=== PATIENT | female | born 1940 | race Caucasian/White ===

== ENCOUNTER 2022-12-12 12:35 | Emergency (ER) | payer OTHER ==
--- OUTSIDE RECORDS SUMMARY | 2022-12-12 12:43 | XMS REPORT | Continuity of Care Document ---
:1940 Author Organization [facility] t Address [address] [place] [address] Care Team Providers Name Role Phone Jasmina OLVERA, Coco Sahu Primary Care Physician Atilio Snider Attending Clinician Unavailable Britta Attending Clinician Unavailable Daniel_Calvin Attending Clinician Unavailable Mathbridget_E_WACHERELLENU Attending Clinician Unavailable Ernestoren_Rissa Attending Clinician Unavailable Nworji_O_WAG Attending Clinician Unavailable Abreu_A Attending Clinician Unavailable Atilio Snider Admitting Clinician Unavailable Physician, No Primary or Family Admitting Clinician Unavaila ble Britta Admitting Clinician Unavailable Daniel_T Admitting Clinician Unavailable Chema_E_GEMININU Admitting Clinician Unavailable Ernestoren_C Admitting Clinician Unavailable Nworji_O_WAG Admitting Clinician Unavailable Abreu_A Admitting Clinician Unavailable Payers Payer Name Policy Type Policy Number Effective Date Expiration Date Edith SIEGEL (MEDICARE [id number] 2021 REPLACEMENT PPO) 00:00:00 TRANSACT RX (MOVED #[id number] HOLD) Problems Condition Condition Condition Status Onset Resolution Last Treating Co mments Source Name Details Category Date Date Treatment Clinician Date Hypoglycem Hypoglycem Problem Active [facility] ia ia 5-23 Family 00:00: Practic 00 e Body mass Body Mass Problem Active [facility] borrego index Index 5-23 Family 25-29 - 25-29 - 00:00: Practic overweight Overweight 00 e Generalize Generalize Problem Active [facility] d anxiety d Anxiety 5-19 Fami ly disorder Disorder 00:00: Practi c 00 e Chronic Chronic Problem Active [facility] kidney Kidney 3-05 Family disease Disease 00:00: Practic stage 3A Stage 3a 00 e Diverticul Diverticul Problem Active [facility] itis itis 6-15 Family 00:00: Practic 00 e Arthritis Arthritis Problem Active [facility] wyatte 6-15 Family 00:00: Practic 00 e History of History of Problem Active [facility] fall Fall 6-15 Family 00:00: Practic 00 e Candidiasi Candidiasi Problem Active [facility] s of mouth s of Mouth 5-11 Fa reid 00:00: Practic 00 e Gastroesop Gastroesop Problem Active [facility] hageal hageal 4-29 Family reflux Reflux 00:00: Practic disease Disease 00 e Gastritis Gastritis Problem Active [facility] [place] 4-29 Family 00:00: Practic 00 e History of History of Problem Active [facility] hernia Hernia 2-27 Family repair Repair 00:00: Practic 00 e Senile Senile Problem Active [facility] purpura Purpura 2-24 Family 00:00: Practic 00 e Peripheral Peripheral Problem Active [facility] vascular Vascular 2-24 Family disease Disease 00:00: Practic 00 e Hernia, Hernia, Disease Active [facility] hiatal hiatal [facility] 00:00: Hospita 00 l 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 LFT FEMUR LFT FEMUR Diagnosis Active 2012-052013-02-21 Memoria FX FX Active 0 21:48:00 l 02/10/2013 00:00: Genaro wilson [address] FALL FALL Diagnosis Active 2012-052013-02-10 Mem oria Active 0 21:41:00 l 02/10/2013 00:00: Genaro wilson [address] FX FEMUR FX FEMUR Diagnosis Active 2013-02-21 Memoria NOS-CLOSED NOS-CLOSED 21:48:00 l Active [facility] Hyperlipid Hyperlipid Problem Active [facility] e Hypertensi Hypertensi Problem Active [facility] ve ve Family disorder Disorder Practi c e Closed Closed Problem Active [place] fracture Fracture Family of femur of Femur Practi c e Allergies, Adverse Reactions, Alerts Allergy Allergy Status Severity Reaction(s) Onset Inactive Treating Comm ents Source Name Type Date Date Clinician celecoxi DA Active U 2019-0 [facility] [place] 00:[facility]: e 00 [facility] celecoxi DA Active [facility]KNOWN [facility] Celecoxi Propensi Active Rash [facility] i b ty to 30 st adverse 00:00: Hospita reaction 00 l s to drug No Known DA Active U [facility] Allergie 9-08 [place] [facility] 00:[facility]: e 00 [facility] No Known DA Active U [facility] Allergie 9-08 [place] 00:00: e 00 [facility] No Known DA Active U [facility] Drug 6-15 [place] [facility] 00:00: e nces 00 [facility] Celebrex Allergy Active [facility] sub[facility]anc Practic e e Ansaid Allergy Active [place] [facility] Family substanc Practic e e Family History Family Member Diagnosis Comments Start Date Stop Date Source Natural father Diabetes [facility] Natural [facility] Social History Social Habit Start Date Stop Date Quantity Comments Source Gender identity [facility] Alcohol intake 2019-06-05 2019-06-05 Current [facility] 00:00:00 00:00:00 non-drinker of Hospital alcohol (finding) History of Social 2019-05-26 2019-05-[address] function 00:00:00 00:00:00 Hospital Tobacco use and 2017-02-08 2017-02-08 Smokeless [facility] exposure 00:00:00 00:00:00 tobacco non-user Hospital Sex Ass[birth year] At [birth year] [facility] 00:00:00 00:00:00 Hospital Smoking Status Start Date Stop Date Source Never smoked tobacco [facility] Medications Ordered Filled Start Stop Current Ordering Indication Dosage Frequency Signature Comments Components Source Medication Medication Date Date Medication? Clinician (SIG) Name Name amlodipine- 2020-0 Yes 1{capsu QD Take 1 M ethodi benazepril 1-30 le} capsule by st (LOTREL) 12:59: mouth Hospita 10-20 mg 11 daily. l per capsule metoprolol 2020-0 Yes 100mg QD Take 100 Me thodi succinate 1-[address] XL 12:59: mouth Hospita (TOPROL-XL) 11 daily. l 100 mg 24 hr tablet aspirin 2020-0 Yes 81mg QD Take 81 mg Meth michelle (ECOTRIN) 1-[address] 81 MG 12:59: daily. Hospita enteric 11 l coated tablet atorvastati 2020-0 Yes 10mg QD Take 10 mg Methodi n (LIPITOR) 1-[address] 10 MG 12:59: daily. Hospita tablet 11 l ergocalcife 2020-0 Yes [id number] Q7D Take Meth michelle rol 1-[address] (VITAMIN 12:59: Units by Hospi ta D2) 50,000 11 mouth once l unit a week. capsule sodium 2020-0 Yes 1[drp] Administer Met hodi chloride 1-[address] (GERMAIN 128) 12:59: into the Hos reina 5 % 11 left eye l ophthalmic as needed. solution omeprazole 2020-0 Yes 40mg QD Take 40 mg M ethodi (PriLOSEC) 1-[address] 20 MG 12:59: daily. Hospita capsule 11 l cranberry 2020-0 Yes Take by Metho di 500 mg 1-[address] capsule 12:59: Hospita 11 l prednisoLON 2020-0 Yes 1[drp] QD Administer Methodi E acetate 1-[address] (PRED 12:59: the right Hospita FORTE) 1 % 11 eye daily. l ophthalmic suspension metoprolol 2012-05 No Cary 25 mg, 1 M emoria tartrate 0-28 Stein tab, l 23:55: Route: PO, Drug form: TAB, ONCE, Dosing Weight 86.364, kg, Start date: 03/03/13 18:55:00, Stop date: 03/03/13 18:55:00(S deann as: Lopressor) acetaminoph 2012-05 No Sara 1,000 mg, Memoria en-10 mg/mL 0- Stevens 100 mL, l INTRAVENOUS 22:37: Route: IV, solution Drug form: INJ, ONCE, Dosing Weight 86.364, kg, PRN Pain Score 4-6, Start date: 03/03/13 17:37:00, Duration: 1 doses or times, Stop date: Limited # of times, Infuse over 15 minutes (for patient weight 50 kg or greater)In fuse over 15 minutes (for patient weight 50 kg or greater)In fuse over 15 minutes Do not exceed 4gm/day of acetaminop hen enalapril 2012-05 No Sara 0.625 mg, M emoria 0-28 Stevens 0.5 mL, l 22:37: Route: IVP, Drug form: INJ, Q5Min, Dosing Weight 86.364, kg, PRN Elevated BP, Start date: 03/03/13 17:37:00, Duration: 4 doses or times, Stop date: 03/04/13 0:00:00([facility] as: Vasotec-IV ) labetalol 2012-05 No Sara 5 mg, 1 Mem oria 0-28 Stevens mL, Route: l 22:37: IVP, Drug form: INJ, Q5Min, Dosing Weight 86.364, kg, PRN Elevated BP, Start date: 03/03/13 17:37:00, Duration: 5 doses or times, Stop date: 03/04/13 0:00:00 naloxone 2012-05 No Sara 0.04 mg, Mem oria 0-28 Stevens 0.1 mL, l 22:37: Route: IVP, Drug form: INJ, Q2MIN, Dosing Weight 86.364, kg, PRN Narcotic Reversal, Start date: 03/03/13 17:37:00, Duration: 8 doses or times, Stop date: 03/04/13 0:00:00Sam e as Narcan flumazenil 2012-05 No Sara 0.2 mg, 2 Memoria 0-28 Stevens mL, Route: l 22:37: IVP, Drug Faisal 00 form: INJ, PRN, Dosing Weight 86.364, kg, PRN Benzodiaze pine Reversal, Initial dose, Start date: 03/03/13 17:37:00, Duration: 30 day, Stop date: 04/02/13 16:36:00(S deann as: Romazicon) Tylenol 325 2012-05 Yes Anam 325 mg, 1 Memoria mg oral 0-28 Edison tab, PO, l tablet 22:24: Eliazar Q4H, PRN, Her paez 02 60 tab, Pain, Substituti on Allowed Keflex 500 2012-05 Yes Anam 500 mg, 1 Memoria mg oral 0-28 Edison cap, PO, l capsule 22:23: Eliazar QID, 28 Herm nila 32 cap, Substituti on Allowed, CAP omeprazole 2012-05 Yes 20 mg, 1 Mem oria 20 mg oral 0-28 tab, PO, l enteric 18:30: BID, 120 Genaro n coated 48 tab, tablet Substituti on Allowed, ECTAB warfarin 2012-05 No Zari H 5 mg, 1 Mich ana 0-14 Khraish tab, l 22:00: Route: PO, Drug form: TAB, ONCE, Dosing Weight 98.182, kg, Start date: 02/17/13 17:00:00, Stop date: 02/17/13 17:00:00Nu rse to ensure documentat ion of patient education per anticoagul ation policy. Avoid large intake of vitamin-K containing foods diet. (Same As: Coumadin) warfarin 5 2012-05 Yes Zari H 5 mg, 1 Me moria mg oral 0-14 Khraish tab, PO, l tablet 19:55: Q5PM, 30 [place] 24 tab, Substituti on Allowed, TAB enoxaparin 2012-05 Yes Zari H 100 mg, 1 Memoria 100 mg/mL 0-14 Khraish mL, SUB-Q, l subcutaneou 19:55: [id number], H ermann s solution 06 > 2 month; Treatment dose; Pediatric Dosing, 10 doses or times, Substituti on Allowed, INJ 2 month; Treatment dose; Pediatric Dosing Coumadin 2012-05 No Belgin 5 mg, 1 Mich ana 0-13 Camcioglu tab, l 22:00: Route: PO, Faisal 00 Drug form: TAB, Q5PM, Dosing Weight 98.182, kg, Start date: 02/16/13 17:00:00, Duration: 1 doses or times, Stop date: 02/17/13 16:59:00 glycerin 2012-05 No Zari H 1 supp, Mich ana adult 0-12 Khraish Route: AL, l rectal 22:16: Drug Form: Janelle nn suppository 00 SUPP, Dosing Weight 98.182, kg, PRN, PRN Constipati on, Start date: 02/15/13 17:16:00, Duration: 30 day, Stop date: 03/17/13 16:15:00 warfarin 2012-05 No Zari H 5 mg, 1 Mich ana 0-12 Khraish tab, l 22:00: Route: PO, Drug form: TAB, Q5PM, Dosing Weight 98.182, kg, Start date: 02/15/13 17:00:00, Duration: 1 doses or times, Stop date: 02/15/13 17:00:00Nu rse to ensure documentat ion of patient education per [facility] policy. Avoid large intake of vitamin-K containing foods diet. (Same As: Coumadin) potassium 2012-05 No Zari H 10 mEq, 50 Memoria chloride 0-12 Khraish mL, Route: l 20:59: IVPB, Drug form: INJ, ONCE, Dosing Weight 98.182, kg, Start date: 02/15/13 15:59:00, Stop date: 02/15/13 15:59:00 NS 0.45% IV 2012-05 No [place] 1,000 mL, Memoria 1,000 mL 0-12 Camcioglu Rate: 40 l 20:57: ml/hr, Infuse over: 25 hr, Route: IV, Dosing Weight 98.182 kg, Total Volume: 1,000, Start date: 02/15/13 15:57:00, Duration: 30 day, Stop date: 03/17/13 15:56:00 lactulose 2012-05 No Zari H 30 gm, 45 M emoria 0-12 Khraish mL, Route: l 20:51: PO, Drug [place] 00 Form: SYRP, Dosing Weight 98.182, kg, QID, PRN Constipati on, Start date: 02/15/13 15:51:00, Duration: 30 day, Stop date: 03/17/13 15:50:00 Tums 2012-05 No Zari H 1,250 mg, Memori a 0-12 Khraish 2.5 tab, l 18:00: Route: PO, [place] 00 Drug form: CHEWTAB, TID, Dosing Weight 98.182, kg, Start date: 02/15/13 13:00:00, Duration: 30 day, Stop date: 03/17/13 9:00:00 lactulose 2012-05 No Zari H 10 gm, 15 M emoria 0-12 Khraish mL, Route: l 15:50: PO, Drug Form: SYRP, Dosing Weight 98.182, kg, ONCE, Start date: 02/15/13 10:50:00, Stop date: 02/15/13 10:50:00 Lovenox 2012-05 No Zari H 100 mg, 1 Mem oria 0-12 Khraish mL, Route: l 15:00: SUB-Q, Faisal 00 Drug form: INJ, [id number], Dosing Weight 98.182, kg, Start date: 02/15/13 10:00:00, Duration: 30 day, Stop date: 03/16/13 22:00:00, > 2 month; Treatment dose; Pediatric Dosing 2 month; Treatment dose; Pediatric DosingNurs e to ensure documentat ion of patient education per [facility] ation policy. (Same as: Lovenox) calcium 2012-05 No Aj Leo 2,000 mg, Memoria gluconate + 0-12 Bayonne Jr 20 mL, l Sodium 10:40: Route: [place] Chloride 00 IVPB, 0.9% IV 80 ONCE, mL Dosing Weight 98.182, kg, Start date: 02/15/13 5:40:00, Stop date: 02/15/13 5:40:00 acetaminoph 2012-05 No Zari H 650 mg, 2 Memoria en 0-11 Khraish tab, l 18:11: Route: PO, Faisal 00 Drug form: TAB, Q6H, Dosing Weight 98.182, kg, PRN Fever, Start date: 02/14/13 13:11:00, Duration: 30 day, Stop date: 03/16/13 13:10:00Do not exceed 4 gm/day. (Same as: Tylenol) metoprolol 2012-05 No Zari H 50 mg, 1 M emoria tartrate 0-11 Khraish tab, l 02:00: Route: PO, [place] 00 Drug form: TAB, Q12H, Dosing Weight 83.182, kg, Start date: 02/13/13 21:00:00, Duration: 30 day, Stop date: 03/15/13 9:00:00(Sa md as: Lopressor) heparin 2012-05 Rachelle Leo Route: Mem oria 0-11 Anish Jr IVP, PRN, l 01:17: 5,800 Faisal 00 unit, 5.8 mL, Drug form: INJ, PRN, Heparin Protocol, Start date: 02/13/13 20:17:00 Stop date: 03/15/13 19:16:00, 30 day Heparin - 2012-05 Rachelle Leo 5,800 Me moria one time 0-11 Anish Jr unit, 5.8 l bolus for 01:17: mL, Route: rmann DVT/PE 00 IV, Drug form: INJ, ONCE, Dosing Weight 83.182, kg, Priority: STAT, Start date: 02/13/13 20:17:00, Stop date: 02/13/13 20:17:00 heparin 2012-05 No Zari H 500 mL, Memor ia additive 0-11 Khraish Rate: l 25,000 unit 01:17: 25.96 Janelle nn [18 00 ml/hr, unit/kg/hr] Infuse + Premix over: 19.3 Diluent hr, Route: Dextrose 5% IV, Dosing 500 mL Weight 72.1 kg, Total Volume: 500 mL, Start date: 02/13/13 20:17:00, Duration: 30 day, Stop date: 03/15/13 20:16:00 Omnipaque 2012-05 No Zari H 95 mL, Mich ana 350mg/ml 0-10 Khraish Route: l 21:50: IVP, Drug Form: SOLN, Dosing Weight 83.182, kg, ONCALL, STAT, Start date: 02/13/13 16:50:00, Duration: 1 doses or times, Stop date: 02/14/13 0:00:00, Dose = 2.2ml/kg, Max dose = 100ml -- "To be infused by Radiology Staff ONLY"Dose = 2.2ml/kg, Max dose = 100ml -- "To be infused by Radiology Staff ONLY"(Same as:Omnipaq ue 350). NS 1,000 mL 2012-05 No Zari H 1,000 mL, Memoria 0-10 Khraish Rate: 75 l 21:48: ml/hr, Infuse over: 13.3 hr, Route: IV, Dosing Weight 83.182 kg, Total Volume: 1,000, Start date: 02/13/13 16:48:00, Duration: 30 day, Stop date: 03/15/13 16:47:00 Phenergan 2012-05 No Zari H 12.5 mg, Me moria 0-10 Khraish 0.5 mL, l 17:09: Route: IVPB, Drug form: INJ, Q4H, Dosing Weight 83.182, kg, PRN Nausea & Vomiting, Start date: 02/13/13 12:09:00, Duration: 30 day, Stop date: 03/15/13 12:08:00Do not give IV push. (Same as: Phenergan) benzocaine- 2012-05 No Aj Leo 1 lozenge, Memoria menthol 0-10 Anish Route: l topical 04:43: MUCOUS MEM, Drug Form: KIRIT, Q2H, PRN Sore Throat, Start date: 02/12/13 23:43:00, Duration: 30 day, Stop date: 03/14/13 23:42:00Ce pacol lozenges (Same As: Cepacol Lozenges) Cepacol 2012-05 No Aj Ahmet 1 lozenge, Memoria Lozenge 0-10 [facility] Route: l 02:06: MUCOUS [place] 00 MEM, Q2H, Drug form: KIRIT, PRN Sore Throat, Start date: 02/12/13 21:06:00, Duration: 30 day, Stop date: 03/14/13 21:05:00Ce pacol lozenges (Same As: Cepacol Lozenges) [place] 2012-05 No Zari H 1 tab, Memoria 10/325 oral 0-09 Khraish Route: PO, l tablet 17:00: Drug Form: Janelle nn 00 TAB, Dosing Weight 83.182, kg, Q6H, Start date: 02/12/13 12:00:00, Duration: 30 day, Stop date: 03/14/13 6:00:00Do not exceed 4gm/day of acetaminop hen. (Same as: [place] 325/10) Zofran 2012-05 No [place] 4 mg, 2 Memoria 0-09 Marcelino mL, Route: l 14:03: Nesrsta IV, Drug Genaro n 00 form: INJ, Q6H, Dosing Weight 83.182, kg, PRN Nausea, Start date: 02/12/13 9:03:00, Duration: 30 day, Stop date: 03/14/13 9:02:00(Sa me as: Zofran) [place] 2012-05 No Lowell 1 tab, Memoria 10/325 oral 0-09 Marcelino Route: PO, l tablet 14:02: Nesrsta Drug Form: He rmann 00 TAB, Dosing Weight 83.182, kg, Q4H, PRN Pain, Start date: 02/12/13 9:02:00, Duration: 30 day, Stop date: 03/14/13 9:01:00Do not exceed 4gm/day of acetaminop hen. (Same as: [place] 325/10) pneumococca 2012-05 No SYSTEM 0.5 ml, M emoria l 23-valent 0-09 SYSTEM Route: IM, l vaccine 14:00: Drug Form: Herm nila 00 INJ, Start date: 02/12/13 9:00:00, Stop date: 02/12/13 9:00:00 tramadol 50 2012-05 No Zari H 50 mg, 1 Memoria mg oral 0-09 Khraish tab, l tablet 05:00: Route: PO, Janelle nn 00 Drug form: TAB, Q8H, Dosing Weight 83.182, kg, Start date: 02/12/13 0:00:00, Duration: 30 day, Stop date: 03/13/13 16:00:00No t to exceed 400mg/day. (Same As: Ultram) senna 2012-05 No Sara 17.2 mg, 2 Mem oria 0-09 Kerry tab, l 02:00: [place] Route: PO, Her paez 00 Drug Form: TAB, Dosing Weight 83.182, kg, Bedtime, Start date: 02/11/13 21:00:00, Duration: 30 day, Stop date: 03/12/13 21:00:00 cefazolin + 2012-05 No Conor 2 gm, M emoria Sodium 0-09 Newcomer Route: l Chloride 01:00: Rc IVPB, Drug Faisal 0.9% IV 100 00 form: mL PDR/INJ, ABXQ8H, Start date: 02/11/13 20:00:00, Duration: 1 day, Stop date: 02/12/13 12:00:00(S deann As: Ancef, Kefzol) Tylenol 2012-05 No [place] 325 mg, 1 Memor ia 0-08 Marcelino tab, l 23:00: Nesrsta Route: PO, Herm nila 00 Drug form: TAB, Q6H, Dosing Weight 83.182, kg, Start date: 02/11/13 18:00:00, Duration: 30 day, Stop date: 03/13/13 12:00:00Do not exceed 4 gm/day. (Same as: Tylenol) Protonix 2012-05 No Preston 40 mg, 1 Mem oria 0-08 William tab, l 21:30: Ahmed Route: PO, Genaro n 00 Drug form: ECTAB, Before Dinner, Start date: 02/11/13 16:30:00, Duration: 30 day, Stop date: 03/12/13 16:30:00Ta blet should not be chewed or crushed. (Same as: Protonix) Clear eyes 2012-05 Yes Clear eyes M emoria ophthalmic 0-08 ophthalmic l solution 21:06: solution, Herm nila 37 PRN, Substituti on Allowed Germain 128 5% 2012-05 Yes PRN, Memori a ophthalmic 0-08 Substitute l solution 21:05: Allowed Genaro n 33 multivitami 2012-05 Yes 1 tab, PO, Memoria n 0-08 Daily, l 21:04: Substituti Faisal 10 on Allowed, Maintenanc e Ancef 2012-05 No Conor 2 gm, Memoria 0-08 Newcomer Route: l 20:00: Rc IVPB, [place] 00 ABXQ8H, Dosing Weight 83.182, kg, Start date: 02/11/13 15:00:00, Duration: 1 day, Stop date: 02/12/13 7:00:00 influenza 2012-05 No SYSTEM 0.5 mL, Mem oria virus 0-08 SYSTEM Route: IM, l vaccine, 14:00: Drug Form: Her paez inactivated 00 SUSP, Start date: 02/11/13 9:00:00, Stop date: 02/11/13 9:00:00 senna 2012-05 No Sara 17.2 mg, 2 Mem oria 0-08 Kerry tab, l 14:00: [place] Route: PO, Her paez 00 Drug Form: TAB, Dosing Weight 83.182, kg, Daily, Start date: 02/11/13 9:00:00, Duration: 30 day, Stop date: 03/12/13 9:00:00([facility] as: Senokot) benazepril 2012-05 No Sara 20 mg, Me moria 0-08 Kerry Route: PO, l 14:00: [place]ner Drug form: Her paez 00 TAB, Daily, Dosing Weight 83.182, kg, Start date: 02/11/13 9:00:00, Duration: 30 day, Stop date: 03/12/13 9:00:00 Prinivil 2012-05 No Zari H 20 mg, 1 Mem oria 0-08 Khraish tab, l 14:00: Route: PO, [place] 00 Drug form: TAB, Daily, Start date: 02/11/13 9:00:00, Duration: 30 day, Stop date: 03/12/13 9:00:00 metoprolol 2012-05 No Zari H 50 mg, 1 M emoria tartrate 0-08 Khraish tab, l 14:00: Route: PO, Drug form: TAB, Q12H, Dosing Weight 83.182, kg, Start date: 02/11/13 9:00:00, Duration: 30 day, Stop date: 03/12/13 21:00:00 Lovenox 2012-05 No Aj Ahmet 30 mg, 0.3 Memoria 0-08 Bayonne Jr mL, Route: l 14:00: SUB-Q, Drug form: INJ, Q12H, Dosing Weight 83.182, kg, Start date: 02/11/13 9:00:00, Duration: 30 day, Stop date: 03/12/13 21:00:00(S deann as: Lovenox) amLODipine 2012-05 No Zari H 5 mg, 1 Me moria 0-08 Khraish tab, l 14:00: Route: PO, Drug form: TAB, Daily, Dosing Weight 83.182, kg, Start date: 02/11/13 9:00:00, Duration: 30 day, Stop date: 03/12/13 9:00:00(Sa me as: Norvasc) Toprol-XL 2012-05 No Sara 100 mg, 1 Memoria 100 mg oral 0-08 Kerry tab, l tablet, 14:00: [place]ner Route: PO, extended Drug form: release ERTAB, Daily, Start date: 02/11/13 9:00:00, Duration: 30 day, Stop date: 03/12/13 9:00:00(Sa me as: Toprol XL) May split tab, but do not crush. Zetia 2012-05 No Zari H 10 mg, 1 Memori a 0-08 Khraish tab, l 14:00: Route: PO, Drug form: TAB, Daily, Dosing Weight 83.182, kg, Start date: 02/11/13 9:00:00, Duration: 30 day, Stop date: 03/12/13 9:00:00(Sa me as: Zetia) Nexium 2012-05 No Preston 40 mg, Memoria 0-08 William Route: PO, l 14:00: Ahmed Drug form: Genaro n 00 ECCAP, Daily, Dosing Weight 83.182, kg, Start date: 02/11/13 9:00:00, Duration: 30 day, Stop date: 03/12/13 9:00:00 magnesium 2012-05 No Sara 2 gm, 50 M emoria sulfate 0-08 Kerry mL, Route: l 13:00: P[place]ner IVPB, Drug Her paez 00 form: INJ, Q2H, Dosing Weight 83.182, kg, Total dose = 4 gm, Start date: 02/11/13 8:00:00, Duration: 2 doses or times, Stop date: 02/11/13 10:00:00 morphine 2012-05 No Lowell 2 mg, 1 Memori a Sulfate 0-08 Marcelino mL, Route: l 05:20: Nesrsta IVP, Drug Janelle nn 00 form: INJ, Q3H, Dosing Weight 83.182, kg, PRN Pain Score 4-6, Start date: 02/11/13 0:20:00, Duration: 30 day, Stop date: 03/13/13 0:19:00(Sa me as:MORPhin e Sulfate) docusate 2012-05 No Preston 100 mg, 1 Me moria 0-08 William cap, l 05:20: Ahmed Route: PO, Genaro n 00 Drug form: CAP, BID, Dosing Weight 83.182, kg, Start date: 02/11/13 0:20:00, Duration: 30 day, Stop date: 03/12/13 17:00:00(S deann as: Colace) (Do Not Crush) ondansetron 2012-05 No Lowell 4 mg, 2 Mem oria 0-08 Marcelino mL, Route: l 05:20: Nesrsta IVP, Drug Janelle nn 00 form: INJ, Q8H, Dosing Weight 83.182, kg, PRN Nausea & Vomiting, Start date: 02/11/13 0:20:00, Duration: 30 day, Stop date: 03/13/13 0:19:00(Sa me as: Zofran) acetaminoph 2012-05 No Lowell 1 tab, Mich ana en-hydrocod 0-08 Marcelino Route: PO, l one 325 05:20: Nesrsta Drug Form: H ermann mg-5 mg 00 TAB, oral tablet Dosing Weight 83.182, kg, Q4H, PRN Pain Score 1-3, Start date: 02/11/13 0:20:00, Duration: 30 day, Stop date: 03/13/13 0:19:00(Sa me as: [place] 325/5) Do not exceed 4gm/day of acetaminop hen. acetaminoph 2012-05 No Lowell 1 tab, Mich ana en-hydrocod 0-08 Marcelino Route: PO, l one 325 05:20: Nesrsta Drug Form: H ermann mg-10 mg 00 TAB, oral tablet Dosing Weight 83.182, kg, Q4H, PRN Pain Score 4-6, Start date: 02/11/13 0:20:00, Duration: 30 day, Stop date: 03/13/13 0:19:00Do not exceed 4gm/day of acetaminop hen. (Same as: [place] 325/10) aspirin 2012-05 No 81 mg, PO, Mich ana 0-08 Daily, l 05:15: Substituti [place] 57 on Allowed Nexium 40 2012-05 Yes Preston 40 mg, 1 Me moria mg oral 0-08 William cap, PO, l delayed 05:15: Ahmed Daily, 30 Herm nila release 50 cap, capsule Substituti on Allowed Zetia 10 mg 2012-05 Yes Preston 10 mg, 1 Memoria oral tablet 0-08 William tab, PO, l 05:15: Ahmed Daily, 30 Faisal 40 tab, Substituti on Allowed, TAB amlodipine- 2012-05 Yes 1 cap, PO, Memoria benazepril 0-08 Daily, 30 l 5 mg-20 mg 05:15: cap, Faisal oral 31 Substituti capsule on Allowed, Maintenanc e Toprol-XL 2012-05 Yes Preston 100 mg, 1 M emoria 100 mg oral 0-08 William tab, PO, l tablet, 05:15: Ahmed Daily, 30 Herm nila extended 19 tab, release Substituti on Allowed, ERTAB ondansetron 2012-05 No Irma L 4 mg, Memoria 0-08 Garett Route: l 05:11: IVP, Drug Faisal 00 form: INJ, ONCE, Dosing Weight 83.182, kg, Start date: 02/11/13 0:11:00, Stop date: 02/11/13 0:11:00 morphine 2012-05 No Irma L 4 mg, 1 M emoria Sulfate 0-08 [place] mL, Route: l 04:58: IVP, Drug form: INJ, ONCE, Dosing Weight 83.182, kg, Start date: 02/10/13 23:58:00, Stop date: 02/10/13 23:58:00(S deann as:MORPhin e Sulfate) fentanyl 2012-05 No Irma 25 Memori a 0-08 Lissy microgram, l 04:29: Rinaldi Route: Faisal 00 IVP, ONCE, Dosing Weight 83.182, kg, Priority: STAT, Start date: 02/10/13 23:29:00, Stop date: 02/10/13 23:29:00 fentanyl 2012-05 No Irma Tee 50 Mich ana 0-08 [place] microgram, l 03:30: 1 mL, Route: IVP, Drug form: INJ, ONCE, Dosing Weight 83.182, kg, Priority: STAT, Start date: 02/10/13 22:30:00, Stop date: 02/10/13 22:30:00(S deann as: Sublimaze) Preservati ve free. propofol 2012-05 No Irma L 100 mg, 10 Memoria 0-08 [place] mL, Route: l 03:29: IV, Drug form: SUSP, ONCE, Dosing Weight 83.182, kg, Start date: 02/10/13 22:29:00, Stop date: 02/10/13 22:29:00If Diprivan - change bottle & tubing every 12 hr Per state nursing law propofol can only be given by a nurse if patient is intubated or being intubated (unless the nurse is a CHOKE REAMER). Same as: Diprivan fentanyl 2012-05 No Irma L 25 [place] ana 0-08 [place] microgram, l 02:39: Route: [place] 00 IVP, ONCE, Dosing Weight 83.182, kg, Priority: STAT, Start date: 02/10/13 21:39:00, Stop date: 02/10/13 21:39:00 fentanyl 2012-05 No Irma L 50 Mich ana 0-08 [place] microgram, l 02:04: 1 mL, Route: IVP, Drug form: INJ, ONCE, Dosing Weight 83.182, kg, Priority: STAT, Start date: 02/10/13 21:04:00, Stop date: 02/10/13 21:04:00(S deann as: Sublimaze) Preservati ve free. Zofran 2012-05 No Irma L 4 mg, 2 Mem oria 0-08 Garett mL, Route: l 02:04: IVP, Drug form: INJ, ONCE, Dosing Weight 83.182, kg, Priority: STAT, Start date: 02/10/13 21:04:00, Stop date: 02/10/13 21:04:00(S deann as: Zofran) Lactated 2012-05 No Zari H 1,000 mL, Me moria Ringers IV 0-08 Khraish Rate: 125 l 1,000 mL 01:59: ml/hr, Infuse over: 8 hr, Route: IV, Dosing Weight 83.182 kg, Total Volume: 1,000, Start date: 02/10/13 20:59:00, Duration: 30 day, Stop date: 03/12/13 20:58:00 amlodipine amlodipine No amlodipine [facility] 5 mg tablet 5 mg tablet 5 mg F amily TAKE 1 AND TAKE 1 AND tablet P ractic 1/2 TABLET 1/2 TABLET TAKE 1 AND e BY MOUTH BY MOUTH 1/2 TABLET DAILY DAILY BY MOUTH DAILY aspirin 81 aspirin 81 No 1 Q1D aspirin 81 Village mg mg mg Family tablet,heidy tablet,heidy tablet,del Practic yed release yed release ayed e Take 1 Take 1 release tablet tablet Take 1 every day every day tablet by oral by oral every day route. route. by oral route. atorvastati atorvastati No atorvastat [facility] n 10 mg n 10 mg in 10 mg Famil y tablet TAKE tablet TAKE tablet Practic 1 TABLET BY 1 TABLET BY TAKE 1 e MOUTH EVERY MOUTH EVERY TABLET BY DAY DAY MOUTH EVERY DAY hydralazine hydralazine No hydralazin [facility] 25 mg 25 mg e 25 mg Family tablet TAKE tablet TAKE tablet Practic 1 TABLET BY 1 TABLET BY TAKE 1 e MOUTH TWICE MOUTH TWICE TABLET BY A DAY WITH A DAY WITH MOUTH FOOD FOOD TWICE A DAY WITH FOOD melatonin melatonin No melatonin Village take 1 take 1 take 1 Family tablet tablet tablet Practic every day every day every day e metoprolol metoprolol No metoprolol [facility] succinate succinate succinate Family ER 100 mg ER 100 mg ER 100 mg Practic tablet,exte tablet,exte tablet,ext e nded nded ended release 24 release 24 release 24 hr TAKE 1 hr TAKE 1 hr TAKE 1 TABLET BY TABLET BY TABLET BY MOUTH EVERY MOUTH EVERY MOUTH DAY DAY EVERY DAY nitroglycer nitroglycer nitroglyce [facility] in 0.4 mg in 0.4 mg rin 0.4 mg Family sublingual sublingual sublingual Practic tablet tablet tablet e PLEASE SEE PLEASE SEE PLEASE SEE ATTACHED ATTACHED ATTACHED FOR FOR FOR DETAILED DETAILED DETAILED DIRECTIONS DIRECTIONS DIRECTIONS OneTouch OneTouch No 2strip( Q1D OneTouch [facility] Verio test Verio test s) Verio test Family strips Take strips Take strips Practic 2 strips 2 strips Take 2 e every day every day strips by miscell. by miscell. every day route for route for by 90 days. 90 days. miscell. route for 90 days. Prilosec 40 Prilosec 40 No 1capsul Q1D Prilosec [facility] mg mg e(s) 40 mg Family capsule,del capsule,del capsule,de Practic ayed ayed layed e release release release Take 1 Take 1 Take 1 capsule capsule capsule every day every day every day by oral by oral by oral route as route as route as needed. needed. needed. Tylenol Tylenol No Tylenol Villag e Extra Extra Extra Family Strength Strength Strength Pra ctic take 1 take 1 take 1 e tablet tablet tablet every day every day every day Immunizations Ordered Immunization Filled Immunization Date Status Commen ts Source Name Name influenza, influenza, 2021-01-31 Completed [facility] high-dose, high-dose, 00:00:00 Family quadrivalent quadrivalent Practice COVID-19, mRNA, COVID-19, mRNA, 2020-08-13 Completed Vill age LNP-S, PF, 100 LNP-S, PF, 100 00:00:00 Family mcg/0.5 mL dose mcg/0.5 mL dose Prac emmanuel (Moderna) (Moderna) COVID-19, mRNA, COVID-19, mRNA, 2020-07-16 Completed Vill age LNP-S, PF, 100 LNP-S, PF, 100 00:00:00 Family mcg/0.5 mL dose mcg/0.5 mL dose Prac emmanuel (Moderna) (Moderna) influenza, influenza, 2019-12-15 Completed [facility] injectable, injectable, 00:00:00 Family quadrivalent quadrivalent Practice influenza, high dose influenza, high dose 2019-02-19 Completed [facility] seasonal seasonal 16:00:00 Family Practice pneumococcal pneumococcal 2018-12-10 Completed [facility] polysaccharide PPV23 polysaccharide PPV23 15:02:33 Family Practice zoster recombinant zoster recombinant 2018-04-10 Completed [facility] 14:01:00 Family Practice influenza, high dose influenza, high dose 2018-01-14 Completed [facility] seasonal seasonal 17:56:42 Family Practice zoster recombinant zoster recombinant 2017-10-12 Completed [facility] 17:44:57 Family Practice pneumococcal pneumococcal 2017-10-12 Completed [facility] conjugate PCV 13 conjugate PCV 13 [facility]:41[facility], influenza, 2017-01-05 Completed [facility] unspecified unspecified 00:00:00 Family formulation formulation Practice pneumococcal, pneumococcal, 2014-12-31 Completed [facility] unspecified unspecified 00:00:00 Family formulation formulation Practice pneumococcal 2013-02-13 Completed [facility] 23-valent vaccine 15:20:00 Faisal influenza virus 2013-02-11 Completed [facility] vaccine, inactivated 13:59:00 Herm nila zoster recombinant zoster recombinant Unknown Completed [facility] Vital Signs Vital Name Observation Time Observation Value Comments Source BP Diastolic 2021-09-26 00:00:00 82 mm[Hg] [facility] Height 2021-09-26 00:00:00 62 [in_i] [facility] BMI (Body Mass Index) 2021-09-26 00:00:00 26.3 kg/m2 [facility] BP Systolic 2021-09-26 00:00:00 181 mm[Hg] [facility] Body Weight 2021-09-26 00:00:00 144 [lb_av] [facility] Height 2020-12-31 00:00:00 62 [in_i] [facility] Height 2020-11-03 00:00:00 62 [in_i] [facility] BMI (Body Mass Index) 2020-11-03 00:00:00 26.4 kg/m2 [facility] Body Weight 2020-11-03 00:00:00 144.2 [lb_av] [facility] BP Diastolic 2020-10-26 00:00:00 72 mm[Hg] [facility] Height 2020-10-26 00:00:00 62 [in_i] [facility] BMI (Body Mass Index) 2020-10-26 00:00:00 26.4 kg/m2 [facility] BP Systolic 2020-10-26 00:00:00 160 mm[Hg] [facility] Body Weight 2020-10-26 00:00:00 144.2 [lb_av] [facility] BP Diastolic 2020-07-27 00:00:00 83 mm[Hg] [facility] Height 2020-07-27 00:00:00 62 [in_i] [facility] BMI (Body Mass Index) 2020-07-27 00:00:00 26.9 kg/m2 [facility] BP Systolic 2020-07-27 00:00:00 179 mm[Hg] [facility] Body Weight 2020-07-27 00:00:00 147 [lb_av] [facility] BP Diastolic 2020-05-19 00:00:00 80 mm[Hg] [facility] Height 2020-05-19 00:00:00 62 [in_i] [facility] BMI (Body Mass Index) 2020-05-19 00:00:00 28 kg/m2 [facility] BP Systolic 2020-05-19 00:00:00 138 mm[Hg] [facility] Body Weight 2020-05-19 00:00:00 153 [lb_av] [facility] BP Diastolic 2020-03-09 00:00:00 82 mm[Hg] [facility] Height 2020-03-09 00:00:00 62 [in_i] [facility] BMI (Body Mass Index) 2020-03-09 00:00:00 28.5 kg/m2 [facility] BP Systolic 2020-03-09 00:00:00 186 mm[Hg] [facility] Body Weight 2020-03-09 00:00:00 156 [lb_av] [facility] BP Diastolic 2020-01-14 00:00:00 89 mm[Hg] [facility] Height 2020-01-14 00:00:00 62 [in_i] [facility] BMI (Body Mass Index) 2020-01-14 00:00:00 28.2 kg/m2 [facility] BP Systolic 2020-01-14 00:00:00 174 mm[Hg] [facility] Body Weight 2020-01-14 00:00:00 154.4 [lb_av] [facility] BP Diastolic 2019-12-08 00:00:00 74 mm[Hg] [facility] Height 2019-12-08 00:00:00 62 [in_i] [facility] BP Systolic 2019-12-08 00:00:00 103 mm[Hg] [facility] BP Diastolic 2019-09-11 00:00:00 70 mm[Hg] [facility] Height 2019-09-11 00:00:00 62 [in_i] [facility] BMI (Body Mass Index) 2019-09-11 00:00:00 29.4 kg/m2 [facility] BP Systolic 2019-09-11 00:00:00 112 mm[Hg] [facility] Body Weight 2019-09-11 00:00:00 161 [lb_av] [facility] Height 2019-08-26 00:00:00 62 [in_i] [facility] BP Diastolic 2019-06-30 00:00:00 86 mm[Hg] [facility] Height 2019-06-30 00:00:00 62 [in_i] [facility] BMI (Body Mass Index) 2019-06-30 00:00:00 29.5 kg/m2 [facility] BP Systolic 2019-06-30 00:00:00 152 mm[Hg] [facility] Body Weight 2019-06-30 00:00:00 161.2 [lb_av] [facility] BP Diastolic 2019-06-16 00:00:00 96 mm[Hg] [facility] Height 2019-06-16 00:00:00 62 [in_i] [facility] BMI (Body Mass Index) 2019-06-16 00:00:00 30.1 kg/m2 [facility] BP Systolic 2019-06-16 00:00:00 162 mm[Hg] [facility] Body Weight 2019-06-16 00:00:00 164.4 [lb_av] [facility] BP Diastolic 2019-02-19 00:00:00 84 mm[Hg] [facility] Height 2019-02-19 00:00:00 62 [in_i] [facility] BMI (Body Mass Index) 2019-02-19 00:00:00 28.9 kg/m2 [facility] BP Systolic 2019-02-19 00:00:00 124 mm[Hg] [facility] Body Weight 2019-02-19 00:00:00 158 [lb_av] [facility] BP Diastolic 2018-12-10 00:00:00 96 mm[Hg] [facility] Height 2018-12-10 00:00:00 62 [in_i] [facility] BMI (Body Mass Index) 2018-12-10 00:00:00 29.4 kg/m2 [facility] BP Systolic 2018-12-10 00:00:00 160 mm[Hg] [facility] Body Weight 2018-12-10 00:00:00 161 [lb_av] [facility] BP Diastolic 2018-08-16 00:00:00 88 mm[Hg] [facility] Height 2018-08-16 00:00:00 62 [in_i] [facility] BMI (Body Mass Index) 2018-08-16 00:00:00 29.3 kg/m2 [facility] BP Systolic 2018-08-16 00:00:00 138 mm[Hg] [facility] Body Weight 2018-08-16 00:00:00 160 [lb_av] [facility] BP Diastolic 2018-06-03 00:00:00 80 mm[Hg] [facility] Height 2018-06-03 00:00:00 62 [in_i] [facility] BMI (Body Mass Index) 2018-06-03 00:00:00 29.3 kg/m2 [facility] BP Systolic 2018-06-03 00:00:00 120 mm[Hg] [facility] Body Weight 2018-06-03 00:00:00 160.4 [lb_av] [facility] Systolic (mm Hg) 2013-03-04 00:05:00 Mich rial [place] Diastolic (mm Hg) 2013-03-04 00:05:00 Mem o[facility] [place] Diastolic (mm Hg) 2013-03-03 23:13:00 Mem [facility] [place] Systolic (mm Hg) 2013-03-03 23:13:00 Mich rial [place] Respitory Rate 2013-03-03 23:13:00 Memori al [place] Heart Rate 2013-03-03 23:13:00 [facility] Fais[facility] Diastolic (mm Hg) 2013-03-03 22:45:00 Mem o[facility] Systolic (mm Hg) 2013-03-03 22:45:00 Mich rial [place] Respitory Rate 2013-03-03 22:45:00 Memori al [place] Respitory Rate 2013-03-03 22:30:00 [facility] [place] Heart Rate 2013-03-03 18:44:00 [facility] Weight 2013-03-03 18:44:00 [facility] Height 2013-03-03 18:44:00 160.02 cm [facility] Temperature Oral (F) 2013-02-17 13:11:00 98.3 F [facility] Respitory Rate 2013-02-17 13:11:00 [facility] [place] Heart Rate 2013-02-17 13:11:00 [facility] [place] Systolic (mm Hg) 2013-02-17 13:11:00 Mich rial [place] Diastolic (mm Hg) 2013-02-17 13:11:00 Mem o[facility] [place] Respitory Rate 2013-02-17 09:00:00 Mem[facility] [place] Systolic (mm Hg) 2013-02-17 09:00:00 Mich rial [place] Temperature Oral (F) 2013-02-17 09:00:00 98.5 F [facility] [place] Heart Rate 2013-02-17 09:00:00 [facility] [place] Diastolic (mm Hg) 2013-02-17 09:00:00 Mem o[facility] [place] Temperature Oral (F) 2013-02-17 04:51:00 98.0 F [facility] [place] Heart Rate 2013-02-17 04:51:00 [facility] [place] Respitory Rate 2013-02-17 04:51:00 Memori al [place] Diastolic (mm Hg) 2013-02-17 04:51:00 Mem o[facility] Systolic (mm Hg) 2013-02-17 04:51:00 Mich rial [facility] Weight 2013-02-14 02:01:00 [facility] [place] Weight 2013-02-11 06:33:00 [facility] [place] Height 2013-02-11 06:33:00 162.56 cm [facility] [place] Height 2013-02-11 01:00:00 162.56 cm [facility] Weight 2013-02-11 01:00:00 [facility] [place] Procedures Procedure Date / Time Performing Clinician Source Performed Mekhi Fundoplication 2019-05-26 00:00:00 [facility] electrocardiogram 2018-06-03 00:00:00 [facility] 2018-05-23 00:00:00 [facility] Hip Surgery 2016-08-28 00:00:00 [facility] Orthopedic Surgery 2016-05-07 00:00:[address] [facility] Incision and removal of 2013-03-03 05:00:00 Mich rial Faisal foreign body, subcutaneous tissues; simple Incision with Removal of 2013-03-03 05:00:00 Mem [facility] [place] Foreign Body or Device from Skin and Subcutaneous Tissue Closed Reduction of Fracture 2013-02-11 05:00:00 [facility] [place] without Internal Fixation, Femur Open Reduction of Fracture 2013-02-11 05:00:00 [facility] [place] of Femur with Internal Fixation Other 2012-05-07 00:00:00 [facility] Shoulder Joint Surgery 2011-04-07 00:00:00 [facility] Orthopedic Surgery 2010-05-07 00:00:[address] [facility] Colonoscopy with Biopsy 2008-05-07 00:00:00 [facility] Mekhi Fundoplication 2003-08-18 00:00:00 [facility] Cholecystectomy (Gall 2002-12-29 00:00:00 [facility] Bladder Removal) Practice Hysterectomy (Total) 1990-05-07 00:00:00 [facility] Appendectomy 1957-05-07 00:00:00 [facility] Abdominal hysterectomy [facility] Cholecystectomy [facility] Repair of diaphragmatic [facility] hiatal hernia Rotator cuff repair [facility] Plan of Care Planned Activity Planned Date Details Comments Source Future Scheduled 2022-12-07 COVID-19 VACCINE (#1) [facility] Test 11:14:14 [code = COVID-19 VACCINE (#1)] Future Scheduled 2022-12-07 SHINGLES VACCINES (1 Met [facility] Hospital Test 11:14:14 of 2) [code = SHINGLES VACCINES (1 of 2)] Future Scheduled 2022-12-07 INFLUENZA VACCINE Method [facility] Hospital Test 11:14:14 [code = INFLUENZA VACCINE] Diagnostic Test 2021-09-26 C-peptide, serum [facility] Pending 00:00:00 [code = C-peptide, Practice serum] Diagnostic Test 2021-09-26 glucose, fingerstick, [facility] borrego [facility] Pending 00:00:00 blood [code = Practice glucose, fingerstick, blood] Diagnostic Test 2021-09-26 hemoglobin A1C, Village Kelvin bronson Pending 00:00:00 fingerstick [code = Practice hemoglobin A1C, fingerstick] Diagnostic Test 2021-09-26 insulin, serum [code Vill age Family Pending 00:00:00 = insulin, serum] Practice Encounters Start End Encounter Admission Attending Care Care Encounter Source Date/Time Date/Time Type Type Clinicians Facility Department ID 2019-08-27 [facility] [id number] [facility] 14:09:00 Atilio [id number] [facility] 2019-08-26 Inpatient [facility] [id number] [facility] 17:51:00 [id number] [facility] 2022-02-05 2022-02-05 Outpatient Mathew_Eliz VFP VFP [id number] [facility] 00:00:00 00:00:00 abeth [id number] Family Practic e 2022-02-01 2022-02-01 Outpatient Mathew_Eliz VFP VFP [id number] [facility] 00:00:00 00:00:00 abeth [id number] Family Practic e 2021-12-26 2021-12-26 Outpatient Daniel_T VFP VFP [id number] [facility] 00:00:00 00:00:00 [id number] Family Practic e 2021-10-18 2021-10-18 Outpatient Mathew_E_WA VFP VFP [id number] [facility] 03:38:00 03:38:00 GDNU [id number] Family Practic e 2021-09-26 2021-09-26 Outpatient Daniel_T VFP VFP [id number] 20 [facility] 11:03:00 11:03:00 [id number] Family Practic e 2021-09-26 2021-09-26 Kaushik VFP [place] - [id number] V illage 00:00:00 00:00:00 [facility] - Connie silva MD: [id number] VM_HOU_Shacharli e [place] [facility], [address], [place] [address] , Ph. 2021-09-25 2021-09-25 Outpatient Daniel_T VFP VFP [id number] [address] [place] [address] 07:48:00 07:48:00 [id number] Family Practic e 2021-09-13 2021-09-13 Outpatient Daniel_T VFP VFP [id number] [address] [place] [address] 10:52:00 10:52:00 [id number] Family Practic e 2021-09-13 2021-09-13 Outpatient Daniel_T VFP VFP [id number] [address] [place] [address] 10:52:00 10:52:00 [id number] Family Practic e 2021-09-12 2021-09-12 Outpatient Daniel_T VFP VFP [id number] [address] [place] [address] 11:37:00 11:37:00 [id number] Family Practic e 2021-07-26 2021-07-26 Outpatient Mathew_Eliz VFP VFP [id number] [facility] 03:34:00 03:34:00 [facility] [id number] Family Practic e 2021-07-26 2021-07-26 Outpatient Mathew_Eliz VFP VFP [id number] [facility] 03:34:00 03:34:00 [facility] [id number] Family Practic e 2021-06-07 2021-06-07 Outpatient Mathew_Eliz VFP VFP [id number] [facility] 04:30:00 04:30:00 [facility] [id number] Family Practic e 2021-02-25 2021-02-25 Outpatient Mathew_E_WA VFP VFP [id number] [facility] 11:49:00 11:49:00 G [id number] Family Practic e 2021-01-03 2021-01-03 Outpatient Rohren_C VFP VFP [id number] [facility] 05:23:00 05:23:00 [id number] Family Practic e 2020-12-31 2020-12-31 Outpatient Rohren_C VFP VFP [id number] [facility] 05:23:00 05:23:00 [id number] Family Practic e 2020-12-31 2020-12-31 Junhui VFP [place] - [id number] V illage 00:00:00 00:00:00 INGRIS Isidro: Village Famil y [address] [facility], VM_HOU_Vill e [address], [place] [address] , Ph. 2020-11-19 2020-11-19 Outpatient Mathew_E_WA VFP VFP [id number] [facility] 03:21:00 03:21:00 G [id number] Family Practic e 2020-11-19 2020-11-19 Outpatient Mathew_E_WA VFP VFP [id number] [facility] 03:21:00 03:21:00 G [id number] Family Practic e 2020-11-06 2020-11-06 Outpatient Mathew_E_WA VFP VFP [id number] [facility] 12:23:00 12:23:00 G [id number] Family Practic e 2020-11-04 2020-11-04 Outpatient Rohren_C VFP VFP [id number] [facility] 08:54:00 08:54:00 [id number] Family Practic e 2020-11-03 2020-11-03 Junhui VFP [place] - [id number] V illage 00:00:00 00:00:00 Sanna LEATHER CARVER: Dov Famil y [address] [facility] tic [facility], _SHERMAN_Vill e [address], [place] [address] , Ph. 2020-10-26 2020-10-26 Outpatient Mathew_E_WA VFP VFP [id number] [facility] 04:03:00 04:03:00 G [id number] Family Practic e 2020-10-26 2020-10-26 Outpatient Mathew_E_WA VFP VFP [id number] [facility] 04:03:00 04:03:00 G [id number] Family Practic e 2020-10-26 2020-10-26 Sudha VFP [place] - [id number] V illage 00:00:00 00:00:00 Dov Hicks Famil y MD: [id number] - Pract hannah Briceño _JYOTIU_Jono e viji Posada ([facility]) [address], [place] [address] , Ph. 2020-09-18 2020-09-18 Outpatient Mathew_E_WA VFP VFP [id number] [facility] 03:22:00 03:22:00 G [id number] Family Practic e 2020-09-18 2020-09-18 Outpatient Rohren_C VFP VFP [id number] [facility] 03:22:00 03:22:00 [id number] Family Practic e 2020-09-11 2020-09-11 Outpatient Rohren_C VFP VFP [id number] [facility] 08:11:00 08:11:00 [id number] Family Practic e 2020-09-09 2020-09-09 Outpatient Rohren_C VFP VFP [id number] [facility] 02:37:00 02:37:00 [id number] Family Practic e 2020-09-09 2020-09-09 Junhui VFP [place] - [id number] V illage 00:00:00 00:00:00 INGRIS Isidro: Dov Cadet y [address] [facility], VM_HOU_Vill e [address], [place] [address] , Ph. 2020-08-20 2020-08-20 Outpatient Rohren_C VFP VFP [id number] [facility] 06:30:00 06:30:00 [id number] Family Practic e 2020-08-20 2020-08-20 Outpatient Mathew_E_WA VFP VFP [id number] [facility] 06:30:00 06:30:00 G [id number] Family Practic e 2020-08-20 2020-08-20 Outpatient Mathew_E_WA VFP VFP [id number] [facility] 06:30:00 06:30:00 G [id number] Family Practic e 2020-08-20 2020-08-20 Outpatient Mathew_E_WA VFP VFP [id number] [facility] 06:30:00 06:30:00 G [id number] Family Practic e 2020-07-27 2020-07-27 Outpatient Mathew_E_WA VFP VFP [id number] [facility] 03:08:00 03:08:00 G [id number] Family Practic e 2020-07-27 2020-07-27 Sudha VFP [place] - [id number] V illage 00:00:00 00:00:00 Dov Hicks y : [address] Medical - Pract Navarro NOVOA_Faith e viji Posada ([facility]) [address], [place] [address] , Ph. 2020-07-10 2020-07-10 Outpatient Rohren_C VFP VFP [id number] [facility] 06:57:00 06:57:00 [id number] Family Practic e 2020-07-10 2020-07-10 Outpatient Rohren_C VFP VFP [id number] [facility] 06:57:00 06:57:00 [id number] Family Practic e 2020-07-09 2020-07-09 Outpatient Rohren_C VFP VFP [id number] [facility] 06:02:00 06:02:00 [id number] Family Practic e 2020-07-09 2020-07-09 Junhui VFP [place] - [id number] V illage 00:00:00 00:00:00 Sanna LEATHER CARVER: Dov Famil y [address] [facility] Pr[facility], VM_HOU_Vill e [address], [place] [address] , Ph. 2020-07-07 2020-07-07 Outpatient Rohren_C VFP VFP [id number] [facility] 08:31:00 08:31:00 [id number] Family Practic e 2020-07-07 2020-07-07 Sabahat VFP [place] - [id number] V illage 00:00:00 00:00:00 Eran Dov Family PHARMD: Medical - Practi [address]_JYOTIU_Phar domonique [address], [place] [address] , Ph. 2020-05-27 2020-05-27 Outpatient Rohren_C VFP VFP [id number] - [facility] 04:29:00 04:29:00 [id number] Family Practic e 2020-05-27 2020-05-27 Outpatient Mathew_E_[place] VFP VFP [id number] [facility] 04:29:00 04:29:00 G [id number] Family Practic e 2020-05-27 2020-05-27 Outpatient Mathew_E_[place] VFP VFP [id number] 04:29:00 04:29:00 G [id number] Family Practic e 2020-05-26 2020-05-26 Outpatient Rohren_C VFP VFP [id number] [address] 02:08:00 02:08:00 [id number] Family Practic e 2020-05-19 2020-05-19 Outpatient Rohren_C VFP VFP [id number] [address] 06:11:00 06:11:00 [id number] Family Practic e 2020-05-19 2020-05-19 Juni VFP [place] - [id number] V illage 00:00:00 00:00:00 Sanna LEATHER CARVER: Village Famil y [address] [facility], _JYOTIU_Vill e [address], [place] [address] , Ph. 2020-05-04 2020-05-04 Outpatient Mathew_E_[place] VFP VFP [address] [place] [address] 10:03:00 10:03:00 G [id number] Family Practic e 2020-05-04 2020-05-04 Outpatient Mathew_E_[place] VFP VFP [address] [place] [address] 10:03:00 10:03:00 G [id number] Family Practic e 2020-03-26 2020-03-26 Outpatient Mathew_E_[place] VFP VFP [address] [place] [address] 01:01:00 01:01:00 G [id number] Family Practic e 2020-03-24 2020-03-24 Outpatient Rohren_C VFP VFP [id number] [address] 06:24:00 06:24:00 [id number] Family Practic e 2020-03-24 2020-03-24 Juni P [place] - [id number] V illage 00:00:00 00:00:00 Sanna LEATHER CARVER: [facility] Famil y [address] [facility], _JYOTIU_Vill e [address], [place] [address] , Ph. 2020-03-19 2020-03-19 Outpatient Rohren_C VFP VFP [id number] [address] 07:38:00 07:38:00 [id number] Family Practic e 2020-03-09 2020-03-09 Outpatient Mathew_E_[place] VFP VFP [id number] [facility] 03:17:00 03:17:00 G [id number] Family Practic e 2020-03-09 2020-03-09 Sudha VFP [place] - [id number] [facility] illage 00:00:00 00:00:00 Fabiola Dov Famil y MD: [address] [place] VM_SHERMAN_Jono e viji Posada ([facility]) [address], [place] [address] , Ph. 2020-02-24 2020-02-24 Outpatient Mathew_E_WA VFP VFP 331 [id number] [facility] 09:08:00 09:08:00 G [id number] Family Practic e 2020-02-24 2020-02-24 Outpatient Mathew_E_WA VFP VFP 331 [id number] [facility] 09:08:00 09:08:00 G 66665 Family Practic e 2020-02-24 2020-02-24 Outpatient Rohren_C VFP VFP [id number] 202 [facility] 09:08:00 09:08:00 [id number] Family Practic e 2020-02-16 2020-02-16 Outpatient Rohren_C VFP VFP [id number] 202 [facility] 06:11:00 06:11:00 [id number] Family Practic e 2020-02-16 2020-02-16 Junhui VFP [place] - [id number] V illage 00:00:00 00:00:00 Sanna LEATHER CARVER: [facility] F[facility] [address] [place] [facility], VM_HOU_Vill e [address], [place] [address] , Ph. 2020-02-03 2020-02-03 Outpatient Mathew_E_WA VFP VFP 331 [id number] [facility] 10:51:00 10:51:00 G 35910 Family Practic e 2020-02-03 2020-02-03 Outpatient Mathew_E_WA VFP VFP 331 [id number] [facility] 10:51:00 10:51:00 G 26682 Family Practic e 2020-01-31 2020-01-31 Outpatient Mathew_E_WA VFP VFP 331 [id number] [facility] 03:34:00 03:34:00 G 48538 Family Practic e 2020-01-29 2020-01-29 Outpatient Rohren_C VFP VFP [id number] [facility] 01:26:00 01:26:00 [id number] Family Practic e 2020-01-28 2020-01-28 Outpatient Rohren_C VFP VFP [id number] [facility] 09:02:00 09:02:00 [id number] Family Practic e 2020-01-28 2020-01-28 Junhui VFP [place] - [id number] V illage 00:00:00 00:00:00 Sanna LEATHER CARVER: [facility] Famil y [address] [place] [facility], VM_HOU_Vill e [address], [place] [address] , Ph. 2020-01-22 2020-01-22 Outpatient Rohren_C VFP VFP [id number] [facility] 07:05:00 07:05:00 [id number] Family Practic e 2020-01-22 2020-01-22 Outpatient Rohren_C VFP VFP [id number] [facility] 07:05:00 07:05:00 [id number] Family Practic e 2020-01-14 2020-01-14 Outpatient Mathew_E_WA VFP VFP [id number] [facility] 01:09:00 01:09:00 G [id number] Family Practic e 2020-01-14 2020-01-14 Sudha VFP [place] - [id number] V illage 00:00:00 00:00:00 Dov Hicks Famil y MD: [address] - [address] [place] VM_HOU_Fair e viji Posada [facility] [address], [place] [address] , Ph. 2020-01-13 2020-01-13 Outpatient Mathew_E_WA VFP VFP [id number] [facility] 11:41:00 11:41:00 G 04838 Family Practic e 2020-01-02 2020-01-02 Outpatient Rohren_C VFP VFP [id number] [facility] 04:47:00 04:47:00 [id number] Family Practic e 2019-12-19 2019-12-19 Outpatient Rohren_C VFP VFP [id number] [facility] 05:50:00 05:50:00 [id number] Family Practic e 2019-12-08 2019-12-08 Outpatient Mathew_E_WA VFP VFP 331 [id number] [facility] 03:17:00 03:17:00 G 62011 Family Practic e 2019-12-08 2019-12-08 Sudha VFP [place] - [id number] V illage 00:00:00 00:00:00 Dov Hicks Famil y MD: [address] Medical - [address] [place] VM_HOU_Fair e viji Posada ([facility]) [address], [place] [address] , Ph. 2019-11-27 2019-11-27 Outpatient Mathew_E_WA VFP VFP 331 [facility]202 [facility] 04:30:00 04:30:00 G 67223 Family Practic e 2019-11-24 2019-11-24 Outpatient Rohren_C VFP VFP [id number] [address] 08:44:00 08:44:00 [id number] Family Practic e 2019-11-24 2019-11-24 Junhui VFP [place] - [id number] V illage 00:00:00 00:00:00 Sanna LEATHER CARVER: [facility] [address] [facility], VM_HOU_Vill e [address], [place] [address] , Ph. 2019-10-30 2019-10-30 Outpatient Mathew_E_WA VFP VFP [id number] [facility] 05:52:00 05:52:00 G 48561 Family Practic e 2019-10-30 2019-10-30 Outpatient Mathew_E_WA VFP VFP [address] [place] [address] 05:52:00 05:52:00 G 63026 Family Practic e 2019-10-27 2019-10-27 Outpatient Rohren_C VFP VFP [id number] [address] 02:36:00 02:36:00 [id number] Family Practic e 2019-10-27 2019-10-27 Junhui VFP [place] - [id number] V illage 00:00:00 00:00:00 Sanna, LEATHER CARVER: [facility] [address] [facility], VM_HOU_Vill e [address], [place] [address] , Ph. 2019-10-22 2019-10-22 Outpatient Rohren_C VFP VFP [id number] [facility] 12:49:00 12:49:00 13034 Family Practic e 2019-10-22 2019-10-22 Outpatient Mathew_E_WA VFP VFP [id number] 12:49:00 12:49:00 G 97997 Family Practic e 2019-10-20 2019-10-20 Outpatient Rohren_C VFP VFP [id number] [address] 05:50:00 05:50:00 [id number] Family Practic e 2019-10-20 2019-10-20 Junhui VFP [place] - [id number] V illage 00:00:00 00:00:00 Sanna LEATHER CARVER: [facility] Famil y [address] [place] [address], VM_HOU_Vill e [address], [place] [address] , Ph. 2019-10-16 2019-10-16 Fela VF [place] - [id number] V illage 00:00:00 00:00:00 Sean: [facility] [address] [place] [address], VM_HOU_Care e [address], [place] [address] , Ph. 2019-10-14 2019-10-14 Outpatient Rohren_C VFP VFP [id number] [address] 04:19:00 04:19:00 [id number] Family Practic e 2019-10-14 2019-10-14 Outpatient Mathew_E_WA VFP VFP [address] [place] [address] 04:19:00 04:19:00 G 61532 Family Practic e 2019-10-10 2019-10-10 Outpatient Rohren_C VFP VFP [id number] [address] 03:48:00 03:48:00 [id number] Family Practic e 2019-10-10 2019-10-10 Junhui VFP [place] - [id number] V illage 00:00:00 00:00:00 Sanna, LEATHER CARVER: [facility] [address] [facility], VM_HOU_Vill e [address], [place] [address] , Ph. 2019-09-18 2019-09-18 Outpatient Mathew_E_WA VFP VFP [id number] [facility] 11:38:00 11:38:00 G 03478 Family Practic e 2019-09-15 2019-09-15 Osorio R VFP [place] - [id number] [facility] 00:00:00 00:00:00 [facility] Sanju mckeon MD: [id number] [facility] Daly VM_HOU_Care e [facility], Management [address], [place] [address] , Ph. 2019-09-14 2019-09-14 Outpatient Rohren_C VFP VFP [id number] [place] [address] 11:57:00 11:57:00 11493 Family Practic e 2019-09-12 2019-09-12 Outpatient Rohren_C VFP VFP [id number] [place] [address] 07:58:00 07:58:00 [id number] Family Practic e 2019-09-11 2019-09-11 Outpatient Rohren_C VFP VFP [id number] [place] [address] 07:11:00 07:11:00 20786 Family Practic e 2019-09-11 2019-09-11 Junhui VFP [place] - [id number] V illage 00:00:00 00:00:00 INGRIS Isidro: [facility] Famil y [address], _HOU_Vill e [address], [place] [address] , Ph. 2019-09-09 2019-09-09 Outpatient Mathew_E_WA VFP VFP [id number] [facility] 01:19:00 01:19:00 G 34356 Family Practic e 2019-09-03 2019-09-03 Outpatient Mathew_E_WA VFP VFP [id number] [facility] 06:52:00 06:52:00 G 79341 Family Practic e 2019-09-03 2019-09-03 Outpatient Rohren_C VFP VFP [id number] [facility] 06:52:00 06:52:00 [id number] Family Practic e 2019-09-03 2019-09-03 Vera D VFP [place] - [id number] V illage 00:00:00 00:00:00 INGRIS Ruvalcaba: Dov [facility] ly [address] Medical - Practi [address] [place] VM_HOU_Fair e Jessicayviji ([facility]) [address], [place] [address] , Ph. 2019-08-27 2019-08-27 Outpatient Nwormohan_O_WA VFP VFP [id number] [facility] 12:24:00 12:24:00 G 19718 Family Practic e 2019-08-26 2019-08-26 Outpatient Nwormohan_O_WA VFP VFP [id number] [facility] 06:34:00 06:34:00 G [id number] Family Practic e 2019-08-26 2019-08-26 Ozioma VFP [place] - [id number] V illage 00:00:00 00:00:00 Dov Ferguson [facility] LEATHER CARVER: [address] Medical - Practi c [place] VM_HOU_N. e [address], ([facility]) [address], [place] [address] , Ph. 2019-07-19 2019-07-19 Outpatient Rohren_C VFP VFP [id number] [address] 01:37:00 01:37:00 53089 Family Practic e 2019-07-07 2019-07-07 Outpatient Rohren_C VFP VFP [id number] [place] [address] 08:43:00 08:43:00 [id number] Family Practic e 2019-07-03 2019-07-03 Outpatient Rohren_C VFP VFP [id number] [address] 09:19:00 09:19:00 [id number] Family Practic e 2019-06-30 2019-06-30 Outpatient Rohren_C VFP VFP [id number] [address] 01:48:00 01:48:00 [id number] Family Practic e 2019-06-30 2019-06-30 Coco VFP [place] - [id number] [facility] 00:00:00 00:00:00 Nay Freedman [facility] arash MD: [address] Medical - Pract hannah Skinner VM_HOU_Bays e [facility] [place] [address] , Ph. 2019-06-16 2019-06-16 Outpatient Rohren_C VFP VFP [id number] - [facility] 06:02:00 06:02:00 [id number] Family Practic e 2019-06-16 2019-06-16 Outpatient VFP VFP [id number] [facility] 06:02:00 06:02:00 [id number] Family Practic e 2019-06-16 2019-06-16 Coco VFP [place] - [id number] [facility] 00:00:00 00:00:00 Dov Butler MD: 3[address] Medical - Pract ic [place] VM_[facility] e [facility] [place] [address] , Ph. 2019-06-05 2019-06-05 Outpatient Rohren_C VFP VFP [id number] [facility] 03:49:00 03:49:00 [id number] Family Practic e 2019-06-03 2019-06-03 Outpatient Abreu_A VFP VFP [id number] [facility] 08:09:00 08:09:00 [id number] Family Practic e 2019-02-19 2019-02-19 King A. VFP [place] - [id number] [facility] 00:00:00 00:00:00 [facility] Martino, Family Practic MD: [address] Practice [place] [address] , Ph. 2018-12-10 2018-12-10 Coco VFP [place] - [id number] [facility] 00:00:00 00:00:00 Dov Butler MD: [address] Family Practic [place] [facility] [address] [facility] [address] , Ph. 2018-08-16 2018-08-16 Coco VFP [place] - [id number] [facility] 00:00:00 00:00:00 Dov Butler MD: [address] Family Practic [place] [facility] [address] [facility] [address] , Ph. 2018-06-03 2018-06-03 Coco VFP [place] - [id number] [facility] 00:00:00 00:00:00 Nay Freedman, [facility] arash MD: [address] [place] [address] , Ph. 2013-03-03 2013-03-03 Outpatient 2.16.840. 2.16.840.1. 4 [id number] [facility] 12:42:00 23:59:00 1.802101. [id number] 01 l 3.615.0.1 5.0.101 [facility] 2013-03-03 2013-03-03 Outpatient 2.16.840. 2.16.840.1. 4 [id number] [facility] 12:42:00 23:59:00 1.530932. 061646.3.61 01 l 3.615.0.1 5.0.101 [facility] 2013-03-03 2013-03-03 Outpatient 2.16.840. 2.16.840.1. 4 [id number] [facility] 12:42:00 23:59:00 1.195982. [id number] 01 l 3.615.0.1 5.0.101 [facility] 01 [facility] 2013-03-03 2013-03-03 Outpatient 2.16.840. 2.16.840.1. 4 [id number] [facility] 12:42:00 23:59:00 1.450649. 570774.3.61 01 l 3.615.0.1 5.0.101 [facility] 2013-03-03 2013-03-03 Outpatient 2.16.840. 2.16.840.1. 4 [id number] [facility] 12:42:00 23:59:00 1.669352. 971092.3.61 01 l 3.615.0.1 5.0.101 [facility] 01 [facility] 2013-03-03 2013-03-03 DS nullFlavo [facility] [id number] 575 [facility] 12:42:00 23:59:[address] Faisal 2013-03-03 2013-03-03 Outpatient 2.16.840. 2.16.840.1. 4 [id number] [facility] 12:42:00 23:59:00 1.899396. 163890.3.61 01 l 3.615.0.1 5.0.101 Genaro n 01 [facility] 2013-02-10 2013-02-17 Inpatient [facility] [id number] [facility] 23:33:00 21:00:00 Medical 00 [facility] 2013-02-10 2013-02-17 Outpatient 2.16.840. 2.16.840.1. 4 [id number] [facility] 20:11:00 21:00:00 1.700711. [id number] 00 l 3.615.0.1 5.0.101 Genaro n [facility] 2013-02-10 2013-02-17 Outpatient 2.16.840. 2.16.840.1. 4 [id number] [facility] 20:11:00 21:00:00 1.548804. [id number] 00 l 3.615.0.1 5.0.101 Genaro n [facility] 2013-02-10 2013-02-17 Outpatient 2.16.840. 2.16.840.1. 4 [id number] [facility] 20:11:00 21:00:00 1.166709. [id number] 00 l 3.615.0.1 5.0.101 Genaro n [facility] 2013-02-10 2013-02-17 Outpatient 2.16.840. 2.16.840.1. 4 [id number] [facility] 20:11:00 21:00:00 1.523660. 085423.3.61 00 l 3.615.0.1 5.0.101 Genaro n 01 [facility] 2013-02-10 2013-02-17 Outpatient 2.16.840. 2.16.840.1. 4 [id number] [facility] 20:11:00 21:00:00 1.504569. 726078.3.61 00 l 3.615.0.1 5.0.101 [facility] 01 Hospita l Results Test Description Test Time Test Comments Results Result Comments Source Hemoglobin A1c measurement device panel 2021-09-26 10:51:00 Test Item Value Reference Range Interpretation Comme nts Hemoglobin A1C Fingerstick: (test code = Hemoglobin A1C Fingerstick :) 5.3 [facility] PracticeGlucose [Mass/volume] in Capillary [id number] 10:46:16 Test Item Value Reference Range Interpretation Comments Blood Glucose: mg/dl (test code = Blood 139 Glucose: mg/dl) [facility] PracticeFECES OVA [id number] 11:08:00 Test Item Value Reference Range Interpretation Comments CONCENTRATE RESULT Final report () These res ults were (test code = CONC) obtained using wet preparation(s) andtrichrome st ained smear. This patricia t does not include patricia tingfor Cryptosporidium parvum, Cyclosp ora, or Microsporidia. TRICHROME RESULT (test code = TRIC) SOURCE: STOOLSPECIMEN DESCRIPTION: RANDOMAG GIARDIA [id number] 11:08:00 Test Item Value Reference Range Interpretation Comments AG GIARDIA FECES (test Negative Negative Perfo rmed At: HD code = GIARDAG) [facility] [id number] [place], [place] [id number] octavia Tee MD Ph:[phone] SOURCE: STOOLSPECIMEN DESCRIPTION: RANDOMFECES OVA [id number] 11:08:00 Test Item Value Reference Range Interpretation Comments CONCENTRATE RESULT Final report () These res ults were (test code = CONC) obtained using wet preparation(s) andtrichrome st ained smear. This patricia t does not include patricia tingfor Cryptosporidium parvum, Cyclosp ora, or Microsporidia. TRICHROME RESULT () No ova, cys ts, or (test code = TRIC) parasites seen.One negative specim en does not rule out e possibility ofa parasitic infection.Perfo rmed At: [facility] [id number] [place], [place] [id number] Tee MD Ph:[phone] SOURCE: STOOLSPECIMEN DESCRIPTION: RANDOMAG GIARDIA [id number] 11:08:00 Test Item Value Reference Range Interpretation Comments AG GIARDIA FECES (test Negative Negative Perfo rmed At: HD code = GIARDAG) [facility] [id number] [facility] [id number] Tee MD Ph:[phone] SOURCE: STOOLSPECIMEN DESCRIPTION: RANDOMFECES OVA [id number] 11:08:00 Test Item Value Reference Range Interpretation Comments CONCENTRATE RESULT (test code = CONC) TRICHROME RESULT (test code = TRIC) SOURCE: STOOLSPECIMEN DESCRIPTION: RANDOMAG GIARDIA [id number] 11:08:00 Test Item Value Reference Range Interpretation Comments AG GIARDIA FECES (test Negative Negative Perfo rmed At: HD code = GIARDAG) [facility] [address] [id number] [place], [place] [id number] Tee MD Ph:[phone] SOURCE: STOOLSPECIMEN DESCRIPTION: RANDOMCOMPREHENSIVE METABOLIC [id number] 07:29:00 Test Item Value Reference Range Interpretation Comments SODIUM (test code = 144 mmol/L 136-145 N NA) POTASSIUM (test code = 3.6 mmol/L 3.5-5.1 N K) CHLORIDE (test code = 111.0 mmol/L 98-107 H CL) CARBON DIOXIDE (test 26.0 mmol/L 21-32 N code = CO2) ANION GAP (test code = 10.6 10-20 N GAP) GLUCOSE (test code = 90 mg/dL 74-106 N GLU) BLOOD UREA NITROGEN 3 mg/dL 7-18 L (test code = BUN) GLOMERULAR FILTRATION > 60 mL/min >=60 Estima edna GFR by RATE (test code = GFR) using Modified MDRD formula.Chronic kidney disease is defined as eith er kidney damageor GFR <60 mL/min/1.73 m2 for >3 months. CREATININE (test code 0.70 mg/dL 0.55-1.02 N Note change in = CREAT) reference range due to change in reagent. BUN/CREATININE RATIO 4.3 10-20 L (test code = BUN/CREA) TOTAL PROTEIN (test 5.1 gram/dL 6.4-8.2 L code = PROT) ALBUMIN (test code = 2.6 g/dL 3.4-5.0 L ALB) GLOBULIN (test code = 2.5 gram/dL 2.7-4.2 L GLOB) ALBUMIN/GLOBULIN RATIO 1.0 0.75-1.50 N (test code = A/G) CALCIUM (test code = 8.5 mg/dL 8.5-10.1 N CA) BILIRUBIN TOTAL (test 0.30 mg/dL 0.0-1.0 N code = BILT) SGOT/AST (test code = 14 IUnit/L 15-37 L AST) SGPT/ALT (test code = 12 IUnit/L 12-78 N ALT) ALKALINE PHOSPHATASE 67 IUnit/L 45-117 N Note change in TOTAL (test code = reference range due ALKP) to change in reagent. COMPREHENSIVE METABOLIC [id number] 07:09:00 Test Item Value Reference Range Interpretation Comments SODIUM (test code = NA) 144 mmol/L 136-145 N POTASSIUM (test code = K) 3.6 mmol/L 3.5-5.1 N CHLORIDE (test code = CL) 111.0 mmol/L 98-107 H CARBON DIOXIDE (test code = CO2) mmol/L 21-32 ANION GAP (test code = GAP) 10-20 GLUCOSE (test code = GLU) mg/dL 74-106 BLOOD UREA NITROGEN (test code = mg/dL 7-18 BUN) GLOMERULAR FILTRATION RATE (test mL/min >=60 code = GFR) CREATININE (test code = CREAT) mg/dL 0.55-1.02 BUN/CREATININE RATIO (test code 10-20 = BUN/CREA) TOTAL PROTEIN (test code = PROT) gram/dL 6.4-8.2 ALBUMIN (test code = ALB) g/dL 3.4-5.0 GLOBULIN (test code = GLOB) gram/dL 2.7-4.2 ALBUMIN/GLOBULIN RATIO (test 0.75-1.50 code = A/G) CALCIUM (test code = CA) mg/dL 8.5-10.1 BILIRUBIN TOTAL (test code = mg/dL 0.0-1.0 BILT) SGOT/AST (test code = AST) IUnit/L 15-37 SGPT/ALT (test code = ALT) IUnit/L 12-78 ALKALINE PHOSPHATASE TOTAL (test IUnit/L 45-117 code = ALKP) CBC W/AUTO [id number] 06:50:00 Test Item Value Reference Range Interpretation Comments WHITE BLOOD CELL (test code = 6.7 K/mm3 4.5-12.5 N WBC) RED BLOOD CELL (test code = 4.17 mill/mm3 3.7-5.2 N RBC) HEMOGLOBIN (test code = HGB) 10.6 gram/dL 11.5-15.5 L HEMATOCRIT (test code = HCT) 32.7 % 36.0-46.0 L MEAN CELL VOLUME (test code = 78.4 fL 80-98 L MCV) MEAN CELL HGB (test code = MCH) 25.4 picogram 27.0-33.0 L MEAN CELL HGB CONCETRATION 32.4 gram/dL 33.0-36.0 L (test code = MCHC) RED CELL DISTRIBUTION WIDTH 15.1 % 11.6-16.2 N (test code = RDW) RED CELL DISTRIBUTION WIDTH SD 43.1 fL 37.0-51.0 N (test code = RDW-SD) PLATELET COUNT (test code = 204 K/mm3 150-450 N PLT) MEAN PLATELET VOLUME (test code 10.6 fL 6.7-11.0 N = MPV) NEUTROPHIL % (test code = NT%) 69.3 % 39.0-69.0 H IMMATURE GRANULOCYTE % (test 0.5 % 0.0-5.0 N code = IG%) LYMPHOCYTE % (test code = LY%) 14.6 % 25.0-55.0 L MONOCYTE % (test code = MO%) 10.7 % 0.0-10.0 H EOSINOPHIL % (test code = EO%) 3.8 % 0.0-5.0 N BASOPHIL % (test code = BA%) 1.1 % 0.0-1.0 H NUCLEATED RBC % (test code = 0.0 % 0-0 N NRBC%) NEUTROPHIL # (test code = NT#) 4.62 K/mm3 1.8-7.7 N IMMATURE GRANULOCYTE # (test 0.03 x10 3/uL 0-0.03 N code = IG#) LYMPHOCYTE # (test code = LY#) 0.97 K/mm3 1.0-5.0 L MONOCYTE # (test code = MO#) 0.71 K/mm3 0-0.8 N EOSINOPHIL # (test code = EO#) 0.25 K/mm3 0.0-0.5 N BASOPHIL # (test code = BA#) 0.07 K/mm3 0.0-0.2 N NUCLEATED RBC # (test code = 0.00 K/mm3 0.0-0.1 N NRBC#) BASIC METABOLIC [id number] 05:00:00 Test Item Value Reference Range Interpretation Comments SODIUM (test code = 141 mmol/L 136-145 N NA) POTASSIUM (test code 4.3 mmol/L 3.5-5.1 N = K) CHLORIDE (test code = 110.0 mmol/L 98-107 H CL) CARBON DIOXIDE (test 25.0 mmol/L 21-32 N code = CO2) ANION GAP (test code 10.3 10-20 N = GAP) GLUCOSE (test code = 100 mg/dL 74-106 N GLU) BLOOD UREA NITROGEN 4 mg/dL 7-18 L (test code = BUN) GLOMERULAR FILTRATION > 60 mL/min >=60 Estima edna GFR by RATE (test code = using Reva fied MDRD GFR) formula.Chronic kidney disease is defined as ei er kidney damageor GFR <60 mL/min/1.73 m2 for >3 months. CREATININE (test code 0.80 mg/dL 0.55-1.02 N Note change in = CREAT) reference range due to change in reagent. BUN/CREATININE RATIO 5.0 10-20 L (test code = BUN/CREA) CALCIUM (test code = 8.6 mg/dL 8.5-10.1 N CA) [id number] 05:00:00 Test Item Value Reference Range Interpretation Comments MAGNESIUM (test code = MAG) 2.0 mg/dL 1.8-2.4 N CBC W/AUTO [id number] 04:50:00 Test Item Value Reference Range Interpretation Comments WHITE BLOOD CELL (test code = 11.8 K/mm3 4.5-12.5 N WBC) RED BLOOD CELL (test code = 4.08 mill/mm3 3.7-5.2 N RBC) HEMOGLOBIN (test code = HGB) 10.4 gram/dL 11.5-15.5 L HEMATOCRIT (test code = HCT) 33.0 % 36.0-46.0 L MEAN CELL VOLUME (test code = 80.9 fL 80-98 N MCV) MEAN CELL HGB (test code = MCH) 25.5 picogram 27.0-33.0 L MEAN CELL HGB CONCETRATION 31.5 gram/dL 33.0-36.0 L (test code = MCHC) RED CELL DISTRIBUTION WIDTH 15.2 % 11.6-16.2 N (test code = RDW) RED CELL DISTRIBUTION WIDTH SD 44.4 fL 37.0-51.0 N (test code = RDW-SD) PLATELET COUNT (test code = 187 K/mm3 150-450 N PLT) MEAN PLATELET VOLUME (test code 10.6 fL 6.7-11.0 N = MPV) NEUTROPHIL % (test code = NT%) 73.0 % 39.0-69.0 H IMMATURE GRANULOCYTE % (test 0.4 % 0.0-5.0 N code = IG%) LYMPHOCYTE % (test code = LY%) 12.4 % 25.0-55.0 L MONOCYTE % (test code = MO%) 11.6 % 0.0-10.0 H EOSINOPHIL % (test code = EO%) 2.0 % 0.0-5.0 N BASOPHIL % (test code = BA%) 0.6 % 0.0-1.0 N NUCLEATED RBC % (test code = 0.0 % 0-0 N NRBC%) NEUTROPHIL # (test code = NT#) 8.62 K/mm3 1.8-7.7 H IMMATURE GRANULOCYTE # (test 0.05 x10 3/uL 0-0.03 H code = IG#) LYMPHOCYTE # (test code = LY#) 1.46 K/mm3 1.0-5.0 N MONOCYTE # (test code = MO#) 1.37 K/mm3 0-0.8 H EOSINOPHIL # (test code = EO#) 0.24 K/mm3 0.0-0.5 N BASOPHIL # (test code = BA#) 0.07 K/mm3 0.0-0.2 N NUCLEATED RBC # (test code = 0.00 K/mm3 0.0-0.1 N NRBC#) CBC W/AUTO [id number] 05:57:00 Test Item Value Reference Range Interpretation Comments WHITE BLOOD CELL (test 16.7 K/mm3 4.5-12.5 H code = WBC) RED BLOOD CELL (test 4.09 mill/mm3 3.7-5.2 N code = RBC) HEMOGLOBIN (test code 10.4 gram/dL 11.5-15.5 L RESULT VERIFIED BY = HGB) REPEAT ANALYSIS HEMATOCRIT (test code 32.6 % 36.0-46.0 L = HCT) MEAN CELL VOLUME (test 79.7 fL 80-98 L code = MCV) MEAN CELL HGB (test 25.4 picogram 27.0-33.0 L code = MCH) MEAN CELL HGB 31.9 gram/dL 33.0-36.0 L CONCETRATION (test code = MCHC) RED CELL DISTRIBUTION 15.3 % 11.6-16.2 N WIDTH (test code = RDW) RED CELL DISTRIBUTION 44.1 fL 37.0-51.0 N WIDTH SD (test code = RDW-SD) PLATELET COUNT (test 185 K/mm3 150-450 RESULT VERIFIED BY code = PLT) REPEAT ANALYSIS MEAN PLATELET VOLUME 10.6 fL 6.7-11.0 N (test code = MPV) NEUTROPHIL % (test 80.0 % 39.0-69.0 H code = NT%) IMMATURE GRANULOCYTE % 0.7 % 0.0-5.0 N (test code = IG%) LYMPHOCYTE % (test 8.2 % 25.0-55.0 L code = LY%) MONOCYTE % (test code 10.1 % 0.0-10.0 H = MO%) EOSINOPHIL % (test 0.6 % 0.0-5.0 N code = EO%) BASOPHIL % (test code 0.4 % 0.0-1.0 N = BA%) NUCLEATED RBC % (test 0.0 % 0-0 N code = NRBC%) NEUTROPHIL # (test 13.37 K/mm3 1.8-7.7 H code = NT#) IMMATURE GRANULOCYTE # 0.12 x10 3/uL 0-0.03 H (test code = IG#) LYMPHOCYTE # (test 1.37 K/mm3 1.0-5.0 N code = LY#) MONOCYTE # (test code 1.68 K/mm3 0-0.8 H = MO#) EOSINOPHIL # (test 0.10 K/mm3 0.0-0.5 N code = EO#) BASOPHIL # (test code 0.07 K/mm3 0.0-0.2 N = BA#) NUCLEATED RBC # (test 0.00 K/mm3 0.0-0.1 N code = NRBC#) MANUAL DIFF REQUIRED NO (test code = MDIFF) COMPREHENSIVE METABOLIC [id number] 05:52:00 Test Item Value Reference Range Interpretation Comments SODIUM (test code = 140 mmol/L 136-145 N NA) POTASSIUM (test code = 3.8 mmol/L 3.5-5.1 N K) CHLORIDE (test code = 110.0 mmol/L 98-107 H CL) CARBON DIOXIDE (test 25.0 mmol/L 21-32 N code = CO2) ANION GAP (test code = 8.8 10-20 L GAP) GLUCOSE (test code = 93 mg/dL 74-106 N GLU) BLOOD UREA NITROGEN 7 mg/dL 7-18 N (test code = BUN) GLOMERULAR FILTRATION > 60 mL/min >=60 Estima edna GFR by RATE (test code = GFR) using Modified MDRD formula.Chronic kidney disease is defined as [facility] kidney damageor GFR <60 mL/min/1.73 m2 for >3 months. CREATININE (test code 0.80 mg/dL 0.55-1.02 N Note change in = CREAT) reference range due to change in reagent. BUN/CREATININE RATIO 8.8 10-20 L (test code = BUN/CREA) TOTAL PROTEIN (test 5.1 gram/dL 6.4-8.2 L code = PROT) ALBUMIN (test code = 2.4 g/dL 3.4-5.0 L ALB) GLOBULIN (test code = 2.7 gram/dL 2.7-4.2 N GLOB) ALBUMIN/GLOBULIN RATIO 0.9 0.75-1.50 N (test code = A/G) CALCIUM (test code = 8.4 mg/dL 8.5-10.1 L CA) BILIRUBIN TOTAL (test 0.30 mg/dL 0.0-1.0 N code = BILT) SGOT/AST (test code = 14 IUnit/L 15-37 L AST) SGPT/ALT (test code = 14 IUnit/L 12-78 N ALT) ALKALINE PHOSPHATASE 67 IUnit/L 45-117 N Note change in TOTAL (test code = reference range due ALKP) to change in reagent. [id number] 05:52:00 Test Item Value Reference Range Interpretation Comments MAGNESIUM (test code = MAG) 2.0 mg/dL 1.8-2.4 N BASIC METABOLIC [id number] 06:05:00 Test Item Value Reference Range Interpretation Comments SODIUM (test code = 141 mmol/L 136-145 N NA) POTASSIUM (test code 4.1 mmol/L 3.5-5.1 N = K) CHLORIDE (test code = 109.0 mmol/L 98-107 H CL) CARBON DIOXIDE (test 22.0 mmol/L 21-32 N code = CO2) ANION GAP (test code 14.1 10-20 N = GAP) GLUCOSE (test code = 127 mg/dL 74-106 H GLU) BLOOD UREA NITROGEN 11 mg/dL 7-18 N (test code = BUN) GLOMERULAR FILTRATION 60 mL/min >=60 Estima edna GFR by RATE (test code = using Reva fied MDRD GFR) formula.Chronic kidney disease is defined as [facility] er kidney damageor GFR <60 mL/min/1.73 m2 for >3 months. CREATININE (test code 0.90 mg/dL 0.55-1.02 N Note change in = CREAT) reference range due to change in reagent. BUN/CREATININE RATIO 12.2 10-20 N (test code = BUN/CREA) CALCIUM (test code = 8.7 mg/dL 8.5-10.1 N CA) BASIC METABOLIC [id number] 05:48:00 Test Item Value Reference Range Interpretation Comments SODIUM (test code = NA) 141 mmol/L 136-145 N POTASSIUM (test code = K) 4.1 mmol/L 3.5-5.1 N CHLORIDE (test code = CL) 109.0 mmol/L 98-107 H CARBON DIOXIDE (test code = CO2) mmol/L 21-32 ANION GAP (test code = GAP) 10-20 GLUCOSE (test code = GLU) mg/dL 74-106 BLOOD UREA NITROGEN (test code = mg/dL 7-18 BUN) GLOMERULAR FILTRATION RATE (test mL/min >=60 code = GFR) CREATININE (test code = CREAT) mg/dL 0.55-1.02 BUN/CREATININE RATIO (test code 10-20 = BUN/CREA) CALCIUM (test code = CA) mg/dL 8.5-10.1 HGB [id number] 05:19:00 Test Item Value Reference Range Interpretation Comments HEMOGLOBIN (test code = HGB) 12.5 gram/dL 11.5-15.5 N HEMATOCRIT (test code = HCT) 39.0 % 36.0-46.0 N HGB [id number] 01:06:00 Test Item Value Reference Range Interpretation Comments HEMOGLOBIN (test code = HGB) 13.5 gram/dL 11.5-15.5 N HEMATOCRIT (test code = HCT) 42.1 % 36.0-46.0 N - CT ABD PELVIS [id number] 19:58:00 Name: ROXANN TRUJILLO [facility] [facility] : 1940 Age/S: 79 / F [address] Unit #: [id number] Loc: [place] [address] Phys: Ildefonso rTevizo MD Acct: [id number] Dis Date: Status: REG ER PHONE #: [phone] Exam Date: 08/26/20191929 FAX #: [phone] Reason: GI bleed EXAMS: CPT CODE: [id number] CT ABD PELVIS W/CONT 43534 REASON FOR EXAM: GI bleed EXAM ORDER DATE: 08/26/2019 5:55 PM Ordering M.D.: Ildefonso Trevizo MD PROCEDURE: - CT ABD PELVIS W/CONT contrast-enhanced axial CT images wereacquired through the abdomen/pelvis at 5 mm intervals. Sagittal and coronal reformatted images were generated. Automated exposure control was utilized for this reduction. Phases of contrast: venous anddelayed COMPARISON: CT of the chest, abdomen, and pelvis January 12, 2019 FINDINGS: Visualized thorax: Subsegmental atelectatic changes are present in the visualized lungs. Hepatobiliary system: Priorcholecystectomy. Hepatic parenchyma is within normal limits Pancreas: Moderate fatty replacement Spleen: Normal Adrenal glands: Normal Genitourinary system: Simple cortical cyst is present in the inferior pole of the right kidney. Prior hysterectomy. Left kidney and the urinary bladder are within normal limits Gastrointestinal tract and appendix: Severe diverticular disease of the sigmoid colon and descending colon. There is also mural thickening of the colon involving the distal transverse colon and extending through the descending colon and into the sigmoid colon. Hyperdensity at the esophageal hiatus (2/20) is unchanged from the previous exam and may represent mesh from a prior hiatal hernia repair Abdominal vascular structures: Atherosclerotic calcifications are scattered throughout the abdominal aorta and iliac arteries Peritoneum and retroperitoneum: No free fluid or free air. No omental or mesenteric masses. No abnormal lymph nodes. There is fat stranding PAGE 1 Signed Report (CONTINUED)Name: ROXANN TRUJILLO [place] Home : 1940 Age/S: 79 / F [address] [facility] Unit #: [id number] Loc: [place] [address] Phys: Ildefonso Trevizo MD Acct: [id number] Dis Date: Status: REG ER PHONE #: [phone] Exam Date: 08/26/20191929 FAX #: [phone] Reason: GI bleed EXAMS: CPT CODE: [id number] CT ABD PELVIS W/CONT 26717 (Continued) adjacent to the splenic flexure of the colon and additional mild fat stranding along the descending colon. Musculoskeletal structures and abdominal wall: There is scoliosis of the lumbar spine. There are also severe degenerative changes throughout the thoracic and lumbar spine. A total right hip arthroplasty is present. There is an intramedullary nail left femur shaft. Diastases recti is present IMPRESSION: Findings of noncomplicated diverticulitis involving the splenic flexure of the colon as well as the descending colon. There is also significant diverticulosis of the sigmoid colon but no evidence of diverticulitis in this segment. Location: [facility] at 1957 Reported and signed by: Ignacio Hale CC: Ildefonso Trevizo MD Technologist:Loan Huffman RT(R) CTDI: DLP: Trnscb Date/Time: 08/26/2019 (1957) [email or web address] Orig Print D/T: S: 08/26/2019 (2000) PAGE 2 Signed ReportBASIC METABOLIC [id number] 18:48:00 Test Item Value Reference Range Interpretation Comments SODIUM (test code = 141 mmol/L 136-145 N NA) POTASSIUM (test code 4.1 mmol/L 3.5-5.1 N = K) CHLORIDE (test code = 108.0 mmol/L 98-107 H CL) CARBON DIOXIDE (test 22.0 mmol/L 21-32 N code = CO2) ANION GAP (test code 15.1 10-20 N = GAP) GLUCOSE (test code = 150 mg/dL 74-106 H GLU) BLOOD UREA NITROGEN 13 mg/dL 7-18 N (test code = BUN) GLOMERULAR FILTRATION 43 mL/min >=60 Estima edna GFR by RATE (test code = using Reva fied MDRD GFR) formula.Chronic kidney disease is defined as [facility] er kidney damageor GFR <60 mL/min/1.73 m2 for >3 months. CREATININE (test code 1.20 mg/dL 0.55-1.02 H Note change in = CREAT) reference range due to change in reagent. BUN/CREATININE RATIO 10.8 10-20 N (test code = BUN/CREA) CALCIUM (test code = 9.4 mg/dL 8.5-10.1 N CA) HEPATIC FUNCTION [id number] 18:48:00 Test Item Value Reference Range Interpretation Comments TOTAL PROTEIN (test 7.0 gram/dL 6.4-8.2 N code = PROT) ALBUMIN (test code = 3.6 g/dL 3.4-5.0 N ALB) GLOBULIN (test code = 3.4 gram/dL 2.7-4.2 N GLOB) ALBUMIN/GLOBULIN RATIO 1.1 0.75-1.50 N (test code = A/G) BILIRUBIN TOTAL (test 0.50 mg/dL 0.0-1.0 N code = BILT) BILIRUBIN DIRECT (test 0.12 mg/dL 0.0-0.20 N code = BILD) SGOT/AST (test code = 21 IUnit/L 15-37 N AST) SGPT/ALT (test code = 18 IUnit/L 12-78 N ALT) ALKALINE PHOSPHATASE 101 IUnit/L 45-117 N Note change in TOTAL (test code = reference range due ALKP) to change in reagent. [id number] 18:48:00 Test Item Value Reference Range Interpretation Comments LIPASE (test code = LIP) 75 U/L 73.0-393.0 N PROTHROMBIN [id number] 18:42:00 Test Item Value Reference Range Interpretation Comments PROTHROMBIN TIME 10.7 seconds 9.0-14.0 N PATIENT (test code = PTP) INTERNATIONAL NORMAL 0.9 0.8-1.2 N The the rapeutic range RATIO (test code = for oral INR) anticoagulant t herapy formost indicat ions is an internati onal normalized rati o (INR)of between 2.0 and 3.0. The recommended therapeutic INR range for various cli nical situations is l isted below: Clinical Situat ion INR range Pulmonary embol ism treatment (2.0-3.0)Venous thrombosis treatmentVenous thrombosis prophylaxis (hi gh risk surgery)Prevent ion of systemic emboli sm from: Acute myocardial infa rction Valvular heart disease Atrial fibrillation Mechanical pros thetic heart valves (2.5-3.5) IS PATIENT ON ANTICOAGULANTS? [facility] W/O [id number] 18:37:00 Test Item Value Reference Range Interpretation Comments WHITE BLOOD CELL (test code = 16.8 K/mm3 4.5-12.5 H WBC) RED BLOOD CELL (test code = 5.28 mill/mm3 3.7-5.2 H RBC) HEMOGLOBIN (test code = HGB) 13.6 gram/dL 11.5-15.5 N HEMATOCRIT (test code = HCT) 41.8 % 36.0-46.0 N MEAN CELL VOLUME (test code = 79.2 fL 80-98 L MCV) MEAN CELL HGB (test code = MCH) 25.8 picogram 27.0-33.0 L MEAN CELL HGB CONCETRATION 32.5 gram/dL 33.0-36.0 L (test code = MCHC) RED CELL DISTRIBUTION WIDTH 14.8 % 11.6-16.2 N (test code = RDW) PLATELET COUNT (test code = 261 K/mm3 150-450 N PLT) MEAN PLATELET VOLUME (test code 10.6 fL 6.7-11.0 N = MPV) BASIC METABOLIC [id number] 18:35:00 Test Item Value Reference Range Interpretation Comments SODIUM (test code = NA) 141 mmol/L 136-145 N POTASSIUM (test code = K) 4.1 mmol/L 3.5-5.1 N CHLORIDE (test code = CL) 108.0 mmol/L 98-107 H CARBON DIOXIDE (test code = CO2) mmol/L 21-32 ANION GAP (test code = GAP) 10-20 GLUCOSE (test code = GLU) mg/dL 74-106 BLOOD UREA NITROGEN (test code = mg/dL 7-18 BUN) GLOMERULAR FILTRATION RATE (test mL/min >=60 code = GFR) CREATININE (test code = CREAT) mg/dL 0.55-1.02 BUN/CREATININE RATIO (test code 10-20 = BUN/CREA) CALCIUM (test code = CA) mg/dL 8.5-10.1 HEPATIC FUNCTION [id number] 18:35:00 Test Item Value Reference Range Interpretation Comments TOTAL PROTEIN (test code = PROT) gram/dL 6.4-8.2 ALBUMIN (test code = ALB) g/dL 3.4-5.0 GLOBULIN (test code = GLOB) gram/dL 2.7-4.2 ALBUMIN/GLOBULIN RATIO (test code = 0.75-1.50 A/G) BILIRUBIN TOTAL (test code = BILT) mg/dL 0.0-1.0 BILIRUBIN DIRECT (test code = BILD) mg/dL 0.0-0.20 SGOT/AST (test code = AST) IUnit/L 15-37 SGPT/ALT (test code = ALT) IUnit/L 12-78 ALKALINE PHOSPHATASE TOTAL (test IUnit/L 45-117 code = ALKP) [id number] 18:35:00 Test Item Value Reference Range Interpretation Comments LIPASE (test code = LIP) U/L 73.0-393.0 GASTRIC,[id number] 11:23:00 RUN DATE: 01/21/19 [facility] PAGE 1 RUN TIME: 1123 Specimen Inquiry RUN USER: INTERFACE PATIE NT: ROXANN TRUJILLO LOC: [place] #: [id number] AGE/SX: 78/F ROOM: [facility] RE01/13/19[facility] DR: Savnanah Singh MD : 36 BED: B DIS: 01/15/19 STATUS: DIS IN TLOC: SPEC #: [id number] RECD: 01/14/19 STATUS: NOLBERTO REShirley #: [id number] MICHAEL: 01/14/[address] [facility] [address]: Fernando Talavera MD ENTERED: 01/14/19 SP TYPE: GASTRIC BX OTHR DR: Fernando Talavera MD ORDERED: GROSS PROCEDURES: GROSS (01/15/19) TISSUES: 1. ANTRUM - COLD BX 2. ESOPHAGUS, NOS - COLD BX CLINICAL HISTORY COLLECTION DATE: HEARTBURN, REFLUX POST-OP DIAGNOSIS: REFLUX, GASTRITIS, HIATAL HERNIA COMMENT Intradepartmental consultation: DMW FINAL DIAGNOSIS Gastric antrum, cold biopsy: GASTRIC MUCOSA WITH PATCHY MILD REACTIVE/CHEMICAL GASTROPATHY CHANGE NO AREAS OF MUCOSAL EROSION/ULCERATION NO SIGNIFICANT ACUTE OR CHRONIC INFLAMMATORY INFILTRATE PRESENT NEGATIVE FOR INTESTINAL METAPLASIA NEGATIVE FOR HELICOBACTER ORGANISMS NEGATIVE FOR MALIGNANCY Esophagus, cold biopsy: MIXED SQUAMOUS AND GLANDULAR EPITHELIUM WITH MODERATE CHRONIC INFLAMMATION AND REACTIVE EPITHELIAL CHANGE MINUTE FRAGMENT OF UNREMARKABLE SQUAMOUS EPITHELIUM NEGATIVE FOR GOBLET CELL METAPLASIA NEGATIVE FOR DYSPLASIA AND MALIGNANCY RRB/ D [id number], [id number], 31685 CONTINUED ON NEXT PAGE RUN DATE: 01/21/19 [facility] PAGE 2 RUN TIME: 1123 Specimen Inquiry RUN USER: INTERFACE SPEC #: [id number] PATIENT: ROXANN TRUJILLO Cass #[id number] (Continued)-------- ---- MACROSCOPIC Specimen (1) is received in formalin, labeled with the patient's name, identified as "antrum", and consists of pink biopsy tissue measuring 0.3 cm, submitted as (1) for H E and giemsa stains. Specimen (2)is received in formalin, labeled with the patient's name, identified as "esophagus", and consists oftan-pink biopsy tissue measuring 0.25 cm in aggregate, submitted as (2). GROSS PERFORMED AT [facility] [address] [place] [phone])[phone] MICROSCOPIC Staining of the antral biopsy with giesma shows no helicobacter organisms. The alcian blue stain performed on the esophageal biopsy highlights a few pseudogoblet cells but no true areas of true goblet cell metaplasia. All of the stains, including any controls performed, stain miguel ropriately. MICROSCOPIC PERFORMED AT [facility] [address] [place] [address] [phone])[phone] PERFORMING SITE Diagnosis performed at: [facility], [address] [place] [address] [phone] Signed SIGNATURE ON FILE Kike Haddad MD 01/21/19 1123 END OF REPORT BASIC METABOLIC [id number] 08:06:00 Test Item Value Reference Range Interpretation Comments SODIUM (test code = 143 mmol/L 136-145 N NA) POTASSIUM (test code 3.6 mmol/L 3.5-5.1 N = K) CHLORIDE (test code = 112.0 mmol/L 98-107 H CL) CARBON DIOXIDE (test 23.0 mmol/L 21-32 N code = CO2) ANION GAP (test code 11.6 10-20 N = GAP) GLUCOSE (test code = 89 mg/dL 74-106 N GLU) BLOOD UREA NITROGEN 8 mg/dL 7-18 N (test code = BUN) GLOMERULAR FILTRATION > 60 mL/min >=60 Estima edna GFR by RATE (test code = using Reva fied MDRD GFR) formula.Chronic kidney disease is defined as ei er kidney damageor GFR <60 mL/min/1.73 m2 for >3 months. CREATININE (test code 0.70 mg/dL 0.55-1.02 N Note change in = CREAT) reference range due to change in reagent. BUN/CREATININE RATIO 12.2 10-20 N (test code = BUN/CREA) CALCIUM (test code = 8.9 mg/dL 8.5-10.1 N CA) [id number] 08:06:00 Test Item Value Reference Range Interpretation Comments MAGNESIUM (test code = MAG) 2.2 mg/dL 1.8-2.4 N BASIC METABOLIC [id number] 07:58:00 Test Item Value Reference Range Interpretation Comments SODIUM (test code = NA) 143 mmol/L 136-145 N POTASSIUM (test code = K) 3.6 mmol/L 3.5-5.1 N CHLORIDE (test code = CL) 112.0 mmol/L 98-107 H CARBON DIOXIDE (test code = CO2) mmol/L 21-32 ANION GAP (test code = GAP) 10-20 GLUCOSE (test code = GLU) mg/dL 74-106 BLOOD UREA NITROGEN (test code = mg/dL 7-18 BUN) GLOMERULAR FILTRATION RATE (test mL/min >=60 code = GFR) CREATININE (test code = CREAT) mg/dL 0.55-1.02 BUN/CREATININE RATIO (test code 10-20 = BUN/CREA) CALCIUM (test code = CA) mg/dL 8.5-10.1 [id number] 07:58:00 Test Item Value Reference Range Interpretation Comments MAGNESIUM (test code = MAG) mg/dL 1.8-2.4 CBC W/AUTO [id number] 07:44:00 Test Item Value Reference Range Interpretation Comments WHITE BLOOD CELL (test code = 6.1 K/mm3 4.5-12.5 N WBC) RED BLOOD CELL (test code = 4.59 mill/mm3 3.7-5.2 N RBC) HEMOGLOBIN (test code = HGB) 12.0 gram/dL 11.5-15.5 N HEMATOCRIT (test code = HCT) 37.6 % 36.0-46.0 N MEAN CELL VOLUME (test code = 81.9 fL 80-98 N MCV) MEAN CELL HGB (test code = MCH) 26.1 picogram 27.0-33.0 L MEAN CELL HGB CONCETRATION 31.9 gram/dL 33.0-36.0 L (test code = MCHC) RED CELL DISTRIBUTION WIDTH 14.1 % 11.6-16.2 N (test code = RDW) RED CELL DISTRIBUTION WIDTH SD 41.6 fL 37.0-51.0 N (test code = RDW-SD) PLATELET COUNT (test code = 229 K/mm3 150-450 N PLT) MEAN PLATELET VOLUME (test code 10.3 fL 6.7-11.0 N = MPV) NEUTROPHIL % (test code = NT%) 65.7 % 39.0-69.0 N IMMATURE GRANULOCYTE % (test 0.2 % 0.0-5.0 N code = IG%) LYMPHOCYTE % (test code = LY%) 16.6 % 25.0-55.0 L MONOCYTE % (test code = MO%) 13.3 % 0.0-10.0 H EOSINOPHIL % (test code = EO%) 3.0 % 0.0-5.0 N BASOPHIL % (test code = BA%) 1.2 % 0.0-1.0 H NUCLEATED RBC % (test code = 0.0 % 0-0 N NRBC%) NEUTROPHIL # (test code = NT#) 3.99 K/mm3 1.8-7.7 N IMMATURE GRANULOCYTE # (test 0.01 x10 3/uL 0-0.03 N code = IG#) LYMPHOCYTE # (test code = LY#) 1.01 K/mm3 1.0-5.0 N MONOCYTE # (test code = MO#) 0.81 K/mm3 0-0.8 H EOSINOPHIL # (test code = EO#) 0.18 K/mm3 0.0-0.5 N BASOPHIL # (test code = BA#) 0.07 K/mm3 0.0-0.2 N NUCLEATED RBC # (test code = 0.00 K/mm3 0.0-0.1 N NRBC#) MANUAL DIFF REQUIRED (test code NO = MDIFF) PROCALCITONIN (PCT)2019-01-13 06:57:00 Test Item Value Reference Range Interpretation Comments PROCALCITONIN (PCT) < 0.05 ng/ml Concentr ation (test code = PROCAL) Interpr etation (ng/mL) ------- ------ ------ ------ --<0.51 Sepsis is not likely. Local bacterial infec tion is possible. (L OW RISK for progre ssion to Sepsis) 0.51 - 2.00 Sepsis is possible, but o ther conditions are known to elevate PCT as well. (MODERATE RISK for progression to Sepsis) > 2.00 Sepsis is likely, unle ss other causes ar e known. (HIGH RI SK for progression to Severe Sepsis or Septi c Shock) 10.00 Hi gh likelihood of S evere Sepsis or Septi c or higher Shock. *Increased PCT levels may not always be related to syst emic bacterial infection.*Low PCT levels do not automatically e xclude the presence of bacterial infection.*All results should be interpreted mark ing into account th e patients histor y. BASIC METABOLIC [id number] 06:07:00 Test Item Value Reference Range Interpretation Comments SODIUM (test code = 143 mmol/L 136-145 N NA) POTASSIUM (test code 4.1 mmol/L 3.5-5.1 N = K) CHLORIDE (test code = 111.0 mmol/L 98-107 H CL) CARBON DIOXIDE (test 26.0 mmol/L 21-32 N code = CO2) ANION GAP (test code 10.1 10-20 N = GAP) GLUCOSE (test code = 86 mg/dL 74-106 N GLU) BLOOD UREA NITROGEN 9 mg/dL 7-18 N (test code = BUN) GLOMERULAR FILTRATION > 60 mL/min >=60 Estima edna GFR by RATE (test code = using Reva fied MDRD GFR) formula.Chronic kidney disease is defined as eith er kidney damageor GFR <60 mL/min/1.73 m2 for >3 months. CREATININE (test code 0.80 mg/dL 0.55-1.02 N Note change in = CREAT) reference range due to change in reagent. BUN/CREATININE RATIO 10.7 10-20 N (test code = BUN/CREA) CALCIUM (test code = 9.0 mg/dL 8.5-10.1 N CA) [id number] 06:07:00 Test Item Value Reference Range Interpretation Comments MAGNESIUM (test code = MAG) 2.4 mg/dL 1.8-2.4 N [id number] 05:49:00 Test Item Value Reference Range Interpretation Comments GLYCOSYLATED HEMOGLOBIN (HA1C) 6.1 % HbA1 4.8-6.0 H (test code = GLYHGB) ESTIMATED AVERAGE GLUCOSE (test 128 MG/DL code = EAG) CBC W/AUTO [id number] 05:36:00 Test Item Value Reference Range Interpretation Comments WHITE BLOOD CELL (test code = 8.1 K/mm3 4.5-12.5 N WBC) RED BLOOD CELL (test code = 4.35 mill/mm3 3.7-5.2 N RBC) HEMOGLOBIN (test code = HGB) 11.6 gram/dL 11.5-15.5 N HEMATOCRIT (test code = HCT) 35.9 % 36.0-46.0 L MEAN CELL VOLUME (test code = 82.5 fL 80-98 N MCV) MEAN CELL HGB (test code = MCH) 26.7 picogram 27.0-33.0 L MEAN CELL HGB CONCETRATION 32.3 gram/dL 33.0-36.0 L (test code = MCHC) RED CELL DISTRIBUTION WIDTH 14.4 % 11.6-16.2 N (test code = RDW) RED CELL DISTRIBUTION WIDTH SD 43.4 fL 37.0-51.0 N (test code = RDW-SD) PLATELET COUNT (test code = 229 K/mm3 150-450 N PLT) MEAN PLATELET VOLUME (test code 10.6 fL 6.7-11.0 N = MPV) NEUTROPHIL % (test code = NT%) 71.3 % 39.0-69.0 H IMMATURE GRANULOCYTE % (test 0.4 % 0.0-5.0 N code = IG%) LYMPHOCYTE % (test code = LY%) 15.7 % 25.0-55.0 L MONOCYTE % (test code = MO%) 11.4 % 0.0-10.0 H EOSINOPHIL % (test code = EO%) 0.6 % 0.0-5.0 N BASOPHIL % (test code = BA%) 0.6 % 0.0-1.0 N NUCLEATED RBC % (test code = 0.0 % 0-0 N NRBC%) NEUTROPHIL # (test code = NT#) 5.79 K/mm3 1.8-7.7 N IMMATURE GRANULOCYTE # (test 0.03 x10 3/uL 0-0.03 N code = IG#) LYMPHOCYTE # (test code = LY#) 1.28 K/mm3 1.0-5.0 N MONOCYTE # (test code = MO#) 0.93 K/mm3 0-0.8 H EOSINOPHIL # (test code = EO#) 0.05 K/mm3 0.0-0.5 N BASOPHIL # (test code = BA#) 0.05 K/mm3 0.0-0.2 N NUCLEATED RBC # (test code = 0.00 K/mm3 0.0-0.1 N NRBC#) MANUAL DIFF REQUIRED (test code NO = MDIFF) CBC W/AUTO [id number] 05:30:00 Test Item Value Reference Range Interpretation Comments WHITE BLOOD CELL (test code = K/mm3 4.5-12.5 WBC) RED BLOOD CELL (test code = RBC) mill/mm3 3.7-5.2 HEMOGLOBIN (test code = HGB) 11.6 gram/dL 11.5-15.5 N HEMATOCRIT (test code = HCT) % 36.0-46.0 MEAN CELL VOLUME (test code = fL 80-98 MCV) MEAN CELL HGB (test code = MCH) picogram 27.0-33.0 MEAN CELL HGB CONCETRATION (test gram/dL 33.0-36.0 code = MCHC) RED CELL DISTRIBUTION WIDTH % 11.6-16.2 (test code = RDW) RED CELL DISTRIBUTION WIDTH SD fL 37.0-51.0 (test code = RDW-SD) PLATELET COUNT (test code = PLT) K/mm3 150-450 MEAN PLATELET VOLUME (test code fL 6.7-11.0 = MPV) NEUTROPHIL % (test code = NT%) % 39.0-69.0 IMMATURE GRANULOCYTE % (test % 0.0-5.0 code = IG%) LYMPHOCYTE % (test code = LY%) % 25.0-55.0 MONOCYTE % (test code = MO%) % 0.0-10.0 EOSINOPHIL % (test code = EO%) % 0.0-5.0 BASOPHIL % (test code = BA%) % 0.0-1.0 NEUTROPHIL # (test code = NT#) K/mm3 1.8-7.7 LYMPHOCYTE # (test code = LY#) K/mm3 1.0-5.0 MONOCYTE # (test code = MO#) K/mm3 0-0.8 EOSINOPHIL # (test code = EO#) K/mm3 0.0-0.5 BASOPHIL # (test code = BA#) K/mm3 0.0-0.2 - CT ABD PELVIS [id number] 13:37:00 Name: ROXANN TRUJILLO [facility] [facility] : 1940 Age/S: 78 / F [address] [facility] Unit #: [id number]: [place] [address] Phys: Jane Fragoso MD Acct: [id number] Dis Date: Status: REG ER PHONE #: [phone] Exam Date: 01/12/2019 1303 FAX #: [phone] Reason: cough, pleural eff, abd pain EXAMS: CPT CODE: [id number] CT ABD PELVIS W/CONT 72918 HISTORY: Cough and pleural effusion. COMPARISON: None available. CT chest with contrast: 100 mL of Isovue-370. Automated exposure control. Unremarkable atherosclerotic aorta. Unremarkable pulmonary arteries (not performed as PE protocol). Well-opacified SVC and the visualized neck vasculature. Thyroid glands are unremarkable. Esophageal wall is not thickened. No pathologic adenopathy. Mild cardiomegaly without pericardial effusion. Subcutaneous tissues and musculature are normal in appearance. No lytic or blastic lesions are noted within the bony skeleton. DJD. Patchy left basal infiltrate with scarring and dependent changes. No effusion or congestion. No bronchiectasis, honeycombing or fibrosis or endobronchial lesions. Dependent changes danielle aterally. No discrete lesions are visible. IMPRESSION: No pulmonary embolism with unremarkable aorta. Patchy left basal infiltrate with scarring and dependent changes. CT ABDOMEN: The liver is enhancing homogeneously. Portal vein is patent. Hepatic artery is patent. Patient is post cholecystectomy. No abnormal enhancing masses or lesions. The liver is measuring 15 cm in length. The spleen enhanced homogeneously. No abnormal enhancing masses or lesions. Subcapsular calcification laterally. Stomach distended incompletely with large retrocardiac hiatal hernia. Pancreas enhanced homogeneously. Unremarkable adrenals. Kidneys are free from hydroureteronephrosis. Homogeneous enhancement. Bosniak 1 lesionin the is exophytic. Bilateral excretion is noted. Subcentimeter low-attenuation lesion in the medial right upper pole is PAGE 1 Signed Report (CONTINUED) Name: ROXANN TRUJILLO [place] : 1940 Age/S: 78 / F [address] [facility] Unit #: [id number] Loc: [place] [address] Phys: Jane Fragoso Acct: [id number] Dis Date: Status: REG ER PHONE #: [phone] Exam Date: 01/12/2019 1303 FAX #: [phone] Reason: cough, pleural eff, abd pain EXAMS: CPT CODE: [id number] CT ABD PELVIS W/CONT 07748 (Continued) too small to characterize as well. No pathologic adenopathy. Well-opacified abdominal and pelvic vasculature with atherosclerotic change. No bowel obstruction or colitis or diverticulitis or enteritis. Constipation. CT PELVIS: Appendix is normal. No inflammation. Sigmoid diverticulosis without diverticulitis. Unremarkable urinary bladder distended well. Patient is post hysterectomy.No free fluid or free air or abscess. No pelvic pathologic adenopathy. Subcutaneous tissues and themusculature demonstrated normal appearance. Fat-containing ventral hernia at the level of the lower margin of the liver without incarceration and without loops of bowel. 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 IMPRESSION: No acute intra-abdominal or intrapelvic pathology. at 1337 Reported and signed by: Edward Camarena M.D. CC: Jane Fragoso MD Technologist:Kerri Eschberger RT(R),CT; CTDI: DLP: Trnscb Date/Time: 01/12/2019 (4817) [email or web address] Orig Print D/T: S: 01/12/2019 (0224) PAGE 2 Signed Report- CT CHEST [id number] 13:37:00 Name: ROXANN TRUJILLO [facility] Home : 1940 Age/S: 78 / F [address] [facility] Unit #: [id number] Loc: [place] [address] Phys: Jane Fragoso MD Acct: [id number] Dis Date: Status: REG ER PHONE #: [phone] Exam Date: 01/12/2019 1303 FAX #: [phone] Reason: cough, pleural eff EXAMS: CPTCODE: [id number] CT CHEST W/CONTRAST 80068 HISTORY: Cough and pleural effusion. COMPARISON: None available. CT chest with contrast: 100 mL of Isovue-370. Automated exposure control. Unremarkable atherosclerotic aorta. Unremarkable pulmonary arteries (not performed as PE protocol). Well- opacified SVC and the visualized neck vasculature. Thyroid glands are unremarkable. Esophageal wall is not thickened.No pathologic adenopathy. Mild cardiomegaly without pericardial effusion. Subcutaneous tissues and musculature are normal in appearance. No lytic or blastic lesions are noted within the bony skeleton. DJD. Patchy left basal infiltrate with scarring and dependent changes. No effusion or congestion. No bronchiectasis, honeycombing or fibrosis or endobronchial lesions. Dependent changes bilaterally. No discrete lesions are visible. IMPRESSION: No pulmonary embolism with unremarkable aorta. Patchy left basal infiltrate with scarring and dependent changes. CT ABDOMEN: The liver is enhancing homogeneously. Portal vein is patent. Hepatic artery is patent. Patient is post cholecystectomy. No abnormal enhancing masses or lesions. The liver is measuring 15 cm in length. The spleen enhanced homogeneously. No abnormal enhancing masses or lesions. Subcapsular calcification laterally. Stomach distended incompletely with large retrocardiac hiatal hernia. Pancreas enhanced homogeneously. Unremarkable adrenals.Kidneys are free from hydroureteronephrosis. Homogeneous enhancement. Bosniak 1 lesion in the is exop hytic. Bilateral excretion is noted. Subcentimeter low-attenuation lesion in the medial right upper pole is PAGE 1 Signed Report (CONTINUED) Name: ROXANN TRUJILLO [facility] Home : 1940 Age/S: 78 / F [address] Unit #: [id number] Loc: [place] [address] Phys: Jane Fragoso MD Acct: [id number] Dis Date: Status: REG ER PHONE #: [phone] Exam Date: 01/12/2019 1303 FAX #: [phone] Reason: cough, pleural eff EXAMS: CPT CODE: [id number] CT CHEST W/CONTRAST 88701 (Continued) too small to characterize as well. No pathologic adenopathy. Well-opacified abdominal and pelvic vasculature with atherosclerotic change. No bowel obstruction or colitis or diverticulitis or enteritis. Constipation. CT PELVIS: Appendix is normal. No inflammation. Sigmoid diverticulosis without diverticulitis. Unremarkable urinary bladder distended well. Patient is post hysterectomy. No free fluid or free air or abscess. No pelvic pathologic adenopathy. Subcutaneous tissues and the musculature demonstrated normal appearance. Fat-containing ventral hernia at the level of the lower margin of the liver without incarceration and without loops of bowel. 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 IMPRESSION: No acute intra-abdominal or intrapelvic pathology. at 1337 Reported and signed by: Edward Camarena M.D. CC: Jane Fragoso MD Technologist:Kerri Chapa RT(R),CT; CTDI: DLP: Trnscb Date/Time: 01/12/2019 (1337) t.SDR.TH4 Orig Print D/T: S: 01/12/2019 (7597) PAGE 2 Signed ReportBASIC METABOLIC [id number] 12:03:00 Test Item Value Reference Range Interpretation Comments SODIUM (test code = 141 mmol/L 136-145 N NA) POTASSIUM (test code 4.0 mmol/L 3.5-5.1 N = K) CHLORIDE (test code = 108.0 mmol/L 98-107 H CL) CARBON DIOXIDE (test 24.0 mmol/L 21-32 N code = CO2) ANION GAP (test code 13.0 10-20 N = GAP) GLUCOSE (test code = 129 mg/dL 74-106 H GLU) BLOOD UREA NITROGEN 11 mg/dL 7-18 N (test code = BUN) GLOMERULAR FILTRATION 60 mL/min >=60 Estima edna GFR by RATE (test code = using Reva fied MDRD GFR) formula.Chronic kidney disease is defined as [facility] er kidney damageor GFR <60 mL/min/1.73 m2 for >3 months. CREATININE (test code 0.90 mg/dL 0.55-1.02 N Note change in = CREAT) reference range due to change in reagent. BUN/CREATININE RATIO 12.5 10-20 N (test code = BUN/CREA) CALCIUM (test code = 9.4 mg/dL 8.5-10.1 N CA) HEPATIC FUNCTION [id number] 12:03:00 Test Item Value Reference Range Interpretation Comments TOTAL PROTEIN (test 7.0 gram/dL 6.4-8.2 N code = PROT) ALBUMIN (test code = 3.6 g/dL 3.4-5.0 N ALB) GLOBULIN (test code = 3.4 gram/dL 2.7-4.2 N GLOB) ALBUMIN/GLOBULIN RATIO 1.1 0.75-1.50 N (test code = A/G) BILIRUBIN TOTAL (test 0.50 mg/dL 0.0-1.0 N code = BILT) BILIRUBIN DIRECT (test 0.17 mg/dL 0.0-0.20 N code = BILD) SGOT/AST (test code = 17 IUnit/L 15-37 N AST) SGPT/ALT (test code = 17 IUnit/L 12-78 N ALT) ALKALINE PHOSPHATASE 111 IUnit/L 45-117 N Note change in TOTAL (test code = reference range due ALKP) to change in reagent. [id number] 12:03:00 Test Item Value Reference Range Interpretation Comments LIPASE (test code = LIP) 84 U/L 73.0-393.0 N [id number] 12:03:00 Test Item Value Reference Range Interpretation Comments TROPONIN-I (test code = TROPI) <0.015 ng/mL 0-0.045 N BASIC METABOLIC [id number] 11:54:00 Test Item Value Reference Range Interpretation Comments SODIUM (test code = NA) 141 mmol/L 136-145 N POTASSIUM (test code = K) 4.0 mmol/L 3.5-5.1 N CHLORIDE (test code = CL) 108.0 mmol/L 98-107 H CARBON DIOXIDE (test code = CO2) mmol/L 21-32 ANION GAP (test code = GAP) 10-20 GLUCOSE (test code = GLU) mg/dL 74-106 BLOOD UREA NITROGEN (test code = mg/dL 7-18 BUN) GLOMERULAR FILTRATION RATE (test mL/min >=60 code = GFR) CREATININE (test code = CREAT) mg/dL 0.55-1.02 BUN/CREATININE RATIO (test code 10-20 = BUN/CREA) CALCIUM (test code = CA) mg/dL 8.5-10.1 HEPATIC FUNCTION [id number] 11:54:00 Test Item Value Reference Range Interpretation Comments TOTAL PROTEIN (test code = PROT) gram/dL 6.4-8.2 ALBUMIN (test code = ALB) g/dL 3.4-5.0 GLOBULIN (test code = GLOB) gram/dL 2.7-4.2 ALBUMIN/GLOBULIN RATIO (test code = 0.75-1.50 A/G) BILIRUBIN TOTAL (test code = BILT) mg/dL 0.0-1.0 BILIRUBIN DIRECT (test code = BILD) mg/dL 0.0-0.20 SGOT/AST (test code = AST) IUnit/L 15-37 SGPT/ALT (test code = ALT) IUnit/L 12-78 ALKALINE PHOSPHATASE TOTAL (test IUnit/L 45-117 code = ALKP) [id number] 11:54:00 Test Item Value Reference Range Interpretation Comments LIPASE (test code = LIP) U/L 73.0-393.0 [id number] 11:54:00 Test Item Value Reference Range Interpretation Comments TROPONIN-I (test code = TROPI) ng/mL 0-0.045 URINALYSIS [id number] 11:49:00 Test Item Value Reference Range Interpretation Comments UA COLOR (test code = Light-Yellow YELLOW COLU) UA APPEARANCE (test code CLEAR CLEAR = APPU) UA GLUCOSE DIPSTICK (test NEGATIVE mg/dL NEGATIVE code = DGLUU) UA BILIRUBIN DIPSTICK NEGATIVE mg/dL NEGATIVE (test code = BILU) UA KETONE DIPSTICK (test NEGATIVE mg/dL NEGATIVE code = KETU) UA SPECIFIC GRAVITY (test 1.011 1.001-1.035 code = SGU) UA BLOOD DIPSTICK (test 0.03 mg/dL (Trace) NEGATIVE A code = ARTIE) mg/dL UA PH DIPSTICK (test code 7.5 5.0-8.0 = ELIZABETH) UA PROTEIN DIPSTICK (test NEGATIVE mg/dL NEGATIVE code = PROU) UA UROBILINIOGEN DIPSTICK Normal mg/dL NEGATIVE (test code = URO) UA NITRITE DIPSTICK (test NEGATIVE NEGATIVE code = CONCHITA) UA LEUKOCYTE ESTERASE W NEGATIVE Jonna/uL NEGATIVE REFLEX (test code = LEUUR) UA WBC (test code = WBCU) 0-5 per HPF 0-5 UA RBC (test code = RBCU) 0-2 #/HPF 0-5 UA EPITHELIAL CELLS (test Few (2-5/hpf) per FEW code = EPIU) HPF UA BACTERIA (test code = FEW #/HPF NONE BACU) Urine Source? Clean CatchCBC W/O [id number] 11:47:00 Test Item Value Reference Range Interpretation Comments WHITE BLOOD CELL (test code = 17.6 K/mm3 4.5-12.5 H WBC) RED BLOOD CELL (test code = 5.11 mill/mm3 3.7-5.2 N RBC) HEMOGLOBIN (test code = HGB) 13.5 gram/dL 11.5-15.5 N HEMATOCRIT (test code = HCT) 42.5 % 36.0-46.0 N MEAN CELL VOLUME (test code = 83.2 fL 80-98 N MCV) MEAN CELL HGB (test code = MCH) 26.4 picogram 27.0-33.0 L MEAN CELL HGB CONCETRATION 31.8 gram/dL 33.0-36.0 L (test code = MCHC) RED CELL DISTRIBUTION WIDTH 14.2 % 11.6-16.2 N (test code = RDW) PLATELET COUNT (test code = 274 K/mm3 150-450 N PLT) MEAN PLATELET VOLUME (test code 10.0 fL 6.7-11.0 N = MPV) CBC W/O [id number] 11:42:00 Test Item Value Reference Range Interpretation Comments WHITE BLOOD CELL (test code = K/mm3 4.5-12.5 WBC) RED BLOOD CELL (test code = RBC) mill/mm3 3.7-5.2 HEMOGLOBIN (test code = HGB) 13.5 gram/dL 11.5-15.5 N HEMATOCRIT (test code = HCT) 42.5 % 36.0-46.0 N MEAN CELL VOLUME (test code = fL 80-98 MCV) MEAN CELL HGB (test code = MCH) picogram 27.0-33.0 MEAN CELL HGB CONCETRATION (test gram/dL 33.0-36.0 code = MCHC) RED CELL DISTRIBUTION WIDTH % 11.6-16.2 (test code = RDW) PLATELET COUNT (test code = PLT) K/mm3 150-450 MEAN PLATELET VOLUME (test code fL 6.7-11.0 = MPV) - XR CHEST 1 [id number] 11:12:00 FAX: Jane Rolle [phone] [place]: St: REG Name: ROXANN TRUJILLO [facility] Home : 1940 Age/S: 78/F [address] [facility] Unit #: [id number] Loc: [place] [address] Phys: Jane Fragoso MD Acct: [id number] Dis Date: Status: REG ER PHONE #: [phone] Exam Date: 01/12/2019 1101 FAX #: [phone] Reason: wheezing, reflux EXAMS: CPT CODE: [id number] XR CHEST 1 V 09730 HISTORY: Wheezing and reflux. COMPARISON: None available. Single view chest: Patchy left basal infiltrate with small effusion and dependent changes. Scarring. Right lung is clear. Mild cardiomegaly. IMPRESSION: Patchy left basal infiltrate with small effusion and subsegmental atelectasis. at 1112 Reported and signed by: Edward Camarena M.D. CC: Jane Fragoso MDTechnologist: DUDLEY BELLO RT(R) Trnscrd Date/Time/By: 01/12/2019 (1112) : By: [email or web address] Orig Print D/T: S: 01/12/2019 (1116) PAGE 1 Signed ReportEKG [id number] 14:56:00Rate & RhythmQrsPR IntervalQRS DurationQT IntervalVillage Family PracticeSCR MAMM BILATERAL JOSE DAVID CAD [id number] 14:19:25 - SCR MAMM BILATERAL JOSE DAVID CAD DIGITALBILATERAL DIGITAL SCREENING MAMMOGRAM 3D/2D WITH CAD: 05/02/2018CLINICAL: Asymptomatic. Digital breast tomosynthesis was performed in addition to routine CC and MLO views. Current mammographic images were evaluated by either a [employer] M-Vu or a [employer] ImageCheckerCAD (computer aided detection system). No prior exams were available for comparison. The tissue of both breasts is predominantly fatty. Multiple bilateral oval, circumscribed low-density benign-appearing masses. Bilateral upper outer quadrant intramammary lymph nodes, benign. No suspicious mass, architectural distortion, malignant type calcification, or lymph node abnormality detected. IMPRESSION: INCOMPLETE ASSESSMENT: ADDITIONAL IMAGING EVALUATION RECOMMENDEDMultiple bilateral oval, circumscribed,subcentimeter low- density benign-appearing masses. Bilateral survey ultrasound is recommended at this time.Maximino Bennett M.D. ss/:05/20/2018 14:19:25 [employer]: Kerri Jaramillo FW, [facility]-FWletter sent: Additional Imaging Mammogram BI-RADS: 0 [id number] 10:09:20 Test Item Value Reference Range Interpretation Comments INR (test code = INR) 1.30 0.85-1.17 [id number] 10:09:20 Test Item Value Reference Range Interpretation Comments PROTIME (test code = PROTIME) 16.0 s 12.0-14.7 H [facility] HospitalOebkbieEFTVNGWFM5760-70-26 08:49:00 Test Item Value Reference Range Interpretation Comments Calcium Lvl (test code = Calcium Lvl) 7.9 8.5-10.5 L [facility]landsWtzirmqJNQDWRELZM0564-48-59 08:49:00 Test Item Value Reference Range Interpretation Comments Eosinophils # (test code 0.4 See_Comment N [A utomated message] The = Eosinophils #) system [facility] h generated this result tra nsmitted reference range : <=0.5. The reference r radha was not used to int erpret this result as normal/abnormal . [id number] 08:49:00 Test Item Value Reference Range Interpretation Comments Segs-Bands # (test code = Segs-Bands #) 3.6 1.5-8.1 N [facility]landsNnqxuayANHQATPNUT6979-85-05 08:49:00 Test Item Value Reference Range Interpretation Comments Lymphocytes # (test code = Lymphocytes 1.2 1.0-5.5 N #) [facility]lan[id number] 08:49:00 Test Item Value Reference Range Interpretation Comments Monocytes # (test code 0.7 See_Comment N [Aut omated message] The = Monocytes #) system which generated this result tra nsmitted reference range : <=0.8. The reference r radha was not used to int erpret this result as normal/abnormal . [facility]landsNzdnujtQBWFQNZMRN8043-11-45 08:49:00 Test Item Value Reference Range Interpretation Comments Eosinophils (test code = 6.4 See_Comment H [A utomated message] The Eosinophils) system which ge nerated this result tra nsmitted reference range : <=4.0. The reference r radha was not used to int erpret this result as normal/abnormal . [facility]landsHdhxbhiTAUFHOLLAR2789-10-76 08:49:00 Test Item Value Reference Range Interpretation Comments Basophils (test code = 0.6 See_Comment N [Aut omated message] The Basophils) system which ge nerated this result tra nsmitted reference range : <=1.0. The reference r radha was not used to int erpret this result as normal/abnormal . [facility]landsVmjrgunZPPOAELFWR8999-58-09 08:49:00 Test Item Value Reference Range Interpretation Comments Segs (test code = Segs) 60.4 45.0-75.0 N [facility]landsHakgqonCNEOZHVZYI5018-26-75 08:49:00 Test Item Value Reference Range Interpretation Comments Lymphocytes (test code = Lymphocytes) 20.5 20.0-40.0 N [facility]lan[id number] 08:49:00 Test Item Value Reference Range Interpretation Comments Monocytes (test code = Monocytes) 12.1 2.0-12.0 H [facility]landsLuitesyUHGVIKZCFT3741-98-96 08:49:00 Test Item Value Reference Range Interpretation Comments PROTIME (test code = PROTIME) 14.5 s 12.0-14.7 N [facility]landsDuoqtbjBEQOMVLMGA0748-28-02 08:49:00 Test Item Value Reference Range Interpretation Comments INR (test code = INR) 1.14 0.85-1.17 N [facility]landsKenmrtnKHGQKLJVND3448-45-51 08:49:00 Test Item Value Reference Range Interpretation Comments WBC X 10x3 (test code = WBC X 10x3) 6.0 3.7-10.4 N [facility]landsXkmujbpZDRBKMNOEA6169-75-99 08:49:00 Test Item Value Reference Range Interpretation Comments Hgb (test code = Hgb) 8.2 12.0-16.0 L [facility]landsFwwvbcqHGNBNMUCSG0395-97-97 08:49:00 Test Item Value Reference Range Interpretation Comments RBC X 10x6 (test code = RBC X 10x6) 2.78 4.20-5.40 L [facility]landsWygyalmSJTPXJWNLF0664-61-12 08:49:00 Test Item Value Reference Range Interpretation Comments Platelet (test code = Platelet) 176 133-450 N [facility]landsCljadggRUWYIXNEIL3076-53-29 08:49:00 Test Item Value Reference Range Interpretation Comments MPV (test code = MPV) 8.6 7.4-10.4 N [facility]landsIxeeambSBEUDDBVQN4335-05-49 08:49:00 Test Item Value Reference Range Interpretation Comments RDW (test code = RDW) 12.9 11.5-14.5 N [facility]landsOjhupinVVIJBNHMWN3849-68-76 08:49:00 Test Item Value Reference Range Interpretation Comments MCHC (test code = MCHC) 33.9 32.0-36.0 N [facility]landsOkcqefiSAQVSVJZCG4725-31-71 08:49:00 Test Item Value Reference Range Interpretation Comments Hct (test code = Hct) 24.2 36.0-48.0 L [facility]landsVepxfmdDQXFGLFCVR8469-96-65 08:49:00 Test Item Value Reference Range Interpretation Comments MCV (test code = MCV) 87.1 81.0-99.0 N [facility]landsCfprjmgTUZHLVLUDX4069-65-70 08:49:00 Test Item Value Reference Range Interpretation Comments MCH (test code = MCH) 29.6 pg 27.0-31.0 N [facility] HospitalOdcokldPICVDVSMC0687-50-24 08:49:00 Test Item Value Reference Range Interpretation Comments Magnesium Lvl (test code = Magnesium 1.8 1.8-2.4 N Lvl) [facility] HospitalGiicyelKHZSSLHVI0672-20-68 08:49:00 Test Item Value Reference Range Interpretation Comments eGFR (test code = eGFR) 86 [facility] HospitalFgbgzrtKETYRWTVQ1481-72-41 08:49:00 Test Item Value Reference Range Interpretation Comments Potassium Lvl (test code = Potassium 3.5 3.5-5.1 N Lvl) [facility] HospitalMwncwiiYMREYBKQG0630-12-93 08:49:00 Test Item Value Reference Range Interpretation Comments Sodium Lvl (test code = Sodium Lvl) 144 135-145 N [facility] HospitalUzaqnnpCVSHZIXMT9357-14-68 08:49:00 Test Item Value Reference Range Interpretation Comments Creatinine Lvl (test code = Creatinine 0.7 0.5-1.4 N Lvl) [facility] HospitalPwfppeyYQGPRZYSJ7549-48-86 08:49:00 Test Item Value Reference Range Interpretation Comments BUN (test code = BUN) 4 7-22 L [facility] HospitalWyyjklhIWHRNAUBI4689-34-69 08:49:00 Test Item Value Reference Range Interpretation Comments Glucose Lvl (test code = Glucose Lvl) 90 70-99 N [facility] HospitalRbvnkkgVKDUZMNOR3210-06-84 08:49:00 Test Item Value Reference Range Interpretation Comments AGAP (test code = AGAP) 13.5 10.0-20.0 N [facility] HospitalUtaofghRELEGBHFG9653-07-56 08:49:00 Test Item Value Reference Range Interpretation Comments Chloride Lvl (test code = Chloride Lvl) 104 95-109 N [facility] HospitalIilqanpCCGWEYDHY1107-35-23 08:49:00 Test Item Value Reference Range Interpretation Comments CO2 (test code = CO2) 30 24-32 N [facility] HospitalGzhovdsNSYXIVWGZ2669-44-03 08:54:00 Test Item Value Reference Range Interpretation Comments eGFR (test code = eGFR) 96 [facility] HospitalVbrjptoRGMQIEEKY4935-16-36 08:54:00 Test Item Value Reference Range Interpretation Comments BUN (test code = BUN) 4 7-22 L [facility] HospitalJbdtbnaKNNKJAEWY8315-10-76 08:54:00 Test Item Value Reference Range Interpretation Comments AGAP (test code = AGAP) 14.2 10.0-20.0 N [facility] HospitalPnggcpiWJJHSPIQM9455-27-50 08:54:00 Test Item Value Reference Range Interpretation Comments Calcium Lvl (test code = Calcium Lvl) 6.7 8.5-10.5 A [facility] HospitalHthzrakZFUVEMXXA0116-85-06 08:54:00 Test Item Value Reference Range Interpretation Comments CO2 (test code = CO2) 25 24-32 N [facility] HospitalZqecmuzLWEMTZHDM2882-14-93 08:54:00 Test Item Value Reference Range Interpretation Comments Potassium Lvl (test code = Potassium 3.2 3.5-5.1 L Lvl) [facility] HospitalUdzlhezJHRYINBJD7142-44-71 08:54:00 Test Item Value Reference Range Interpretation Comments Sodium Lvl (test code = Sodium Lvl) 148 135-145 H [facility] HospitalPfayisiFSHHQAVNE6031-95-39 08:54:00 Test Item Value Reference Range Interpretation Comments Chloride Lvl (test code = Chloride Lvl) 112 95-109 H [facility] HospitalJkbsgjiOZWJIDGTA5262-02-72 08:54:00 Test Item Value Reference Range Interpretation Comments Creatinine Lvl (test code = Creatinine 0.5 0.5-1.4 N Lvl) [facility] HospitalUilnqsbRNRFTZSCI1067-84-56 08:54:00 Test Item Value Reference Range Interpretation Comments Glucose Lvl (test code = Glucose Lvl) 116 70-99 H [facility]landsHymtmeaNCLPZFXCSP5507-71-25 08:54:00 Test Item Value Reference Range Interpretation Comments Eosinophils # (test code 0.3 See_Comment N [A utomated message] The = Eosinophils #) system whic h generated this result tra nsmitted reference range : <=0.5. The reference r radha was not used to int erpret this result as normal/abnormal . [facility]landsCafgclwFKOOKKDIFC2402-03-46 08:54:00 Test Item Value Reference Range Interpretation Comments Monocytes # (test code 0.7 See_Comment N [Aut omated message] The = Monocytes #) system which generated this result tra nsmitted reference range : <=0.8. The reference r radha was not used to int erpret this result as normal/abnormal . [facility]landsWgwizrfLCJTWSVQRT7271-73-96 08:54:00 Test Item Value Reference Range Interpretation Comments Lymphocytes # (test code = Lymphocytes 0.6 1.0-5.5 L #) [facility]landsXjknuyvSLAILNTJHJ1489-02-08 08:54:00 Test Item Value Reference Range Interpretation Comments Segs-Bands # (test code = Segs-Bands #) 5.0 1.5-8.1 N [facility]landsTsnvdmmJBKUMQTLMH8114-82-40 08:54:00 Test Item Value Reference Range Interpretation Comments Basophils (test code = 0.5 See_Comment N [Aut omated message] The Basophils) system which ge nerated this result tra nsmitted reference range : <=1.0. The reference r radha was not used to int erpret this result as normal/abnormal . [facility]landsDppfpbwBDPBIAFAMR7279-80-72 08:54:00 Test Item Value Reference Range Interpretation Comments Segs (test code = Segs) 75.3 45.0-75.0 H [facility]landsBgyszedNYAWLSDVUD0776-27-79 08:54:00 Test Item Value Reference Range Interpretation Comments Lymphocytes (test code = Lymphocytes) 8.9 20.0-40.0 L [facility]landsOkraoygGKGBVGPAHO9817-24-82 08:54:00 Test Item Value Reference Range Interpretation Comments Monocytes (test code = Monocytes) 10.5 2.0-12.0 N [facility]landsJmlrmnzUPPNMNLYUV0834-79-08 08:54:00 Test Item Value Reference Range Interpretation Comments Eosinophils (test code = 4.8 See_Comment H [A utomated message] The Eosinophils) system which ge nerated this result tra nsmitted reference range : <=4.0. The reference r radha was not used to int erpret this result as normal/abnormal . [facility]landsUuijtmaRQDWQRRRVP2675-93-19 08:54:00 Test Item Value Reference Range Interpretation Comments aPTT (test code = aPTT) 54.7 s 22.9-35.8 H [facility]landsBiekqfeGSUTQXWLZR2291-01-34 08:54:00 Test Item Value Reference Range Interpretation Comments PROTIME (test code = PROTIME) 13.6 s 12.0-14.7 N [facility]landsYkoaudfZWRIIOLWGS5881-78-07 08:54:00 Test Item Value Reference Range Interpretation Comments INR (test code = INR) 1.05 0.85-1.17 N [facility]landsQuykmqqQXEJHYGADT0681-92-39 08:54:00 Test Item Value Reference Range Interpretation Comments Hct (test code = Hct) 22.8 36.0-48.0 L [facility]landsXrhkwtmVIVZORFFCJ2576-42-76 08:54:00 Test Item Value Reference Range Interpretation Comments Hgb (test code = Hgb) 7.7 12.0-16.0 L [facility]landsEkkdzluWKDTXYWSHD1870-69-48 08:54:00 Test Item Value Reference Range Interpretation Comments WBC X 10x3 (test code = WBC X 10x3) 6.6 3.7-10.4 N [facility]landsGlxbfelGXPISGTWRC2517-19-59 08:54:00 Test Item Value Reference Range Interpretation Comments RBC X 10x6 (test code = RBC X 10x6) 2.60 4.20-5.40 L [facility]landsPwwcvrbAPBJNEBEBT1675-08-07 08:54:00 Test Item Value Reference Range Interpretation Comments Platelet (test code = Platelet) 149 133-450 N [facility]landsJpigpfgQFLKDOKVFE6655-11-50 08:54:00 Test Item Value Reference Range Interpretation Comments MPV (test code = MPV) 9.0 7.4-10.4 N [facility]landsZojcyckUGEMMZPGCU1391-15-46 08:54:00 Test Item Value Reference Range Interpretation Comments MCV (test code = MCV) 87.6 81.0-99.0 N [facility]landsYeejyzfCMPLFCOFUB3789-07-97 08:54:00 Test Item Value Reference Range Interpretation Comments MCHC (test code = MCHC) 33.8 32.0-36.0 N [facility]landsAvlafwyKUUNRSGIVL4230-65-17 08:54:00 Test Item Value Reference Range Interpretation Comments RDW (test code = RDW) 12.8 11.5-14.5 N [facility]landsUctoocpBRZNITWRLP6947-65-67 08:54:00 Test Item Value Reference Range Interpretation Comments MCH (test code = MCH) 29.6 pg 27.0-31.0 N [facility]landsMvaufozPTZAMYIRUZ9313-04-58 02:13:49 Test Item Value Reference Range Interpretation Comments aPTT (test code = aPTT) 64.7 s 22.9-35.8 H [facility]landsSyntmokZKQTBRDUQI0110-31-46 19:02:43 Test Item Value Reference Range Interpretation Comments aPTT (test code = aPTT) 72.8 s 22.9-35.8 H [facility]landsAzwguunFZMDDXNXGF6544-52-35 10:38:00 Test Item Value Reference Range Interpretation Comments RDW (test code = RDW) 13.1 11.5-14.5 N [facility]landsBrxafpaSFXUKCOFKQ0212-04-30 10:38:00 Test Item Value Reference Range Interpretation Comments MCV (test code = MCV) 87.5 81.0-99.0 N [facility] [place] WoodlandsIgtqnseUCIBVNAJMY8706-49-25 10:38:00 Test Item Value Reference Range Interpretation Comments MCHC (test code = MCHC) 34.0 32.0-36.0 N [facility]landsDkezmgdHOCQBIZLUJ3710-23-99 10:38:00 Test Item Value Reference Range Interpretation Comments MPV (test code = MPV) 9.9 7.4-10.4 N [facility]landsVmewtgoXTKAKDDSVO8141-38-98 10:38:00 Test Item Value Reference Range Interpretation Comments Platelet (test code = Platelet) 134 133-450 N [facility] WoodlandsDleudaoPPZVNWUWUR8138-24-37 10:38:00 Test Item Value Reference Range Interpretation Comments MCH (test code = MCH) 29.7 pg 27.0-31.0 N [facility]landsSpmxtguBSRVOKEZBM0501-02-81 10:38:00 Test Item Value Reference Range Interpretation Comments Hct (test code = Hct) 25.3 36.0-48.0 L [facility]landsJemtzibCSFDCGVCXU5504-30-38 10:38:00 Test Item Value Reference Range Interpretation Comments WBC X 10x3 (test code = WBC X 10x3) 7.7 3.7-10.4 N [facility]landsSgsilqiNFLSUEKLJU8791-58-79 10:38:00 Test Item Value Reference Range Interpretation Comments RBC X 10x6 (test code = RBC X 10x6) 2.89 4.20-5.40 L [facility]landsCxsfmmgJGLXHUZKYJ0421-15-95 10:38:00 Test Item Value Reference Range Interpretation Comments Hgb (test code = Hgb) 8.6 12.0-16.0 L [facility]landsVioxqmdDVOXCOAHIJ8730-20-26 10:38:00 Test Item Value Reference Range Interpretation Comments Monocytes # (test code 0.8 See_Comment N [Aut omated message] The = Monocytes #) system which generated this result tra nsmitted reference range : <=0.8. The reference r radha was not used to int erpret this result as normal/abnormal . [facility]landsKpcycvkYACTXWIOAA0924-96-98 10:38:00 Test Item Value Reference Range Interpretation Comments Eosinophils # (test code 0.5 See_Comment N [A utomated message] The = Eosinophils #) system whic h generated this result tra nsmitted reference range : <=0.5. The reference r radha was not used to int erpret this result as normal/abnormal . [facility]landsOthomdbNQMTFVNDOS0632-37-06 10:38:00 Test Item Value Reference Range Interpretation Comments Lymphocytes (test code = Lymphocytes) 10.6 20.0-40.0 L [facility]landsFgnzadwWPBAUHCOGC4624-73-26 10:38:00 Test Item Value Reference Range Interpretation Comments Segs (test code = Segs) 72.0 45.0-75.0 N [facility]landsKwxfrqxAESERJGJLU3782-17-39 10:38:00 Test Item Value Reference Range Interpretation Comments Segs-Bands # (test code = Segs-Bands #) 5.5 1.5-8.1 N [facility]landsOskyxciYSFRYJZIYO8580-91-39 10:38:00 Test Item Value Reference Range Interpretation Comments Basophils (test code = 0.6 See_Comment N [Aut omated message] The Basophils) system which ge nerated this result tra nsmitted reference range : <=1.0. The reference r radha was not used to int erpret this result as normal/abnormal . [facility] WoodlandsYtuvpsrFOLIEMNOOF2753-62-27 10:38:00 Test Item Value Reference Range Interpretation Comments Eosinophils (test code = 6.0 See_Comment H [A utomated message] The Eosinophils) system which ge nerated this result tra nsmitted reference range : <=4.0. The reference r radha was not used to int erpret this result as normal/abnormal . [facility]landsXrrikdoUJVBERGKSI6638-51-30 10:38:00 Test Item Value Reference Range Interpretation Comments Monocytes (test code = Monocytes) 10.8 2.0-12.0 N [facility]kgzgmxAWAVDZIUZY2753-83-51 10:38:00 Test Item Value Reference Range Interpretation Comments Lymphocytes # (test code = Lymphocytes 0.8 1.0-5.5 L #) [facility]KubqqahIWYBSZULS4820-04-79 11:42:00 Test Item Value Reference Range Interpretation Comments eGFR (test code = eGFR) 63 [facility] HospitalFqornowZRNWWWGZN0824-03-16 11:42:00 Test Item Value Reference Range Interpretation Comments Alk Phos (test code = Alk Phos) 68 39-136 N [facility] HospitalMqflyohNVUQOBGCF2295-38-86 11:42:00 Test Item Value Reference Range Interpretation Comments Albumin Lvl (test code = Albumin Lvl) 2.4 3.5-5.0 L [facility] HospitalTcvxrbnUZKDTTLXW6007-02-32 11:42:00 Test Item Value Reference Range Interpretation Comments Glucose Lvl (test code = Glucose Lvl) 93 70-99 N [facility] HospitalZowpeciSRZLRCNFX9458-27-46 11:42:00 Test Item Value Reference Range Interpretation Comments Bili Total (test code = Bili Total) 0.5 0.2-1.3 N [facility] HospitalMbyvosqQVSUFWOQM5469-57-63 11:42:00 Test Item Value Reference Range Interpretation Comments Calcium Lvl (test code = Calcium Lvl) 7.3 8.5-10.5 L [facility] HospitalPjhgtheHRLADWQZQ0845-99-74 11:42:00 Test Item Value Reference Range Interpretation Comments Total Protein (test code = Total 4.5 6.4-8.4 L Protein) [facility] HospitalNxactsjOEWNMKUPY4770-74-47 11:42:00 Test Item Value Reference Range Interpretation Comments CO2 (test code = CO2) 25 24-32 N [facility] HospitalYscnjspBEYBCZBBQ7735-91-34 11:42:00 Test Item Value Reference Range Interpretation Comments ALANINE AMINOTRANSFERASE 12 See_Comment N [A utomated message] (test code = ALANINE The sys tem which AMINOTRANSFERASE) generated this result transmitted ref erence range: <=65. Th e reference range was not used to int erpret this result as normal/abnormal . [facility] HospitalPiivebpAOCVAMBXK6511-79-81 11:42:00 Test Item Value Reference Range Interpretation Comments Potassium Lvl (test code = Potassium 3.6 3.5-5.1 N Lvl) [facility] HospitalKjqqyrsJLINICQPT0375-50-58 11:42:00 Test Item Value Reference Range Interpretation Comments Sodium Lvl (test code = Sodium Lvl) 137 135-145 N [facility] HospitalIjvjwdqNFVRKDHLR5887-91-71 11:42:00 Test Item Value Reference Range Interpretation Comments BUN (test code = BUN) 7 7-22 N [facility] HospitalSjwegdpMLUGLDXAV4623-50-73 11:42:00 Test Item Value Reference Range Interpretation Comments Chloride Lvl (test code = Chloride Lvl) 100 95-109 N [facility] HospitalOaqgxtrSFWMUDREC0029-86-47 11:42:00 Test Item Value Reference Range Interpretation Comments Creatinine Lvl (test code = Creatinine 0.9 0.5-1.4 N Lvl) [facility] HospitalEqwobusLHNQHPMAG7435-46-89 11:42:00 Test Item Value Reference Range Interpretation Comments ASPARTATE TRANSAMINASE 24 See_Comment N [Aut omated message] (test code = ASPARTATE The s ystem which TRANSAMINASE) generated this result transmitted ref erence range: <=37. Th e reference range was not used to interpr et this result as normal/abnormal . [facility] HospitalFmijaetLXZIZNYUR2893-25-60 11:42:00 Test Item Value Reference Range Interpretation Comments Globulin (test code = Globulin) 2.1 2.0-4.0 N [facility] HospitalGtcdvcgFUPTBNAVF8181-12-47 11:42:00 Test Item Value Reference Range Interpretation Comments B/C Ratio (test code = B/C Ratio) 8 6-25 N [facility] HospitalZcmnusnYUDDLBBXD9270-54-44 11:42:00 Test Item Value Reference Range Interpretation Comments A/G Ratio (test code = A/G Ratio) 1.1 0.7-1.6 N [facility] HospitalHvctftnRAAJBEBRM0795-17-50 11:42:00 Test Item Value Reference Range Interpretation Comments AGAP (test code = AGAP) 15.6 10.0-20.0 N [facility] HospitalEndwggpJKRSDUNOU7374-17-10 07:54:00 Test Item Value Reference Range Interpretation Comments AlkPhos Bone (test code = AlkPhos Bone) 8.1 5.6-29.0 [facility] HospitalGgtwaxnVVQDXVDNO6882-03-60 07:54:00 Test Item Value Reference Range Interpretation Comments Vitamin D, 25-OH, Total (test code = 17 30-100 L Vitamin D, 25-OH, Total) [facility] HospitalWjhfyvgHQZLIKKLO7962-06-70 07:54:00 Test Item Value Reference Range Interpretation Comments PTH Intact (test code = PTH Intact) 49.1 11.1-79.5 N [facility] HospitalLcoywdnBGNZXAGSS9948-19-11 07:54:00 Test Item Value Reference Range Interpretation Comments Osteocalcin, N-MID (test code = 12 8-32 Osteocalcin, N-MID) [facility] HospitalHigwdnfMRUMNYEMJ0232-58-84 09:58:00 Test Item Value Reference Range Interpretation Comments Phosphorus (test code = Phosphorus) 2.8 2.5-4.5 N [facility] HospitalVmrontnBGTKPDZPX9828-73-82 09:58:00 Test Item Value Reference Range Interpretation Comments Magnesium Lvl (test code = Magnesium 2.1 1.8-2.4 N Lvl) [facility] HospitalWyhjawwANMRHVORW4097-69-96 09:52:00 Test Item Value Reference Range Interpretation Comments Phosphorus (test code = Phosphorus) 3.3 2.5-4.5 N [facility] HospitalGfodzqfUHKLDSQAK5015-74-44 09:52:00 Test Item Value Reference Range Interpretation Comments Magnesium Lvl (test code = Magnesium 1.6 1.8-2.4 L Lvl) [facility] OPHHFKI1613[facility]-64 06:49:00 Test Item Value Reference Range Interpretation Comments RBC product (test code Product available N = RBC product) (02/11/2013 01:49:00) [facility] YXMAWBB3983-05-06 02:44:00 Test Item Value Reference Range Interpretation Comments Antibody Scrn (test Negative (02/10/2013 N code = Antibody Scrn) 21:44:00) [facility] ZTGSCIH6366-76-35 02:44:00 Test Item Value Reference Range Interpretation Comments ABO/Rh (test code = ABO/Rh) [facility] TjjehtoXAGQJYWXM7662-79-44 02:30:49 Test Item Value Reference Range Interpretation Comments Lactic Acid Lvl (test code = Lactic 1.0 0.5-2.2 N Acid Lvl) [facility]iop[facility]kaETBYXLQYYP2405-67-52 02:30:49 Test Item Value Reference Range Interpretation Comments RBC Morph (test code = Normal (02/10/2013 N RBC Morph) 21:30:49) [facility]landsFpsoxxmCHKNSPALXK8543-71-30 02:30:49 Test Item Value Reference Range Interpretation Comments Plt Morph (test code = Normal (02/10/2013 N Plt Morph) 21:30:49) [facility]landsXezxpdwRHDWYTBROX2934-08-58 02:30:49 Test Item Value Reference Range Interpretation Comments Basophils # (test code 0.1 See_Comment N [Aut omated message] The = Basophils #) system which generated this result tra nsmitted reference range : <=0.2. The reference r radha was not used to int erpret this result as normal/abnormal . [facility]landsOsxjlmeOMEKUHXMXA2253-25-63 02:30:03 Test Item Value Reference Range Interpretation Comments Estimated % Lysis (test 1.0 See_Comment N [Au tomated message] The code = Estimated % system wh ich generated Lysis) this result tra nsmitted reference range : <=7.5. The reference r radha was not used to int erpret this result as normal/abnormal . [facility]landsQrsaqlmXKLZFMUSWA4519-68-15 02:30:03 Test Item Value Reference Range Interpretation Comments Max Amp (test code = Max Amp) 66 mm 52-71 N [facility]landsPlwpawzYFLTYNEHDV9090-96-54 02:30:03 Test Item Value Reference Range Interpretation Comments K-time (test code = K-time) 1.1 min 0.6-2.3 N [facility]landsHxqjliiNFDSFVTYUO6842-08-95 02:30:03 Test Item Value Reference Range Interpretation Comments Split Point (test code = Split Point) 0.6 min [facility]landsLprfkdhENWYRABVUR1541-41-29 02:30:03 Test Item Value Reference Range Interpretation Comments R-time (test code = R-time) 0.7 min 0.4-0.7 N [facility]landsWpsiqqdGPRUKXDLPX0603-66-18 02:30:03 Test Item Value Reference Range Interpretation Comments Rapid TEG Sample Type Citrated Whole Blood (test code = Rapid TEG Sample Type) [facility]landsUfyneumANDQXDJVBK5475-45-69 02:30:03 Test Item Value Reference Range Interpretation Comments G-value (test code = G-value) 9.5 5.0-11.6 N [facility]landsHljozhiOKOQEAVYJH2559-46-75 02:30:03 Test Item Value Reference Range Interpretation Comments Angle (test code = Angle) 77 degrees 64-80 N [place] [address]-10-08 02:30:03 Test Item Value Reference Range Interpretation Comments ACT (TEG) (test code = ACT (TEG)) 113 s 86-118 N [facility] HospitalNkbpmezYHYKFEPMH2049-17-98 02:30:02 Test Item Value Reference Range Interpretation Comments pH Isaac (test code = pH Isaac) 7.39 7.28-7.42 N [facility] HospitalPzgabfvBPQAWPLNT8141-92-38 02:30:02 Test Item Value Reference Range Interpretation Comments pCO2 Isaac (test code = pCO2 Isaac) 41 38-52 N [facility] HospitalUqswhweEALQVUTXQ9916-16-47 02:30:02 Test Item Value Reference Range Interpretation Comments HCO3 Isaac (test code = HCO3 Isaac) 25 22-26 N [facility] HospitalEnianqeSMNMFZHCO7137-23-12 02:30:02 Test Item Value Reference Range Interpretation Comments pO2 Isaac (test code = pO2 Isaac) 51 20-49 H [facility] HospitalDxjkdfyIXXPSCMWP6778-69-04 02:30:02 Test Item Value Reference Range Interpretation Comments Temp Isaac (test code = Temp Isaac) 37.0 [facility] HospitalLwoygtsYIARNRAEF6411-60-23 02:30:02 Test Item Value Reference Range Interpretation Comments O2 Sat Isaac (test code = O2 Sat Isaac) 85.3 40.0-70.0 H [facility] HospitalBfsbdteITMYVNBDK3581-20-34 02:30:02 Test Item Value Reference Range Interpretation Comments BE Isaac (test code = 0 See_Comment N [Automa edna message] The BE Isaac) system which ge nerated this result transmit edna reference range : <=2. The reference range was not used to interpr et this result as vanessa l/abnormal. [facility] [place] Notes Date/Time Note Provider Source 2019-08-31 [facility] 17:23:00-00:00 [facility] ([facility]) Discharge Summary REPORT#:[id number] REPORT STATUS: Signed DATE:08/31/19 TIME: 172 PATIENT: ROXANN TRUJILLO UNIT #: [id number] ROOM/BED: 7B : 38 AGE: 79 SEX: F ATTEND: Tor Snider MD ADM AUTHOR: Demetria Chatterjee LEATHER CARVER * ALL edits or amendments must be made on the el [employer]/computer document * PCP PCP PCP: PCP: No Primary or Family Physician Discharge to: home with home health [facility] [place] General Information Discharge date: 08/31/19 Discharge diagnosis: 1. Sepsis secondary to acute diverticulitis 2. Acute rectal bleeding 3. Acute anemia secondary to rectal bleeding 4. Hypertension 5. Hyperlipidemia 6. MATT Hospital course: Patient is a 79y/o female with past medical hist ory of gastritis, GERD, hypertension, hyperlipidemia, and recent hernia surgery that presented with bloody diarrhea. She was found with acute sepsis secondary to acute diverticulitis as confirmed on CT of abdomen and pelvic. She was treated with IV fluid, Flagyl, and Rocephin. GI was consulted , and no intervention was recommended but to follow-up within 6 to 8 weeks for outpatient colonoscopy. H H remained stable, rectal bleeding resol belkis, she was cleared by GI to DC home. #acute sepsis secondary to acute diverticulitis - IV antibiotics Rocephin/Flagyl - WBC- 16.8, HR- 90's, acute diverticulitis - IVF, pain management, anti-emetics - GI consult; appreciate input - WBC 16.8>16.7>11.8 - DIET TOLERATED - improving, resolved # Acute anemia secondary to rectal bleeding - HH remained stable - outpt colonoscopy per GI #ACUTE rectal bleeding - GI consult;outpt f/u - stable trend H H - likely from above - stable at this time - negative occult blood - outpt coloncosopy #hypertension - norvasc #hyperlipidemia - statin # MATT - IVF/resolved Med Rec PCP PCP: PCP: No Primary or Family Physician Med Rec Discharge meds: Continue taking these medications: ASPIRIN (ASPIRIN) 81 MG TAB.CHEW 81 MILLIGRAM ORAL DAILY. METOPROLOL SUCC XL (TOPROL XL) 100 MG TAB.SA 100 MILLIGRAM ORAL DAILY. OMEPRAZOLE ER (PriLOSEC) 40 MG CAP.DR 40 MILLIGRAM ORAL TWICE DAILY. amLODIPine/BENAZEPRIL (LOTREL 10/20 MG) 1 CAP CA P 1 CAPSULE ORAL DAILY. ATORVASTATIN (LIPITOR) 10 MG TAB 10 MILLIGRAM ORAL DAILY. Objective VS/I O Last Documented: Result Date Time Pulse Ox 95 08/30 1638 B/P 146/77 08/30 1638 B/P Mean 100.2 08/30 1638 O2 Delivery Room air 08/30 1638 Temp 37.0 08/30 1638 Pulse 82 08/30 1638 Resp 16 08/30 1638 24 hour I O ending at 0700: 08/31 0700 08/30 1900 Intake Total Output Total Balance Number 7 Bowel Movements Number Voids 8 Patient Weight Weight (lb): Weight (oz): Weight (kg): 81.818 General appearance: alert, awake, oriented Head/Eyes: atraumatic, clear cornea, EOMI, normo cephalic, normal conjunctiva/ sclera, normal fundi, normal eyelids/periorb., P ERRLA ENT: normal dentition, normal ear left, normal e ar right, normal nose, normal pharynx, normal sinus Neck: full range of motion, non-tender, no bruit /NL carotids, no JVD, no lymphadenopathy, no masses or swelling, normal t hyroid, supple/no meningismus Cardiovascular: normal capillary refill, regular rate rhythm Respiratory: clear to auscultation, no distress, no tenderness Extremities: moves all, no edema-all extremities , normal capillary refill, normal range of motion, normal sensory, normal m otor function Musculoskeletal: full range of motion, normal in spection Neuro/DEALERSHIP MANAGER: alert, oriented X 3 Results Results: vital signs stable, current med profile rev'd Discharge Instructions Diet: cardiac Activity: as tolerated Discharge management: greater than 30 mins Follow-up Appointments Consulting provider 1: Provider 1: Fernando Talavera MD Quality Current Medications Current medication review: I attest that the foregoing medication list in t medical record is true, accurate, and complete to the best of my knowled ge. Unable to obtain: Unable to obtain an accurate home medica tion list at this time. The patient is in an urgent or emergent medical situation where time is of the essence. To delay treatment would jeopardize the pat ient's health status on the day of the encounter. VTE Prophylaxis VTE prophylaxis initiated: yes Advanced Care Plan 65 or Older Discussed with: patient Discussion included: code status BMI Screening > 25 or < 18.5 Patient's BMI: Current BMI: 29.1 Electronically Signed by Demetria Chatterjee NP on at 1355 RPT #:[id number] END OF REPORT 2019-08-31 [facility] 17:23:00-00:00 [facility] ([facility]) Discharge Summary REPORT#:[id number] REPORT STATUS: Signed DATE:08/31/19 TIME: 1723 PATIENT: ROXANN TRUJILLO UNIT #: [id number] ROOM/BED: 2067-B : 38 AGE: 79 SEX: F ATTEND: Tor Snider MD ADM AUTHOR: Demetria Chatterjee LEATHER CARVER * ALL edits or amendments must be made on the [employer]/computer document * PCP PCP PCP: PCP: No Primary or Family Physician Discharge to: home with home health [facility] [place] General Information Discharge date: 08/31/19 Discharge diagnosis: 1. Sepsis secondary to acute diverticulitis 2. Acute rectal bleeding 3. Acute anemia secondary to rectal bleeding 4. Hypertension 5. Hyperlipidemia 6. MATT Hospital course: Patient is a 79y/o female with past medical hist ory of gastritis, GERD, hypertension, hyperlipidemia, and recent hernia surgery that presented with bloody diarrhea. She was found with acute sepsis secondary to acute diverticulitis as confirmed on CT of abdomen and pelvic. She was treated with IV fluid, Flagyl, and Rocephin. GI was consulted , and no intervention was recommended but to follow-up within 6 to 8 weeks for outpatient colonoscopy. H H remained stable, rectal bleeding resol belkis, she was cleared by GI to DC home. #acute sepsis secondary to acute diverticulitis - IV antibiotics Rocephin/Flagyl - WBC- 16.8, HR- 90's, acute diverticulitis - IVF, pain management, anti-emetics - GI consult; appreciate input - WBC 16.8>16.7>11.8 - DIET TOLERATED - improving, resolved # Acute anemia secondary to rectal bleeding - HH remained stable - outpt colonoscopy per GI #ACUTE rectal bleeding - GI consult;outpt f/u - stable trend H H - likely from above - stable at this time - negative occult blood - outpt coloncosopy #hypertension - norvasc #hyperlipidemia - statin # MATT - IVF/resolved Med Rec PCP PCP: PCP: No Primary or Family Physician Med Rec Discharge meds: Continue taking these medications: ASPIRIN (ASPIRIN) 81 MG TAB.CHEW 81 MILLIGRAM ORAL DAILY. METOPROLOL SUCC XL (TOPROL XL) 100 MG TAB.SA 100 MILLIGRAM ORAL DAILY. OMEPRAZOLE ER (PriLOSEC) 40 MG CAP.DR 40 MILLIGRAM ORAL TWICE DAILY. amLODIPine/BENAZEPRIL (LOTREL 10/20 MG) 1 CAP CA P 1 CAPSULE ORAL DAILY. ATORVASTATIN (LIPITOR) 10 MG TAB 10 MILLIGRAM ORAL DAILY. Objective VS/I O Last Documented: Result Date Time Pulse Ox 95 08/30 1638 B/P 146/77 08/30 1638 B/P Mean 100.2 08/30 1638 O2 Delivery Room air 08/30 163 Temp 37.0 08/30 163 Pulse 82 08/30 1638 Resp 16 08/30 163 24 hour I O ending at 0700: 08/31 0700 08/30 1900 Intake Total Output Total Balance Number 7 Bowel Movements Number Voids 8 Patient Weight Weight (lb): Weight (oz): Weight (kg): 81.818 General appearance: alert, awake, oriented Head/Eyes: atraumatic, clear cornea, EOMI, normo cephalic, normal conjunctiva/ sclera, normal fundi, normal eyelids/periorb., P ERRLA ENT: normal dentition, normal ear left, normal e ar right, normal nose, normal pharynx, normal sinus Neck: full range of motion, non-tender, no bruit /NL carotids, no JVD, no lymphadenopathy, no masses or swelling, normal t hyroid, supple/no meningismus Cardiovascular: normal capillary refill, regular rate rhythm Respiratory: clear to auscultation, no distress, no tenderness Extremities: moves all, no edema-all extremities , normal capillary refill, normal range of motion, normal sensory, normal m otor function Musculoskeletal: full range of motion, normal in spection Neuro/DEALERSHIP MANAGER: alert, oriented X 3 Results Results: vital signs stable, current med profile rev'd Discharge Instructions Diet: cardiac Activity: as tolerated Discharge management: greater than 30 mins Follow-up Appointments Consulting provider 1: Provider 1: Fernando Talavera MD Quality Current Medications Current medication review: I attest that the foregoing medication list in t medical record is true, accurate, and complete to the best of my knowled ge. Unable to obtain: Unable to obtain an accurate home medica tion list at this time. The patient is in an urgent or emergent medical situation where time is of the essence. To delay treatment would jeopardize the pat ient's health status on the day of the encounter. VTE Prophylaxis VTE prophylaxis initiated: yes Advanced Care Plan 65 or Older Discussed with: patient Discussion included: code status BMI Screening > 25 or < 18.5 Patient's BMI: Current BMI: 29.1 Electronically Signed by Demetria Chatterjee NP on at 1355 at 2146 RPT #:[id number] END OF REPORT 2019-08-31 [facility] 10:56:00-00:00 [facility] Hospitalist Progress Note REPORT#:[id number] REPORT STATUS: Signed DATE:08/31/19 TIME: 1056 PATIENT: ROXANN TRUJILLO UNIT #: [id number] ROOM/BED: [facility] : 38 AGE: 79 SEX: F ATTEND: Tor Snider MD ADM AUTHOR: Demetria Chatterjee NP * ALL edits or amendments must be made on the [employer]/bttn document * Subjective Chief Complaint: stable and doing better today Patient reports: No: complaints. Nursing reports: No: complaints. Review of Systems Respiratory: Denies: CERRATO (dyspnea on exertion), SOB, wheezing . Cardiovascular: Denies: chest pain, CERRATO (dyspnea on exertion), e hali. GI: Reports: abdominal pain, diarrhea, nausea. Denie s: vomiting. : Denies: flank pain. All systems rev neg: except as marked Objective General VS/I O: Vital Signs: Date Time Temp Pulse Resp B/P B/P Pulse O2 O2 F low FiO2 Mean Ox Delivery Rate 08/30 0802 36.7 84 15 149/81 103.4 95 Room air 08/30 0328 36.7 78 18 132/75 94.0 97 Room air 08/29 2323 36.6 77 18 151/72 98.6 95 08/29 1929 36.9 81 18 160/85 109.8 97 08/29 1618 36.4 84 17 138/76 96.8 95 Room air 24 hour I O ending at 0700: 08/30 0700 08/29 1900 Intake Total 1300.00 1200.00 Output Total Balance 1300.00 1200.00 Intake, IV 1200.00 1200.00 Intake, Oral 100 Number Voids 2 Patient Weight Weight (lb): Weight (oz): Weight (kg): 81.818 Physical Exam General appearance: alert, awake, oriented Head/Eyes: atraumatic, clear cornea, EOMI, vanessa l conjunctiva/sclera, normal eyelids/periorb., normocephalic, PERRL ENT: normal dentition, normal ear left, normal e ar right, normal nose, normal pharynx, normal sinus Neck: full range of motion, non-tender Cardiovascular: normal capillary refill, normal heart sounds, regular rate rhythm Respiratory: aerating well, clear to auscultatio n, symmetric expansion, no distress Abdomen: tenderness (mild), non-tender, normal b owel sounds, no distention Genitourinary: no flank pain Extremities: moves all, normal capillary refill, normal range of motion Musculoskeletal: normal inspection Neuro/DEALERSHIP MANAGER: alert, oriented X 3 Skin: dry, intact Results Results: vital signs stable, current med profile rev'd Diagnosis, Assessment Plan Free Text DxA P Notes Free text DxA P notes: Patient is a 79y/o female admitted for #acute sepsis secondary to acute diverticulitis - IV antibiotics Rocephin/Flagyl - WBC- 16.8, HR- 90's, acute diverticulitis - IVF, pain management, anti-emetics - GI consult; appreciate input - WBC 16.8>16.7>11.8 - improving, resolved #acute diverticulitis - Rocephin/Flagyl IV - IVF - pain managment, anti-emetics - clear liquid diet advance to low fiber diet #rectal bleeding - GI consult;outpt f/u - stable trend H H - likely from above - stable at this time - negative occult blood #hypertension - reconcile home meds - monitor #hyperlipidemia - reconcile home meds - monitor #prophylaxis - SCDs for now given concern for GI bleed - Pantoprazole #full code Plan: dc in am with home health Electronically Signed by Demetria Chatterjee NP on at 1059 RPT #[id number] END OF REPORT 2019-08-31 [facility] 10:56:00-00:00 [facility] ([facility]) Hospitalist Progress Note REPORT#:[id number] REPORT STATUS: Signed DATE:08/31/19 TIME: 1056 PATIENT: ROXANN TRUJILLO UNIT #: [id number] ROOM/BED: [facility] : 38 AGE: 79 SEX: F ATTEND: Tor Snider MD ADM AUTHOR: Demetria Chatterjee NP * ALL edits or amendments must be made on the [employer]/computer document * Subjective Chief Complaint: stable and doing better today Patient reports: No: complaints. Nursing reports: No: complaints. Review of Systems Respiratory: Denies: CERRATO (dyspnea on exertion), SOB, wheezing . Cardiovascular: Denies: chest pain, CERRATO (dyspnea on exertion), e hali. GI: Reports: abdominal pain, diarrhea, nausea. Denie s: vomiting. : Denies: flank pain. All systems rev neg: except as marked Objective General VS/I O: Vital Signs: Date Time Temp Pulse Resp B/P B/P Pulse O2 O2 F low FiO2 Mean Ox Delivery Rate 08/30 0802 36.7 84 15 149/81 103.4 95 Room air 08/30 0328 36.7 78 18 132/75 94.0 97 Room air 08/29 2323 36.6 77 18 151/72 98.6 95 08/29 1929 36.9 81 18 160/85 109.8 97 08/29 1618 36.4 84 17 138/76 96.8 95 Room air 24 hour I O ending at 0700: 08/30 0700 08/29 1900 Intake Total 1300.00 1200.00 Output Total Balance 1300.00 1200.00 Intake, IV 1200.00 1200.00 Intake, Oral 100 Number Voids 2 Patient Weight Weight (lb): Weight (oz): Weight (kg): 81.818 Physical Exam General appearance: alert, awake, oriented Head/Eyes: atraumatic, clear cornea, EOMI, vanessa l conjunctiva/sclera, normal eyelids/periorb., normocephalic, PERRL ENT: normal dentition, normal ear left, normal e ar right, normal nose, normal pharynx, normal sinus Neck: full range of motion, non-tender Cardiovascular: normal capillary refill, normal heart sounds, regular rate rhythm Respiratory: aerating well, clear to auscultatio n, symmetric expansion, no distress Abdomen: tenderness (mild), non-tender, normal b owel sounds, no distention Genitourinary: no flank pain Extremities: moves all, normal capillary refill, normal range of motion Musculoskeletal: normal inspection Neuro/DEALERSHIP MANAGER: alert, oriented X 3 Skin: dry, intact Results Results: vital signs stable, current med profile rev'd Diagnosis, Assessment Plan Free Text DxA P Notes Free text DxA P notes: Patient is a 79y/o female admitted for #acute sepsis secondary to acute diverticulitis - IV antibiotics Rocephin/Flagyl - WBC- 16.8, HR- 90's, acute diverticulitis - IVF, pain management, anti-emetics - GI consult; appreciate input - WBC 16.8>16.7>11.8 - improving, resolved #acute diverticulitis - Rocephin/Flagyl IV - IVF - pain managment, anti-emetics - clear liquid diet advance to low fiber diet #rectal bleeding - GI consult;outpt f/u - stable trend H H - likely from above - stable at this time - negative occult blood #hypertension - reconcile home meds - monitor #hyperlipidemia - reconcile home meds - monitor #prophylaxis - SCDs for now given concern for GI bleed - Pantoprazole #full code Plan: dc in am with home health Electronically Signed by Demetria Chatterjee NP on at 1059 at 0954 RPT #:[id number] END OF REPORT 2019-08-31 [facility] 09:01:00-00:00 [facility] ([facility]) Gastroenterology Progress Note REPORT#:[id number] REPORT STATUS: Signed DATE:08/31/19 TIME: 900 PATIENT: ROXANN TRUJILLO UNIT #: [id number] ROOM/BED: 2066 : 38 AGE: 79 SEX: F ATTEND: Tor Snider MD ADM AUTHOR: Fernando Talavera MD * ALL edits or amendments must be made on the el [employer]/computer document * Subjective Chief Complaint: improved abd pain Patient reports: No: abdominal pain, nausea, rectal bleeding, vom iting. Objective Physical Exam General appearance: awake, no acute distress Cardiovascular: normal heart sounds Respiratory: aerating well Abdomen: non-tender, soft Neuro/DEALERSHIP MANAGER: alert, oriented X 3 Skin: dry, intact Psychiatry: anxious Results Findings/Data: Current Medications Sig/Mayur Start time Last Medication Dose Route Stop Time Status Admin Pantoprazole Sodium 40 MG 0600 08/30 0600 AC PO 09/29 0559 0617 Metronidazole HCl 500 MG Q8H 08/29 1400 AC 08/06 6 PO 09/01 1359 0617 Dicyclomine HCl 10 MG TID PRN 08/29 1215 AC PO 09/28 1214 Metronidazole/Sodium 100 ML Q8H 08/27 1700 DC 0 / Chloride IV 09/01 1659 0931 Hydrocodone Bitart/ 1 TAB Q4H PRN PRN 08/27 073 0 AC 08/28 Acetaminophen PO 09/01 0729 0612 Melatonin 3 MG BEDTIME PRN PRN 08/26 2215 AC PO 09/25 2214 Pantoprazole Sodium 40 MG 0600 08/26 1530 DC IV 09/25 1529 0538 Amlodipine Besylate 10 MG DAILY 08/26 1330 AC 0 08/29 PO 09/25 1329 0930 Lisinopril 20 MG DAILY 08/26 1330 AC 08/29 PO 09/25 1329 0930 Sodium Chloride 1,000 ML .Q10H 08/25 2145 AC IV 09/24 214 2300 Atorvastatin Calcium 10 MG BEDTIME 08/25 2100 A C 08/29 PO 09/24 Ceftriaxone Sodium 1,000 MG Q24H 08/25 2100 AC 08/29 Sodium Chloride 10 ML IV 08/31 Metoprolol Succinate 100 MG DAILY 08/25 2100 AC 08/29 PO 09/24 2058 0931 Promethazine HCl 25 MG Q6H PRN PRN 04/21 2100 AC Sodium Chloride 50 ML IV 09/24 2058 Hydralazine HCl 10 MG Q3H PRN PRN 08/25 2029 AC IV 09/24 2028 Acetaminophen 650 MG Q6H PRN PRN 08/25 2014 AC 08/28 PO 09/03 0805 1743 Ondansetron HCl 4 MG Q6H PRN PRN 08/25 2014 AC 08/27 IV 09/03 0805 1138 Diagnosis, Assessment Plan Free Text A P: 1. Lower quadrant abdominal pain and leukocytosi s likely secondary to acute diverticulitis -- Doing beter 2. Acute onset rectal bleeding likely secondary to #1 - hemoglobin stable and no more bleeding 3. Nausea and vomiting with history of GERD and hiatal hernia -- resolved Plan - low residue diet for dinner -OK to ri home from GI standpoint Outpatient colonoscopy in [address] Talavera. Discussed with patient at 0904 RPT #:[id number] END OF REPORT 2019-08-30 [facility] 10:52:00-00:00 [facility] ([facility] Hospitalist Progress Note REPORT#:[id number] REPORT STATUS: Signed DATE:08/30/19 TIME: 1052 PATIENT: ROXANN TRUJILLO UNIT #: [id number] ROOM/BED: [address] : 38 AGE: 79 SEX: F ATTEND: Tor Snider MD ADM AUTHOR: Neto Ayala NP * ALL edits or amendments must be made on the [employer]/computer document * Subjective Chief Complaint: abdominal pain improving diarrhea- improved, reported cramping pain seen and examined at bedside Review of Systems Respiratory: Denies: CERRATO (dyspnea on exertion), SOB, wheezing . Cardiovascular: Denies: chest pain, CERRATO (dyspnea on exertion), e hali. GI: Reports: abdominal pain, diarrhea, nausea. Denie s: vomiting. : Denies: flank pain. All systems rev neg: except as marked Objective General VS/I O: Vital Signs: Date Time Temp Pulse Resp B/P B/P Pulse O2 O2 F low FiO2 Mean Ox Delivery Rate 08/29 0748 98.1 80 17 146/73 97.5 96 Room air 08/29 0422 98.1 79 17 135/66 89.1 96 Room air 08/29 0001 98.6 70 18 122/64 83.6 94 Room air 08/28 1946 98.4 84 17 151/87 108.5 96 Room air 08/28 1532 97.9 75 16 129/75 93.0 95 Room air 24 hour I O ending at 0700: 08/29 0700 08/28 1900 Intake Total 1500.00 Output Total Balance 1500.00 Intake, IV 1300.00 Intake, Oral 200 Number Voids 6 5 Patient Weight Weight (lb): Weight (oz): Weight (kg): 81.818 Physical Exam General appearance: alert, awake, oriented, no a cute distress Neck: full range of motion, non-tender Cardiovascular: normal capillary refill, normal heart sounds, regular rate rhythm Respiratory: aerating well, clear to auscultatio n, symmetric expansion, no distress Abdomen: tenderness (mild), non-tender, normal b owel sounds, no distention Genitourinary: no flank pain Extremities: moves all, normal capillary refill, normal range of motion Skin: dry, intact Results Findings/Data: Laboratory Tests 08/29 0555 Chemistry Sodium (136 - 145 mmol/L) 144 Potassium (3.5 - 5.1 mmol/L) 3.6 Chloride (98 - 107 mmol/L) 111.0 H Carbon Dioxide (21 - 32 mmol/L) 26.0 Anion Gap (10 - 20) 10.6 BUN (7 - 18 mg/dL) 3 L Creatinine (0.55 - 1.02 mg/dL) 0.70 Glomerular Filtr Rate (>=60 mL/min) > 60 BUN/Creatinine Ratio (10 - 20) 4.3 L Glucose (74 - 106 mg/dL) 90 Calcium (8.5 - 10.1 mg/dL) 8.5 Total Bilirubin (0.0 - 1.0 mg/dL) 0.30 AST (15 - 37 IUnit/L) 14 L ALT (12 - 78 IUnit/L) 12 Total Alk Phosphatase (45 - 117 IUnit/L) 67 Total Protein (6.4 - 8.2 gram/dL) 5.1 L Albumin (3.4 - 5.0 g/dL) 2.6 L Globulin (2.7 - 4.2 gram/dL) 2.5 L Albumin/Globulin Ratio (0.75 - 1.50) 1.0 Laboratory Tests 08/29 0555 Hematology WBC (4.5 - 12.5 K/mm3) 6.7 RBC (3.7 - 5.2 mill/mm3) 4.17 Hgb (11.5 - 15.5 gram/dL) 10.6 L Hct (36.0 - 46.0 %) 32.7 L MCV (80 - 98 fL) 78.4 L MCH (27.0 - 33.0 picogram) 25.4 L MCHC (33.0 - 36.0 gram/dL) 32.4 L RDW (11.6 - 16.2 %) 15.1 RDW Std Deviation (37.0 - 51.0 fL) 43.1 Plt Count (150 - 450 K/mm3) 204 MPV (6.7 - 11.0 fL) 10.6 Neut % (Auto) (39.0 - 69.0 %) 69.3 H Lymph % (Auto) (25.0 - 55.0 %) 14.6 L Peach % (Auto) (0.0 - 10.0 %) 10.7 H Eos % (Auto) (0.0 - 5.0 %) 3.8 Baso % (Auto) (0.0 - 1.0 %) 1.1 H Neut # (Auto) (1.8 - 7.7 K/mm3) 4.62 Lymph # (Auto) (1.0 - 5.0 K/mm3) 0.97 L Peach # (Auto) (0 - 0.8 K/mm3) 0.71 Eos # (Auto) (0.0 - 0.5 K/mm3) 0.25 Baso # (Auto) (0.0 - 0.2 K/mm3) 0.07 Nucleated RBC % (0 - 0 %) 0.0 Nucleated RBCs # (Man) (0.0 - 0.1 K/mm3) 0.00 Diagnosis, Assessment Plan Free Text DxA P Notes Free text DxA P notes: Patient is a 79y/o female admitted for #acute sepsis secondary to acute diverticulitis - IV antibiotics Rocephin/Flagyl - WBC- 16.8, HR- 90's, acute diverticulitis - IVF, pain management, anti-emetics - GI consult - WBC 16.8>16.7>11.8 - improving, resolved #acute diverticulitis - Rocephin/Flagyl IV - IVF - pain managment, anti-emetics - clear liquid diet advance to low fiber diet #rectal bleeding - GI consult - stable trend H H - likely from above - stable at this time - negative occult blood #hypertension - reconcile home meds - monitor #hyperlipidemia - reconcile home meds - monitor #prophylaxis - SCDs for now given concern for GI bleed - Pantoprazole #full code Plan: continue IV antibiotics. H H stable. advan ce diet to low-fiber diet. PT ERICA solano for home with home health. anticipate d ispo in AM if continue to improve and with home health set-up. afebrile, s table, reported still with frequent stools but now with some consistency an d denies blood in stool. will need GI outpt. for colonoscopy likely in 10-12 georgette kumar Electronically Signed by Neto Ayala NP on 08/06 09/23 at 1213 RPT #[id number] END OF REPORT 2019-08-30 [facility] 10:52:00-00:00 [facility] ([facility] Hospitalist Progress Note REPORT#:[id number] REPORT STATUS: Signed DATE:08/30/19 TIME: 1052 PATIENT: ROXANN TRUJILLO UNIT #: [id number] ROOM/BED: [address] : 38 AGE: 79 SEX: F ATTEND: Tor Snider MD ADM AUTHOR: Neto Ayala NP * ALL edits or amendments must be made on the [employer]/computer document * Subjective Chief Complaint: abdominal pain improving diarrhea- improved, reported cramping pain seen and examined at bedside Review of Systems Respiratory: Denies: CERRATO (dyspnea on exertion), SOB, wheezing . Cardiovascular: Denies: chest pain, CERRATO (dyspnea on exertion), e hali. GI: Reports: abdominal pain, diarrhea, nausea. Denie s: vomiting. : Denies: flank pain. All systems rev neg: except as marked Objective General VS/I O: Vital Signs: Date Time Temp Pulse Resp B/P B/P Pulse O2 O2 F low FiO2 Mean Ox Delivery Rate 08/29 0748 98.1 80 17 146/73 97.5 96 Room air 08/29 0422 98.1 79 17 135/66 89.1 96 Room air 08/29 0001 98.6 70 18 122/64 83.6 94 Room air 08/28 1946 98.4 84 17 151/87 108.5 96 Room air 08/28 1532 97.9 75 16 129/75 93.0 95 Room air 24 hour I O ending at 0700: 08/29 0700 08/28 1900 Intake Total 1500.00 Output Total Balance 1500.00 Intake, IV 1300.00 Intake, Oral 200 Number Voids 6 5 Patient Weight Weight (lb): Weight (oz): Weight (kg): 81.818 Physical Exam General appearance: alert, awake, oriented, no a cute distress Neck: full range of motion, non-tender Cardiovascular: normal capillary refill, normal heart sounds, regular rate rhythm Respiratory: aerating well, clear to auscultatio n, symmetric expansion, no distress Abdomen: tenderness (mild), non-tender, normal b owel sounds, no distention Genitourinary: no flank pain Extremities: moves all, normal capillary refill, normal range of motion Skin: dry, intact Results Findings/Data: Laboratory Tests 08/29 0555 Chemistry Sodium (136 - 145 mmol/L) 144 Potassium (3.5 - 5.1 mmol/L) 3.6 Chloride (98 - 107 mmol/L) 111.0 H Carbon Dioxide (21 - 32 mmol/L) 26.0 Anion Gap (10 - 20) 10.6 BUN (7 - 18 mg/dL) 3 L Creatinine (0.55 - 1.02 mg/dL) 0.70 Glomerular Filtr Rate (>=60 mL/min) > 60 BUN/Creatinine Ratio (10 - 20) 4.3 L Glucose (74 - 106 mg/dL) 90 Calcium (8.5 - 10.1 mg/dL) 8.5 Total Bilirubin (0.0 - 1.0 mg/dL) 0.30 AST (15 - 37 IUnit/L) 14 L ALT (12 - 78 IUnit/L) 12 Total Alk Phosphatase (45 - 117 IUnit/L) 67 Total Protein (6.4 - 8.2 gram/dL) 5.1 L Albumin (3.4 - 5.0 g/dL) 2.6 L Globulin (2.7 - 4.2 gram/dL) 2.5 L Albumin/Globulin Ratio (0.75 - 1.50) 1.0 Laboratory Tests 08/29 0555 Hematology WBC (4.5 - 12.5 K/mm3) 6.7 RBC (3.7 - 5.2 mill/mm3) 4.17 Hgb (11.5 - 15.5 gram/dL) 10.6 L Hct (36.0 - 46.0 %) 32.7 L MCV (80 - 98 fL) 78.4 L MCH (27.0 - 33.0 picogram) 25.4 L MCHC (33.0 - 36.0 gram/dL) 32.4 L RDW (11.6 - 16.2 %) 15.1 RDW Std Deviation (37.0 - 51.0 fL) 43.1 Plt Count (150 - 450 K/mm3) 204 MPV (6.7 - 11.0 fL) 10.6 Neut % (Auto) (39.0 - 69.0 %) 69.3 H Lymph % (Auto) (25.0 - 55.0 %) 14.6 L Peach % (Auto) (0.0 - 10.0 %) 10.7 H Eos % (Auto) (0.0 - 5.0 %) 3.8 Baso % (Auto) (0.0 - 1.0 %) 1.1 H Neut # (Auto) (1.8 - 7.7 K/mm3) 4.62 Lymph # (Auto) (1.0 - 5.0 K/mm3) 0.97 L Peach # (Auto) (0 - 0.8 K/mm3) 0.71 Eos # (Auto) (0.0 - 0.5 K/mm3) 0.25 Baso # (Auto) (0.0 - 0.2 K/mm3) 0.07 Nucleated RBC % (0 - 0 %) 0.0 Nucleated RBCs # (Man) (0.0 - 0.1 K/mm3) 0.00 Diagnosis, Assessment Plan Free Text DxA P Notes Free text DxA P notes: Patient is a 79y/o female admitted for #acute sepsis secondary to acute diverticulitis - IV antibiotics Rocephin/Flagyl - WBC- 16.8, HR- 90's, acute diverticulitis - IVF, pain management, anti-emetics - GI consult - WBC 16.8>16.7>11.8 - improving, resolved #acute diverticulitis - Rocephin/Flagyl IV - IVF - pain managment, anti-emetics - clear liquid diet advance to low fiber diet #rectal bleeding - GI consult - stable trend H H - likely from above - stable at this time - negative occult blood #hypertension - reconcile home meds - monitor #hyperlipidemia - reconcile home meds - monitor #prophylaxis - SCDs for now given concern for GI bleed - Pantoprazole #full code Plan: continue IV antibiotics. H H stable. advan ce diet to low-fiber diet. PT eval, CM for home with home health. anticipate d ispo in AM if continue to improve and with home health set-up. afebrile, s table, reported still with frequent stools but now with some consistency an d denies blood in stool. will need GI outpt. for colonoscopy likely in 10-12 georgette kumar Electronically Signed by Neto Ayala NP on 08/06 09/23 at 1213 at 1719 RPT #:[id number] END OF REPORT 2019-08-29 [facility] 14:56:00-00:00 [facility] ([facility]) Gastroenterology Progress Note REPORT#:[id number] REPORT STATUS: Signed DATE:08/29/19 TIME: 1455 PATIENT: ROXANN TRUJILLO UNIT #: [id number] ROOM/BED: [address] : 38 AGE: 79 SEX: F ATTEND: Tor Snider MD ADM AUTHOR: Carissa Connolly * ALL edits or amendments must be made on the [employer]/computer document * Carissa Connolly 08/29/19 1456: Subjective Chief Complaint: improved abd pain Objective General VS/I O: Last Documented: Result Date Time Pulse Ox 94 08/28 1102 B/P 119/66 08/28 1102 B/P Mean 83.6 08/28 1102 O2 Delivery Room air 08/28 110 Temp 36.4 08/28 110 Pulse 75 08/28 1102 Resp 17 08/28 1102 24 hour I O ending at 0700: 08/28 0700 08/27 1900 Intake Total 1400.00 Output Total Balance 1400.00 Intake, IV 1200.00 Intake, Oral 200 Number 1 Bowel Movements Number Voids 2 7 Patient Weight Weight (lb): Weight (oz): Weight (kg): 81.818 Medications: Active Meds + DC'd Last 24 Hrs Metronidazole/Sodium Chloride 100 ML Q8H IV Hydrocodone Bitart/Acetaminophen 1 TAB Q4H PRN P RN PO Melatonin 3 MG BEDTIME PRN PRN PO Pantoprazole Sodium 40 MG 0600 IV Amlodipine Besylate 10 MG DAILY PO Lisinopril 20 MG DAILY PO Sodium Chloride 1,000 ML .Q10H IV Atorvastatin Calcium 10 MG BEDTIME PO Ceftriaxone Sodium 1,000 MG Q24H IV Sodium Chloride 10 ML Metoprolol Succinate 100 MG DAILY PO Promethazine HCl 25 MG Q6H PRN PRN IV Sodium Chloride 50 ML Hydralazine HCl 10 MG Q3H PRN PRN IV Acetaminophen 650 MG Q6H PRN PRN PO Ondansetron HCl 4 MG Q6H PRN PRN IV Nutrition assessment: The data set between the solid lines has been im ported from the dietitian's assessment. Any exceptions have been noted under Provider comments. BMI Calculated: 29.1 Nutrition related diagnosis: Nutrition diagnosis details: Nutrition problem: Nutrition etiology: Nutrition signs and symptoms: Nutrition prescription: Dietitian name: Assessment completed: Provider comments on imported dietitian assessme nt: Physical Exam General appearance: alert, awake, oriented Cardiovascular: normal heart sounds Respiratory: aerating well Abdomen: tenderness Neuro/DEALERSHIP MANAGER: alert, oriented X 3 Skin: dry, intact Psychiatry: anxious Diagnosis, Assessment Plan Free Text A P: 1. Lower quadrant abdominal pain and leukocytosi s likely secondary to acute diverticulitis 2. Acute onset rectal bleeding likely secondary to #1 hemoglobin stable 3. Nausea and vomiting with history of GERD and hiatal hernia Plan - low residue diet for dinner Patient is currently on Flagyl and ceftriaxone Continue antiemetics as needed IV fluids Monitor for further GI bleeding Monitor H H Nutritional consult for discussion of diverticu lar diet Outpatient colonoscopy in [address] Talavera. Discussed with patient Fernando Talavera 08/29/19 1457: Attestations Physician Attestation Reviewed findings plan: Reviewed the findings and plan as documented at 1458 RPT #:[id number] END OF REPORT 2019-08-29 [facility] 14:56:00-00:00 [facility] ([facility]) Gastroenterology Progress Note REPORT#:[id number] REPORT STATUS: Signed DATE:08/29/19 TIME: 1455 PATIENT: ROXANN TRUJILLO UNIT #: [id number] ROOM/BED: [address] : 38 AGE: 79 SEX: F ATTEND: Tor Snider MD ADM AUTHOR: Carissa Connolly * ALL edits or amendments must be made on the [employer]/computer document * Carissa Connolly 08/29/19 1456: Subjective Chief Complaint: improved abd pain Objective General VS/I O: Last Documented: Result Date Time Pulse Ox 94 08/28 1102 B/P 119/66 08/28 1102 B/P Mean 83.6 08/28 1102 O2 Delivery Room air 08/28 1102 Temp 36.4 08/28 1102 Pulse 75 08/28 1102 Resp 17 08/28 1102 24 hour I O ending at 0700: 08/28 0700 04/23 1900 Intake Total 1400.00 Output Total Balance 1400.00 Intake, IV 1200.00 Intake, Oral 200 Number 1 Bowel Movements Number Voids 2 7 Patient Weight Weight (lb): Weight (oz): Weight (kg): 81.818 Medications: Active Meds + DC'd Last 24 Hrs Metronidazole/Sodium Chloride 100 ML Q8H IV Hydrocodone Bitart/Acetaminophen 1 TAB Q4H PRN P RN PO Melatonin 3 MG BEDTIME PRN PRN PO Pantoprazole Sodium 40 MG 0600 IV Amlodipine Besylate 10 MG DAILY PO Lisinopril 20 MG DAILY PO Sodium Chloride 1,000 ML .Q10H IV Atorvastatin Calcium 10 MG BEDTIME PO Ceftriaxone Sodium 1,000 MG Q24H IV Sodium Chloride 10 ML Metoprolol Succinate 100 MG DAILY PO Promethazine HCl 25 MG Q6H PRN PRN IV Sodium Chloride 50 ML Hydralazine HCl 10 MG Q3H PRN PRN IV Acetaminophen 650 MG Q6H PRN PRN PO Ondansetron HCl 4 MG Q6H PRN PRN IV Nutrition assessment: The data set between the solid lines has been im ported from the dietitian's assessment. Any exceptions have been noted under Provider comments. BMI Calculated: 29.1 Nutrition related diagnosis: Nutrition diagnosis details: Nutrition problem: Nutrition etiology: Nutrition signs and symptoms: Nutrition prescription: Dietitian name: Assessment completed: Provider comments on imported dietitian assessme nt: Physical Exam General appearance: alert, awake, oriented Cardiovascular: normal heart sounds Respiratory: aerating well Abdomen: tenderness Neuro/DEALERSHIP MANAGER: alert, oriented X 3 Skin: dry, intact Psychiatry: anxious Diagnosis, Assessment Plan Free Text A P: 1. Lower quadrant abdominal pain and leukocytosi s likely secondary to acute diverticulitis 2. Acute onset rectal bleeding likely secondary to #1 hemoglobin stable 3. Nausea and vomiting with history of GERD and hiatal hernia Plan - low residue diet for dinner Patient is currently on Flagyl and ceftriaxone Continue antiemetics as needed IV fluids Monitor for further GI bleeding Monitor H H Nutritional consult for discussion of diverticu lar diet Outpatient colonoscopy in [address] Talavera. Discussed with patient Fernando Talavera 08/29/19 1457: Attestations Physician Attestation Reviewed findings plan: Reviewed the findings and plan as documented at 1458 at 1607 RPT #:[id number] END OF REPORT 2019-08-29 [facility] 09:58:00-00:00 [facility] ([facility]) Hospitalist Progress Note REPORT#:[id number] REPORT STATUS: Signed DATE:08/29/19 TIME: 957 PATIENT: ROXANN TRUJILLO UNIT #: [id number] ROOM/BED: [address] : 38 AGE: 79 SEX: F ATTEND: Tor Snider MD ADM AUTHOR: Neto Ayala NP * ALL edits or amendments must be made on the [employer]/computer document * Subjective Chief Complaint: abdominal pain improving diarrhea- improved seen and examined at bedside Review of Systems Respiratory: Denies: CERRATO (dyspnea on exertion), SOB, wheezing . Cardiovascular: Denies: chest pain, CERRATO (dyspnea on exertion), e hali. GI: Reports: abdominal pain, diarrhea, nausea. Denie s: vomiting. : Denies: flank pain. All systems rev neg: except as marked Objective General VS/I O: Vital Signs: Date Time Temp Pulse Resp B/P B/P Pulse O2 O2 F low FiO2 Mean Ox Delivery Rate 08/28 1102 97.5 75 17 119/66 83.6 94 Room air 08/28 0723 98.1 72 16 118/65 82.9 94 Room air 08/28 0322 98.2 75 18 138/72 93.8 96 Room air 08/27 2315 98.2 60 18 103/59 73.6 95 Room air 08/27 1913 98.2 62 18 105/64 77.5 93 Room air 08/27 1533 97.7 68 16 116/68 84.1 95 Room air 24 hour I O ending at 0700: 08/28 0700 08/27 1900 Intake Total 1400.00 Output Total Balance 1400.00 Intake, IV 1200.00 Intake, Oral 200 Number 1 Bowel Movements Number Voids 2 7 Patient Weight Weight (lb): Weight (oz): Weight (kg): 81.818 Physical Exam General appearance: alert, awake, oriented, no a cute distress Neck: full range of motion, non-tender Cardiovascular: normal capillary refill, normal heart sounds, regular rate rhythm Respiratory: aerating well, clear to auscultatio n, symmetric expansion, no distress Abdomen: tenderness (mild), non-tender, normal b owel sounds, no distention Genitourinary: no flank pain Extremities: moves all, normal capillary refill, normal range of motion Skin: dry, intact Results Findings/Data: Laboratory Tests 08/28 412 Chemistry Sodium (136 - 145 mmol/L) 141 Potassium (3.5 - 5.1 mmol/L) 4.3 Chloride (98 - 107 mmol/L) 110.0 H Carbon Dioxide (21 - 32 mmol/L) 25.0 Anion Gap (10 - 20) 10.3 BUN (7 - 18 mg/dL) 4 L Creatinine (0.55 - 1.02 mg/dL) 0.80 Glomerular Filtr Rate (>=60 mL/min) > 60 BUN/Creatinine Ratio (10 - 20) 5.0 L Glucose (74 - 106 mg/dL) 100 Calcium (8.5 - 10.1 mg/dL) 8.6 Magnesium (1.8 - 2.4 mg/dL) 2.0 Laboratory Tests 08/28 412 Hematology WBC (4.5 - 12.5 K/mm3) 11.8 RBC (3.7 - 5.2 mill/mm3) 4.08 Hgb (11.5 - 15.5 gram/dL) 10.4 L Hct (36.0 - 46.0 %) 33.0 L MCV (80 - 98 fL) 80.9 MCH (27.0 - 33.0 picogram) 25.5 L MCHC (33.0 - 36.0 gram/dL) 31.5 L RDW (11.6 - 16.2 %) 15.2 RDW Std Deviation (37.0 - 51.0 fL) 44.4 Plt Count (150 - 450 K/mm3) 187 MPV (6.7 - 11.0 fL) 10.6 Neut % (Auto) (39.0 - 69.0 %) 73.0 H Lymph % (Auto) (25.0 - 55.0 %) 12.4 L Peach % (Auto) (0.0 - 10.0 %) 11.6 H Eos % (Auto) (0.0 - 5.0 %) 2.0 Baso % (Auto) (0.0 - 1.0 %) 0.6 Neut # (Auto) (1.8 - 7.7 K/mm3) 8.62 H Lymph # (Auto) (1.0 - 5.0 K/mm3) 1.46 Peach # (Auto) (0 - 0.8 K/mm3) 1.37 H Eos # (Auto) (0.0 - 0.5 K/mm3) 0.24 Baso # (Auto) (0.0 - 0.2 K/mm3) 0.07 Nucleated RBC % (0 - 0 %) 0.0 Nucleated RBCs # (Man) (0.0 - 0.1 K/mm3) 0.00 Diagnosis, Assessment Plan Free Text DxA P Notes Free text DxA P notes: Patient is a 79y/o female admitted for #acute diverticulitis - Rocephin/Flagyl IV - IVF - pain managment, anti-emetics - clear liquid diet #rectal bleeding - GI consult - stable trend HandH - likely from above - stable at this time - negative occult blood #hypertension - reconcile home meds - monitor #hyperlipidemia - reconcile home meds - monitor #prophylaxis - SCDs for now - Pantoprazole #full code Plan: continue IV antibiotics. monitor H H, like ly colonoscopy outpatient. GI following. clear liquid diet, if doing well, maria l attempt to advance as tolerated. PT eval and treat. repeat labs in AM. dispo depending on clinical course. Electronically Signed by Neto Ayala NP on 08/06 08/24 at 1116 RPT #[id number] END OF REPORT 2019-08-29 [facility] 09:58:00-00:00 [facility] ([facility]) Hospitalist Progress Note REPORT#:[id number] REPORT STATUS: Signed DATE:08/29/19 TIME: 09 PATIENT: ROXANN TRUJILLO UNIT #: [id number] ROOM/BED: [address] : 38 AGE: 79 SEX: F ATTEND: Tor Snider MD ADM AUTHOR: Neto Ayala NP * ALL edits or amendments must be made on the Wingz/bttn document * Subjective Chief Complaint: abdominal pain improving diarrhea- improved seen and examined at bedside Review of Systems Respiratory: Denies: CERRATO (dyspnea on exertion), SOB, wheezing . Cardiovascular: Denies: chest pain, CERRATO (dyspnea on exertion), e hali. GI: Reports: abdominal pain, diarrhea, nausea. Denie s: vomiting. : Denies: flank pain. All systems rev neg: except as marked Objective General VS/I O: Vital Signs: Date Time Temp Pulse Resp B/P B/P Pulse O2 O2 F low FiO2 Mean Ox Delivery Rate 08/28 1102 97.5 75 17 119/66 83.6 94 Room air 08/28 0723 98.1 72 16 118/65 82.9 94 Room air 08/28 0322 98.2 75 18 138/72 93.8 96 Room air 08/27 2315 98.2 60 18 103/59 73.6 95 Room air 08/27 1913 98.2 62 18 105/64 77.5 93 Room air 08/27 1533 97.7 68 16 116/68 84.1 95 Room air 24 hour I O ending at 0700: 08/28 0700 08/27 1900 Intake Total 1400.00 Output Total Balance 1400.00 Intake, IV 1200.00 Intake, Oral 200 Number 1 Bowel Movements Number Voids 2 7 Patient Weight Weight (lb): Weight (oz): Weight (kg): 81.818 Physical Exam General appearance: alert, awake, oriented, no a cute distress Neck: full range of motion, non-tender Cardiovascular: normal capillary refill, normal heart sounds, regular rate rhythm Respiratory: aerating well, clear to auscultatio n, symmetric expansion, no distress Abdomen: tenderness (mild), non-tender, normal b owel sounds, no distention Genitourinary: no flank pain Extremities: moves all, normal capillary refill, normal range of motion Skin: dry, intact Results Findings/Data: Laboratory Tests 08/28 412 Chemistry Sodium (136 - 145 mmol/L) 141 Potassium (3.5 - 5.1 mmol/L) 4.3 Chloride (98 - 107 mmol/L) 110.0 H Carbon Dioxide (21 - 32 mmol/L) 25.0 Anion Gap (10 - 20) 10.3 BUN (7 - 18 mg/dL) 4 L Creatinine (0.55 - 1.02 mg/dL) 0.80 Glomerular Filtr Rate (>=60 mL/min) > 60 BUN/Creatinine Ratio (10 - 20) 5.0 L Glucose (74 - 106 mg/dL) 100 Calcium (8.5 - 10.1 mg/dL) 8.6 Magnesium (1.8 - 2.4 mg/dL) 2.0 Laboratory Tests 08/28 412 Hematology WBC (4.5 - 12.5 K/mm3) 11.8 RBC (3.7 - 5.2 mill/mm3) 4.08 Hgb (11.5 - 15.5 gram/dL) 10.4 L Hct (36.0 - 46.0 %) 33.0 L MCV (80 - 98 fL) 80.9 MCH (27.0 - 33.0 picogram) 25.5 L MCHC (33.0 - 36.0 gram/dL) 31.5 L RDW (11.6 - 16.2 %) 15.2 RDW Std Deviation (37.0 - 51.0 fL) 44.4 Plt Count (150 - 450 K/mm3) 187 MPV (6.7 - 11.0 fL) 10.6 Neut % (Auto) (39.0 - 69.0 %) 73.0 H Lymph % (Auto) (25.0 - 55.0 %) 12.4 L Peach % (Auto) (0.0 - 10.0 %) 11.6 H Eos % (Auto) (0.0 - 5.0 %) 2.0 Baso % (Auto) (0.0 - 1.0 %) 0.6 Neut # (Auto) (1.8 - 7.7 K/mm3) 8.62 H Lymph # (Auto) (1.0 - 5.0 K/mm3) 1.46 Peach # (Auto) (0 - 0.8 K/mm3) 1.37 H Eos # (Auto) (0.0 - 0.5 K/mm3) 0.24 Baso # (Auto) (0.0 - 0.2 K/mm3) 0.07 Nucleated RBC % (0 - 0 %) 0.0 Nucleated RBCs # (Man) (0.0 - 0.1 K/mm3) 0.00 Diagnosis, Assessment Plan Free Text DxA P Notes Free text DxA P notes: Patient is a 79y/o female admitted for #acute diverticulitis - Rocephin/Flagyl IV - IVF - pain managment, anti-emetics - clear liquid diet #rectal bleeding - GI consult - stable trend HandH - likely from above - stable at this time - negative occult blood #hypertension - reconcile home meds - monitor #hyperlipidemia - reconcile home meds - monitor #prophylaxis - SCDs for now - Pantoprazole #full code Plan: continue IV antibiotics. monitor H H, like ly colonoscopy outpatient. GI following. clear liquid diet, if doing well, maria l attempt to advance as tolerated. PT eval and treat. repeat labs in AM. dispo depending on clinical course. Electronically Signed by Neto Ayala NP on 08/06 08/24 at 1116 at 1314 RPT #:[id number] END OF REPORT 2019-08-29 [facility] 09:58:00-00:00 [facility] ([facility]) Hospitalist Progress Note REPORT#:[id number] REPORT STATUS: Signed DATE:08/29/19 TIME: 09 PATIENT: ROXANN TRUJILLO UNIT #: [id number] ROOM/BED: 7-B : 38 AGE: 79 SEX: F ATTEND: Tor Snider MD ADM AUTHOR: Neto Ayala NP * ALL edits or amendments must be made on the el ectronic/bttn document * See Addendum Subjective Chief Complaint: abdominal pain improving diarrhea- improved seen and examined at bedside Review of Systems Respiratory: Denies: CERRATO (dyspnea on exertion), SOB, wheezing . Cardiovascular: Denies: chest pain, CERRATO (dyspnea on exertion), e hali. GI: Reports: abdominal pain, diarrhea, nausea. Denie s: vomiting. : Denies: flank pain. All systems rev neg: except as marked Objective General VS/I O: Vital Signs: Date Time Temp Pulse Resp B/P B/P Pulse O2 O2 F low FiO2 Mean Ox Delivery Rate 08/28 1102 97.5 75 17 119/66 83.6 94 Room air 08/28 0723 98.1 72 16 118/65 82.9 94 Room air 08/28 0322 98.2 75 18 138/72 93.8 96 Room air 08/27 2315 98.2 60 18 103/59 73.6 95 Room air 08/27 1913 98.2 62 18 105/64 77.5 93 Room air 08/27 1533 97.7 68 16 116/68 84.1 95 Room air 24 hour I O ending at 0700: 08/28 0700 08/27 1900 Intake Total 1400.00 Output Total Balance 1400.00 Intake, IV 1200.00 Intake, Oral 200 Number 1 Bowel Movements Number Voids 2 7 Patient Weight Weight (lb): Weight (oz): Weight (kg): 81.818 Physical Exam General appearance: alert, awake, oriented, no a cute distress Neck: full range of motion, non-tender Cardiovascular: normal capillary refill, normal heart sounds, regular rate rhythm Respiratory: aerating well, clear to auscultatio n, symmetric expansion, no distress Abdomen: tenderness (mild), non-tender, normal b owel sounds, no distention Genitourinary: no flank pain Extremities: moves all, normal capillary refill, normal range of motion Skin: dry, intact Results Findings/Data: Laboratory Tests 08/283 Chemistry Sodium (136 - 145 mmol/L) 141 Potassium (3.5 - 5.1 mmol/L) 4.3 Chloride (98 - 107 mmol/L) 110.0 H Carbon Dioxide (21 - 32 mmol/L) 25.0 Anion Gap (10 - 20) 10.3 BUN (7 - 18 mg/dL) 4 L Creatinine (0.55 - 1.02 mg/dL) 0.80 Glomerular Filtr Rate (>=60 mL/min) > 60 BUN/Creatinine Ratio (10 - 20) 5.0 L Glucose (74 - 106 mg/dL) 100 Calcium (8.5 - 10.1 mg/dL) 8.6 Magnesium (1.8 - 2.4 mg/dL) 2.0 Laboratory Tests 08/28 0413 Hematology WBC (4.5 - 12.5 K/mm3) 11.8 RBC (3.7 - 5.2 mill/mm3) 4.08 Hgb (11.5 - 15.5 gram/dL) 10.4 L Hct (36.0 - 46.0 %) 33.0 L MCV (80 - 98 fL) 80.9 MCH (27.0 - 33.0 picogram) 25.5 L MCHC (33.0 - 36.0 gram/dL) 31.5 L RDW (11.6 - 16.2 %) 15.2 RDW Std Deviation (37.0 - 51.0 fL) 44.4 Plt Count (150 - 450 K/mm3) 187 MPV (6.7 - 11.0 fL) 10.6 Neut % (Auto) (39.0 - 69.0 %) 73.0 H Lymph % (Auto) (25.0 - 55.0 %) 12.4 L Peach % (Auto) (0.0 - 10.0 %) 11.6 H Eos % (Auto) (0.0 - 5.0 %) 2.0 Baso % (Auto) (0.0 - 1.0 %) 0.6 Neut # (Auto) (1.8 - 7.7 K/mm3) 8.62 H Lymph # (Auto) (1.0 - 5.0 K/mm3) 1.46 Peach # (Auto) (0 - 0.8 K/mm3) 1.37 H Eos # (Auto) (0.0 - 0.5 K/mm3) 0.24 Baso # (Auto) (0.0 - 0.2 K/mm3) 0.07 Nucleated RBC % (0 - 0 %) 0.0 Nucleated RBCs # (Man) (0.0 - 0.1 K/mm3) 0.00 Diagnosis, Assessment Plan Free Text DxA P Notes Free text DxA P notes: Patient is a 79y/o female admitted for #acute diverticulitis - Rocephin/Flagyl IV - IVF - pain managment, anti-emetics - clear liquid diet #rectal bleeding - GI consult - stable trend HandH - likely from above - stable at this time - negative occult blood #hypertension - reconcile home meds - monitor #hyperlipidemia - reconcile home meds - monitor #prophylaxis - SCDs for now - Pantoprazole #full code Plan: continue IV antibiotics. monitor H H, like ly colonoscopy outpatient. GI following. clear liquid diet, if doing well, maria l attempt to advance as tolerated. PT eval and treat. repeat labs in AM. dispo depending on clinical course. Electronically Signed by Neto Ayala NP on 08/06 08/24 at 1116 at 1314 Addendum 1: 08/29/19 1441 by Neto Ayala NP for Atilio Snider MD #acute sepsis secondary to acute diverticulitis - IV antibiotics Rocephin/Flagyl - WBC- 16.8, HR- 90's, acute diverticulitis - IVF, pain management, anti-emetics - GI consult - WBC 16.8>16.7>11.8 - improving Electronically Signed by Neto Ayala NP on 08/06 08/24 at 1441 RPT #:[id number] END OF REPORT 2019-08-29 [facility] 09:58:00-00:00 [facility] ([facility] Hospitalist Progress Note REPORT#:[id number] REPORT STATUS: Signed DATE:08/29/19 TIME: 957 PATIENT: ROXANN TRUJILLO UNIT #: [id number] ROOM/BED: [address] : 38 AGE: 79 SEX: F ATTEND: Tor Snider MD ADM AUTHOR: Neto Ayala NP * ALL edits or amendments must be made on the el [employer]/computer document * See Addendum Subjective Chief Complaint: abdominal pain improving diarrhea- improved seen and examined at bedside Review of Systems Respiratory: Denies: CERRATO (dyspnea on exertion), SOB, wheezing . Cardiovascular: Denies: chest pain, CERRATO (dyspnea on exertion), e hali. GI: Reports: abdominal pain, diarrhea, nausea. Denie s: vomiting. : Denies: flank pain. All systems rev neg: except as marked Objective General VS/I O: Vital Signs: Date Time Temp Pulse Resp B/P B/P Pulse O2 O2 F low FiO2 Mean Ox Delivery Rate 08/28 1102 97.5 75 17 119/66 83.6 94 Room air 08/28 0723 98.1 72 16 118/65 82.9 94 Room air 08/28 0322 98.2 75 18 138/72 93.8 96 Room air 08/27 2315 98.2 60 18 103/59 73.6 95 Room air 08/27 1913 98.2 62 18 105/64 77.5 93 Room air 08/27 1533 97.7 68 16 116/68 84.1 95 Room air 24 hour I O ending at 0700: 08/28 0700 08/27 1900 Intake Total 1400.00 Output Total Balance 1400.00 Intake, IV 1200.00 Intake, Oral 200 Number 1 Bowel Movements Number Voids 2 7 Patient Weight Weight (lb): Weight (oz): Weight (kg): 81.818 Physical Exam General appearance: alert, awake, oriented, no a cute distress Neck: full range of motion, non-tender Cardiovascular: normal capillary refill, normal heart sounds, regular rate rhythm Respiratory: aerating well, clear to auscultatio n, symmetric expansion, no distress Abdomen: tenderness (mild), non-tender, normal b owel sounds, no distention Genitourinary: no flank pain Extremities: moves all, normal capillary refill, normal range of motion Skin: dry, intact Results Findings/Data: Laboratory Tests 08/28 0413 Chemistry Sodium (136 - 145 mmol/L) 141 Potassium (3.5 - 5.1 mmol/L) 4.3 Chloride (98 - 107 mmol/L) 110.0 H Carbon Dioxide (21 - 32 mmol/L) 25.0 Anion Gap (10 - 20) 10.3 BUN (7 - 18 mg/dL) 4 L Creatinine (0.55 - 1.02 mg/dL) 0.80 Glomerular Filtr Rate (>=60 mL/min) > 60 BUN/Creatinine Ratio (10 - 20) 5.0 L Glucose (74 - 106 mg/dL) 100 Calcium (8.5 - 10.1 mg/dL) 8.6 Magnesium (1.8 - 2.4 mg/dL) 2.0 Laboratory Tests 08/28 0413 Hematology WBC (4.5 - 12.5 K/mm3) 11.8 RBC (3.7 - 5.2 mill/mm3) 4.08 Hgb (11.5 - 15.5 gram/dL) 10.4 L Hct (36.0 - 46.0 %) 33.0 L MCV (80 - 98 fL) 80.9 MCH (27.0 - 33.0 picogram) 25.5 L MCHC (33.0 - 36.0 gram/dL) 31.5 L RDW (11.6 - 16.2 %) 15.2 RDW Std Deviation (37.0 - 51.0 fL) 44.4 Plt Count (150 - 450 K/mm3) 187 MPV (6.7 - 11.0 fL) 10.6 Neut % (Auto) (39.0 - 69.0 %) 73.0 H Lymph % (Auto) (25.0 - 55.0 %) 12.4 L Peach % (Auto) (0.0 - 10.0 %) 11.6 H Eos % (Auto) (0.0 - 5.0 %) 2.0 Baso % (Auto) (0.0 - 1.0 %) 0.6 Neut # (Auto) (1.8 - 7.7 K/mm3) 8.62 H Lymph # (Auto) (1.0 - 5.0 K/mm3) 1.46 Peach # (Auto) (0 - 0.8 K/mm3) 1.37 H Eos # (Auto) (0.0 - 0.5 K/mm3) 0.24 Baso # (Auto) (0.0 - 0.2 K/mm3) 0.07 Nucleated RBC % (0 - 0 %) 0.0 Nucleated RBCs # (Man) (0.0 - 0.1 K/mm3) 0.00 Diagnosis, Assessment Plan Free Text DxA P Notes Free text DxA P notes: Patient is a 79y/o female admitted for #acute diverticulitis - Rocephin/Flagyl IV - IVF - pain managment, anti-emetics - clear liquid diet #rectal bleeding - GI consult - stable trend HandH - likely from above - stable at this time - negative occult blood #hypertension - reconcile home meds - monitor #hyperlipidemia - reconcile home meds - monitor #prophylaxis - SCDs for now - Pantoprazole #full code Plan: continue IV antibiotics. monitor H H, like ly colonoscopy outpatient. GI following. clear liquid diet, if doing well, maria l attempt to advance as tolerated. PT eval and treat. repeat labs in AM. dispo depending on clinical course. Electronically Signed by Neto Ayala NP on 08/06 08/24 at 1116 at 1314 Addendum 1: 08/29/19 1441 by Neto Ayala NP #acute sepsis secondary to acute diverticulitis - IV antibiotics Rocephin/Flagyl - WBC- 16.8, HR- 90's, acute diverticulitis - IVF, pain management, anti-emetics - GI consult - WBC 16.8>16.7>11.8 - improving Electronically Signed by Neto Ayala NP on 08/06 08/24 at 1441 at 1719 RPT #:[id number] END OF REPORT 2019-08-28 [facility] 14:22:00-00:00 [facility] ([facility] Gastroenterology Progress Note REPORT#:[id number] REPORT STATUS: Signed DATE:08/28/19 TIME: 1421 PATIENT: ROXANN TRUJILLO UNIT #: [id number] ROOM/BED: [address] : 38 AGE: 79 SEX: F ATTEND: Sher Snider MD ADM AUTHOR: Carissa Connolly * ALL edits or amendments must be made on the Wingz/computer document * Carissa Connolly 08/28/19 1422: Subjective Chief Complaint: tolerating clears improved abd pain Review of Systems Constitutional: Reports: fatigue, generalized weakness. GI: Reports: abdominal pain, nausea. Denies: vomitin g. Endocrine: Reports: weight loss. Denies: weight gain. Objective General VS/I O: Last Documented: Result Date Time Pulse Ox 91 08/27 1043 B/P 99/64 08/27 1043 B/P Mean 75.6 08/27 1043 O2 Delivery Room air 08/27 1042 Temp 36.7 08/27 1043 Pulse 63 08/27 1043 Resp 16 08/27 1043 24 hour I O ending at 0700: 08/27 0700 08/26 1900 Intake Total 1300.00 Output Total Balance 1300.00 Intake, IV 1200.00 Intake, Oral 100 Number Voids 4 Patient Weight Weight (lb): Weight (oz): Weight (kg): 81.818 Medications: Active Meds + DC'd Last 24 Hrs Metronidazole/Sodium Chloride 100 ML Q8H IV Metronidazole HCl 500 MG Q6H PO (DC) Hydrocodone Bitart/Acetaminophen 1 TAB Q4H PRN P RN PO Melatonin 3 MG BEDTIME PRN PRN PO Pantoprazole Sodium 40 MG 0600 IV Amlodipine Besylate 10 MG DAILY PO Lisinopril 20 MG DAILY PO Sodium Chloride 1,000 ML .Q10H IV Atorvastatin Calcium 10 MG BEDTIME PO Ceftriaxone Sodium 1,000 MG Q24H IV Sodium Chloride 10 ML Metoprolol Succinate 100 MG DAILY PO Metronidazole/Sodium Chloride 100 ML Q6H IV (DC) Morphine Sulfate 2 MG Q4H PRN PRN IV (DC) Promethazine HCl 25 MG Q6H PRN PRN IV Sodium Chloride 50 ML Hydralazine HCl 10 MG Q3H PRN PRN IV Acetaminophen 650 MG Q6H PRN PRN PO Ondansetron HCl 4 MG Q6H PRN PRN IV Nutrition assessment: The data set between the solid lines has been im ported from the dietitian's assessment. Any exceptions have been noted under Provider comments. BMI Calculated: 29.1 Nutrition related diagnosis: Nutrition diagnosis details: Nutrition problem: Nutrition etiology: Nutrition signs and symptoms: Nutrition prescription: Dietitian name: Assessment completed: Provider comments on imported dietitian assessme nt: Physical Exam General appearance: alert, oriented Cardiovascular: normal heart sounds Respiratory: aerating well Abdomen: tenderness Neuro/DEALERSHIP MANAGER: alert, oriented X 3 Skin: dry, intact Psychiatry: anxious Results Findings/Data: Laboratory Tests 08/28/19432: [Embedded Image Not Available] Laboratory Tests 08/27 432 Chemistry Sodium (136 - 145 mmol/L) 140 Potassium (3.5 - 5.1 mmol/L) 3.8 Chloride (98 - 107 mmol/L) 110.0 H Carbon Dioxide (21 - 32 mmol/L) 25.0 Anion Gap (10 - 20) 8.8 L BUN (7 - 18 mg/dL) 7 Creatinine (0.55 - 1.02 mg/dL) 0.80 Glomerular Filtr Rate (>=60 mL/min) > 60 BUN/Creatinine Ratio (10 - 20) 8.8 L Glucose (74 - 106 mg/dL) 93 Calcium (8.5 - 10.1 mg/dL) 8.4 L Magnesium (1.8 - 2.4 mg/dL) 2.0 Total Bilirubin (0.0 - 1.0 mg/dL) 0.30 AST (15 - 37 IUnit/L) 14 L ALT (12 - 78 IUnit/L) 14 Total Alk Phosphatase (45 - 117 IUnit/L) 67 Total Protein (6.4 - 8.2 gram/dL) 5.1 L Albumin (3.4 - 5.0 g/dL) 2.4 L Globulin (2.7 - 4.2 gram/dL) 2.7 Albumin/Globulin Ratio (0.75 - 1.50) 0.9 Laboratory Tests 08/27 432 Hematology WBC (4.5 - 12.5 K/mm3) 16.7 H RBC (3.7 - 5.2 mill/mm3) 4.09 Hgb (11.5 - 15.5 gram/dL) 10.4 L Hct (36.0 - 46.0 %) 32.6 L MCV (80 - 98 fL) 79.7 L MCH (27.0 - 33.0 picogram) 25.4 L MCHC (33.0 - 36.0 gram/dL) 31.9 L RDW (11.6 - 16.2 %) 15.3 RDW Std Deviation (37.0 - 51.0 fL) 44.1 Plt Count (150 - 450 K/mm3) 185 MPV (6.7 - 11.0 fL) 10.6 Neut % (Auto) (39.0 - 69.0 %) 80.0 H Lymph % (Auto) (25.0 - 55.0 %) 8.2 L Peach % (Auto) (0.0 - 10.0 %) 10.1 H Eos % (Auto) (0.0 - 5.0 %) 0.6 Baso % (Auto) (0.0 - 1.0 %) 0.4 Neut # (Auto) (1.8 - 7.7 K/mm3) 13.37 H Lymph # (Auto) (1.0 - 5.0 K/mm3) 1.37 Peach # (Auto) (0 - 0.8 K/mm3) 1.68 H Eos # (Auto) (0.0 - 0.5 K/mm3) 0.10 Baso # (Auto) (0.0 - 0.2 K/mm3) 0.07 Add Manual Diff NO Nucleated RBC % (0 - 0 %) 0.0 Nucleated RBCs # (Man) (0.0 - 0.1 K/mm3) 0.00 Results: labs reviewed Diagnosis, Assessment Plan Free Text A P: 1. Lower quadrant abdominal pain and leukocytosi s likely secondary to acute diverticulitis 2. Acute onset rectal bleeding likely secondary to #1 hemoglobin stable 3. Nausea and vomiting with history of GERD and hiatal hernia Plan Patient is currently on Flagyl and ceftriaxone Continue antiemetics as needed IV fluids, clear liquid diet for now Monitor for further GI bleeding Monitor H H Nutritional consult for discussion of diverticu lar diet Outpatient colonoscopy in [address] Talavera. Discussed with patient IlanFernando H 08/28/19 4174: Attestations Physician Attestation Reviewed findings plan: Reviewed the findings and plan as documented Still with some abdominal pain but no bleeding Continue clear liquid diet. at 1639 RPT #[id number] END OF REPORT 2019-08-28 [facility] 14:22:00-00:00 [facility] ([facility]) Gastroenterology Progress Note REPORT#:[id number] REPORT STATUS: Signed DATE:08/28/19 TIME: 1421 PATIENT: ROXANN TRUJILLO UNIT #: [id number] ROOM/BED: 2066 : 38 AGE: 79 SEX: F ATTEND: Tor Snider MD ADM AUTHOR: Carissa Connolly * ALL edits or amendments must be made on the [employer]/computer document * Carissa Connolly 08/28/19 1422: Subjective Chief Complaint: tolerating clears improved abd pain Review of Systems Constitutional: Reports: fatigue, generalized weakness. GI: Reports: abdominal pain, nausea. Denies: vomitin g. Endocrine: Reports: weight loss. Denies: weight gain. Objective General VS/I O: Last Documented: Result Date Time Pulse Ox 91 08/27 1043 B/P 99/64 08/27 1043 B/P Mean 75.6 08/27 1043 O2 Delivery Room air 08/27 1043 Temp 36.7 08/27 1043 Pulse 63 08/27 1043 Resp 16 08/27 1043 24 hour I O ending at 0700: 08/27 0700 08/26 1900 Intake Total 1300.00 Output Total Balance 1300.00 Intake, IV 1200.00 Intake, Oral 100 Number Voids 4 Patient Weight Weight (lb): Weight (oz): Weight (kg): 81.818 Medications: Active Meds + DC'd Last 24 Hrs Metronidazole/Sodium Chloride 100 ML Q8H IV Metronidazole HCl 500 MG Q6H PO (DC) Hydrocodone Bitart/Acetaminophen 1 TAB Q4H PRN P RN PO Melatonin 3 MG BEDTIME PRN PRN PO Pantoprazole Sodium 40 MG 0600 IV Amlodipine Besylate 10 MG DAILY PO Lisinopril 20 MG DAILY PO Sodium Chloride 1,000 ML .Q10H IV Atorvastatin Calcium 10 MG BEDTIME PO Ceftriaxone Sodium 1,000 MG Q24H IV Sodium Chloride 10 ML Metoprolol Succinate 100 MG DAILY PO Metronidazole/Sodium Chloride 100 ML Q6H IV (DC) Morphine Sulfate 2 MG Q4H PRN PRN IV (DC) Promethazine HCl 25 MG Q6H PRN PRN IV Sodium Chloride 50 ML Hydralazine HCl 10 MG Q3H PRN PRN IV Acetaminophen 650 MG Q6H PRN PRN PO Ondansetron HCl 4 MG Q6H PRN PRN IV Nutrition assessment: The data set between the solid lines has been im ported from the dietitian's assessment. Any exceptions have been noted under Provider comments. BMI Calculated: 29.1 Nutrition related diagnosis: Nutrition diagnosis details: Nutrition problem: Nutrition etiology: Nutrition signs and symptoms: Nutrition prescription: Dietitian name: Assessment completed: Provider comments on imported dietitian assessme nt: Physical Exam General appearance: alert, oriented Cardiovascular: normal heart sounds Respiratory: aerating well Abdomen: tenderness Neuro/DEALERSHIP MANAGER: alert, oriented X 3 Skin: dry, intact Psychiatry: anxious Results Findings/Data: Laboratory Tests 08/28/19432: [Embedded Image Not Available] Laboratory Tests 08/27 432 Chemistry Sodium (136 - 145 mmol/L) 140 Potassium (3.5 - 5.1 mmol/L) 3.8 Chloride (98 - 107 mmol/L) 110.0 H Carbon Dioxide (21 - 32 mmol/L) 25.0 Anion Gap (10 - 20) 8.8 L BUN (7 - 18 mg/dL) 7 Creatinine (0.55 - 1.02 mg/dL) 0.80 Glomerular Filtr Rate (>=60 mL/min) > 60 BUN/Creatinine Ratio (10 - 20) 8.8 L Glucose (74 - 106 mg/dL) 93 Calcium (8.5 - 10.1 mg/dL) 8.4 L Magnesium (1.8 - 2.4 mg/dL) 2.0 Total Bilirubin (0.0 - 1.0 mg/dL) 0.30 AST (15 - 37 IUnit/L) 14 L ALT (12 - 78 IUnit/L) 14 Total Alk Phosphatase (45 - 117 IUnit/L) 67 Total Protein (6.4 - 8.2 gram/dL) 5.1 L Albumin (3.4 - 5.0 g/dL) 2.4 L Globulin (2.7 - 4.2 gram/dL) 2.7 Albumin/Globulin Ratio (0.75 - 1.50) 0.9 Laboratory Tests 08/27 0433 Hematology WBC (4.5 - 12.5 K/mm3) 16.7 H RBC (3.7 - 5.2 mill/mm3) 4.09 Hgb (11.5 - 15.5 gram/dL) 10.4 L Hct (36.0 - 46.0 %) 32.6 L MCV (80 - 98 fL) 79.7 L MCH (27.0 - 33.0 picogram) 25.4 L MCHC (33.0 - 36.0 gram/dL) 31.9 L RDW (11.6 - 16.2 %) 15.3 RDW Std Deviation (37.0 - 51.0 fL) 44.1 Plt Count (150 - 450 K/mm3) 185 MPV (6.7 - 11.0 fL) 10.6 Neut % (Auto) (39.0 - 69.0 %) 80.0 H Lymph % (Auto) (25.0 - 55.0 %) 8.2 L Peach % (Auto) (0.0 - 10.0 %) 10.1 H Eos % (Auto) (0.0 - 5.0 %) 0.6 Baso % (Auto) (0.0 - 1.0 %) 0.4 Neut # (Auto) (1.8 - 7.7 K/mm3) 13.37 H Lymph # (Auto) (1.0 - 5.0 K/mm3) 1.37 Peach # (Auto) (0 - 0.8 K/mm3) 1.68 H Eos # (Auto) (0.0 - 0.5 K/mm3) 0.10 Baso # (Auto) (0.0 - 0.2 K/mm3) 0.07 Add Manual Diff NO Nucleated RBC % (0 - 0 %) 0.0 Nucleated RBCs # (Man) (0.0 - 0.1 K/mm3) 0.00 Results: labs reviewed Diagnosis, Assessment Plan Free Text A P: 1. Lower quadrant abdominal pain and leukocytosi s likely secondary to acute diverticulitis 2. Acute onset rectal bleeding likely secondary to #1 hemoglobin stable 3. Nausea and vomiting with history of GERD and hiatal hernia Plan Patient is currently on Flagyl and ceftriaxone Continue antiemetics as needed IV fluids, clear liquid diet for now Monitor for further GI bleeding Monitor H H Nutritional consult for discussion of diverticu lar diet Outpatient colonoscopy in [address] Talavera. Discussed with patient Fernando Talavera 08/28/19 1624: Attestations Physician Attestation Reviewed findings plan: Reviewed the findings and plan as documented Still with some abdominal pain but no bleeding Continue clear liquid diet. at 1639 at 1606 RPT #[id number] END OF REPORT 2019-08-28 [facility] 09:03:00-00:00 [facility] ([facility]) Hospitalist Progress Note REPORT#:[id number] REPORT STATUS: Signed DATE:08/28/19 TIME: 902 PATIENT: ROXANN TRUJILLO UNIT #: [id number] ROOM/BED: [address] : 38 AGE: 79 SEX: F ATTEND: Tor Snider MD ADM AUTHOR: Neto Ayala NP * ALL edits or amendments must be made on the [employer]/computer document * Subjective Chief Complaint: abdominal pain improving diarrhea, none reported overnight seen and examined at bedside Review of Systems Respiratory: Denies: CERRATO (dyspnea on exertion), SOB, wheezing . Cardiovascular: Denies: chest pain, CERRATO (dyspnea on exertion), e hali. GI: Reports: abdominal pain, diarrhea, nausea. Denie s: vomiting. : Denies: flank pain. All systems rev neg: except as marked Objective General VS/I O: Vital Signs: Date Time Temp Pulse Resp B/P B/P Pulse O2 O2 F low FiO2 Mean Ox Delivery Rate 08/27 0730 98.1 81 15 112/65 80.9 93 Room air 08/27 0259 98.4 71 18 113/68 82.7 93 Room air 08/26 2316 98.6 71 18 112/66 81.1 93 Room air 08/26 1932 99.3 61 18 111/64 79.7 92 Room air 08/26 1640 98.8 62 20 109/66 80.2 94 08/26 1158 98.8 65 16 130/78 95.4 95 24 hour I O ending at 0700: 08/27 0700 08/26 1900 Intake Total 1300.00 Output Total Balance 1300.00 Intake, IV 1200.00 Intake, Oral 100 Number Voids 4 Patient Weight Weight (lb): Weight (oz): Weight (kg): 81.818 Physical Exam General appearance: alert, awake, oriented, no a cute distress Neck: full range of motion, non-tender Cardiovascular: normal capillary refill, normal heart sounds, regular rate rhythm Respiratory: aerating well, clear to auscultatio n, symmetric expansion, no distress Abdomen: tenderness (mild), non-tender, normal b owel sounds, no distention Genitourinary: no flank pain Extremities: moves all, normal capillary refill, normal range of motion Skin: dry, intact Results Findings/Data: Laboratory Tests 08/27 0433 Chemistry Sodium (136 - 145 mmol/L) 140 Potassium (3.5 - 5.1 mmol/L) 3.8 Chloride (98 - 107 mmol/L) 110.0 H Carbon Dioxide (21 - 32 mmol/L) 25.0 Anion Gap (10 - 20) 8.8 L BUN (7 - 18 mg/dL) 7 Creatinine (0.55 - 1.02 mg/dL) 0.80 Glomerular Filtr Rate (>=60 mL/min) > 60 BUN/Creatinine Ratio (10 - 20) 8.8 L Glucose (74 - 106 mg/dL) 93 Calcium (8.5 - 10.1 mg/dL) 8.4 L Magnesium (1.8 - 2.4 mg/dL) 2.0 Total Bilirubin (0.0 - 1.0 mg/dL) 0.30 AST (15 - 37 IUnit/L) 14 L ALT (12 - 78 IUnit/L) 14 Total Alk Phosphatase (45 - 117 IUnit/L) 67 Total Protein (6.4 - 8.2 gram/dL) 5.1 L Albumin (3.4 - 5.0 g/dL) 2.4 L Globulin (2.7 - 4.2 gram/dL) 2.7 Albumin/Globulin Ratio (0.75 - 1.50) 0.9 Laboratory Tests 08/27 0433 Hematology WBC (4.5 - 12.5 K/mm3) 16.7 H RBC (3.7 - 5.2 mill/mm3) 4.09 Hgb (11.5 - 15.5 gram/dL) 10.4 L Hct (36.0 - 46.0 %) 32.6 L MCV (80 - 98 fL) 79.7 L MCH (27.0 - 33.0 picogram) 25.4 L MCHC (33.0 - 36.0 gram/dL) 31.9 L RDW (11.6 - 16.2 %) 15.3 RDW Std Deviation (37.0 - 51.0 fL) 44.1 Plt Count (150 - 450 K/mm3) 185 MPV (6.7 - 11.0 fL) 10.6 Neut % (Auto) (39.0 - 69.0 %) 80.0 H Lymph % (Auto) (25.0 - 55.0 %) 8.2 L Peach % (Auto) (0.0 - 10.0 %) 10.1 H Eos % (Auto) (0.0 - 5.0 %) 0.6 Baso % (Auto) (0.0 - 1.0 %) 0.4 Neut # (Auto) (1.8 - 7.7 K/mm3) 13.37 H Lymph # (Auto) (1.0 - 5.0 K/mm3) 1.37 Peach # (Auto) (0 - 0.8 K/mm3) 1.68 H Eos # (Auto) (0.0 - 0.5 K/mm3) 0.10 Baso # (Auto) (0.0 - 0.2 K/mm3) 0.07 Add Manual Diff NO Nucleated RBC % (0 - 0 %) 0.0 Nucleated RBCs # (Man) (0.0 - 0.1 K/mm3) 0.00 Diagnosis, Assessment Plan Free Text DxA P Notes Free text DxA P notes: Patient is a 79y/o female admitted for #acute diverticulitis - Rocephin/Flagyl IV - IVF - pain managment, anti-emetics - clear liquid diet #rectal bleeding - GI consult - stable trend HandH - likely from above - stable at this time #hypertension - reconcile home meds - monitor #hyperlipidemia - reconcile home meds - monitor #prophylaxis - SCDs for now - Pantoprazole #full code Plan: continue IV antibiotics. monitor H H, like ly colonoscopy outpatient. GI following. clear liquid diet, if doing well, maria l attempt to advance as tolerated. Electronically Signed by Neto Ayala NP on 08/06 07/24 at 1048 RPT #[id number] END OF REPORT 2019-08-28 [facility] 09:03:00-00:00 [facility] ([facility]) Hospitalist Progress Note REPORT#:[id number] REPORT STATUS: Signed DATE:08/28/19 TIME: 0903 PATIENT: ROXANN TRUJILLO UNIT #: [id number] ROOM/BED: [facility] : 38 AGE: 79 SEX: F ATTEND: Tor Snider MD ADM AUTHOR: Neto Ayala NP * ALL edits or amendments must be made on the [employer]/computer document * Subjective Chief Complaint: abdominal pain improving diarrhea, none reported overnight seen and examined at bedside Review of Systems Respiratory: Denies: CERRATO (dyspnea on exertion), SOB, wheezing . Cardiovascular: Denies: chest pain, CERRATO (dyspnea on exertion), e hali. GI: Reports: abdominal pain, diarrhea, nausea. Denie s: vomiting. : Denies: flank pain. All systems rev neg: except as marked Objective General VS/I O: Vital Signs: Date Time Temp Pulse Resp B/P B/P Pulse O2 O2 F low FiO2 Mean Ox Delivery Rate 08/27 0730 98.1 81 15 112/65 80.9 93 Room air 08/27 0259 98.4 71 18 113/68 82.7 93 Room air 08/26 2316 98.6 71 18 112/66 81.1 93 Room air 08/26 1932 99.3 61 18 111/64 79.7 92 Room air 08/26 1640 98.8 62 20 109/66 80.2 94 08/26 1158 98.8 65 16 130/78 95.4 95 24 hour I O ending at 0700: 08/27 0700 08/26 1900 Intake Total 1300.00 Output Total Balance 1300.00 Intake, IV 1200.00 Intake, Oral 100 Number Voids 4 Patient Weight Weight (lb): Weight (oz): Weight (kg): 81.818 Physical Exam General appearance: alert, awake, oriented, no a cute distress Neck: full range of motion, non-tender Cardiovascular: normal capillary refill, normal heart sounds, regular rate rhythm Respiratory: aerating well, clear to auscultatio n, symmetric expansion, no distress Abdomen: tenderness (mild), non-tender, normal b owel sounds, no distention Genitourinary: no flank pain Extremities: moves all, normal capillary refill, normal range of motion Skin: dry, intact Results Findings/Data: Laboratory Tests 08/27 432 Chemistry Sodium (136 - 145 mmol/L) 140 Potassium (3.5 - 5.1 mmol/L) 3.8 Chloride (98 - 107 mmol/L) 110.0 H Carbon Dioxide (21 - 32 mmol/L) 25.0 Anion Gap (10 - 20) 8.8 L BUN (7 - 18 mg/dL) 7 Creatinine (0.55 - 1.02 mg/dL) 0.80 Glomerular Filtr Rate (>=60 mL/min) > 60 BUN/Creatinine Ratio (10 - 20) 8.8 L Glucose (74 - 106 mg/dL) 93 Calcium (8.5 - 10.1 mg/dL) 8.4 L Magnesium (1.8 - 2.4 mg/dL) 2.0 Total Bilirubin (0.0 - 1.0 mg/dL) 0.30 AST (15 - 37 IUnit/L) 14 L ALT (12 - 78 IUnit/L) 14 Total Alk Phosphatase (45 - 117 IUnit/L) 67 Total Protein (6.4 - 8.2 gram/dL) 5.1 L Albumin (3.4 - 5.0 g/dL) 2.4 L Globulin (2.7 - 4.2 gram/dL) 2.7 Albumin/Globulin Ratio (0.75 - 1.50) 0.9 Laboratory Tests 08/27 0433 Hematology WBC (4.5 - 12.5 K/mm3) 16.7 H RBC (3.7 - 5.2 mill/mm3) 4.09 Hgb (11.5 - 15.5 gram/dL) 10.4 L Hct (36.0 - 46.0 %) 32.6 L MCV (80 - 98 fL) 79.7 L MCH (27.0 - 33.0 picogram) 25.4 L MCHC (33.0 - 36.0 gram/dL) 31.9 L RDW (11.6 - 16.2 %) 15.3 RDW Std Deviation (37.0 - 51.0 fL) 44.1 Plt Count (150 - 450 K/mm3) 185 MPV (6.7 - 11.0 fL) 10.6 Neut % (Auto) (39.0 - 69.0 %) 80.0 H Lymph % (Auto) (25.0 - 55.0 %) 8.2 L Peach % (Auto) (0.0 - 10.0 %) 10.1 H Eos % (Auto) (0.0 - 5.0 %) 0.6 Baso % (Auto) (0.0 - 1.0 %) 0.4 Neut # (Auto) (1.8 - 7.7 K/mm3) 13.37 H Lymph # (Auto) (1.0 - 5.0 K/mm3) 1.37 Peach # (Auto) (0 - 0.8 K/mm3) 1.68 H Eos # (Auto) (0.0 - 0.5 K/mm3) 0.10 Baso # (Auto) (0.0 - 0.2 K/mm3) 0.07 Add Manual Diff NO Nucleated RBC % (0 - 0 %) 0.0 Nucleated RBCs # (Man) (0.0 - 0.1 K/mm3) 0.00 Diagnosis, Assessment Plan Free Text DxA P Notes Free text DxA P notes: Patient is a 79y/o female admitted for #acute diverticulitis - Rocephin/Flagyl IV - IVF - pain managment, anti-emetics - clear liquid diet #rectal bleeding - GI consult - stable trend HandH - likely from above - stable at this time #hypertension - reconcile home meds - monitor #hyperlipidemia - reconcile home meds - monitor #prophylaxis - SCDs for now - Pantoprazole #full code Plan: continue IV antibiotics. monitor H H, like ly colonoscopy outpatient. GI following. clear liquid diet, if doing well, maria l attempt to advance as tolerated. Electronically Signed by Neto Ayala NP on 08/06 07/24 at 1048 at 1314 RPT #[id number] END OF REPORT 2019-08-28 [facility] 09:03:00-00:00 [facility] ([facility]) Hospitalist Progress Note REPORT#:[id number] REPORT STATUS: Signed DATE:08/28/19 TIME: 09 PATIENT: ROXANN TRUJILLO UNIT #: [id number] ROOM/BED: [address] : 38 AGE: 79 SEX: F ATTEND: Tor Snider MD ADM AUTHOR: Neto Ayala NP * ALL edits or amendments must be made on the [employer]/computer document * See Addendum Subjective Chief Complaint: abdominal pain improving diarrhea, none reported overnight seen and examined at bedside Review of Systems Respiratory: Denies: CERRATO (dyspnea on exertion), SOB, wheezing . Cardiovascular: Denies: chest pain, CERRATO (dyspnea on exertion), e hali. GI: Reports: abdominal pain, diarrhea, nausea. Denie s: vomiting. : Denies: flank pain. All systems rev neg: except as marked Objective General VS/I O: Vital Signs: Date Time Temp Pulse Resp B/P B/P Pulse O2 O2 F low FiO2 Mean Ox Delivery Rate 08/27 0730 98.1 81 15 112/65 80.9 93 Room air 08/27 0259 98.4 71 18 113/68 82.7 93 Room air 08/26 2316 98.6 71 18 112/66 81.1 93 Room air 08/26 1932 99.3 61 18 111/64 79.7 92 Room air 08/26 1640 98.8 62 20 109/66 80.2 94 08/26 1158 98.8 65 16 130/78 95.4 95 24 hour I O ending at 0700: 08/27 0700 08/26 1900 Intake Total 1300.00 Output Total Balance 1300.00 Intake, IV 1200.00 Intake, Oral 100 Number Voids 4 Patient Weight Weight (lb): Weight (oz): Weight (kg): 81.818 Physical Exam General appearance: alert, awake, oriented, no a cute distress Neck: full range of motion, non-tender Cardiovascular: normal capillary refill, normal heart sounds, regular rate rhythm Respiratory: aerating well, clear to auscultatio n, symmetric expansion, no distress Abdomen: tenderness (mild), non-tender, normal b owel sounds, no distention Genitourinary: no flank pain Extremities: moves all, normal capillary refill, normal range of motion Skin: dry, intact Results Findings/Data: Laboratory Tests 08/27 0433 Chemistry Sodium (136 - 145 mmol/L) 140 Potassium (3.5 - 5.1 mmol/L) 3.8 Chloride (98 - 107 mmol/L) 110.0 H Carbon Dioxide (21 - 32 mmol/L) 25.0 Anion Gap (10 - 20) 8.8 L BUN (7 - 18 mg/dL) 7 Creatinine (0.55 - 1.02 mg/dL) 0.80 Glomerular Filtr Rate (>=60 mL/min) > 60 BUN/Creatinine Ratio (10 - 20) 8.8 L Glucose (74 - 106 mg/dL) 93 Calcium (8.5 - 10.1 mg/dL) 8.4 L Magnesium (1.8 - 2.4 mg/dL) 2.0 Total Bilirubin (0.0 - 1.0 mg/dL) 0.30 AST (15 - 37 IUnit/L) 14 L ALT (12 - 78 IUnit/L) 14 Total Alk Phosphatase (45 - 117 IUnit/L) 67 Total Protein (6.4 - 8.2 gram/dL) 5.1 L Albumin (3.4 - 5.0 g/dL) 2.4 L Globulin (2.7 - 4.2 gram/dL) 2.7 Albumin/Globulin Ratio (0.75 - 1.50) 0.9 Laboratory Tests 08/27 0433 Hematology WBC (4.5 - 12.5 K/mm3) 16.7 H RBC (3.7 - 5.2 mill/mm3) 4.09 Hgb (11.5 - 15.5 gram/dL) 10.4 L Hct (36.0 - 46.0 %) 32.6 L MCV (80 - 98 fL) 79.7 L MCH (27.0 - 33.0 picogram) 25.4 L MCHC (33.0 - 36.0 gram/dL) 31.9 L RDW (11.6 - 16.2 %) 15.3 RDW Std Deviation (37.0 - 51.0 fL) 44.1 Plt Count (150 - 450 K/mm3) 185 MPV (6.7 - 11.0 fL) 10.6 Neut % (Auto) (39.0 - 69.0 %) 80.0 H Lymph % (Auto) (25.0 - 55.0 %) 8.2 L Peach % (Auto) (0.0 - 10.0 %) 10.1 H Eos % (Auto) (0.0 - 5.0 %) 0.6 Baso % (Auto) (0.0 - 1.0 %) 0.4 Neut # (Auto) (1.8 - 7.7 K/mm3) 13.37 H Lymph # (Auto) (1.0 - 5.0 K/mm3) 1.37 Peach # (Auto) (0 - 0.8 K/mm3) 1.68 H Eos # (Auto) (0.0 - 0.5 K/mm3) 0.10 Baso # (Auto) (0.0 - 0.2 K/mm3) 0.07 Add Manual Diff NO Nucleated RBC % (0 - 0 %) 0.0 Nucleated RBCs # (Man) (0.0 - 0.1 K/mm3) 0.00 Diagnosis, Assessment Plan Free Text DxA P Notes Free text DxA P notes: Patient is a 79y/o female admitted for #acute diverticulitis - Rocephin/Flagyl IV - IVF - pain managment, anti-emetics - clear liquid diet #rectal bleeding - GI consult - stable trend HandH - likely from above - stable at this time #hypertension - reconcile home meds - monitor #hyperlipidemia - reconcile home meds - monitor #prophylaxis - SCDs for now - Pantoprazole #full code Plan: continue IV antibiotics. monitor H H, like ly colonoscopy outpatient. GI following. clear liquid diet, if doing well, maria l attempt to advance as tolerated. Electronically Signed by Neto Ayala NP on 08/06 07/24 at 1048 at 1314 Addendum 1: 08/29/19 1440 by Neto Aylaa NP for Atilio Snider MD #acute sepsis secondary to acute diverticulitis - IV antibiotics Rocephin/Flagyl - WBC- 16.8, HR- 90's, acute diverticulitis - IVF, pain management, anti-emetics - GI consult - WBC 16.8>16.7 Electronically Signed by Neto Ayala NP on 08/06 08/24 at 1440 RPT #[id number] END OF REPORT 2019-08-28 [facility] 09:03:00-00:00 [facility] ([facility]) Hospitalist Progress Note REPORT#:[id number] REPORT STATUS: Signed DATE:08/28/19 TIME: 09 PATIENT: ROXANN TRUJILLO UNIT #: [id number] ROOM/BED: [address] : 38 AGE: 79 SEX: F ATTEND: Sher Snider MD ADM AUTHOR: Neto Ayala NP * ALL edits or amendments must be made on the [employer]/computer document * See Addendum Subjective Chief Complaint: abdominal pain improving diarrhea, none reported overnight seen and examined at bedside Review of Systems Respiratory: Denies: CERRATO (dyspnea on exertion), SOB, wheezing . Cardiovascular: Denies: chest pain, CERRATO (dyspnea on exertion), e hali. GI: Reports: abdominal pain, diarrhea, nausea. Denie s: vomiting. : Denies: flank pain. All systems rev neg: except as marked Objective General VS/I O: Vital Signs: Date Time Temp Pulse Resp B/P B/P Pulse O2 O2 F low FiO2 Mean Ox Delivery Rate 08/27 0730 98.1 81 15 112/65 80.9 93 Room air 08/27 0259 98.4 71 18 113/68 82.7 93 Room air 08/26 2316 98.6 71 18 112/66 81.1 93 Room air 08/26 1932 99.3 61 18 111/64 79.7 92 Room air 08/26 1640 98.8 62 20 109/66 80.2 94 08/26 1158 98.8 65 16 130/78 95.4 95 24 hour I O ending at 0700: 08/27 0700 08/26 1900 Intake Total 1300.00 Output Total Balance 1300.00 Intake, IV 1200.00 Intake, Oral 100 Number Voids 4 Patient Weight Weight (lb): Weight (oz): Weight (kg): 81.818 Physical Exam General appearance: alert, awake, oriented, no a cute distress Neck: full range of motion, non-tender Cardiovascular: normal capillary refill, normal heart sounds, regular rate rhythm Respiratory: aerating well, clear to auscultatio n, symmetric expansion, no distress Abdomen: tenderness (mild), non-tender, normal b owel sounds, no distention Genitourinary: no flank pain Extremities: moves all, normal capillary refill, normal range of motion Skin: dry, intact Results Findings/Data: Laboratory Tests 08/273 Chemistry Sodium (136 - 145 mmol/L) 140 Potassium (3.5 - 5.1 mmol/L) 3.8 Chloride (98 - 107 mmol/L) 110.0 H Carbon Dioxide (21 - 32 mmol/L) 25.0 Anion Gap (10 - 20) 8.8 L BUN (7 - 18 mg/dL) 7 Creatinine (0.55 - 1.02 mg/dL) 0.80 Glomerular Filtr Rate (>=60 mL/min) > 60 BUN/Creatinine Ratio (10 - 20) 8.8 L Glucose (74 - 106 mg/dL) 93 Calcium (8.5 - 10.1 mg/dL) 8.4 L Magnesium (1.8 - 2.4 mg/dL) 2.0 Total Bilirubin (0.0 - 1.0 mg/dL) 0.30 AST (15 - 37 IUnit/L) 14 L ALT (12 - 78 IUnit/L) 14 Total Alk Phosphatase (45 - 117 IUnit/L) 67 Total Protein (6.4 - 8.2 gram/dL) 5.1 L Albumin (3.4 - 5.0 g/dL) 2.4 L Globulin (2.7 - 4.2 gram/dL) 2.7 Albumin/Globulin Ratio (0.75 - 1.50) 0.9 Laboratory Tests 08/27 0433 Hematology WBC (4.5 - 12.5 K/mm3) 16.7 H RBC (3.7 - 5.2 mill/mm3) 4.09 Hgb (11.5 - 15.5 gram/dL) 10.4 L Hct (36.0 - 46.0 %) 32.6 L MCV (80 - 98 fL) 79.7 L MCH (27.0 - 33.0 picogram) 25.4 L MCHC (33.0 - 36.0 gram/dL) 31.9 L RDW (11.6 - 16.2 %) 15.3 RDW Std Deviation (37.0 - 51.0 fL) 44.1 Plt Count (150 - 450 K/mm3) 185 MPV (6.7 - 11.0 fL) 10.6 Neut % (Auto) (39.0 - 69.0 %) 80.0 H Lymph % (Auto) (25.0 - 55.0 %) 8.2 L Peach % (Auto) (0.0 - 10.0 %) 10.1 H Eos % (Auto) (0.0 - 5.0 %) 0.6 Baso % (Auto) (0.0 - 1.0 %) 0.4 Neut # (Auto) (1.8 - 7.7 K/mm3) 13.37 H Lymph # (Auto) (1.0 - 5.0 K/mm3) 1.37 Peach # (Auto) (0 - 0.8 K/mm3) 1.68 H Eos # (Auto) (0.0 - 0.5 K/mm3) 0.10 Baso # (Auto) (0.0 - 0.2 K/mm3) 0.07 Add Manual Diff NO Nucleated RBC % (0 - 0 %) 0.0 Nucleated RBCs # (Man) (0.0 - 0.1 K/mm3) 0.00 Diagnosis, Assessment Plan Free Text DxA P Notes Free text DxA P notes: Patient is a 79y/o female admitted for #acute diverticulitis - Rocephin/Flagyl IV - IVF - pain managment, anti-emetics - clear liquid diet #rectal bleeding - GI consult - stable trend HandH - likely from above - stable at this time #hypertension - reconcile home meds - monitor #hyperlipidemia - reconcile home meds - monitor #prophylaxis - SCDs for now - Pantoprazole #full code Plan: continue IV antibiotics. monitor H H, like ly colonoscopy outpatient. GI following. clear liquid diet, if doing well, maria l attempt to advance as tolerated. Electronically Signed by Neto Ayala NP on 08/06 07/24 at 1048 at 1314 Addendum 1: 08/29/19 1440 by Neto Ayala NP #acute sepsis secondary to acute diverticulitis - IV antibiotics Rocephin/Flagyl - WBC- 16.8, HR- 90's, acute diverticulitis - IVF, pain management, anti-emetics - GI consult - WBC 16.8>16.7 Electronically Signed by Neto Ayala NP on 08/06 08/24 at 1440 at 1719 RPT #:[id number] END OF REPORT 2019-08-27 [facility] 12:05:00-00:00 [facility] ([facility]) Hospitalist Progress Note REPORT#:[id number] REPORT STATUS: Signed DATE:08/27/19 TIME: 1205 PATIENT: ROXANN TRUJILLO UNIT #: [id number] ROOM/BED: [address] : 38 AGE: 79 SEX: F ATTEND: Joie Zelaya MD ADM AUTHOR: Neto Ayala NP * ALL edits or amendments must be made on the [employer]/computer document * Subjective Chief Complaint: abdominal pain diarrhea Review of Systems Respiratory: Denies: CERRATO (dyspnea on exertion), SOB, wheezing . Cardiovascular: Denies: chest pain, CERRATO (dyspnea on exertion), e hali. GI: Reports: abdominal pain, diarrhea, nausea. Denie s: vomiting. : Denies: flank pain. All systems rev neg: except as marked Objective General VS/I O: Vital Signs: Date Time Temp Pulse Resp B/P B/P Pulse O2 O2 F low FiO2 Mean Ox Delivery Rate 08/26 1158 98.8 65 16 130/78 95.4 95 08/26 0820 98.1 73 20 118/68 84.6 96 08/26 0322 97.5 81 18 137/79 98.0 95 08/25 2309 98.2 90 18 164/85 111.3 92 08/25 2105 93 20 177/82 113.5 08/25 2104 97.7 92 18 171/103 125.4 97 08/25 2042 98.6 92 16 158/76 103 96 08/25 1913 98.6 95 16 150/86 107 97 Room air 08/25 1802 98 08/25 1752 98.4 90 16 176/84 114 98 Room air 24 hour I O ending at 0700: 08/26 0700 08/25 1900 Intake Total 1600.00 Output Total Balance 1600.00 Intake, IV 1400.00 Intake, Oral 200 Number 2 Bowel Movements Number Voids 2 Patient 81.818 kg Weight Weight Stated/Reported Measurement Method Patient Weight Weight (lb): Weight (oz): Weight (kg): 81.818 Physical Exam General appearance: alert, awake, oriented, no a cute distress Neck: full range of motion, non-tender Cardiovascular: normal capillary refill, normal heart sounds, regular rate rhythm Respiratory: aerating well, clear to auscultatio n, symmetric expansion, no distress Abdomen: tenderness (mild), non-tender, normal b owel sounds, no distention Genitourinary: no flank pain Extremities: moves all, normal capillary refill, normal range of motion Skin: dry, intact Results Findings/Data: Laboratory Tests 08/26 08/25 0438 1809 Chemistry Sodium (136 - 145 mmol/L) 141 141 Potassium (3.5 - 5.1 mmol/L) 4.1 4.1 Chloride (98 - 107 mmol/L) 109.0 H 108.0 H Carbon Dioxide (21 - 32 mmol/L) 22.0 22.0 Anion Gap (10 - 20) 14.1 15.1 BUN (7 - 18 mg/dL) 11 13 Creatinine (0.55 - 1.02 mg/dL) 0.90 1.20 H Glomerular Filtr Rate (>=60 mL/min) 60 43 BUN/Creatinine Ratio (10 - 20) 12.2 10.8 Glucose (74 - 106 mg/dL) 127 H 150 H Calcium (8.5 - 10.1 mg/dL) 8.7 9.4 Total Bilirubin (0.0 - 1.0 mg/dL) 0.50 Direct Bilirubin (0.0 - 0.20 mg/dL) 0.12 AST (15 - 37 IUnit/L) 21 ALT (12 - 78 IUnit/L) 18 Total Alk Phosphatase (45 - 117 IUnit/L) 101 Total Protein (6.4 - 8.2 gram/dL) 7.0 Albumin (3.4 - 5.0 g/dL) 3.6 Globulin (2.7 - 4.2 gram/dL) 3.4 Albumin/Globulin Ratio (0.75 - 1.50) 1.1 Lipase (73.0 - 393.0 U/L) 75 Laboratory Tests 08/25 1809 Coagulation INR (0.8 - 1.2) 0.9 PT Patient/Control Mix (9.0 - 14.0 seconds) 10. 7 Laboratory Tests 08/26 08/26 08/25 0438 0018 1809 Hematology WBC (4.5 - 12.5 K/mm3) 16.8 H RBC (3.7 - 5.2 mill/mm3) 5.28 H Hgb (11.5 - 15.5 gram/dL) 12.5 13.5 13.6 Hct (36.0 - 46.0 %) 39.0 42.1 41.8 MCV (80 - 98 fL) 79.2 L MCH (27.0 - 33.0 picogram) 25.8 L MCHC (33.0 - 36.0 gram/dL) 32.5 L RDW (11.6 - 16.2 %) 14.8 Plt Count (150 - 450 K/mm3) 261 MPV (6.7 - 11.0 fL) 10.6 Microbiology Date/Time Procedure - Status Source Growth 08/26 1803 Occult Blood - COMP STOOL Radiology data: Recent Impressions: CAT SCAN - CT ABD PELVIS W/CONT 08/26 1919 Report Impression - Status: SIGNED Entered: 08/26/20192000 IMPRESSION: Findings of noncomplicated diverticulitis involv ing the splenic flexure of the colon as well as the descending c olon. There is also significant diverticulosis of the sigmoid colon but no evidence of diverticulitis in this segment. Location: [facility] Impression By: [email or web address] - Ignacio Nava MD Diagnosis, Assessment Plan Free Text DxA P Notes Free text DxA P notes: Patient is a 79y/o female admitted for #acute diverticulitis - Rocephin/Flagyl IV - IVF - pain managment, anti-emetics #rectal bleeding - GI consult - stable trend HandH - likely from above #hypertension - reconcile home meds - monitor #hyperlipidemia - reconcile home meds - monitor #prophylaxis - SCDs for now - Pepcid #full code Electronically Signed by Neto Ayala NP on 08/06 06/26 at 1212 RPT #:[id number] END OF REPORT 2019-08-27 [facility] 12:05:00-00:00 [facility] ([facility]) Hospitalist Progress Note REPORT#:[id number] REPORT STATUS: Signed DATE:08/27/19 TIME: 1205 PATIENT: ROXANN TRUJILLO UNIT #: [id number] ROOM/BED: [address] : 38 AGE: 79 SEX: F ATTEND: Tor Snider MD ADM AUTHOR: Neto Ayala NP * ALL edits or amendments must be made on the [employer]/computer document * Subjective Chief Complaint: abdominal pain diarrhea Review of Systems Respiratory: Denies: CERRATO (dyspnea on exertion), SOB, wheezing . Cardiovascular: Denies: chest pain, CERRATO (dyspnea on exertion), e hali. GI: Reports: abdominal pain, diarrhea, nausea. Denie s: vomiting. : Denies: flank pain. All systems rev neg: except as marked Objective General VS/I O: Vital Signs: Date Time Temp Pulse Resp B/P B/P Pulse O2 O2 F low FiO2 Mean Ox Delivery Rate 08/26 1158 98.8 65 16 130/78 95.4 95 08/26 0820 98.1 73 20 118/68 84.6 96 08/26 0322 97.5 81 18 137/79 98.0 95 08/25 2309 98.2 90 18 164/85 111.3 92 08/25 2105 93 20 177/82 113.5 08/25 2104 97.7 92 18 171/103 125.4 97 08/25 2042 98.6 92 16 158/76 103 96 08/25 1913 98.6 95 16 150/86 107 97 Room air 08/25 1802 98 08/25 1752 98.4 90 16 176/84 114 98 Room air 24 hour I O ending at 0700: 08/26 0700 08/25 1900 Intake Total 1600.00 Output Total Balance 1600.00 Intake, IV 1400.00 Intake, Oral 200 Number 2 Bowel Movements Number Voids 2 Patient 81.818 kg Weight Weight Stated/Reported Measurement Method Patient Weight Weight (lb): Weight (oz): Weight (kg): 81.818 Physical Exam General appearance: alert, awake, oriented, no a cute distress Neck: full range of motion, non-tender Cardiovascular: normal capillary refill, normal heart sounds, regular rate rhythm Respiratory: aerating well, clear to auscultatio n, symmetric expansion, no distress Abdomen: tenderness (mild), non-tender, normal b owel sounds, no distention Genitourinary: no flank pain Extremities: moves all, normal capillary refill, normal range of motion Skin: dry, intact Results Findings/Data: Laboratory Tests 08/26 08/25 8828 1809 Chemistry Sodium (136 - 145 mmol/L) 141 141 Potassium (3.5 - 5.1 mmol/L) 4.1 4.1 Chloride (98 - 107 mmol/L) 109.0 H 108.0 H Carbon Dioxide (21 - 32 mmol/L) 22.0 22.0 Anion Gap (10 - 20) 14.1 15.1 BUN (7 - 18 mg/dL) 11 13 Creatinine (0.55 - 1.02 mg/dL) 0.90 1.20 H Glomerular Filtr Rate (>=60 mL/min) 60 43 BUN/Creatinine Ratio (10 - 20) 12.2 10.8 Glucose (74 - 106 mg/dL) 127 H 150 H Calcium (8.5 - 10.1 mg/dL) 8.7 9.4 Total Bilirubin (0.0 - 1.0 mg/dL) 0.50 Direct Bilirubin (0.0 - 0.20 mg/dL) 0.12 AST (15 - 37 IUnit/L) 21 ALT (12 - 78 IUnit/L) 18 Total Alk Phosphatase (45 - 117 IUnit/L) 101 Total Protein (6.4 - 8.2 gram/dL) 7.0 Albumin (3.4 - 5.0 g/dL) 3.6 Globulin (2.7 - 4.2 gram/dL) 3.4 Albumin/Globulin Ratio (0.75 - 1.50) 1.1 Lipase (73.0 - 393.0 U/L) 75 Laboratory Tests 08/25 1809 Coagulation INR (0.8 - 1.2) 0.9 PT Patient/Control Mix (9.0 - 14.0 seconds) 10. 7 Laboratory Tests 08/26 08/26 08/25 0438 0018 1809 Hematology WBC (4.5 - 12.5 K/mm3) 16.8 H RBC (3.7 - 5.2 mill/mm3) 5.28 H Hgb (11.5 - 15.5 gram/dL) 12.5 13.5 13.6 Hct (36.0 - 46.0 %) 39.0 42.1 41.8 MCV (80 - 98 fL) 79.2 L MCH (27.0 - 33.0 picogram) 25.8 L MCHC (33.0 - 36.0 gram/dL) 32.5 L RDW (11.6 - 16.2 %) 14.8 Plt Count (150 - 450 K/mm3) 261 MPV (6.7 - 11.0 fL) 10.6 Microbiology Date/Time Procedure - Status Source Growth 08/25 1804 Occult Blood - COMP STOOL Radiology data: Recent Impressions: CAT SCAN - CT ABD PELVIS W/CONT 08/26 1919 Report Impression - Status: SIGNED Entered: 08/26/20192000 IMPRESSION: Findings of noncomplicated diverticulitis involv ing the splenic flexure of the colon as well as the descending c olon. There is also significant diverticulosis of the sigmoid colon but no evidence of diverticulitis in this segment. Location: [facility] Impression By: [email or web address] - Ignacio Nava MD Diagnosis, Assessment Plan Free Text DxA P Notes Free text DxA P notes: Patient is a 79y/o female admitted for #acute diverticulitis - Rocephin/Flagyl IV - IVF - pain managment, anti-emetics #rectal bleeding - GI consult - stable trend HandH - likely from above #hypertension - reconcile home meds - monitor #hyperlipidemia - reconcile home meds - monitor #prophylaxis - SCDs for now - Pepcid #full code Electronically Signed by Neto Ayala NP on 08/06 06/26 at 1212 at 1546 RPT #:[id number] END OF REPORT 2019-08-27 [facility] 12:05:00-00:00 [facility] ([facility] Hospitalist Progress Note REPORT#:[id number] REPORT STATUS: Signed DATE:08/27/19 TIME: 1205 PATIENT: ROXANN TRUJILLO UNIT #: [id number] ROOM/BED: [address] : 38 AGE: 79 SEX: F ATTEND: Tor Snider MD ADM AUTHOR: Neto Ayala NP * ALL edits or amendments must be made on the Wingz/bttn document * See Addendum Subjective Chief Complaint: abdominal pain diarrhea Review of Systems Respiratory: Denies: CERRATO (dyspnea on exertion), SOB, wheezing . Cardiovascular: Denies: chest pain, CERRATO (dyspnea on exertion), e hali. GI: Reports: abdominal pain, diarrhea, nausea. Denie s: vomiting. : Denies: flank pain. All systems rev neg: except as marked Objective General VS/I O: Vital Signs: Date Time Temp Pulse Resp B/P B/P Pulse O2 O2 F low FiO2 Mean Ox Delivery Rate 08/26 1158 98.8 65 16 130/78 95.4 95 08/26 0820 98.1 73 20 118/68 84.6 96 08/26 0322 97.5 81 18 137/79 98.0 95 08/25 2309 98.2 90 18 164/85 111.3 92 08/25 2105 93 20 177/82 113.5 08/26 2103 97.7 92 18 171/103 125.4 97 08/252 98.6 92 16 158/76 103 96 08/25 1913 98.6 95 16 150/86 107 97 Room air 08/25 1802 98 08/25 1752 98.4 90 16 176/84 114 98 Room air 24 hour I O ending at 0700: 08/26 0700 08/25 1900 Intake Total 1600.00 Output Total Balance 1600.00 Intake, IV 1400.00 Intake, Oral 200 Number 2 Bowel Movements Number Voids 2 Patient 81.818 kg Weight Weight Stated/Reported Measurement Method Patient Weight Weight (lb): Weight (oz): Weight (kg): 81.818 Physical Exam General appearance: alert, awake, oriented, no a cute distress Neck: full range of motion, non-tender Cardiovascular: normal capillary refill, normal heart sounds, regular rate rhythm Respiratory: aerating well, clear to auscultatio n, symmetric expansion, no distress Abdomen: tenderness (mild), non-tender, normal b owel sounds, no distention Genitourinary: no flank pain Extremities: moves all, normal capillary refill, normal range of motion Skin: dry, intact Results Findings/Data: Laboratory Tests 08/26 08/25 0438 1809 Chemistry Sodium (136 - 145 mmol/L) 141 141 Potassium (3.5 - 5.1 mmol/L) 4.1 4.1 Chloride (98 - 107 mmol/L) 109.0 H 108.0 H Carbon Dioxide (21 - 32 mmol/L) 22.0 22.0 Anion Gap (10 - 20) 14.1 15.1 BUN (7 - 18 mg/dL) 11 13 Creatinine (0.55 - 1.02 mg/dL) 0.90 1.20 H Glomerular Filtr Rate (>=60 mL/min) 60 43 BUN/Creatinine Ratio (10 - 20) 12.2 10.8 Glucose (74 - 106 mg/dL) 127 H 150 H Calcium (8.5 - 10.1 mg/dL) 8.7 9.4 Total Bilirubin (0.0 - 1.0 mg/dL) 0.50 Direct Bilirubin (0.0 - 0.20 mg/dL) 0.12 AST (15 - 37 IUnit/L) 21 ALT (12 - 78 IUnit/L) 18 Total Alk Phosphatase (45 - 117 IUnit/L) 101 Total Protein (6.4 - 8.2 gram/dL) 7.0 Albumin (3.4 - 5.0 g/dL) 3.6 Globulin (2.7 - 4.2 gram/dL) 3.4 Albumin/Globulin Ratio (0.75 - 1.50) 1.1 Lipase (73.0 - 393.0 U/L) 75 Laboratory Tests 08/25 1809 Coagulation INR (0.8 - 1.2) 0.9 PT Patient/Control Mix (9.0 - 14.0 seconds) 10. 7 Laboratory Tests 08/26 08/26 08/25 0438 0018 1809 Hematology WBC (4.5 - 12.5 K/mm3) 16.8 H RBC (3.7 - 5.2 mill/mm3) 5.28 H Hgb (11.5 - 15.5 gram/dL) 12.5 13.5 13.6 Hct (36.0 - 46.0 %) 39.0 42.1 41.8 MCV (80 - 98 fL) 79.2 L MCH (27.0 - 33.0 picogram) 25.8 L MCHC (33.0 - 36.0 gram/dL) 32.5 L RDW (11.6 - 16.2 %) 14.8 Plt Count (150 - 450 K/mm3) 261 MPV (6.7 - 11.0 fL) 10.6 Microbiology Date/Time Procedure - Status Source Growth 08/25 180 Occult Blood - COMP STOOL Radiology data: Recent Impressions: CAT SCAN - CT ABD PELVIS W/CONT 08/26 1919 Report Impression - Status: SIGNED Entered: 08/26/20192000 IMPRESSION: Findings of noncomplicated diverticulitis involv ing the splenic flexure of the colon as well as the descending c olon. There is also significant diverticulosis of the sigmoid colon but no evidence of diverticulitis in this segment. Location: [facility] Impression By: [email or web address] - Ignacio Nava MD Diagnosis, Assessment Plan Free Text DxA P Notes Free text DxA P notes: Patient is a 79y/o female admitted for #acute diverticulitis - Rocephin/Flagyl IV - IVF - pain managment, anti-emetics #rectal bleeding - GI consult - stable trend HandH - likely from above #hypertension - reconcile home meds - monitor #hyperlipidemia - reconcile home meds - monitor #prophylaxis - SCDs for now - Pepcid #full code Electronically Signed by Neto Ayala NP on 08/06 06/26 at 1212 at 1546 Addendum 1: 08/29/19 1436 by Neto Ayala NP for Atilio Snider MD #acute sepsis secondary to acute diverticulitis - IV antibiotics Rocephin/Flagyl - WBC- 16.8, HR- 90's, acute diverticulitis - IVF, pain management, anti-emetics - GI consult Electronically Signed by Neto Ayala NP on 08/06 08/24 at 1440 RPT #:[id number] END OF REPORT 2019-08-27 [facility] 12:05:00-00:00 [facility] ([facility] Hospitalist Progress Note REPORT#:[id number] REPORT STATUS: Signed DATE:08/27/19 TIME: 1205 PATIENT: ROXANN TRUJILLO UNIT #: [id number] ROOM/BED: [address] : 38 AGE: 79 SEX: F ATTEND: Tor Snider MD ADM AUTHOR: Neto Ayala NP * ALL edits or amendments must be made on the Wingz/bttn document * See Addendum Subjective Chief Complaint: abdominal pain diarrhea Review of Systems Respiratory: Denies: CERRATO (dyspnea on exertion), SOB, wheezing . Cardiovascular: Denies: chest pain, CERRATO (dyspnea on exertion), e hali. GI: Reports: abdominal pain, diarrhea, nausea. Denie s: vomiting. : Denies: flank pain. All systems rev neg: except as marked Objective General VS/I O: Vital Signs: Date Time Temp Pulse Resp B/P B/P Pulse O2 O2 Flow FiO2 Mean Ox Delivery Rate 08/26 1158 98.8 65 16 130/78 95.4 95 08/26 0820 98.1 73 20 118/68 84.6 96 08/26 0322 97.5 81 18 137/79 98.0 95 08/25 2309 98.2 90 18 164/85 111.3 92 08/25 2105 93 20 177/82 113.5 08/25 2104 97.7 92 18 171/103 125.4 97 08/25 2042 98.6 92 16 158/76 103 96 08/25 1913 98.6 95 16 150/86 107 97 Room air 08/25 1802 98 08/25 1752 98.4 90 16 176/84 114 98 Room air 24 hour I O ending at 0700: 08/26 0700 08/25 1900 Intake Total 1600.00 Output Total Balance 1600.00 Intake, IV 1400.00 Intake, Oral 200 Number 2 Bowel Movements Number Voids 2 Patient 81.818 kg Weight Weight Stated/Reported Measurement Method Patient Weight Weight (lb): Weight (oz): Weight (kg): 81.818 Physical Exam General appearance: alert, awake, oriented, no a cute distress Neck: full range of motion, non-tender Cardiovascular: normal capillary refill, normal heart sounds, regular rate rhythm Respiratory: aerating well, clear to auscultatio n, symmetric expansion, no distress Abdomen: tenderness (mild), non-tender, normal b owel sounds, no distention Genitourinary: no flank pain Extremities: moves all, normal capillary refill, normal range of motion Skin: dry, intact Results Findings/Data: Laboratory Tests 08/26 08/25 0438 1809 Chemistry Sodium (136 - 145 mmol/L) 141 141 Potassium (3.5 - 5.1 mmol/L) 4.1 4.1 Chloride (98 - 107 mmol/L) 109.0 H 108.0 H Carbon Dioxide (21 - 32 mmol/L) 22.0 22.0 Anion Gap (10 - 20) 14.1 15.1 BUN (7 - 18 mg/dL) 11 13 Creatinine (0.55 - 1.02 mg/dL) 0.90 1.20 H Glomerular Filtr Rate (>=60 mL/min) 60 43 BUN/Creatinine Ratio (10 - 20) 12.2 10.8 Glucose (74 - 106 mg/dL) 127 H 150 H Calcium (8.5 - 10.1 mg/dL) 8.7 9.4 Total Bilirubin (0.0 - 1.0 mg/dL) 0.50 Direct Bilirubin (0.0 - 0.20 mg/dL) 0.12 AST (15 - 37 IUnit/L) 21 ALT (12 - 78 IUnit/L) 18 Total Alk Phosphatase (45 - 117 IUnit/L) 101 Total Protein (6.4 - 8.2 gram/dL) 7.0 Albumin (3.4 - 5.0 g/dL) 3.6 Globulin (2.7 - 4.2 gram/dL) 3.4 Albumin/Globulin Ratio (0.75 - 1.50) 1.1 Lipase (73.0 - 393.0 U/L) 75 Laboratory Tests 08/25 1809 Coagulation INR (0.8 - 1.2) 0.9 PT Patient/Control Mix (9.0 - 14.0 seconds) 10. 7 Laboratory Tests 08/26 08/26 08/25 0438 0018 1809 Hematology WBC (4.5 - 12.5 K/mm3) 16.8 H RBC (3.7 - 5.2 mill/mm3) 5.28 H Hgb (11.5 - 15.5 gram/dL) 12.5 13.5 13.6 Hct (36.0 - 46.0 %) 39.0 42.1 41.8 MCV (80 - 98 fL) 79.2 L MCH (27.0 - 33.0 picogram) 25.8 L MCHC (33.0 - 36.0 gram/dL) 32.5 L RDW (11.6 - 16.2 %) 14.8 Plt Count (150 - 450 K/mm3) 261 MPV (6.7 - 11.0 fL) 10.6 Microbiology Date/Time Procedure - Status Source Growth 08/25 1804 Occult Blood - COMP STOOL Radiology data: Recent Impressions: CAT SCAN - CT ABD PELVIS W/CONT 08/26 1919 Report Impression - Status: SIGNED Entered: 08/26/20192000 IMPRESSION: Findings of noncomplicated diverticulitis involv ing the splenic flexure of the colon as well as the descending c olon. There is also significant diverticulosis of the sigmoid colon but no evidence of diverticulitis in this segment. Location: [facility] Impression By: [email or web address] - Ignacio Nava MD Diagnosis, Assessment Plan Free Text DxA P Notes Free text DxA P notes: Patient is a 79y/o female admitted for #acute diverticulitis - Rocephin/Flagyl IV - IVF - pain managment, anti-emetics #rectal bleeding - GI consult - stable trend HandH - likely from above #hypertension - reconcile home meds - monitor #hyperlipidemia - reconcile home meds - monitor #prophylaxis - SCDs for now - Pepcid #full code Electronically Signed by Neto Ayala NP on 08/06 06/26 at 1212 at 1546 Addendum 1: 08/29/19 1436 by eNto Ayala NP #acute sepsis secondary to acute diverticulitis - IV antibiotics Rocephin/Flagyl - WBC- 16.8, HR- 90's, acute diverticulitis - IVF, pain management, anti-emetics - GI consult Electronically Signed by Neto Ayala NP on 08/06 08/24 at 1440 at 1719 RPT #:[id number] END OF REPORT 2019-08-27 [facility] 11:00:00-00:00 [facility] ([facility]) GE Consultation Note REPORT#:[id number] REPORT STATUS: Signed DATE:08/27/19 TIME: 1100 PATIENT: ROXANN TRUJILLO UNIT #: [id number] ROOM/BED: [address] : 38 AGE: 79 SEX: F ATTEND: Tor Snider MD ADM AUTHOR: Carissa Connolly * ALL edits or amendments must be made on the Wingz/bttn document * History of Present Illness Requesting clinician: Dr. Zelaya Reason for consult: diverticulitis HPI: Patient is 79-year-old female with past medical history of hypertension, GERD, hiatal hernia presented with reports of episodes of bloody diarrhea that started yesterday. She also reports of having mild abdom inal pain along the lower quadrant, particularly in the left lower quadran t. GI has been consulted for diverticulitis. Patient states she has had a col onoscopy about 5 years ago. She denies any melena or hematemesis. She denies any previous history of diverticulitis. She reports some fever, however no chills she denies any chest pain or shortness of breath. ABD CT IMPRESSION: Findings of noncomplicated diverticulitis invol ving the splenic flexure of the colon as well as the descending colon. There is also significant diverticulosis of the sigmoid colon but no evidence of diverticulitis in this segment. History - Adult longitudinal Past medical history: Reports: GERD/gastritis, Hypertension. Past surgical history: Reports: Appendectomy, Cholecystectomy, Hysterec jg. Family history: Reports: Diabetes, Heart disease, Hypertension. Alcohol use: Denies EtOH use Drug use: Denies recreational drugs Smoking status for patients 13 years old or olde r: Never Smoker Medications: Home Medications: Medication Dose/Rte/Freq Days Qty Entered Last Max Daily Dose Reviewed ASPIRIN 81 MG PO DAILY 01/12/19 08/26/19 Strength: 81 MG TAB.CHEW 1210 1814 METOPROLOL SUCC XL 100 MG PO DAILY 01/12/19 (TOPROL XL) 1211 1815 Strength: 100 MG TAB.SA OMEPRAZOLE ER (PriLOSEC) 40 MG PO BID 01/12/19 08/26/19 Strength: 40 MG CAP. 1211 1814 amLODIPine/BENAZEPRIL 1 CAP PO DAILY 01/12/19 0 08/26/19 (LOTREL 10/20 MG) 1211 1814 Strength: 1 CAP CAP ATORVASTATIN (LIPITOR) 10 MG PO DAILY 01/12/19 08/26/19 Strength: 10 MG TAB 1212 1814 Current Hospital Medications: Anti-Infective Agents Sig/Mayur Start time Last Medication Dose Route Stop Time Status Admin Ceftriaxone Sodium 1,000 MG Q24H 08/25 2100 AC 08/25 (ROCEPHIN) IV 08/27 2102 2146 Sodium Chloride 10 ML (SODIUM CHLORIDE 0.9%) Metronidazole/Sodium 100 ML Q6H 08/25 2100 AC 0 08/26 Chloride IV 08/28 1559 0857 (metroNIDAZOLE 500MG IN NACL 0.8%) Cardiovascular Drugs Sig/Mayur Start time Last Medication Dose Route Stop Time Status Admin Amlodipine Besylate 10 MG DAILY 08/26 1330 AC 0 08/26 (NORVASC 5MG TAB) PO 09/25 1329 1313 Lisinopril 20 MG DAILY 08/26 1330 AC 08/26 (lisinopriL) PO 09/25 1329 1313 Atorvastatin Calcium 10 MG BEDTIME 08/25 2100 A C 08/25 (LIPITOR 10MG TAB) PO 09/24 Metoprolol Succinate 100 MG DAILY 08/25 2099 A C 08/26 (TOPROL XL 100MG TAB) PO 09/24 2058 0857 Hydralazine HCl 10 MG Q3H PRN PRN 08/25 2029 AC (hydrALAZINE HCL) IV 09/24 2028 Central Nervous System Agents Sig/Mayur Start time Last Medication Dose Route Stop Time Status Admin Morphine Sulfate 2 MG Q4H PRN PRN 08/25 2099 AC 08/26 (morphine SULFATE) IV 08/30 2058 1314 Promethazine HCl 25 MG Q6H PRN PRN 08/25 2099 A C (PROMETHAZINE HCL) IV 09/24 2058 Sodium Chloride 50 ML (SODIUM CHLORIDE 0.9%) Acetaminophen 650 MG Q6H PRN PRN 08/25 2014 AC (TYLENOL) PO 09/03 0805 Diagnostic Agents Sig/Mayur Start time Last Medication Dose Route Stop Time Status Admin Iopamidol 0 .STK-MED ONE 08/25 193 DC 08/25 (ISOVUE-370) .ROUTE 1937 Electrolytic, Caloric, And Myra Sig/Mayur Start time Last Medication Dose Route Stop Time Status Admin Sodium Chloride 1,000 ML .Q10H 08/25 2144 AC (SODIUM CHLORIDE IV 09/25 2143 0857 0.45%) Gastrointestinal Drugs Sig/Mayur Start time Last Medication Dose Route Stop Time Status Admin Ondansetron HCl 4 MG Q6H PRN PRN 08/25 2014 AC 08/26 (ondansetron HCL) IV 09/03 0805 0238 Ondansetron HCl 4 MG X1ED STA 08/25 1958 DC (ondansetron HCL) IV 08/25 Pantoprazole Sodium 80 MG X1ED STA 08/25 1754 D C 08/25 (PROTONIX IV) IV 08/26 0353 1936 Sodium Chloride 100 ML (SODIUM CHLORIDE 0.9%) Allergies: Coded Allergies: celecoxib (From CELEBREX) (UNKNOWN 04/21/20) Review of Systems Constitutional: Reports: fatigue, generalized weakness. Skin: Denies: bruising, contusion. Allergy/Immun: Denies: allergic reaction, anaphylaxis. Eyes: Denies: visual loss/blurred, diplopia. ENT: Denies: earache, nose bleeding. Respiratory: Denies: CERRATO (dyspnea on exertion), hemoptysis. Cardiovascular: Denies: chest pain, CERRATO (dyspnea on exertion). GI: Reports: abdominal pain. Musculoskeletal: Denies: extremity pain, extremity swelling. Endocrine: Denies: heat intolerance, polyphagia. Objective Physical Exam VS/I O: Last Documented: Result Date Time Pulse Ox 95 08/26 1158 B/P 130/78 08/26 1158 B/P Mean 95.4 08/26 1158 Temp 37.1 08/26 1158 Pulse 65 08/26 1158 Resp 16 08/26 1158 O2 Delivery Room air 08/253 24 hour I O ending at 0700: 08/26 0700 08/25 1900 Intake Total 1600.00 Output Total Balance 1600.00 Intake, IV 1400.00 Intake, Oral 200 Number 2 Bowel Movements Number Voids 2 Patient 81.818 kg Weight Weight Stated/Reported Measurement Method Patient Weight Weight (lb): Weight (oz): Weight (kg): 81.818 Medications: Active Meds + DC'd Last 24 Hrs Amlodipine Besylate 10 MG DAILY PO Lisinopril 20 MG DAILY PO Sodium Chloride 1,000 ML .Q10H IV Atorvastatin Calcium 10 MG BEDTIME PO Ceftriaxone Sodium 1,000 MG Q24H IV Sodium Chloride 10 ML Metoprolol Succinate 100 MG DAILY PO Metronidazole/Sodium Chloride 100 ML Q6H IV Morphine Sulfate 2 MG Q4H PRN PRN IV Promethazine HCl 25 MG Q6H PRN PRN IV Sodium Chloride 50 ML Hydralazine HCl 10 MG Q3H PRN PRN IV Acetaminophen 650 MG Q6H PRN PRN PO Ondansetron HCl 4 MG Q6H PRN PRN IV Ondansetron HCl 4 MG X1ED STA IV (DC) Iopamidol 0 .STK-MED ONE .ROUTE (DC) Pantoprazole Sodium 80 MG X1ED STA IV (DC) Sodium Chloride 100 ML General appearance: alert, awake, oriented HEENT: anicteric, atraumatic Neck: non-tender, supple/no meningismus Cardiovascular: normal heart sounds, normal S1/S 2 Respiratory: aerating well, clear to auscultatio n Abdomen: tenderness Extremities: decreased range of motion Musculoskeletal: decreased ROM Neuro/[employer]ALERSHIP MANAGER: alert, oriented X 3 Skin: dry, intact Psychiatry: normal affect, normal judgment/insig ht Results Findings/Data: Laboratory Tests 08/27/19437: [Embedded Image Not Available] 08/27/1917: [Embedded Image Not Available] 08/26/191808: [Embedded Image Not Available] Laboratory Tests 08/26 Chemistry Sodium (136 - 145 mmol/L) 141 141 Potassium (3.5 - 5.1 mmol/L) 4.1 4.1 Chloride (98 - 107 mmol/L) 109.0 H 108.0 H Carbon Dioxide (21 - 32 mmol/L) 22.0 22.0 Anion Gap (10 - 20) 14.1 15.1 BUN (7 - 18 mg/dL) 11 13 Creatinine (0.55 - 1.02 mg/dL) 0.90 1.20 H Glomerular Filtr Rate (>=60 mL/min) 60 43 BUN/Creatinine Ratio (10 - 20) 12.2 10.8 Glucose (74 - 106 mg/dL) 127 H 150 H Calcium (8.5 - 10.1 mg/dL) 8.7 9.4 Total Bilirubin (0.0 - 1.0 mg/dL) 0.50 Direct Bilirubin (0.0 - 0.20 mg/dL) 0.12 AST (15 - 37 IUnit/L) 21 ALT (12 - 78 IUnit/L) 18 Total Alk Phosphatase (45 - 117 IUnit/L) 101 Total Protein (6.4 - 8.2 gram/dL) 7.0 Albumin (3.4 - 5.0 g/dL) 3.6 Globulin (2.7 - 4.2 gram/dL) 3.4 Albumin/Globulin Ratio (0.75 - 1.50) 1.1 Lipase (73.0 - 393.0 U/L) 75 Laboratory Tests 08/25 1808 Coagulation INR (0.8 - 1.2) 0.9 PT Patient/Control Mix (9.0 - 14.0 seconds) 10. 7 Laboratory Tests 04/22 04/22 04/21 0438 0018 1809 Hematology WBC (4.5 - 12.5 K/mm3) 16.8 H RBC (3.7 - 5.2 mill/mm3) 5.28 H Hgb (11.5 - 15.5 gram/dL) 12.5 13.5 13.6 Hct (36.0 - 46.0 %) 39.0 42.1 41.8 MCV (80 - 98 fL) 79.2 L MCH (27.0 - 33.0 picogram) 25.8 L MCHC (33.0 - 36.0 gram/dL) 32.5 L RDW (11.6 - 16.2 %) 14.8 Plt Count (150 - 450 K/mm3) 261 MPV (6.7 - 11.0 fL) 10.6 Microbiology Date/Time Procedure - Status Source Growth 08/26 1803 Occult Blood - COMP STOOL Radiology data: Recent Impressions: CAT SCAN - CT ABD PELVIS W/CONT 08/26 1919 Report Impression - Status: SIGNED Entered: 08/26/20192000 IMPRESSION: Findings of noncomplicated diverticulitis involv ing the splenic flexure of the colon as well as the descending c olon. There is also significant diverticulosis of the sigmoid colon but no evidence of diverticulitis in this segment. Location: [facility] Impression By: [email or web address] - Ignacio Nava MD Results: labs reviewed, vital signs stable Diagnosis, Assessment Plan Orders: 1. Lower quadrant abdominal pain and leukocytosi s likely secondary to acute diverticulitis 2. Acute onset rectal bleeding likely secondary to #1 hemoglobin stable 3. Nausea and vomiting with history of GERD and hiatal hernia Plan Patient is currently on Flagyl and ceftriaxone Continue antiemetics as needed IV fluids, clear liquid diet for now Monitor for further GI bleeding Monitor H H Nutritional consult for discussion of diverticu lar diet Outpatient colonoscopy in [address] Talavera. Discussed with patient at 1309 RPT #:[id number] END OF REPORT 2019-08-27 [facility] 11:00:00-00:00 [facility] ([facility]) GE Consultation Note REPORT#:[id number] REPORT STATUS: Signed DATE:08/27/19 TIME: 1100 PATIENT: ROXANN TRUJILLO UNIT #: [id number] ROOM/BED: [address] : 38 AGE: 79 SEX: F ATTEND: Tor Snider MD ADM AUTHOR: Carissa Connolly * ALL edits or amendments must be made on the Wingz/computer document * History of Present Illness Requesting clinician: Dr. Zelaya Reason for consult: diverticulitis HPI: Patient is 79-year-old female with past medical history of hypertension, GERD, hiatal hernia presented with reports of episodes of bloody diarrhea that started yesterday. She also reports of having mild abdom inal pain along the lower quadrant, particularly in the left lower quadran t. GI has been consulted for diverticulitis. Patient states she has had a col onoscopy about 5 years ago. She denies any melena or hematemesis. She denies any previous history of diverticulitis. She reports some fever, however no chills she denies any chest pain or shortness of breath. ABD CT IMPRESSION: Findings of noncomplicated diverticulitis invol ving the splenic flexure of the colon as well as the descending colon. There is also significant diverticulosis of the sigmoid colon but no evidence of diverticulitis in this segment. History - Adult longitudinal Past medical history: Reports: GERD/gastritis, Hypertension. Past surgical history: Reports: Appendectomy, Cholecystectomy, Hysterec jg. Family history: Reports: Diabetes, Heart disease, Hypertension. Alcohol use: Denies EtOH use Drug use: Denies recreational drugs Smoking status for patients 13 years old or olde r: Never Smoker Medications: Home Medications: Medication Dose/Rte/Freq Days Qty Entered Last Max Daily Dose Reviewed ASPIRIN 81 MG PO DAILY 01/12/19 08/26/19 Strength: 81 MG TAB.CHEW 1210 1814 METOPROLOL SUCC XL 100 MG PO DAILY 01/12/19 (TOPROL XL) 1211 1815 Strength: 100 MG TAB.SA OMEPRAZOLE ER (PriLOSEC) 40 MG PO BID 01/12/19 08/26/19 Strength: 40 MG CAP.DR 1211 1814 amLODIPine/BENAZEPRIL 1 CAP PO DAILY 01/12/19 0 08/26/19 (LOTREL 10/20 MG) 1211 1814 Strength: 1 CAP CAP ATORVASTATIN (LIPITOR) 10 MG PO DAILY 01/12/19 08/26/19 Strength: 10 MG TAB 1212 1814 Current Hospital Medications: Anti-Infective Agents Sig/Mayur Start time Last Medication Dose Route Stop Time Status Admin Ceftriaxone Sodium 1,000 MG Q24H 08/25 2100 AC 08/25 (ROCEPHIN) IV 08/27 2101 2146 Sodium Chloride 10 ML (SODIUM CHLORIDE 0.9%) Metronidazole/Sodium 100 ML Q6H 08/25 2100 AC 0 08/26 Chloride IV 08/28 1559 0857 (metroNIDAZOLE 500MG IN NACL 0.8%) Cardiovascular Drugs Sig/Mayur Start time Last Medication Dose Route Stop Time Status Admin Amlodipine Besylate 10 MG DAILY 08/26 1330 AC 0 08/26 (NORVASC 5MG TAB) PO 09/25 1329 1313 Lisinopril 20 MG DAILY 08/26 1330 AC 08/26 (lisinopriL) PO 09/25 1329 1313 Atorvastatin Calcium 10 MG BEDTIME 08/25 2100 A C 08/25 (LIPITOR 10MG TAB) PO 09/24 2058 214 Metoprolol Succinate 100 MG DAILY 08/25 2099 AC 08/26 (TOPROL XL 100MG TAB) PO 09/24 2058 0857 Hydralazine HCl 10 MG Q3H PRN PRN 08/25 2029 AC (hydrALAZINE HCL) IV 09/24 2028 Central Nervous System Agents Sig/Mayur Start time Last Medication Dose Route Stop Time Status Admin Morphine Sulfate 2 MG Q4H PRN PRN 08/25 2100 AC 08/26 (morphine SULFATE) IV 08/30 2058 1314 Promethazine HCl 25 MG Q6H PRN PRN 08/25 2099 A C (PROMETHAZINE HCL) IV 09/24 2058 Sodium Chloride 50 ML (SODIUM CHLORIDE 0.9%) Acetaminophen 650 MG Q6H PRN PRN 08/25 2014 AC (TYLENOL) PO 09/03 0805 Diagnostic Agents Sig/Mayur Start time Last Medication Dose Route Stop Time Status Admin Iopamidol 0 .STK-MED ONE 08/25 1933 DC 08/25 (ISOVUE-370) .ROUTE 1937 Electrolytic, Caloric, And Myra Sig/Mayur Start time Last Medication Dose Route Stop Time Status Admin Sodium Chloride 1,000 ML .Q10H 08/25 2144 AC (SODIUM CHLORIDE IV 09/25 2143 0857 0.45%) Gastrointestinal Drugs Sig/Mayur Start time Last Medication Dose Route Stop Time Status Admin Ondansetron HCl 4 MG Q6H PRN PRN 08/25 2014 AC 08/26 (ondansetron HCL) IV 09/03 0805 0238 Ondansetron HCl 4 MG X1ED STA 08/25 1958 DC (ondansetron HCL) IV 08/25 Pantoprazole Sodium 80 MG X1ED STA 08/25 1754 D C 08/25 (PROTONIX IV) IV 08/26 0353 193 Sodium Chloride 100 ML (SODIUM CHLORIDE 0.9%) Allergies: Coded Allergies: celecoxib (From CELEBREX) (UNKNOWN 08/26/19) Review of Systems Constitutional: Reports: fatigue, generalized weakness. Skin: Denies: bruising, contusion. Allergy/Immun: Denies: allergic reaction, anaphylaxis. Eyes: Denies: visual loss/blurred, diplopia. ENT: Denies: earache, nose bleeding. Respiratory: Denies: CERRATO (dyspnea on exertion), hemoptysis. Cardiovascular: Denies: chest pain, CERRATO (dyspnea on exertion). GI: Reports: abdominal pain. Musculoskeletal: Denies: extremity pain, extremity swelling. Endocrine: Denies: heat intolerance, polyphagia. Objective Physical Exam VS/I O: Last Documented: Result Date Time Pulse Ox 95 08/26 1158 B/P 130/78 08/26 1158 B/P Mean 95.4 08/26 1158 Temp 37.1 08/26 1158 Pulse 65 08/26 1158 Resp 16 08/26 1158 O2 Delivery Room air 08/25 1913 24 hour I O ending at 0700: 08/26 0700 08/25 1900 Intake Total 1600.00 Output Total Balance 1600.00 Intake, IV 1400.00 Intake, Oral 200 Number 2 Bowel Movements Number Voids 2 Patient 81.818 kg Weight Weight Stated/Reported Measurement Method Patient Weight Weight (lb): Weight (oz): Weight (kg): 81.818 Medications: Active Meds + DC'd Last 24 Hrs Amlodipine Besylate 10 MG DAILY PO Lisinopril 20 MG DAILY PO Sodium Chloride 1,000 ML .Q10H IV Atorvastatin Calcium 10 MG BEDTIME PO Ceftriaxone Sodium 1,000 MG Q24H IV Sodium Chloride 10 ML Metoprolol Succinate 100 MG DAILY PO Metronidazole/Sodium Chloride 100 ML Q6H IV Morphine Sulfate 2 MG Q4H PRN PRN IV Promethazine HCl 25 MG Q6H PRN PRN IV Sodium Chloride 50 ML Hydralazine HCl 10 MG Q3H PRN PRN IV Acetaminophen 650 MG Q6H PRN PRN PO Ondansetron HCl 4 MG Q6H PRN PRN IV Ondansetron HCl 4 MG X1ED STA IV (DC) Iopamidol 0 .STK-MED ONE .ROUTE (DC) Pantoprazole Sodium 80 MG X1ED STA IV (DC) Sodium Chloride 100 ML General appearance: alert, awake, oriented HEENT: anicteric, atraumatic Neck: non-tender, supple/no meningismus Cardiovascular: normal heart sounds, normal S1/S 2 Respiratory: aerating well, clear to auscultatio n Abdomen: tenderness Extremities: decreased range of motion Musculoskeletal: decreased ROM Neuro/DEALERSHIP MANAGER: alert, oriented X 3 Skin: dry, intact Psychiatry: normal affect, normal judgment/insig ht Results Findings/Data: Laboratory Tests 08/27/19 0438: [Embedded Image Not Available] 08/27/19 0018: [Embedded Image Not Available] 08/26/19 180: [Embedded Image Not Available] Laboratory Tests 08/26 180 Chemistry Sodium (136 - 145 mmol/L) 141 141 Potassium (3.5 - 5.1 mmol/L) 4.1 4.1 Chloride (98 - 107 mmol/L) 109.0 H 108.0 H Carbon Dioxide (21 - 32 mmol/L) 22.0 22.0 Anion Gap ( - ) 14.1 15.1 BUN (7 - 18 mg/dL) 11 13 Creatinine (0.55 - 1.02 mg/dL) 0.90 1.20 H Glomerular Filtr Rate (>=60 mL/min) 60 43 BUN/Creatinine Ratio ( - ) 12.2 10.8 Glucose (74 - 106 mg/dL) 127 H 150 H Calcium (8.5 - 10.1 mg/dL) 8.7 9.4 Total Bilirubin (0.0 - 1.0 mg/dL) 0.50 Direct Bilirubin (0.0 - 0.20 mg/dL) 0.12 AST (15 - 37 IUnit/L) 21 ALT (12 - 78 IUnit/L) 18 Total Alk Phosphatase (45 - 117 IUnit/L) 101 Total Protein (6.4 - 8.2 gram/dL) 7.0 Albumin (3.4 - 5.0 g/dL) 3.6 Globulin (2.7 - 4.2 gram/dL) 3.4 Albumin/Globulin Ratio (0.75 - 1.50) 1.1 Lipase (73.0 - 393.0 U/L) 75 Laboratory Tests 08/25 1809 Coagulation INR (0.8 - 1.2) 0.9 PT Patient/Control Mix (9.0 - 14.0 seconds) 10. 7 Laboratory Tests 08/26 08/26 08/25 0438 0018 1809 Hematology WBC (4.5 - 12.5 K/mm3) 16.8 H RBC (3.7 - 5.2 mill/mm3) 5.28 H Hgb (11.5 - 15.5 gram/dL) 12.5 13.5 13.6 Hct (36.0 - 46.0 %) 39.0 42.1 41.8 MCV (80 - 98 fL) 79.2 L MCH (27.0 - 33.0 picogram) 25.8 L MCHC (33.0 - 36.0 gram/dL) 32.5 L RDW (11.6 - 16.2 %) 14.8 Plt Count (150 - 450 K/mm3) 261 MPV (6.7 - 11.0 fL) 10.6 Microbiology Date/Time Procedure - Status Source Growth 08/26 1803 Occult Blood - COMP STOOL Radiology data: Recent Impressions: CAT SCAN - CT ABD PELVIS W/CONT 08/26 1919 Report Impression - Status: SIGNED Entered: 08/26/20192000 IMPRESSION: Findings of noncomplicated diverticulitis involv ing the splenic flexure of the colon as well as the descending c olon. There is also significant diverticulosis of the sigmoid colon but no evidence of diverticulitis in this segment. Location: [facility] Impression By: [email or web address] - Ignacio Nava MD Results: labs reviewed, vital signs stable Diagnosis, Assessment Plan Orders: 1. Lower quadrant abdominal pain and leukocytosi s likely secondary to acute diverticulitis 2. Acute onset rectal bleeding likely secondary to #1 hemoglobin stable 3. Nausea and vomiting with history of GERD and hiatal hernia Plan Patient is currently on Flagyl and ceftriaxone Continue antiemetics as needed IV fluids, clear liquid diet for now Monitor for further GI bleeding Monitor H H Nutritional consult for discussion of diverticu lar diet Outpatient colonoscopy in [address] Talavera. Discussed with patient at 1309 at 1606 RPT #:[id number] END OF REPORT 2019-08-26 [id number] [facility] 21:38:00-00:00 PATIENT NAME: ROXANN TRUJILLO ADMIT DATE: 08/06 05/26 ACCOUNT NO: [id number] ROOM NO: [facility] AGE: 79 REPORT TYPE: HISTORY AND PHYSICAL SEX: F DATE OF : 36 ADMITTING PHYSICIAN:Sara Zelaya MD ATTENDING PHYSICIAN:Sara Zelaya MD ADMISSION DATE: 08/26/2019 PRIMARY CARE PHYSICIAN: Unknown who her primary care doctor is. CHIEF COMPLAINT: Bloody diarrhea. HISTORY OF PRESENT ILLNESS: An 79-year-o ld woman with history of hypertension, GERD, recently repaired hiatal hernia, repaired May 26 of this year, coming into the ER with complaints of se veral episodes of bloody diarrhea that started this morning. She reports that s he got up and ate breakfast about 9:00 this morning and about 10:00 she started having diarrhea. She said she had diarrhea for a while and the n started having bloody stools, but she is not able to tell me about what time t he bleeding started. She describes it as a dark red maroonish color and watery. She has not been taking any ibuprofen. She takes a baby aspirin daily and Tylenol as needed for jackie n. She denies any fevers, chills and has now developed nausea and dry heaving after her bowel movement in the ER. She has never had bleeding befor e and has not had any other surgeries. Upon arrival to the ER, she was afebrile, blood pressure 176/84, heart rate 90, satting 98% on room air. Her white count was 16. 8 with a hemoglobin of 13.6, and platelets 261. Chemistry showed a creatinine of 1.2, which is above her baseline of normal renal functioning and her glu cose was 150. INR was 0.9. CT abdomen and pelvis was obtained with contrast an d showed noncomplicated diverticulitis involving the splenic flexure of the colon as well as descending colon. Also significant diverticulosis of the si gmoid colon, but no diverticulitis in that segment. She rece ived Tylenol, 80 mg of Protonix IV and Zofran, and has since been placed in obs ervation status for further management of hematochezia. PAST MEDICAL HISTORY: Hypertension, GERD and gas tritis. HOME MEDICATIONS: Aspirin 81 mg daily, metoprolo l succinate 100 mg daily, omeprazole 40 mg twice a day , amlodipine/benazepril 10/20 mg daily, atorvastatin 10 mg daily. ALLERGIES: CELEBREX IS LISTED AN ALLERGY, AND NSAID'S CAUSE HER TO HAVE ABDOMINAL PAIN. PAST SURGICAL HISTORY: Appendectomy, cholecystec jg, hysterectomy, hip replacement, repair of a left femur fracture, hi atal hernia repair May of this year and right shoulder surgery many years ago. SOCIAL HISTORY: No drugs, alcohol, or tobacco us jen. Lives at home, is independent of her ADLs. PATIENT NAME: ROXANN TRUJILLO [id number] FAMILY HISTORY: Significant for diabetes, hypert ension, and heart disease. REVIEW OF SYSTEMS: Twelve-point review of system s has been performed and is negative other than for the bloody stool s. She also now reports some abdominal cramping and pain and she is having nausea and d ry heaving while in the room. PHYSICAL EXAMINATION: VITAL SIGNS: Current temperature 97.7, blood pre ssure 177/82, heart rate 93, satting 97% on room air. GENERAL: The patient is awake, alert, and orient ed. She appears uncomfortable from the pain. HEENT: Head is atraumatic. Extraocular muscles i ntact. Normal external nares. Moist mucous membranes. NECK: Supple. HEART: Tachycardic without any appreciated murmu rs or extra heart sounds. LUNGS: Clear to auscultation bilaterally. Breath ing is unlabored. ABDOMEN: Soft. Tender to palpation in the centra l region, nondistended. Bowel sounds are diminished. SKIN: Warm and dry to touch without any obvious lesions or breakdown. MUSCULOSKELETAL: She is able to move her extremi ties without difficulty. She has good muscle tone. NEUROLOGIC: Nonfocal. Speech is clear. Face is s ymmetrical. HEMATOLOGIC AND LYMPHATIC: No bleeding, bruising , or edema. PSYCHIATRIC: Appropriate mood and affect. LABORATORY DATA: White count 16.8, hemoglobin 13 .6, and platelets 261. Sodium 141, potassium 4.1, chloride 108, bicarbonate 22 , BUN 13, creatinine 1.2, glucose 150. Total bilirubin 0.5, AST 21, ALT 18 , alkaline phosphatase 101, calcium 9.4, lipase 75. INR 0.9. IMAGING: CT abdomen and pelvis with contrast negin ws noncomplicated diverticulitis involving splenic flexure of the colon as well as descending colon. Also significant diverticulosis of the si gmoid colon, but no diverticulitis of that segment. IMPRESSION: 1. Sepsis criteria met for colonic diverticuliti s. 2. Lower gastrointestinal bleed, suspected diver ticular in origin. 3. Hypertension. 4. Gastritis. 5. Acute renal injury, likely prerenal in nature . PLAN: 1. The patient is in observation status for furt her management. She is on clear liquids at this time. We will start her on a low rate of IV fluids. Check hemoglobin every 6 hours with the next markie ck starting at midnight. We will transfuse to keep hemoglobin greater than 7 . GI has been consulted for further assistance. We will monitor clinical sig ns and adjust treatment as needed. She has received IV Protonix, but again, I suspect this is a diverticular bleed. Antiemetics are ordered as n eeded. Pain medications are also ordered as needed. 2. We will continue home blo od pressure medications, but hold the PATRICK inhibitor due to renal function at this time. PATIENT NAME: ROXANN TRUJILLO [id number] 3. We will monitor renal function and start on l ow rate IV fluids. Repeat lab work in the morning. 4. Follow up gastroenterology's recommendations. Further recommendations based on clinica l course. At this time, the patient is full code. Dictated By: Sara Zelaya MD WT: PARVEEN:DISHA/MARKO/KIRSTEN Conf#: [id number]/DID#: [id number] Authenticated by Sara Zelaya MD On 08/27/2019 12:36:35 AM Electronically Signed by Sara Zelaya MD on 0 08/27/19 at 0036 PATIENT NAME: ROXANN TRUJILLO [id number] 2019-08-26 [facility] 21:27:00-00:00 [facility] ([facility]) Clinical Note REPORT#:[id number] REPORT STATUS: Signed DATE:08/26/19 TIME: 2126 PATIENT: ROXANN TRUJILLO UNIT #: [id number] ROOM/BED: : 38 AGE: 79 SEX: F ATTEND: Joie Zelaya MD ADM AUTHOR: Sara Zelaya MD * ALL edits or amendments must be made on the el [employer]/computer document * Clinical Note Note: 315907 H P 79 yo woman with 1. sepsis criteria met for colonic diverticuliti s with suspected diverticular bleed GI consulted clear liquid diet IVF serial HH ceftriaxone/flagyl pain meds/antiemetics PRN transfuse PRN to keep Hgb > 7 2. hematochezia as above 3. HTN hold PATRICK for now due to MATT PRN hydralazine metoprolol in am with dosing parameters 4. acute renal injury likely secondary to mild d ehydration vs decreased perfusion 5. GERD 6. hyperglycemia likely reactive no hx DM2 full code NOK sister Michaela Martinez (in [place]) and Simran evans Electronically Signed by Sara Zelaya MD on at 2143 RPT #:[id number] END OF REPORT 2019-08-26 [facility] 18:04:00-00:00 [facility] ([facility]) EMERGENCY PROVIDER REPORT REPORT#:[id number] REPORT STATUS: Signed DATE:08/26/19 TIME: 1803 PATIENT: ROXANN TRUJILLO UNIT #: [id number] ROOM/BED: AGE: 79 SEX: F PCP PHYS: No Primary or Family Ph ysician SERVICE AUTHOR: Ildefonso Trevizo MD * ALL edits or amendments must be made on the el [employer]/computer document * HPI-General Illness Free Text HPI Notes Free Text HPI Notes Patient presents after having several bloody bow el movements today. Patient endorses bright red diarrhea. Patient states she has never had these symptoms in the past. Patient states yesterday sh e felt fine. Patient denies any recent abdominal surgeries. No trauma. General Initial Greet Date/Time 08/26/191753 Presentation Chief Complaint Blood in stool Review of Systems Review of Systems Constitutional Reports: Malaise, Weakness - generalized. Denies : Chills, Recent wt loss. Respiratory Denies: Cough, non-productive, Cough, pr oductive, Pleuritic pain, Shortness of breath. Cardiovascular Denies: Chest pain, Edema, Syncope. GI Reports: Abdominal pain, Blo holden/tarry stool, Diarrhea, Nausea. Denies: Anorexia , Vomiting. Skin Denies: Abrasion, Rash, Swelling, Ulceration. Past Medical History - Adult Stated Complaint DIARRHEA, NAUSEA, ABD PAIN, BLO HOLDEN DIARRHEA Allergies Coded Allergies: celecoxib (From CELEBREX) (UNKNOWN 08/26/19) Home Medications Discontinued Scripts metroNIDAZOLE (FLAGYL) 500 MG PO TID 4 Days #12 TABS Prov: 01/15/19 DC: 08/26/191814 Patient stopped taking BENZONATATE (TESSALON) 100 MG PO TID PRN COUGH 7 Days #21 CAPS Prov: 01/15/19 DC: 08/26/19 1815 Patient stopped taking Reported Medications ASPIRIN 81 MG PO DAILY METOPROLOL SUCC XL (TOPROL XL) 100 MG PO DAILY OMEPRAZOLE ER (PriLOSEC) 40 MG PO BID amLODIPine/BENAZEPRIL (LOTREL 10/20 MG) 1 CAP PO DAILY ATORVASTATIN (LIPITOR) 10 MG PO DAILY Discontinued Reported Medications FAMOTIDINE (PEPCID) 10 MG PO DAILY Past Medical History: Reports: GERD/gastritis, Hypertension. Past Surgical History: Reports: Appendectomy, Cholecystectomy, Hysterec jg. Family History: Reports: Diabetes, Heart disease, Hypertension. Alcohol Use Denies EtOH use Drug Use Denies recreational drugs Smoking status for patients 13 years old or olde r: Never Smoker Physical Exam Vital Signs Vital Signs First Documented: Result Date Time Pulse Ox 98 08/26 1751 B/P 176/84 08/26 1751 B/P Mean 114 08/26 1751 O2 Delivery Room air 08/26 1751 Temp 36.9 08/26 1751 Pulse 90 08/26 1751 Resp 16 08/26 1751 Last Documented: Result Date Time Pulse Ox 97 08/25 1912 B/P 150/86 08/25 1912 B/P Mean 107 08/25 1912 O2 Delivery Room air 08/25 1912 Temp 37.0 08/25 1912 Pulse 95 08/25 1912 Resp 16 08/25 1912 Review of Vital Signs Reviewed Basic Physical Exam Basic PE GEN: Well appearing /NAD, HEAD: Atraumatic/NC, EYES: PERRL, conj clear, ENT: Membranes moist, NECK: Supple, RESP: No res p distress, CV: Reg rate rhythm, ABD: Soft/non-tender , EXT: No gross abnormality, SKIN: No rashes, warm/ dry, NEURO: alert oriented, NEURO: gross movemen t NL, PSYCH: NL thought content Physical Exam Abdomen/GI Abdomen/GI Atraumatic, No guarding, No rebound, BS normoactive, No distention , No palpable mass, No pulsatile mass, No blood on rectal exam Interpretation Diagnostics Lab Results Interpretation Results Laboratory Tests 08/26/191808: [Embedded Image Not Available] Laboratory Tests: 08/25 1808 Chemistry Sodium (136 - 145 mmol/L) 141 Potassium (3.5 - 5.1 mmol/L) 4.1 Chloride (98 - 107 mmol/L) 108.0 H Carbon Dioxide (21 - 32 mmol/L) 22.0 Anion Gap ( - 20) 15.1 BUN (7 - 18 mg/dL) 13 Creatinine (0.55 - 1.02 mg/dL) 1.20 H Glomerular Filtr Rate (>=60 mL/min) 43 BUN/Creatinine Ratio (10 - 20) 10.8 Glucose (74 - 106 mg/dL) 150 H Calcium (8.5 - 10.1 mg/dL) 9.4 Total Bilirubin (0.0 - 1.0 mg/dL) 0.50 Direct Bilirubin (0.0 - 0.20 mg/dL) 0.12 AST (15 - 37 IUnit/L) 21 ALT (12 - 78 IUnit/L) 18 Total Alk Phosphatase (45 - 117 IUnit/L) 101 Total Protein (6.4 - 8.2 gram/dL) 7.0 Albumin (3.4 - 5.0 g/dL) 3.6 Globulin (2.7 - 4.2 gram/dL) 3.4 Albumin/Globulin Ratio (0.75 - 1.50) 1.1 Lipase (73.0 - 393.0 U/L) 75 Coagulation INR (0.8 - 1.2) 0.9 PT Patient/Control Mix (9.0 - 14.0 seconds) 10. 7 Hematology WBC (4.5 - 12.5 K/mm3) 16.8 H RBC (3.7 - 5.2 mill/mm3) 5.28 H Hgb (11.5 - 15.5 gram/dL) 13.6 Hct (36.0 - 46.0 %) 41.8 MCV (80 - 98 fL) 79.2 L MCH (27.0 - 33.0 picogram) 25.8 L MCHC (33.0 - 36.0 gram/dL) 32.5 L RDW (11.6 - 16.2 %) 14.8 Plt Count (150 - 450 K/mm3) 261 MPV (6.7 - 11.0 fL) 10.6 Microbiology: Date/Time Procedure - Status Source Growth 08/26 1803 Occult Blood - COMP STOOL Recent Impressions: CAT SCAN - CT ABD PELVIS W/CONT 08/26 1919 Report Impression - Status: SIGNED Entered: 08/26/20192000 IMPRESSION: Findings of noncomplicated diverticulitis involv ing the splenic flexure of the colon as well as the descending c olon. There is also significant diverticulosis of the sigmoid colon but no evidence of diverticulitis in this segment. Location: [facility] Impression By: [email or web address] Tierney Nava MD Re-Evaluation MDM Free Text MDM Notes Free Text MDM Notes Pt without emergent findings on imaging or blood work, will admit for GI evaluation. ED Course Medication(s) Ordered Medication(s) Ordered: Central Nervous System Agents Sig/Mayur Start time Last Medication Dose Route Stop Time Status Admin Acetaminophen 650 MG Q6H PRN PRN 08/25 2014 AC PO 09/03 0805 Diagnostic Agents Sig/Mayur Start time Last Medication Dose Route Stop Time Status Admin Iopamidol 0 .STK-MED ONE 08/25 1933 DC 08/25 .ROUTE 193 Gastrointestinal Drugs Sig/Mayur Start time Last Medication Dose Route Stop Time Status Admin Ondansetron HCl 4 MG Q6H PRN PRN 08/25 2014 AC 08/26 IV 09/03 0805 0238 Ondansetron HCl 4 MG X1ED STA 08/25 1958 DC IV 08/25 Pantoprazole Sodium 80 MG X1ED STA 08/25 175 D C 08/25 Sodium Chloride 100 ML IV 08/26 0353 1936 Patient Discharge Departure Vital Signs/Condition Vital Signs First Documented: Result Date Time Pulse Ox 98 08/26 1751 B/P 176/84 08/26 1751 B/P Mean 114 08/26 1751 O2 Delivery Room air 08/26 1751 Temp 36.9 08/26 1751 Pulse 90 08/26 1751 Resp 16 08/26 1751 Last Documented: Result Date Time Pulse Ox 97 08/25 1912 B/P 150/86 08/25 1912 B/P Mean 107 08/25 1912 O2 Delivery Room air 08/25 1912 Temp 37.0 08/25 1912 Pulse 95 08/25 1912 Resp 16 08/25 1912 All vital signs available at the time of this en try have been reviewed. Clinical Impression Clinical Impression Primary Impression: GI bleed Disposition Decision Admit )( Admission Accepts Yes )( Accepted Time 2010 )( Accepted Date 08/26/19 Discharge/Care Plan Referrals No Primary or Family Physician (PCP/Family) Admit Note I have spoken with the patie nt and/or caregivers. I have explained the patient's condition, diagnoses and suraj atment plan based on the information available to me at this time. I have answered the patient's and/ or caregiver's questions and addressed any concerns. The patient and/or careg alden have as good an understanding of the patient 's diagnosis, condition and treatment plan as can be expected at this point. The patient has been stabilized within the capability of the emergency department. The patient wi ll be transported for further care and management or will be moved to an observation or inpatient service. I have communicated with the staff or medical p ractitioner taking over this patient's care. Electronically Signed by Ildefonso Trevizo MD on at 1901 RPT #:[id number] END OF REPORT 2019-01-15 [facility] 18:39:00-00:00 [facility] ([facility]) Gastroenterology Progress Note REPORT#:[id number] REPORT STATUS: Signed DATE:01/15/19 TIME: 1838 PATIENT: ROXANN TRUJILLO UNIT #: [id number] ROOM/BED: [address] : 38 AGE: 78 SEX: F ATTEND: Gary Singh MD ADM AUTHOR: Carissa Connolly * ALL edits or amendments must be made on the [employer]/bttn document * Carissa Connolly 01/15/191838: Subjective Chief Complaint: epigastric abd pain s/p EGD Objective Physical Exam VS/I O: Last Documented: Result Date Time Pulse Ox 94 01/15 1114 B/P 156/82 01/15 1114 B/P Mean 106.7 01/15 1114 O2 Delivery Room air 01/15 1114 Temp 36.6 01/15 1114 Pulse 69 01/15 1114 Resp 16 01/15 1114 FiO2 28 01/15 0446 O2 Flow Rate 2.461997 01/15 0446 24 hour I O ending at 0700: 01/15 0700 01/14 1900 Intake Total 1900.00 Output Total Balance 1900.00 Intake, IV 1800.00 Intake, Oral 100 Number 0 Bowel Movements Number Voids 4 Patient Weight Weight (lb): Weight (oz): Weight (kg): 72.727 Medications: Active Meds + DC'd Last 24 Hrs Azithromycin 500 MG DAILY PO (DCD) Atorvastatin Calcium 10 MG BEDTIME PO (DCD) Pantoprazole Sodium 40 MG 0600,1800 PO (DCD) Aspirin 81 MG DAILY PO (DCD) Ceftriaxone Sodium 1,000 MG DAILY IV (DCD) Sodium Chloride 10 ML Metoprolol Succinate 100 MG DAILY PO (DCD) Enoxaparin Sodium 40 MG DAILY 1700 SUBQ (DCD) Sodium Chloride 1,000 ML .[id number] IV (DCD) Metoclopramide HCl 5 MG Q6H PRN PRN IV (DCD) Acetaminophen 650 MG Q4H PRN PRN PO (DCD) Ondansetron HCl 4 MG Q6H PRN PRN IV (DCD) General appearance: alert, awake, oriented HEENT: anicteric, atraumatic Neck: non-tender, supple/no meningismus Cardiovascular: normal heart sounds, regular rat e rhythm Extremities: no clubbing, no cyanosis, no edema Musculoskeletal: full range of motion Neuro/DEALERSHIP MANAGER: alert, oriented X 3 Skin: dry, intact Psychiatry: normal affect, normal judgment/insig ht Diagnosis, Assessment Plan Problem List/A P: 1. GERD (gastroesophageal reflux disease) 2. Pneumonia Free Text A P: 1 atypical chest pain, epigastric tenderness s/p EGD results reviewed 2. Shortness of breath acute pneumonia versus sc arring atelectasis 3. History of hiatal hernia Plan Can DC from GI perspective Follow-up outpatient with Dr. Talavera in 2 week s for biopsy reports Fernando Talavera 01/15/19 1859: Attestations Midlevel/Physician Attestation Physician attestation: Agree with the findings and plan as documented at 1900 RPT #:[id number] END OF REPORT 2019-01-15 [facility] 18:39:00-00:00 [facility] ([facility] Gastroenterology Progress Note REPORT#:[id number] REPORT STATUS: Signed DATE:01/15/19 TIME: 1838 PATIENT: ROXANN TRUJILLO UNIT #: [id number] ROOM/BED: [address] : 38 AGE: 78 SEX: F ATTEND: Gary Singh MD ADM AUTHOR: Carissa Connolly * ALL edits or amendments must be made on the Wingz/computer document * Carissa Connolly 01/15/191838: Subjective Chief Complaint: epigastric abd pain s/p EGD Objective Physical Exam VS/I O: Last Documented: Result Date Time Pulse Ox 94 01/15 1114 B/P 156/82 01/15 1114 B/P Mean 106.7 01/15 1114 O2 Delivery Room air 01/15 1114 Temp 36.6 01/15 1114 Pulse 69 01/15 1114 Resp 16 01/15 1114 FiO2 28 01/15 0446 O2 Flow Rate 2.740249 01/15 0446 24 hour I O ending at 0700: 01/15 0700 01/14 1900 Intake Total 1900.00 Output Total Balance 1900.00 Intake, IV 1800.00 Intake, Oral 100 Number 0 Bowel Movements Number Voids 4 Patient Weight Weight (lb): Weight (oz): Weight (kg): 72.727 Medications: Active Meds + DC'd Last 24 Hrs Azithromycin 500 MG DAILY PO (DCD) Atorvastatin Calcium 10 MG BEDTIME PO (DCD) Pantoprazole Sodium 40 MG 0600,1800 PO (DCD) Aspirin 81 MG DAILY PO (DCD) Ceftriaxone Sodium 1,000 MG DAILY IV (DCD) Sodium Chloride 10 ML Metoprolol Succinate 100 MG DAILY PO (DCD) Enoxaparin Sodium 40 MG DAILY 1700 SUBQ (DCD) Sodium Chloride 1,000 ML .[id number] IV (DCD) Metoclopramide HCl 5 MG Q6H PRN PRN IV (DCD) Acetaminophen 650 MG Q4H PRN PRN PO (DCD) Ondansetron HCl 4 MG Q6H PRN PRN IV (DCD) General appearance: alert, awake, oriented HEENT: anicteric, atraumatic Neck: non-tender, supple/no meningismus Cardiovascular: normal heart sounds, regular rat e rhythm Extremities: no clubbing, no cyanosis, no edema Musculoskeletal: full range of motion Neuro/DEALERSHIP MANAGER: alert, oriented X 3 Skin: dry, intact Psychiatry: normal affect, normal judgment/insig ht Diagnosis, Assessment Plan Problem List/A P: 1. GERD (gastroesophageal reflux disease) 2. Pneumonia Free Text A P: 1 atypical chest pain, epigastric tenderness s/p EGD results reviewed 2. Shortness of breath acute pneumonia versus sc arring atelectasis 3. History of hiatal hernia Plan Can DC from GI perspective Follow-up outpatient with Dr. Talavera in 2 week s for biopsy reports Fernando Talavera 01/15/19 6850: Attestations Midlevel/Physician Attestation Physician attestation: Agree with the findings and plan as documented at 1900 at 1801 RPT #:[id number] END OF REPORT 2019-01-15 [facility] 10:57:00-00:00 [facility] ([facility]) Hospitalist Discharge Summary REPORT#:[id number] REPORT STATUS: Signed DATE:01/15/19 TIME: 1057 PATIENT: ROXANN TRUJILLO UNIT #: [id number] ROOM/BED: [address] : 38 AGE: 78 SEX: F ATTEND: Gary Singh MD ADM AUTHOR: Tyler Sarabia MD * ALL edits or amendments must be made on the Wingz/computer document * PCP PCP Discharge to: home General Information Date of admission: Observation Start Date: 01/12/19 Date of admission: 01/13/19 Discharge date: 01/15/19 Discharge diagnosis: Sepsis secondary to community-acquired pneumonia with consents to aspiration pneumonia secondary to large hiatal hernia causi ng GERD Epigastric pain: Likely due to severe GERD. Reso lved Leukocytosis: Resolved Hypertension Prediabetes Hyperlipidemia Hospital course: 78-year-old female with past medical history of severe GERD, hypertension presented with epigastric pain usually controlle d with omeprazole or Tums, nonproductive cough. Chest x-ray showed patchy l eft basilar infiltrate with small effusion and subsegmental atelecta sis. CTA of the chest was negative for PE, CT of the abdomen and pelvis was negative fo r acute findings. She was started on antibiotics for pneum onia with concerns to aspiration given severe GERD. GI was consulted and underwent EGD on 01/14 which showed large hiatal hernia. Patient elected to follow-up as outpatient. Once improved, stable and cleared she was discha rged home. Strict follow-up instructions and ER precautions were given. Verb alized understanding Time spent: 31 minutes Yamsafer software has been used for transc ription. Please excuse unintended word substitution, outside sales professional errors Pt. condition on discharge: improved, stable Med Rec Med Rec Discharge meds: Continue taking these medications: ASPIRIN (ASPIRIN) 81 MG TAB.CHEW 81 MILLIGRAM ORAL DAILY. METOPROLOL SUCC XL (TOPROL XL) 100 MG TAB.SA 100 MILLIGRAM ORAL DAILY. OMEPRAZOLE ER (PriLOSEC) 40 MG CAP.DR 40 MILLIGRAM ORAL TWICE DAILY. amLODIPine/BENAZEPRIL (LOTREL 10/20 MG) 1 CAP CA P 1 CAPSULE ORAL DAILY. FAMOTIDINE (PEPCID) 20 MG TAB 10 MILLIGRAM ORAL DAILY. ATORVASTATIN (LIPITOR) 10 MG TAB 10 MILLIGRAM ORAL DAILY. Start taking the following new medications: metroNIDAZOLE (FLAGYL) 500 MG TAB 500 MILLIGRAM ORAL THREE TIMES A DAY. Days = 4 Qty = 12 No Refills BENZONATATE (TESSALON) 100 MG CAP 100 MILLIGRAM ORAL THREE TIMES A DAY. as needed for COUGH Days = 7 Qty = 21 No Refills Free Text Med Rec Notes Free Text Med Rec Notes: please see med rec Discharge Instructions Diet: bland, cardiac, low fat Activity: as tolerated Notify provider of these s/s: Please call your MD if you have any fever, chest pain, shortness of breath, intractable nausea, vomiti ng or any other concerns Discharge management: greater than 30 mins Follow-up Appointments PCP: PCP (free text): Your PCP in 1 week Consulting provider 1: Provider 1: Fernando Talavera MD Specialty: GASTROENTEROLOGY Follow up timeframe: In 1-2 weeks Objective General VS/I O: Vital Signs: Date Time Temp Pulse Resp B/P B/P Pulse O2 O2 F low FiO2 Mean Ox Delivery Rate 01/15 0715 98.4 78 16 152/81 104.3 94 Room air 01/15 0446 95 Nasal 2.378034 28 cannula 01/15 0313 98.4 74 12 152/79 103.0 95 Room air 01/14 2309 98.6 79 13 155/77 103.3 95 Room air 01/14 1935 98.2 80 13 166/92 116.7 95 Room air 01/14 1545 98.4 74 17 143/82 102.7 96 01/14 1344 83 21 159/81 100 Room air 01/14 1332 85 22 159/83 100 Nasal 2.125970 cannula 01/14 1326 Nasal 2.674864 cannula 01/14 1319 97.0 85 16 140/78 98 Nasal 2.568063 cannula 24 hour I O ending at 0700: 01/15 0700 01/14 1900 Intake Total 1900.00 Output Total Balance 1900.00 Intake, IV 1800.00 Intake, Oral 100 Number 0 Bowel Movements Number Voids 4 Physical Exam General appearance: alert, awake, orient ed, no acute distress, conversational, mental status normal, no respiratory distress Head/Eyes: atraumatic, clear cornea, EOMI, normo cephalic Neck: full range of motion Cardiovascular: normal heart sounds, regular rat e rhythm Respiratory: aerating well, clear to auscultatio n, symmetric expansion, no distress Abdomen: non-tender, normal bowel sounds , soft, no distention, no guarding, no rebound Extremities: moves all, normal range of motion, no clubbing, no cyanosis, no edema Musculoskeletal: normal inspection Neuro/DEALERSHIP MANAGER: alert, oriented X 3, normal speech Skin: dry, normal temperature Psychiatry: normal affect, normal judgment/insig ht, normal mood Electronically Signed by Tyler Sarabia MD o n 01/15/19 at 1648 RPT #:[id number] END OF REPORT 2019-01-14 [facility] 23:55:00-00:00 [facility] ([facility]) Hospitalist Progress Note REPORT#:[id number] REPORT STATUS: Signed DATE:01/14/19 TIME: 2355 PATIENT: ROXANN TRUJILLO UNIT #: [id number] ROOM/BED: [address] : 38 AGE: 78 SEX: F ATTEND: Gary Singh MD ADM AUTHOR: Tyler Sarabia MD * ALL edits or amendments must be made on the Wingz/bttn document * Subjective Chief Complaint: resuming care twin sister at bedside has CERRATO awaiting EGD Objective General VS/I O: Vital Signs: Date Time Temp Pulse Resp B/P B/P Pulse O2 O2 F low FiO2 Mean Ox Delivery Rate 01/149 98.6 79 13 155/77 103.3 95 Room air 01/14 1935 98.2 80 13 166/92 116.7 95 Room air 01/14 1545 98.4 74 17 143/82 102.7 96 01/14 1344 83 21 159/81 100 Room air 01/14 1332 85 22 159/83 100 Nasal 2.784838 cannula 01/14 1326 Nasal 2.988621 cannula 01/14 1319 97.0 85 16 140/78 98 Nasal 2.121694 cannula 01/14 0728 98.8 87 17 156/80 105.5 95 01/14 0437 98.4 76 18 153/80 104.7 96 Room air 24 hour I O ending at 0700: 01/14 0700 01/13 1900 Intake Total 800.00 860.00 Output Total Balance 800.00 860.00 Intake, IV 600.00 480.00 Intake, Oral 200 380 Number 0 Bowel Movements Number Voids 4 Patient Weight Weight (lb): Weight (oz): Weight (kg): 72.727 Medications: Active Meds + DC'd Last 24 Hrs Azithromycin 500 MG DAILY PO Glycopyrrolate 0 .STK-MED ONE .ROUTE (DC) Lidocaine HCl 0 .STK-MED ONE .ROUTE (DC) Propofol 20 ML .STK-MED ONE IV (DCr) Atorvastatin Calcium 10 MG BEDTIME PO Pantoprazole Sodium 40 MG 0600,1800 PO Aspirin 81 MG DAILY PO Azithromycin 500 MG DAILY IV (DC) Sodium Chloride 250 ML Ceftriaxone Sodium 1,000 MG DAILY IV Sodium Chloride 10 ML Metoprolol Succinate 100 MG DAILY PO Enoxaparin Sodium 40 MG DAILY 1700 SUBQ Sodium Chloride 1,000 ML .[id number] IV Metoclopramide HCl 5 MG Q6H PRN PRN IV Acetaminophen 650 MG Q4H PRN PRN PO Ondansetron HCl 4 MG Q6H PRN PRN IV Physical Exam General appearance: alert, awake, orient ed, no acute distress, conversational, mental status normal, no respiratory distress Head/Eyes: atraumatic, clear cornea, EOMI, normo cephalic Neck: full range of motion Cardiovascular: normal heart sounds, regular rat e rhythm Respiratory: decreased breath sounds, aerating w ell, clear to auscultation, symmetric expansion, no distress Abdomen: tenderness (minimal in the epigastric area), normal bowel sounds, soft, no distention, no guarding, no rebound Extremities: moves all, normal range of motion, no clubbing, no cyanosis, no edema Musculoskeletal: normal inspection Neuro/DEALERSHIP MANAGER: alert, oriented X 3, normal speech Skin: dry, intact Psychiatry: normal affect, normal judgment/insig ht, normal mood Results Findings/Data: Laboratory Tests 01/14 713 Chemistry Sodium (136 - 145 mmol/L) 143 Potassium (3.5 - 5.1 mmol/L) 3.6 Chloride (98 - 107 mmol/L) 112.0 H Carbon Dioxide (21 - 32 mmol/L) 23.0 Anion Gap (10 - 20) 11.6 BUN (7 - 18 mg/dL) 8 Creatinine (0.55 - 1.02 mg/dL) 0.70 Glomerular Filtr Rate (>=60 mL/min) > 60 BUN/Creatinine Ratio (10 - 20) 12.2 Glucose (74 - 106 mg/dL) 89 Calcium (8.5 - 10.1 mg/dL) 8.9 Magnesium (1.8 - 2.4 mg/dL) 2.2 Laboratory Tests 01/14 713 Hematology WBC (4.5 - 12.5 K/mm3) 6.1 RBC (3.7 - 5.2 mill/mm3) 4.59 Hgb (11.5 - 15.5 gram/dL) 12.0 Hct (36.0 - 46.0 %) 37.6 MCV (80 - 98 fL) 81.9 MCH (27.0 - 33.0 picogram) 26.1 L MCHC (33.0 - 36.0 gram/dL) 31.9 L RDW (11.6 - 16.2 %) 14.1 RDW Std Deviation (37.0 - 51.0 fL) 41.6 Plt Count (150 - 450 K/mm3) 229 MPV (6.7 - 11.0 fL) 10.3 Neut % (Auto) (39.0 - 69.0 %) 65.7 Lymph % (Auto) (25.0 - 55.0 %) 16.6 L Peach % (Auto) (0.0 - 10.0 %) 13.3 H Eos % (Auto) (0.0 - 5.0 %) 3.0 Baso % (Auto) (0.0 - 1.0 %) 1.2 H Neut # (Auto) (1.8 - 7.7 K/mm3) 3.99 Lymph # (Auto) (1.0 - 5.0 K/mm3) 1.01 Peach # (Auto) (0 - 0.8 K/mm3) 0.81 H Eos # (Auto) (0.0 - 0.5 K/mm3) 0.18 Baso # (Auto) (0.0 - 0.2 K/mm3) 0.07 Add Manual Diff NO Nucleated RBC % (0 - 0 %) 0.0 Nucleated RBCs # (Man) (0.0 - 0.1 K/mm3) 0.00 Diagnosis, Assessment Plan Free Text DxA P Notes Free Text DxA P Notes: 78-year-old female with past medical history of severe GERD, hypertension presented with epigastric pain usually controlle d with omeprazole or Tums, nonproductive cough. Chest x-ray showed patchy l eft basilar infiltrate with small effusion and subsegmental atelecta sis. CTA of the chest was negative for PE, CT of the abdomen and pelvis was negative fo r acute findings. She was started on antibiotics for pneum onia with concerns to aspiration given severe GERD. GI was consulted and underwent EGD on 01/14 which showed large hiatal hernia. #Epigastric pain likely due to severe GERD-Patient may be regurgitating her food as she reported metallic taste in mouth usually in the mornings. -CT abdomen with distended stomach incom pletely with large retrocardiac hiatal hernia. Probably need to have the hernia repaire d. -Protonix IV twice daily -Continue on Reglan. -Consulted GI, EGD done 01/14. has large hiatal h ernia -Patient may benefit from repair of the hernia. #Sepsis secondary to community-acquired pneumoni a-CT chest with right basal infiltrate. Patient with leukocytosis and tachyc ardia. Cannot rule out aspiration pneumonia in the setting of severe GE RD. -IV hydration -Procalcitonin checked after initiation of antib iotics. Unremarkable -IV antibiotics -DuoNeb, supplemental oxygen and antitussives -Sputum culture. #Hypertension-resume antihypertensives. -Monitor blood pressure #Hyperglycemia-rule out diabetes mellitus. -Hemoglobin A1c consistent with prediabetes. -Lifestyle modification will be advised. #Hyperlipidemia-continue atorvastatin. DVT prophylaxis with Lovenox. Patient is full code. Her daughter Simran Guillaume is NOK Disposition-pending clinical improvement. Electronically Signed by Tyler Sarabia MD 01/15/19 at 0002 [facility] #:[id number] END OF REPORT 2019-01-14 [id number] [facility] 12:35:00-00:00 PATIENT NAME: ROXANN TRUJILLO ADMIT DATE: 01/13/19 ACCOUNT NO: [id number] ROOM NO: [facility] AGE: 78 REPORT TYPE: ENDOSCOPY REPORT SEX: F DATE OF : 36 ADMITTING PHYSICIAN:Savannah Singh MD ATTENDING PHYSICIAN:Savannah Singh MD Patient Name: Roxann Trujillo. Attending MD: Tim Talavera MD Procedure Date: 01/14/2019 12:35 PM 67 Date of : 1940 Procedure: Upper GI endoscopy Pre Procedure Diagnosis: Heartburn Assistants: Fernando Talavera MD Referring MD: Savannah Singh Md Anesthesia: Monitored Anesthesia Care Procedure: Pre-Anesthesia Assessment: - Prior to the procedure, a History and Physica l was performed, and patient medications and allergies were reviewed. The patient's toleran ce of previous anesthesia was also reviewed. The risk s and benefits of the procedure and the sedation options and risks were discussed with the patie nt. All questions were answered, and informed conse nt was obtained. Prior Anticoagulants: The patien t has taken no previous anticoagulant or antiplatelet agents. ASA Grade Assessment: II - A patient wi th mild systemic disease. After reviewing the risk s and benefits, the patient was deemed in satisfactory condition to undergo the procedur e. The benefits, risks, and alternatives to the procedure were discussed and informed consent w as obtained from the patient. I've assesed the pat ient on this date and reviewed the medical history, drug history, and previous anesthesia experience. A fter obtaining informed consent, the scope was passe d under direct vision. Throughout the procedure, the patient's blood pressure, pulse, and oxygen saturations were monitored continuously.s were monitored continuously. The Endoscope was introduced through the mouth, and advanced to t he second part of duodenum. The upper GI endoscopy was accomplished without difficulty. The patient tolerated the procedure well. Post Procedure Findings: Localized mild mucosal changes characterized by erythema were found in the lower third of the esophagus. Biopsies were taken with a cold forc eps PATIENT NAME: ROXANN TRUJILLO 4 for histology. Verification of patient identification for the specimen was done by the physician. Estimated blood loss: none. A large hiatal hernia was present. Patchy moderate inflammation characterized by erythema was found in the gastric antrum. Biops ies were taken with a cold forceps for histology. Verification of patient identification for the specimen was done by the physician. Estimated b lood loss: none. The examined duodenum was normal. Complications: No immediate complications. Estimated Blood Loss: Estimated blood loss: none . Post Procedure Diagnosis: - Erythematous mucosa in the esophagus. Biopsied. - Large hiatal hernia. - Gastritis. Biopsied. - Normal examined duodenum. Recommendation: - Return patient to [facility]. - Resume previous diet. - Continue present medications. - Await pathology results. - Return to my office in 2 weeks. Fernando Talavera MD 01/14/2019 1:17:30 PM This report has been signed electronically. Number of Addenda: 0 Note Initiated On: 01/14/2019 12:35 PM Procedure Code(s): --- Professional --- 01017, Esophagogastroduodenoscopy, flexible, transoral; with biopsy, single or multiple Diagnosis Code(s): --- Professional --- K22.8, Other specified diseases of esophagus K44.9, Diaphragmatic hernia without obstruction or gangrene K29.70, Gastritis, unspecified, without bleedin g R12, Heartburn CPT copyright 2017 [employer]. All rights reserved. The codes documented in this report are prelimin kristopher and upon glaze handler review may be revised to meet current compliance requiremen ts. Scope In: Scope Out: at 1317 PATIENT NAME: ROXANN TRUJILLO 4 2019-01-13 [facility] 16:40:00-00:00 [facility] Gastroenterology Progress Note REPORT#:[id number] REPORT STATUS: Signed DATE:01/13/19 TIME: 1640 PATIENT: ROXANN TRUJILLO UNIT #: [id number] ROOM/BED: [address] : 38 AGE: 78 SEX: F ATTEND: Gary Singh MD ADM AUTHOR: Carissa Connolly PA * ALL edits or amendments must be made on the Wingz/computer document * Carissa Connolly 01/13/19 1640: Subjective Chief Complaint: epigastric abd pain Review of Systems Constitutional: Reports: fatigue, generalized weakness. Objective Physical Exam VS/I O: Last Documented: Result Date Time Pulse Ox 94 01/14 1616 B/P 133/77 01/14 1616 B/P Mean 95.9 01/14 1616 O2 Delivery Room air 01/14 1616 Temp 36.7 01/14 1616 Pulse 82 01/14 1616 Resp 18 01/14 1616 FiO2 21 01/12 2005 24 hour I O ending at 0700: 01/13 0700 01/12 1900 Intake Total 1000.00 Output Total Balance 1000.00 Intake, IV 900.00 Intake, Oral 100 Number 2 Bowel Movements Number Voids 2 Patient 72.727 kg Weight Weight Stated/Reported Measurement Method Patient Weight Weight (lb): Weight (oz): Weight (kg): 72.727 Medications: Active Meds + DC'd Last 24 Hrs Atorvastatin Calcium 10 MG BEDTIME PO Pantoprazole Sodium 40 MG 0600,1800 PO (UNV) Aspirin 81 MG DAILY PO Azithromycin 500 MG DAILY IV Sodium Chloride 250 ML Ceftriaxone Sodium 1,000 MG DAILY IV Sodium Chloride 10 ML Metoprolol Succinate 100 MG DAILY PO Enoxaparin Sodium 40 MG DAILY 1700 SUBQ Sodium Chloride 1,000 ML .[id number] IV Metoclopramide HCl 5 MG Q6H PRN PRN IV Albuterol/Ipratropium 3 ML RTQ4H INH (DC) Acetaminophen 650 MG Q4H PRN PRN PO Ondansetron HCl 4 MG Q6H PRN PRN IV General appearance: alert, awake, oriented HEENT: anicteric, atraumatic Neck: non-tender, supple/no meningismus Cardiovascular: normal heart sounds, regular rat e rhythm Extremities: no clubbing, no cyanosis, no edema Musculoskeletal: full range of motion Neuro/DEALERSHIP MANAGER: alert, oriented X 3 Skin: dry, intact Psychiatry: normal affect, normal judgment/insig ht Results Findings/Data: Laboratory Tests 01/13/19 043: [Embedded Image Not Available] Laboratory Tests 01/137 0437 0437 Chemistry Sodium (136 - 145 mmol/L) 143 Potassium (3.5 - 5.1 mmol/L) 4.1 Chloride (98 - 107 mmol/L) 111.0 H Carbon Dioxide (21 - 32 mmol/L) 26.0 Anion Gap (10 - 20) 10.1 BUN (7 - 18 mg/dL) 9 Creatinine (0.55 - 1.02 mg/dL) 0.80 Glomerular Filtr Rate (>=60 mL/min) > 60 BUN/Creatinine Ratio (10 - 20) 10.7 Glucose (74 - 106 mg/dL) 86 Hemoglobin A1c (4.8 - 6.0 % HbA1) 6.1 H Estim Average Glucose (MG/DL) 128 Calcium (8.5 - 10.1 mg/dL) 9.0 Magnesium (1.8 - 2.4 mg/dL) 2.4 Procalcitonin (ng/ml) < 0.05 Laboratory Tests 01/13 0437 Hematology WBC (4.5 - 12.5 K/mm3) 8.1 RBC (3.7 - 5.2 mill/mm3) 4.35 Hgb (11.5 - 15.5 gram/dL) 11.6 Hct (36.0 - 46.0 %) 35.9 L MCV (80 - 98 fL) 82.5 MCH (27.0 - 33.0 picogram) 26.7 L MCHC (33.0 - 36.0 gram/dL) 32.3 L RDW (11.6 - 16.2 %) 14.4 RDW Std Deviation (37.0 - 51.0 fL) 43.4 Plt Count (150 - 450 K/mm3) 229 MPV (6.7 - 11.0 fL) 10.6 Neut % (Auto) (39.0 - 69.0 %) 71.3 H Lymph % (Auto) (25.0 - 55.0 %) 15.7 L Peach % (Auto) (0.0 - 10.0 %) 11.4 H Eos % (Auto) (0.0 - 5.0 %) 0.6 Baso % (Auto) (0.0 - 1.0 %) 0.6 Neut # (Auto) (1.8 - 7.7 K/mm3) 5.79 Lymph # (Auto) (1.0 - 5.0 K/mm3) 1.28 Peach # (Auto) (0 - 0.8 K/mm3) 0.93 H Eos # (Auto) (0.0 - 0.5 K/mm3) 0.05 Baso # (Auto) (0.0 - 0.2 K/mm3) 0.05 Add Manual Diff NO Nucleated RBC % (0 - 0 %) 0.0 Nucleated RBCs # (Man) (0.0 - 0.1 K/mm3) 0.00 Diagnosis, Assessment Plan Problem List/A P: 1. GERD (gastroesophageal reflux disease) 2. Pneumonia Free Text A P: 1 atypical chest pain, epigastric tenderness 2. Shortness of breath acute pneumonia versus sc arring atelectasis 3. History of hiatal hernia Plan We will plan for an EGD tomorrow with Dr. Darma di. N.p.o. after midnight. Advance diet for now Started PPI therapy Fernando Talavera 01/13/19 1918: Attestations Midlevel/Physician Attestation Physician attestation: Agree with the findings and plan as documented at 1919 RPT #:[id number] END OF REPORT 2019-01-13 [facility] 16:40:00-00:00 [facility] ([facility] Gastroenterology Progress Note REPORT#: REPORT STATUS: Signed DATE:01/13/19 TIME: 1640 PATIENT: ROXANN TRUJILLO UNIT #: [id number] ROOM/BED: [address] : 38 AGE: 78 SEX: F ATTEND: Gary Singh MD ADM AUTHOR: Carissa Connolly * ALL edits or amendments must be made on the Wingz/computer document * Carissa Connolly 01/13/19 1640: Subjective Chief Complaint: epigastric abd pain Review of Systems Constitutional: Reports: fatigue, generalized weakness. Objective Physical Exam VS/I O: Last Documented: Result Date Time Pulse Ox 94 01/13 1616 B/P 133/77 01/13 1616 B/P Mean 95.9 01/13 1616 O2 Delivery Room air 01/13 161 Temp 36.7 01/14 1616 Pulse 82 01/13 1616 Resp 18 01/13 1616 FiO2 21 01/12 2005 24 hour I O ending at 0700: 01/13 0700 01/12 1900 Intake Total 1000.00 Output Total Balance 1000.00 Intake, IV 900.00 Intake, Oral 100 Number 2 Bowel Movements Number Voids 2 Patient 72.727 kg Weight Weight Stated/Reported Measurement Method Patient Weight Weight (lb): Weight (oz): Weight (kg): 72.727 Medications: Active Meds + DC'd Last 24 Hrs Atorvastatin Calcium 10 MG BEDTIME PO Pantoprazole Sodium 40 MG 0600,1800 PO (UNV) Aspirin 81 MG DAILY PO Azithromycin 500 MG DAILY IV Sodium Chloride 250 ML Ceftriaxone Sodium 1,000 MG DAILY IV Sodium Chloride 10 ML Metoprolol Succinate 100 MG DAILY PO Enoxaparin Sodium 40 MG DAILY 1700 SUBQ Sodium Chloride 1,000 ML .[id number] IV Metoclopramide HCl 5 MG Q6H PRN PRN IV Albuterol/Ipratropium 3 ML RTQ4H INH (DC) Acetaminophen 650 MG Q4H PRN PRN PO Ondansetron HCl 4 MG Q6H PRN PRN IV General appearance: alert, awake, oriented HEENT: anicteric, atraumatic Neck: non-tender, supple/no meningismus Cardiovascular: normal heart sounds, regular rat e rhythm Extremities: no clubbing, no cyanosis, no edema Musculoskeletal: full range of motion Neuro/DEALERSHIP MANAGER: alert, oriented X 3 Skin: dry, intact Psychiatry: normal affect, normal judgment/insig ht Results Findings/Data: Laboratory Tests 01/13/19436: [Embedded Image Not Available] Laboratory Tests 01/13 0437 Chemistry Sodium (136 - 145 mmol/L) 143 Potassium (3.5 - 5.1 mmol/L) 4.1 Chloride (98 - 107 mmol/L) 111.0 H Carbon Dioxide (21 - 32 mmol/L) 26.0 Anion Gap (10 - 20) 10.1 BUN (7 - 18 mg/dL) 9 Creatinine (0.55 - 1.02 mg/dL) 0.80 Glomerular Filtr Rate (>=60 mL/min) > 60 BUN/Creatinine Ratio (10 - 20) 10.7 Glucose (74 - 106 mg/dL) 86 Hemoglobin A1c (4.8 - 6.0 % HbA1) 6.1 H Estim Average Glucose (MG/DL) 128 Calcium (8.5 - 10.1 mg/dL) 9.0 Magnesium (1.8 - 2.4 mg/dL) 2.4 Procalcitonin (ng/ml) < 0.05 Laboratory Tests 01/13 437 Hematology WBC (4.5 - 12.5 K/mm3) 8.1 RBC (3.7 - 5.2 mill/mm3) 4.35 Hgb (11.5 - 15.5 gram/dL) 11.6 Hct (36.0 - 46.0 %) 35.9 L MCV (80 - 98 fL) 82.5 MCH (27.0 - 33.0 picogram) 26.7 L MCHC (33.0 - 36.0 gram/dL) 32.3 L RDW (11.6 - 16.2 %) 14.4 RDW Std Deviation (37.0 - 51.0 fL) 43.4 Plt Count (150 - 450 K/mm3) 229 MPV (6.7 - 11.0 fL) 10.6 Neut % (Auto) (39.0 - 69.0 %) 71.3 H Lymph % (Auto) (25.0 - 55.0 %) 15.7 L Peach % (Auto) (0.0 - 10.0 %) 11.4 H Eos % (Auto) (0.0 - 5.0 %) 0.6 Baso % (Auto) (0.0 - 1.0 %) 0.6 Neut # (Auto) (1.8 - 7.7 K/mm3) 5.79 Lymph # (Auto) (1.0 - 5.0 K/mm3) 1.28 Peach # (Auto) (0 - 0.8 K/mm3) 0.93 H Eos # (Auto) (0.0 - 0.5 K/mm3) 0.05 Baso # (Auto) (0.0 - 0.2 K/mm3) 0.05 Add Manual Diff NO Nucleated RBC % (0 - 0 %) 0.0 Nucleated RBCs # (Man) (0.0 - 0.1 K/mm3) 0.00 Diagnosis, Assessment Plan Problem List/A P: 1. GERD (gastroesophageal reflux disease) 2. Pneumonia Free Text A P: 1 atypical chest pain, epigastric tenderness 2. Shortness of breath acute pneumonia versus sc arring atelectasis 3. History of hiatal hernia Plan We will plan for an EGD tomorrow with Dr. Mary nelson N.p.o. after midnight. Advance diet for now Started PPI therapy Fernando Talavera 01/13/19 1918: Attestations Midlevel/Physician Attestation Physician attestation: Agree with the findings and plan as documented at 1919 at 1800 RPT #:[id number] END OF REPORT 2019-01-13 [facility] 13:23:00-00:00 [facility] ([facility]) Hospitalist Progress Note REPORT#:[id number] REPORT STATUS: Signed DATE:01/13/19 TIME: 1323 PATIENT: ROXANN TRUJILLO UNIT #: [id number] ROOM/BED: [address] : 38 AGE: 78 SEX: F ATTEND: Gary Singh MD ADM AUTHOR: Savannah Singh MD * ALL edits or amendments must be made on the Wingz/computer document * Subjective Chief Complaint: Still symptomatic. Epigastric burning radiating to the throat. Patient continues to complain of malaise and fat igue. Review of Systems Constitutional: Reports: fatigue, malaise. Respiratory: Reports: productive cough (sputum). GI: Reports: abdominal pain. All systems rev neg: except as marked Objective General VS/I O: Vital Signs: Date Time Temp Pulse Resp B/P B/P Pulse O2 O2 F low FiO2 Mean Ox Delivery Rate 01/13 1218 98.1 75 18 128/77 94.0 95 Room air 01/13 0717 98.1 90 16 145/74 97.9 96 Room air 01/13 0334 98.4 80 16 102/62 75.4 97 Room air 01/12 2317 98.4 93 16 127/74 91.3 95 Room air 01/12 2035 98.6 103 16 134/73 93.0 97 Room air 01/12 2005 96 Room air 01/12 1752 98.5 104 18 127/77 93 96 Room air 01/12 1735 94 Room air 01/12 1500 98.7 103 18 144/84 104 95 Room air 24 hour I O ending at 0700: 01/13 0700 01/12 1900 Intake Total 1000.00 Output Total Balance 1000.00 Intake, IV 900.00 Intake, Oral 100 Number 2 Bowel Movements Number Voids 2 Patient 72.727 kg Weight Weight Stated/Reported Measurement Method Patient Weight Weight (lb): Weight (oz): Weight (kg): 72.727 Medications: Active Meds + DC'd Last 24 Hrs Atorvastatin Calcium 10 MG BEDTIME PO Aspirin 81 MG DAILY PO Azithromycin 500 MG DAILY IV Sodium Chloride 250 ML Ceftriaxone Sodium 1,000 MG DAILY IV Sodium Chloride 10 ML Metoprolol Succinate 100 MG DAILY PO Enoxaparin Sodium 40 MG DAILY 1700 SUBQ Sodium Chloride 1,000 ML .[id number] IV Metoclopramide HCl 5 MG Q6H PRN PRN IV Albuterol/Ipratropium 3 ML RTQ4H INH (DC) Acetaminophen 650 MG Q4H PRN PRN PO Ondansetron HCl 4 MG Q6H PRN PRN IV Ceftriaxone Sodium 1,000 MG X1ED STA IV (DC) Sodium Chloride 10 ML Azithromycin 500 MG X1ED STA IV (DC) Sodium Chloride 250 ML Physical Exam Head/Eyes: atraumatic, clear cornea, EOMI, vanessa l conjunctiva/sclera, normal eyelids/periorb., normocephalic, PERRL ENT: normal dentition, normal ear left, normal e ar right, normal nose, normal pharynx, normal sinus Neck: full range of motion, non-tender, normal thyroid, supple/no meningismus, no bruit/NL carotids, no JVD, no masses or swell ing Cardiovascular: normal capillary refill, regular rate rhythm Respiratory: crackles, symmetric expansion, no d istress Abdomen: tenderness, soft, no distention Extremities: moves all, normal capillary refill, normal range of motion, no edema Musculoskeletal: normal inspection Neuro/DEALERSHIP MANAGER: alert, oriented X 3 Skin: dry, intact Psychiatry: normal affect, n ormal judgment/insight, normal mood, not homicidal, not suicidal, no hallucinations Results Findings/Data: Laboratory Tests 01/13 01/13 01/13 0437 0437 0437 Chemistry Sodium (136 - 145 mmol/L) 143 Potassium (3.5 - 5.1 mmol/L) 4.1 Chloride (98 - 107 mmol/L) 111.0 H Carbon Dioxide (21 - 32 mmol/L) 26.0 Anion Gap (10 - 20) 10.1 BUN (7 - 18 mg/dL) 9 Creatinine (0.55 - 1.02 mg/dL) 0.80 Glomerular Filtr Rate (>=60 mL/min) > 60 BUN/Creatinine Ratio (10 - 20) 10.7 Glucose (74 - 106 mg/dL) 86 Hemoglobin A1c (4.8 - 6.0 % HbA1) 6.1 H Estim Average Glucose (MG/DL) 128 Calcium (8.5 - 10.1 mg/dL) 9.0 Magnesium (1.8 - 2.4 mg/dL) 2.4 Procalcitonin (ng/ml) < 0.05 Laboratory Tests 01/13 0437 Hematology WBC (4.5 - 12.5 K/mm3) 8.1 RBC (3.7 - 5.2 mill/mm3) 4.35 Hgb (11.5 - 15.5 gram/dL) 11.6 Hct (36.0 - 46.0 %) 35.9 L MCV (80 - 98 fL) 82.5 MCH (27.0 - 33.0 picogram) 26.7 L MCHC (33.0 - 36.0 gram/dL) 32.3 L RDW (11.6 - 16.2 %) 14.4 RDW Std Deviation (37.0 - 51.0 fL) 43.4 Plt Count (150 - 450 K/mm3) 229 MPV (6.7 - 11.0 fL) 10.6 Neut % (Auto) (39.0 - 69.0 %) 71.3 H Lymph % (Auto) (25.0 - 55.0 %) 15.7 L Peach % (Auto) (0.0 - 10.0 %) 11.4 H Eos % (Auto) (0.0 - 5.0 %) 0.6 Baso % (Auto) (0.0 - 1.0 %) 0.6 Neut # (Auto) (1.8 - 7.7 K/mm3) 5.79 Lymph # (Auto) (1.0 - 5.0 K/mm3) 1.28 Peach # (Auto) (0 - 0.8 K/mm3) 0.93 H Eos # (Auto) (0.0 - 0.5 K/mm3) 0.05 Baso # (Auto) (0.0 - 0.2 K/mm3) 0.05 Add Manual Diff NO Nucleated RBC % (0 - 0 %) 0.0 Nucleated RBCs # (Man) (0.0 - 0.1 K/mm3) 0.00 Diagnosis, Assessment Plan Orders: Procedure Date/time Status Change Patient Status 01/13 1323 Active Code Status/Resusc. Discussion Resuscitation discussion: Discussed with: patient Code status: full code Free Text DxA P Notes Free Text DxA P Notes: Ms. Trujillo is a 78-year-old f emale who presented to the hospital with epigastric pain. #Epigastric pain likely due to severe GERD-Patient may be regurgitating her food as she reported metallic taste in mouth usually in the mornings. -CT abdomen with distended stomach incom pletely with large retrocardiac hiatal hernia. Probably need to have the hernia repaire d. -Protonix IV twice daily -Continue on Reglan. -Consulted GI, EGD tomorrow. -Patient may benefit from repair of the hernia. Consider surgery consult. #Sepsis secondary to community-acquired pneumoni a-CT chest with right basal infiltrate. Patient with leukocytosis and tachyc ardia. Cannot rule out aspiration pneumonia in the setting of severe GE RD. -IV hydration -Procalcitonin checked after initiation of antib iotics. Unremarkable -IV antibiotics -DuoNeb, supplemental oxygen and antitussives -Sputum culture. #Hypertension-resume antihypertensives. -Monitor blood pressure #Hyperglycemia-rule out diabetes mellitus. -Hemoglobin A1c consistent with prediabetes. -Lifestyle modification will be advised. #Hyperlipidemia-continue atorvastatin. DVT prophylaxis with Lovenox. Patient is full code. Her daughter Simran Guillaume is NOK Disposition-pending clinical improvement. Electronically Signed by Savannah Singh MD on 0 01/13/19 at 1803 RPT #:[id number] END OF REPORT 2019-01-12 [facility] 20:16:00-00:00 [facility] ([facility]) Gastroenterology Progress Note REPORT#:[id number] REPORT STATUS: Signed DATE:01/12/19 TIME: 2015 PATIENT: ROXANN TRUJILLO UNIT #: [id number] ROOM/BED: [address] : 38 AGE: 78 SEX: F ATTEND: Gary Singh MD ADM AUTHOR: Eamon Oneill MD * ALL edits or amendments must be made on the el ectronic/computer document * Diagnosis, Assessment Plan Problem List/A P: 1. GERD (gastroesophageal reflux disease) 2. Pneumonia Additional comments: Will proceed with EGD when pneumonia improved Electronically Signed by Eamon Oneill MD 01/12/19 at 2017 [facility] #:[id number] END OF REPORT 2019-01-12 [id number] [facility] 20:15:00-00:00 PATIENT NAME: ROXANN TRUJILLO ADMIT DATE: 01/13/19 ACCOUNT NO: [id number] ROOM NO: [facility] AGE: 78 REPORT TYPE: CONSULTATION REPORT SEX: F DATE OF : 36 ADMITTING PHYSICIAN:Savannah Singh MD ATTENDING PHYSICIAN:Savannah Singh MD CONSULTATION DATE: CONSULTING PHYSICIAN: Eamon Oneill MD CHIEF COMPLAINT: Reflux, heartburn, epigastric p ain. HISTORY OF PRESENT ILLNESS: A very pleasant 78-year-old lady coming with severe heartburn and hypertension. She also has epigast marilynn pain, had a CAT scan that showed possible mild pneumonia and also a large hiatal hernia. She feels better. She has been having nonproductive cough for 3 days. PAST MEDICAL HISTORY: Reflux, gastritis, and hyp ertension. PAST SURGICAL HISTORY: Appendectomy, cholecystec jg, and hysterectomy. FAMILY HISTORY: Diabetes, heart disease, and hyp ertension. MEDICATIONS: See list. They include, famotidine, omeprazole. ALLERGIES: NONSIGNIFICANT. REVIEW OF SYSTEMS: Some cough. Otherwise negativ e. PHYSICAL EXAMINATION: VITAL SIGNS: Blood pressure 140/80, pulse 80, te mperature 98. GENERAL: This is a well-nourished white lady, in no distress. ABDOMEN: Soft, nontender. EXTREMITIES: No edema. ASSESSMENT AND PLAN: The patient with acute refl ux and chest pain, some epigastric pain. She has a very large hiatal her brian. These might need to be evaluated with an EGD. She also has possible acu te pneumonia versus scarring and atelectasis. She is currently taking antibio tics. She is on breathing treatments. She does not feel short of breath at this point. I will recommend an EGD. We will proceed tomorrow. Continue treat ment for a possible pneumonia and reflux. We will follow the patient with you. Dictated By: Eamon Oneill MD WT: CON:DISHA/NAS/NTS Conf#: [id number]/DID#: [id number] PATIENT NAME: ROXANN TRUJILLO 4 Authenticated by Eamon Oneill MD On 01/14/2019 02:52:08 PM at 1452 PATIENT NAME: ROXANN TRUJILLO 4 2019-01-12 [facility] 15:54:00-00:00 [facility] ([facility] Hospitalist History Physical REPORT#:[id number] REPORT STATUS: Signed DATE:01/12/19 TIME: 1554 PATIENT: ROXANN TRUJILLO UNIT #: [id number] ROOM/BED: [place] [address] : 38 AGE: 78 SEX: F ATTEND: Gary Singh MD ADM AUTHOR: Savannah Singh MD * ALL edits or amendments must be made on the Wingz/computer document * History of Present Illness HPI Chief complaint: Epigastric pain PCP: PCP: No Primary or Family Physician HPI: Ms. Trujillo is a 78-year-old female with a history of severe GERD, hypertension who presented to the emergency room with complai nts of epigastric pain. At baseline she has heartburn, controlled with omep razole or Tums. Last night, epigastric pain worsened and radiated up to her throat area. She did report pain as a burning sensation.She denies any fever or chills. She denies any nausea or vomiting. Patient acknowledged nonproductive cough ongoing for 3 days. Informant/historian: [facility] Past medical history: Reports: GERD/gastritis, Hypertension. Past surgical history: Reports: Appendectomy, Cholecystectomy, Hysterec jg. Family history: Reports: Diabetes, Heart disease, Hypertension. Alcohol use: Denies EtOH use Drug use: Denies recreational drugs Smoking status for patients 13 years old or olde r: Never Smoker Medication/Allergy-Vaccine Hx Home Medications: amLODIPine/BENAZEPRIL (LOTREL 10/20 MG) 1 CAP PO DAILY ASPIRIN 81 MG PO DAILY ATORVASTATIN (LIPITOR) 10 MG PO DAILY FAMOTIDINE (PEPCID) 10 MG PO DAILY METOPROLOL SUCC XL (TOPROL XL) 100 MG PO DAILY OMEPRAZOLE ER (PriLOSEC) 40 MG PO BID Allergies: Coded Allergies: No Known Allergies (01/12/19) Review of Systems Constitutional: Reports: fatigue, malaise. Respiratory: Reports: productive cough (sputum). GI: Reports: abdominal pain. All systems rev neg: except as marked Objective General VS/I O: Vital Signs: Date Time Temp Pulse Resp B/P B/P Pulse O2 O2 F low FiO2 Mean Ox Delivery Rate 01/12 1500 98.7 103 18 144/84 104 95 Room air 01/12 1225 97.7 99 16 134/79 97 96 Room air 01/12 1041 98.5 96 16 145/96 112 98 Room air Patient Weight Weight (lb): Weight (oz): Weight (kg): 72.727 Medications: Active Meds + DC'd Last 24 Hrs Albuterol/Ipratropium 3 ML RTQ4H INH Acetaminophen 650 MG Q4H PRN PRN PO Ondansetron HCl 4 MG Q6H PRN PRN IV Ceftriaxone Sodium 1,000 MG X1ED STA IV (DC) Sodium Chloride 10 ML Azithromycin 500 MG X1ED STA IV (DC) Sodium Chloride 250 ML Iopamidol 0 .STK-MED ONE .ROUTE (DC) Metoclopramide HCl 5 MG X1ED STA IV (DC) Al Hydrox/Mg Hydrox/Simethicone 30 ML X1ED STA P O (DC) Lidocaine HCl 10 ML X1ED STA PO (DC) Physical Exam General appearance: alert, awake Head/Eyes: atraumatic, clear cornea, EOMI, vanessa l conjunctiva/sclera, normal eyelids/periorb., normocephalic, PERRL ENT: normal dentition, normal ear left, normal e ar right, normal nose, normal pharynx, normal sinus Neck: full range of motion, non-tender, normal thyroid, supple/no meningismus, no bruit/NL carotids, no JVD, no masses or swell ing Cardiovascular: normal capillary refill, regular rate rhythm Respiratory: crackles, symmetric expansion, no d istress Abdomen: tenderness, soft, no distention Extremities: moves all, normal capillary refill, normal range of motion, no edema Musculoskeletal: normal inspection Neuro/DEALERSHIP MANAGER: alert, oriented X 3 Skin: dry, intact Psychiatry: normal affect, n ormal judgment/insight, normal mood, not homicidal, not suicidal, no hallucinations Results Findings/Data: Laboratory Tests 01/12 1134 Chemistry Sodium (136 - 145 mmol/L) 141 Potassium (3.5 - 5.1 mmol/L) 4.0 Chloride (98 - 107 mmol/L) 108.0 H Carbon Dioxide (21 - 32 mmol/L) 24.0 Anion Gap (10 - 20) 13.0 BUN (7 - 18 mg/dL) 11 Creatinine (0.55 - 1.02 mg/dL) 0.90 Glomerular Filtr Rate (>=60 mL/min) 60 BUN/Creatinine Ratio (10 - 20) 12.5 Glucose (74 - 106 mg/dL) 129 H Calcium (8.5 - 10.1 mg/dL) 9.4 Total Bilirubin (0.0 - 1.0 mg/dL) 0.50 Direct Bilirubin (0.0 - 0.20 mg/dL) 0.17 AST (15 - 37 IUnit/L) 17 ALT (12 - 78 IUnit/L) 17 Total Alk Phosphatase (45 - 117 IUnit/L) 111 Troponin I (0 - 0.045 ng/mL) <0.015 Total Protein (6.4 - 8.2 gram/dL) 7.0 Albumin (3.4 - 5.0 g/dL) 3.6 Globulin (2.7 - 4.2 gram/dL) 3.4 Albumin/Globulin Ratio (0.75 - 1.50) 1.1 Lipase (73.0 - 393.0 U/L) 84 Laboratory Tests 01/12 1134 Hematology WBC (4.5 - 12.5 K/mm3) 17.6 H RBC (3.7 - 5.2 mill/mm3) 5.11 Hgb (11.5 - 15.5 gram/dL) 13.5 Hct (36.0 - 46.0 %) 42.5 MCV (80 - 98 fL) 83.2 MCH (27.0 - 33.0 picogram) 26.4 L MCHC (33.0 - 36.0 gram/dL) 31.8 L RDW (11.6 - 16.2 %) 14.2 Plt Count (150 - 450 K/mm3) 274 MPV (6.7 - 11.0 fL) 10.0 Laboratory Tests 01/12 1054 Urines Urine Color (YELLOW) Light-Yellow Urine Appearance (CLEAR) CLEAR Urine pH (5.0 - 8.0) 7.5 Ur Specific [place] (1.001 - 1.035) 1.011 Urine Protein (NEGATIVE mg/dL) NEGATIVE Urine Glucose (UA) (NEGATIVE mg/dL) NEGATIVE Urine Ketones (NEGATIVE mg/dL) NEGATIVE Urine Blood (NEGATIVE mg/dL) 0.03 mg/dL (Trace) H Urine Nitrite (NEGATIVE) NEGATIVE Urine Bilirubin (NEGATIVE mg/dL) NEGATIVE Urine Urobilinogen (NEGATIVE mg/dL) Normal Ur Leukocyte Esterase (NEGATIVE Jnona/uL) NEGATIV E Urine RBC (0 - 5 #/HPF) 0-2 Urine WBC (0 - 5 per HPF) 0-5 Ur Epithelial Cells (FEW per HPF) Few (2-5/hpf) Urine Bacteria (NONE #/HPF) FEW Radiology data: Recent Impressions: RADIOLOGY - XR CHEST 1 V 01/12 1057 Report Impression - Status: SIGNED Entered: 01/12/2019 1116 IMPRESSION: Patchy left basal infiltrate with small effusion and subsegmental atelectasis. Impression By: [email or web address] - Edward Cmaarena M.D. CAT SCAN - CT ABD PELVIS W/CONT 01/12 1255 Report Impression - Status: SIGNED Entered: 01/12/2019 1340 IMPRESSION: No pulmonary embolism with unremarkable aorta. P atchy left basal infiltrate with scarring and dependent changes. CT ABDOMEN: The liver is enhancing homogeneously. Portal vei n is patent. Hepatic artery is patent. Patient is post cholecystectom y. No abnormal enhancing masses or lesions. The liver is measur ing 15 cm in length. The spleen enhanced homogeneously. No abnormal e nhancing masses or lesions. Subcapsular calcification laterally. St omach distended incompletely with large retrocardiac hiatal valerio ia. Pancreas enhanced homogeneously. Unremarkable ad renals. Kidneys are free from hydroureteronephrosis. Yassine ogeneous enhancement. Bosniak 1 lesion in the is exophytic. Bilateral excretion is noted. Subcentimeter low-attenuation lesion in the medi al right upper pole is too small to characterize as well. No pathologic adenopathy. Well-opacified abdomin al and pelvic vasculature with atherosclerotic change. No bowel obstruction or colitis or diverticuliti s or enteritis. Constipation. CT PELVIS: Appendix is normal. No inflammation. Sigmoid div erticulosis without diverticulitis. Unremarkable urinary bladder distended well. Pat ient is post hysterectomy. No free fluid or free air or absce ss. No pelvic pathologic adenopathy. Subcutaneous tissues and the musculature demonst rated normal appearance. Fat-containing ventral hernia at the level of the lower margin of the liver without incarceration and wi thout loops of bowel. 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 IMPRESSION: No acute intra-abdominal or intrapelvic patholog y. Impression By: [email or web address] - Edward Camarena M.D. CAT SCAN - CT CHEST W/CONTRAST 01/12 1255 Report Impression - Status: SIGNED Entered: 01/12/2019 1340 IMPRESSION: No pulmonary embolism with unremarkable aorta. P atchy left basal infiltrate with scarring and dependent changes. CT ABDOMEN: The liver is enhancing homogeneously. Portal vei n is patent. Hepatic artery is patent. Patient is post cholecystectom y. No abnormal enhancing masses or lesions. The liver is measur ing 15 cm in length. The spleen enhanced homogeneously. No abnormal e nhancing masses or lesions. Subcapsular calcification laterally. St omach distended incompletely with large retrocardiac hiatal valerio ia. Pancreas enhanced homogeneously. Unremarkable ad renals. Kidneys are free from hydroureteronephrosis. Yassine ogeneous enhancement. Bosniak 1 lesion in the is exophytic. Bilateral excretion is noted. Subcentimeter low-attenuation lesion in the medi al right upper pole is too small to characterize as well. No pathologic adenopathy. Well-opacified abdomin al and pelvic vasculature with atherosclerotic change. No bowel obstruction or colitis or diverticuliti s or enteritis. Constipation. CT PELVIS: Appendix is normal. No inflammation. Sigmoid div erticulosis without diverticulitis. Unremarkable urinary bladder distended well. Pat ient is post hysterectomy. No free fluid or free air or absce ss. No pelvic pathologic adenopathy. Subcutaneous tissues and the musculature demonst rated normal appearance. Fat-containing ventral hernia at the level of the lower margin of the liver without incarceration and wi thout loops of bowel. 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 IMPRESSION: No acute intra-abdominal or intrapelvic patholog y. Impression By: [email or web address] - Edward Camarena M.D. Diagnosis, Assessment Plan Orders: Procedure Date/time Status Resuscitation Status + 01/12 162 Active Vital Signs 01/12 162 Active Present on Admission 01/12 162 Active Notify MD- Vitals 01/12 162 Active MRSA Screenings 01/12 162 Active Activity 01/12 162 Active LEVEL OF CARE 01/12 162 Active Code Status/Resusc. Discussion Resuscitation discussion: Discussed with: patient Code status: full code Free Text DxA P Notes Free Text DxA P Notes: Ms. Trujillo is a 78-year-old f emale who presented to the hospital with epigastric pain. #Epigastric pain likely due to severe GERD-Patient may be regurgitating her food as she reported metallic taste in mouth usually in the mornings. -CT abdomen with distended stomach incom pletely with large retrocardiac hiatal hernia. Probably need to have the hernia repaire d. -Protonix IV twice daily -We will also place on Reglan. -Consult GI given findings on imaging. -Patient may benefit from direct visualization. -Trop X1 neg, will trend. #Sepsis secondary to community-acquired pneumoni a-CT chest with right basal infiltrate. Patient with leukocytosis and tachyc ardia. Cannot rule out aspiration pneumonia in the setting of severe GE RD. -IV hydration -Check lactic acid and procalcitonin -IV antibiotics -DuoNeb, supplemental oxygen and antitussives -Sputum culture. #Hypertension-resume antihypertensives. #Hyperglycemia-rule out diabetes mellitus. -Check hemoglobin A1c. #Hyperlipidemia-continue atorvastatin. DVT prophylaxis with Lovenox. Patient is full code. Her daughter Simran Guillaume is NOK Electronically Signed by Savannah Singh MD on 0 01/12/19 at 1634 RPT #:[id number] END OF REPORT 2019-01-12 [facility] 10:47:00-00:00 [facility] ([facility]) EMERGENCY PROVIDER REPORT REPORT#:[id number] REPORT STATUS: Signed DATE:01/12/19 TIME: 1047 PATIENT: ROXANN TRUJILLO UNIT #: [id number] [facility] AGE: 78 SEX: F PCP PHYS: No Primary or Family Ph ysician SERVICE AUTHOR: Jane Fragoso * ALL edits or amendments must be made on the Wingz/computer document * HPI-Abd Pain F 40 and Over General Confirmed Patient Yes Initial Greet Date/Time 01/12/[address] 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 Yes Symptom Duration Since onset, Constant Progression since Onset Gradually improving Location Epigastric Quality Burning Radiation Does not radiate. Associated with Reports: Nausea. Denies: Chest pain, Chills, Maude rrhea, Dysuria, Fever, Shortness of breath, Urinary frequency, Urinary retention, Urinary tract symptoms, Vomiting. Context Related History Reports: GERD. Free Text HPI Notes Free Text HPI Notes Patient is an 78-year-old female with a history of hypertension, who presents with chief complaint of reflux. Patient states it woke her up suddenly at 3 AM and has been constant since that time. Patient d escribes her symptoms as burning sensation to her chest associated with n ausea, cough. She denies any chest pain, shortness of breath, fever or urinar y tract complaints. Patient states she has had these symptoms for years, usu ally managed with Nexium, however today the symptoms persist. Portions of this section were scribed by ALEXI SHIPLEY on 01/12/19 at 1206 Risk-Abd Pain F 40 and Over )( Abdominal Aortic Aneurysm Risk factors review ed Review of Systems ROS Statements All systems rev neg except as marked. Focused Review of Systems Constitutional Denies: Chills, Fever. Cardiovascular Denies: Chest pain, Orthopnea, Palpitations. GI Reports: Nausea. Denies: Abdominal pain, Vomitin g. Female Denies: Dysuria, Flank pain. Past Medical History - Adult Stated Complaint GERD SINCE 3 AM. Allergies Coded Allergies: No Known Allergies (01/12/19) Home Medications Reported Medications ASPIRIN 81 MG PO DAILY METOPROLOL SUCC XL (TOPROL XL) 100 MG PO DAILY OMEPRAZOLE ER (PriLOSEC) 40 MG PO BID amLODIPine/BENAZEPRIL (LOTREL 10/20 MG) 1 CAP PO DAILY FAMOTIDINE (PEPCID) 10 MG PO DAILY ATORVASTATIN (LIPITOR) 10 MG PO DAILY Past Medical History: Reports: GERD/gastritis, Hypertension. Past Surgical History: Reports: Appendectomy, Cholecystectomy, Hysterec jg. Alcohol Use Denies EtOH use Smoking status for patients 13 years old or olde r: Never Smoker Physical Exam Vital Signs Vital Signs First Documented: Result Date Time Pulse Ox 98 01/12 1041 B/P 145/96 01/12 1041 B/P Mean 112 01/12 1041 O2 Delivery Room air 01/12 1041 Temp 36.9 01/12 1041 Pulse 96 01/12 1041 Resp 16 01/12 1041 Last Documented: Result Date Time Pulse Ox 95 01/12 1500 B/P 144/84 01/12 1500 B/P Mean 104 01/12 1500 O2 Delivery Room air 01/12 1500 Temp 37.1 01/12 1500 Pulse 103 01/12 1500 Resp 18 01/12 1500 Review of Vital Signs Reviewed Focused PE General/Const General/Const Awake, Alert, No acute distress, Well appearing MS Head Head Atraumatic, Normocephalic Eyes Eyes EOMI, No scleral icterus Ears/Nose/Throat Ears/Nose/Throat Airway patent, Mucous membran es moist Resp/Chest Respiratory/Chest Breath sounds = bilat, No res piratory distress Wheezing/Retractions Wheezing expiratory (left base), Wheezing mild. Rales/Rhonchi Rhonchi fine L (base). Cardiovascular Cardiovascular Heart rate NL, Regular rhythm, H eart sounds NL Abdomen/GI Abdomen/GI No rebound, BS normoactive, No diste ntion MS Back Back Full range of motion, Painless range of mo tion Skin Skin Warm, Dry Neurologic Neurologic Oriented X3, Sp eech NL, No motor deficits, No sensory deficits, CN II - XII intact Portions of this section were scribed by ALEXI SHIPLEY on 01/12/19 at 1206 Interpretation Diagnostics Lab Results Interpretation Results Laboratory Tests 01/12/19 1134: [Embedded Image Not Available] Laboratory Tests: 01/12 01/12 1134 1054 Chemistry Sodium (136 - 145 mmol/L) 141 Potassium (3.5 - 5.1 mmol/L) 4.0 Chloride (98 - 107 mmol/L) 108.0 H Carbon Dioxide (21 - 32 mmol/L) 24.0 Anion Gap (10 - 20) 13.0 BUN (7 - 18 mg/dL) 11 Creatinine (0.55 - 1.02 mg/dL) 0.90 Glomerular Filtr Rate (>=60 mL/min) 60 BUN/Creatinine Ratio (10 - 20) 12.5 Glucose (74 - 106 mg/dL) 129 H Calcium (8.5 - 10.1 mg/dL) 9.4 Total Bilirubin (0.0 - 1.0 mg/dL) 0.50 Direct Bilirubin (0.0 - 0.20 mg/dL) 0.17 AST (15 - 37 IUnit/L) 17 ALT (12 - 78 IUnit/L) 17 Total Alk Phosphatase (45 - 117 IUnit/L) 111 Troponin I (0 - 0.045 ng/mL) <0.015 Total Protein (6.4 - 8.2 gram/dL) 7.0 Albumin (3.4 - 5.0 g/dL) 3.6 Globulin (2.7 - 4.2 gram/dL) 3.4 Albumin/Globulin Ratio (0.75 - 1.50) 1.1 Lipase (73.0 - 393.0 U/L) 84 Hematology WBC (4.5 - 12.5 K/mm3) 17.6 H RBC (3.7 - 5.2 mill/mm3) 5.11 Hgb (11.5 - 15.5 gram/dL) 13.5 Hct (36.0 - 46.0 %) 42.5 MCV (80 - 98 fL) 83.2 MCH (27.0 - 33.0 picogram) 26.4 L MCHC (33.0 - 36.0 gram/dL) 31.8 L RDW (11.6 - 16.2 %) 14.2 Plt Count (150 - 450 K/mm3) 274 MPV (6.7 - 11.0 fL) 10.0 Urines Urine Color (YELLOW) Light-Yellow Urine Appearance (CLEAR) CLEAR Urine pH (5.0 - 8.0) 7.5 Ur Specific [place] (1.001 - 1.035) 1.011 Urine Protein (NEGATIVE mg/dL) NEGATIVE Urine Glucose (UA) (NEGATIVE mg/dL) NEGATIVE Urine Ketones (NEGATIVE mg/dL) NEGATIVE Urine Blood (NEGATIVE mg/dL) 0.03 mg/dL (Trace) H Urine Nitrite (NEGATIVE) NEGATIVE Urine Bilirubin (NEGATIVE mg/dL) NEGATIVE Urine Urobilinogen (NEGATIVE mg/dL) Normal Ur Leukocyte Esterase (NEGATIVE Jonna/uL) NEGATIV E Urine RBC (0 - 5 #/HPF) 0-2 Urine WBC (0 - 5 per HPF) 0-5 Ur Epithelial Cells (FEW per HPF) Few (2-5/hpf) Urine Bacteria (NONE #/HPF) FEW Microbiology: Date/Time Procedure - Status Source Growth 01/12 1401 Blood Culture - RECD BLOOD Recent Impressions: RADIOLOGY - XR CHEST 1 V 01/12 1057 Report Impression - Status: SIGNED Entered: 01/12/2019 1116 IMPRESSION: Patchy left basal infiltrate with small effusion and subsegmental atelectasis. Impression By: [email or web address] - Edward Camarena M.D. CAT SCAN - CT ABD PELVIS W/CONT 01/12 1255 Report Impression - Status: SIGNED Entered: 01/12/2019 1340 IMPRESSION: No pulmonary embolism with unremarkable aorta. P atchy left basal infiltrate with scarring and dependent changes. CT ABDOMEN: The liver is enhancing homogeneously. Portal vei n is patent. Hepatic artery is patent. Patient is post cholecystectom y. No abnormal enhancing masses or lesions. The liver is measur ing 15 cm in length. The spleen enhanced homogeneously. No abnormal e nhancing masses or lesions. Subcapsular calcification laterally. S tomach distended incompletely with large retrocardiac hiatal valerio ia. Pancreas enhanced homogeneously. Unremarkable ad renals. Kidneys are free from hydroureteronephrosis. Yassine ogeneous enhancement. Bosniak 1 lesion in the is exophytic. Bilateral excretion is noted. Subcentimeter low-attenuation lesion in the medi al right upper pole is too small to characterize as well. No pathologic adenopathy. Well-opacified abdomin al and pelvic vasculature with atherosclerotic change. No bowel obstruction or colitis or diverticuliti s or enteritis. Constipation. CT PELVIS: Appendix is normal. No inflammation. Sigmoid div erticulosis without diverticulitis. Unremarkable urinary bladder distended well. Pat ient is post hysterectomy. No free fluid or free air or absce ss. No pelvic pathologic adenopathy. Subcutaneous tissues and the musculature demonst rated normal appearance. Fat-containing ventral hernia at the level of the lower margin of the liver without incarceration and wi thout loops of bowel. 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 IMPRESSION: No acute intra-abdominal or intrapelvic patholog y. Impression By: Kel Camarena M.D. CAT SCAN - CT CHEST W/CONTRAST 01/12 1255 Report Impression - Status: SIGNED Entered: 01/12/2019 1340 IMPRESSION: No pulmonary embolism with unremarkable aorta. P atchy left basal infiltrate with scarring and dependent changes. CT ABDOMEN: The liver is enhancing homogeneously. Portal vei n is patent. Hepatic artery is patent. Patient is post cholecystectom y. No abnormal enhancing masses or lesions. The liver is measur ing 15 cm in length. The spleen enhanced homogeneously. No abnormal e nhancing masses or lesions. Subcapsular calcification laterally. St omach distended incompletely with large retrocardiac hiatal valerio ia. Pancreas enhanced homogeneously. Unremarkable ad renals. Kidneys are free from hydroureteronephrosis. Yassine ogeneous enhancement. Bosniak 1 lesion in the is exophytic. Bilateral excretion is noted. Subcentimeter low-attenuation lesion in the medi al right upper pole is too small to characterize as well. No pathologic adenopathy. Well-opacified abdomin al and pelvic vasculature with atherosclerotic change. No bowel obstruction or colitis or diverticuliti s or enteritis. Constipation. CT PELVIS: Appendix is normal. No inflammation. Sigmoid div erticulosis without diverticulitis. Unremarkable urinary bladder distended well. Pat ient is post hysterectomy. No free fluid or free air or absce ss. No pelvic pathologic adenopathy. Subcutaneous tissues and the musculature demonst rated normal appearance. Fat-containing ventral hernia at the level of the lower margin of the liver without incarceration and wi thout loops of bowel. 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 IMPRESSION: No acute intra-abdominal or intrapelvic patholog y. Impression By: Kel Camarena M.D. Lab Imaging Statement Laboratory radiographic studies reviewed and con sidered in the medical decision-making. Point of Care Testing Pulse Oximetry Pulse Ox % 98 On: Room air Interpretation Interpreted by me, Pulse oximetr y normal ECG #1 Interpretation Date 01/12/19 Time 1048 Interpreted by ED physician NL ECG Interpretation Normal rate, Normal sinus rhythm, No acute ischemic changes, No STEMI, Normal QRS, Normal ST waves, Normal T waves Conduction/[place] AV block 1st degree, Left axis d eviation Portions of this section were scribed by ALEXI SHIPLEY on 01/12/19 at 1206 Re-Evaluation [facility] )( Re-Evaluation/Progress #1 Text/Dict Note Patient states that symptoms of reflux are much improved after medication. However she does state that she feels short of b reath from time to time. Patient is in no visible distress. I discussed r esults with patient; chest x- ray showing pneumonia. Patient states with her s ymptoms today she feels more comfortable with an overnight admission to the [facility], which I agree with. Time of Re-Eval 1400 )( Re-Eval Status Improved ED Course Medication(s) Ordered Medication(s) Ordered: Anti-Infective Agents Sig/Mayur Start time Last Medication Dose Route Stop Time Status Admin Ceftriaxone Sodium 1,000 MG X1ED STA 01/12 1404 DC 01/12 Sodium Chloride 10 ML IV 01/12 1406 1421 Azithromycin 500 MG X1ED STA 01/12 1403 DC 090 8 Sodium Chloride 250 ML IV 01/12 1502 1422 Autonomic Drugs Sig/Mayur Start time Last Medication Dose Route Stop Time Status Admin Albuterol/Ipratropium 3 ML RTQ4H 01/12 1545 AC INH 01/13 0232 Cardiovascular Drugs Sig/Mayur Start time Last Medication Dose Route Stop Time Status Admin Lidocaine HCl 10 ML X1ED STA 01/12 1040 DC 09/0 8 PO 01/12 1041 1204 Central Nervous System Agents Sig/Mayur Start time Last Medication Dose Route Stop Time Status Admin Acetaminophen 650 MG Q4H PRN PRN 01/12 1445 AC PO 01/13 0232 Diagnostic Agents Sig/Mayur Start time Last Medication Dose Route Stop Time Status Admin Iopamidol 0 .STK-MED ONE 01/12 1301 DC 01/12 .ROUTE 1301 Gastrointestinal Drugs Sig/Mayur Start time Last Medication Dose Route Stop Time Status Admin Ondansetron HCl 4 MG Q6H PRN PRN 01/12 1445 AC IV 01/13 0232 Metoclopramide HCl 5 MG X1ED STA 01/12 1046 DC 01/12 IV 01/12 1047 1204 Al Hydrox/Mg Hydrox/ 30 ML X1ED STA 01/12 1040 DC 01/12 Simethicone PO 01/12 1041 1204 Additional Hx/Info Source Prior records reviewed (none available) Portions of this section were scribed by ALEXI SHIPLEY on 01/12/19 at 1206 Patient Discharge Departure Vital Signs/Condition Vital Signs First Documented: Result Date Time Pulse Ox 98 01/12 1041 B/P 145/96 01/12 1041 B/P Mean 112 01/12 1041 O2 Delivery Room air 01/12 1041 Temp 36.9 01/12 1041 Pulse 96 / 1041 Resp 16 01/12 1041 Last Documented: Result Date Time Pulse Ox 95 01/12 1500 B/P 144/84 01/12 1500 B/P Mean 104 / 1500 O2 Delivery Room air 01/12 1500 Temp 37.1 /08 1500 Pulse 103 /08 1500 Resp 18 /08 1500 All vital signs available at the time of this en try have been reviewed. Clinical Impression Clinical Impression Primary Impression: Pneumonia Secondary Impressions: GERD (gastroesophageal re flux disease) Disposition Decision Admit Admit Physician Name Savannah Singh MD Admit Physician Hospitalist Request Time 1413 Request Date 01/12/19 )( Admission Accepts Yes )( Accepted Time 1413 )( Accepted Date 01/12/19 Call Information will see patient, agrees with eval, agrees with plan Discharge/Care Plan Counseled Regarding Diagnosi s, Lab results, Imaging studies, Need for admission Supervising Physician Note Scribe Statement By signing my name below, I, Alexi Shipley, attest that this document has been prepared under the direction and in the presence of Dr. Richmond DO. Electronically signed: Scribe. Charli Fulton ate: 01/12/2019. Time:1207 Provider Scribed Statement I personally performed the s ervices described in this documentation and reviewed the documentation that was dictated to the scrib e(s) in my presence, and it accurately records my words and actions. Jane Wan, 01/12/19 Portions of this section were scribed by ALEXI SHIPLEY on 01/12/19 at 1206 at 1612 [facility] #:[id number] END OF REPORT 2013-02-13 CT PULMONARY ANGIOGRAPHY 2013-02-13 19:30:00 [facility] 19:26:00-00:00 Center COMPARISON: None CLINICAL INDICATION: Coughin g. Recent fall resulting in a femur fracture. Patient has a history of hiatal hernia repair. TECHNIQUE: Following intrave nous administration of 78 cc Omnipaque 350 contrast, the chest was scanned from apices to the bases according to the PE protocol. Multiplanar reformatted images (MPR) in the sagittal, coronal and obliqu e images as well as maximal intensity projection (MIP) images were reviewed. FINDINGS: MEDIASTINUM/DENVER/VESSELS: Ex amination is positive for pulmonary embolism with filling defects seen within segmental branches to left upper lobe and left lower lobe as well as a filling defects seen with in the interlobar artery on the right. Cardiac size is upper normal. No pericardial fluid or thickening. LUNGS/PLEURA: Very small ple ural effusions are present bilaterally. Note of scattered areas of subsegmental atelectasis. Note also of a few scattered 2-3 mm pulmonary nodules. BONES/SOFT TISSUES: Degenerative changes of spin e. UPPER ABDOMEN: Surgical godoy ges are seen at the GE junction. Note of a moderate sized hiatal hernia. Patient status post cholecystectomy. Calcifications are seen within the periphery of the spleen. CONCLUSION: 1. Positive for pulmonary em bolism with filling defects as described above. Dr. Oconnell was notified at 8:30 pm on 02-13-13 by the on-call radiology scheduler. 2. Moderate sized hiatal her brian in this patient with history of hiatal hernia repair. There are surgical changes near the GE junction. Consider correlation with esophagram/ upper GI if not evaluated previously. 3. Tiny scattered pulmonary nodules which are most likely benign there is no history of malignancy. 2013-02-13 PORTABLE CHEST 2013-02-13 16:26:00 [facility] 15:52:00-00:00 Center COMPARISON: 02/10/2013 CLINICAL INDICATION: Absent of breath sounds DISCUSSION: Lung volumes are low. Lungs are without airspace disease. No pleural effusions or pneumothorax. Cardiac silhouette and mediastinum are unchanged. IMPRESSION: No significant interval change. 2013-02-11 EXAM: XR LEFT FEMUR 2 VIEWS [facility] 14:20:00-00:00 Center DATE: February 11, 2013 1411 INDICATION: POST OP. COMPARISON: Left femur series dated February 10 013 TECHNIQUE: AP and lateral radiographs of the lef t femur DISCUSSION: The patient is s tatus post internal fixation of the oblique distal diaphyseal left femur fracture. Alignment at the hip and knee joints is satisfactory. There is no evidence of hardware fail ure or perihardware lucency. There is soft tissue swelling and subcutaneous emphysema as expected in this recently postop patient. IMPRESSION: Satisfactory pos top appearance status post internal fixation of left diaphyseal femur fracture. 2013-02-11 EXAM: CT LEFT KNEE WITHOUT CONTRAST. [facility] 08:21:32-00:00 Center INDICATION: Fracture. TECHNIQUE: Noncontrast axial CT imaging of the left knee with coronal and sagittal reformats. Additional 3-D volume rendered images were obtained on scanner workstation. COMPARISON: Left knee series 02/10/2013. FINDINGS: Evaluation is limited slight ly by beam hardening artifact created by external fixator. There is an external fixation pin through the proximal tibia metadiaphysis. There is comminuted fracture of the distal femur diaphysis with distal femur displaced posterolaterally by one half shaft width and 3 cm overlap of fracture fragments. There is no extension of the fract ure into the femoral condyles. The patella and p roximal tibia are intact. Small amount of hemorrhage s urrounds the distal femur diaphyseal fracture. There is a small amount of knee joint fluid. Moderate arterial calcification is present. There is a small popliteal cyst. IMPRESSION: Displaced comminuted distal femur diaphyseal fracture without extension into the femoral condyles. 2013-02-10 EXAM: XR LEFT FEMUR, 2 VIEWS [facility] 23:20:00-00:00 EXAM: XR LEFT TIBIA AND FIBULA, 2 VIEWS Center DATE: Feb 10, 2013 at 2322 hours INDICATION: postreduction. COMPARISON: Femur and tibia-fibula radiographs d ated 02/10/2013 at 2021 hours TECHNIQUE: AP and lateral radiographs of left fe mur, tibia and fibula. DISCUSSION: No change in ali gnment of the spiral fracture at the distal left femoral diaphysis status post external fixation through the proximal tibia with persistent anterior and lateral displacement and 3 cm overriding of the f racture fragments. Mild soft tissue swelling is noted. IMPRESSION: No change in alignment of th e spiral fracture at the distal left femoral diaphysis status post external fixation through the proximal tibia with persistent anterior and lateral displacement and 3 cm overriding. 2013-02-10 EXAM: XR LEFT FEMUR, 2 VIEWS [facility] 23:20:00-00:00 EXAM: XR LEFT TIBIA AND FIBULA, 2 VIEWS Center DATE: Feb 10, 2013 at 2322 hours INDICATION: postreduction. COMPARISON: Femur and tibia-fibula radiographs d ated 02/10/2013 at 2021 hours TECHNIQUE: AP and lateral radiographs of left fe mur, tibia and fibula. DISCUSSION: No change in ali gnment of the spiral fracture at the distal left femoral diaphysis status post external fixation through the proximal tibia with persistent anterior and lateral displacement and 3 cm overriding of the f racture fragments. Mild soft tissue swelling is noted. IMPRESSION: No change in alignment of th e spiral fracture at the distal left femoral diaphysis status post external fixation through the proximal tibia with persistent anterior and lateral displacement and 3 cm overriding. 2013-02-10 EXAM: XR PELVIS 1 VIEW [facility] 21:40:00-00:00 EXAM: XR LEFT HIP 2 VIEWS Center EXAM: XR LEFT FEMUR 2 VIEWS EXAM: XR LEFT KNEE 3 VIEWS EXAM: XR LEFT TIBIA FIBULA 2 VIEWS DATE: Feb 10, 2013 2021 hours INDICATION: Fracture COMPARISON: None available. TECHNIQUE: A single AP radio graph of the pelvis. AP and lateral radiographs of the left hip, proximal and distal femur, tibia and fibula were obtained. AP, lateral, and oblique radiographs of the left knee were obtained. DISCUSSION: No acute fractur e or malalignment of the pelvis is identified. No soft tissue abnormality is identified. Incidentally noted is sacralization of the left L5 transverse process. Degenerative changes are evident at the right and left hip. There is a spiral fracture a t the distal two thirds of the femoral diaphysis with 13 mm anterior and one shaft width lateral displacement. An 18 mm bony fragment is noted anteriorly at the distal femur on lateral knee radiograph. Adjacent soft tissue edema is noted. The tibia and fibula is inta ct. Smooth periosteal reaction seen along the lateral aspect of the fibula, suggests chronic changes. Varicose veins are noted along the medial left lower leg. IMPRESSION: 1. Spiral fracture at the di stal two thirds of the left femoral diaphysis with 13 mm anterior and one shaft width lateral displacement. Additionally, an 18 mm bony fragment is noted anteriorly at the distal femur on the lateral knee radiograph. 2. No acute fracture or dislocation at the pelvi s, left hip, tibia or fibula. 2013-02-10 EXAM: XR PELVIS 1 VIEW [facility] 21:40:00-00:00 EXAM: XR LEFT HIP 2 VIEWS Center EXAM: XR LEFT FEMUR 2 VIEWS EXAM: XR LEFT KNEE 3 VIEWS EXAM: XR LEFT TIBIA FIBULA 2 VIEWS DATE: Feb 10, 20132020 hours INDICATION: Fracture COMPARISON: None available. TECHNIQUE: A single AP radio graph of the pelvis. AP and lateral radiographs of the left hip, proximal and distal femur, tibia and fibula were obtained. AP, lateral, and oblique radiographs of the left knee were obtained. DISCUSSION: No acute fractur e or malalignment of the pelvis is identified. No soft tissue abnormality is identified. Incidentally noted is sacralization of the left L5 transverse process. Degenerative changes are evident at the right and left hip. There is a spiral fracture a t the distal two thirds of the femoral diaphysis with 13 mm anterior and one shaft width lateral displacement. An 18 mm bony fragment is noted anteriorly at the distal femur on lateral knee radiograph. Adjacent soft tissue edema is noted. The tibia and fibula is inta ct. Smooth periosteal reaction seen along the lateral aspect of the fibula, suggests chronic changes. Varicose veins are noted along the medial left lower leg. IMPRESSION: 1. Spiral fracture at the di stal two thirds of the left femoral diaphysis with 13 mm anterior and one shaft width lateral displacement. Additionally, an 18 mm bony fragment is noted anteriorly at the distal femur on the lateral knee radiograph. 2. No acute fracture or dislocation at the pelvi s, left hip, tibia or fibula. 2013-02-10 EXAM: XR PELVIS 1 VIEW [facility] 21:40:00-00:00 EXAM: XR LEFT HIP 2 VIEWS Center EXAM: XR LEFT FEMUR 2 VIEWS EXAM: XR LEFT KNEE 3 VIEWS EXAM: XR LEFT TIBIA FIBULA 2 VIEWS DATE: Feb 10, 20132020 hours INDICATION: Fracture COMPARISON: None available. TECHNIQUE: A single AP radio graph of the pelvis. AP and lateral radiographs of the left hip, proximal and distal femur, tibia and fibula were obtained. AP, lateral, and oblique radiographs of the left knee were obtained. DISCUSSION: No acute fractur e or malalignment of the pelvis is identified. No soft tissue abnormality is identified. Incidentally noted is sacralization of the left L5 transverse process. Degenerative changes are evident at the right and left hip. There is a spiral fracture a t the distal two thirds of the femoral diaphysis with 13 mm anterior and one shaft width lateral displacement. An 18 mm bony fragment is noted anteriorly at the distal femur on lateral knee radiograph. Adjacent soft tissue edema is noted. The tibia and fibula is inta ct. Smooth periosteal reaction seen along the lateral aspect of the fibula, suggests chronic changes. Varicose veins are noted along the medial left lower leg. IMPRESSION: 1. Spiral fracture at the di stal two thirds of the left femoral diaphysis with 13 mm anterior and one shaft width lateral displacement. Additionally, an 18 mm bony fragment is noted anteriorly at the distal femur on the lateral knee radiograph. 2. No acute fracture or dislocation at the pelvi s, left hip, tibia or fibula. 2013-02-10 EXAM: CT CERVICAL SPINE WITHOUT CONTRAST [facility] 21:07:00-00:00 Center DATE: Feb 10, 2013 at 2106 hours INDICATION: Trauma COMPARISON: None available TECHNIQUE: Volumetric acquis ition of the cervical spine is obtained without contrast. 2 mm axial, sagittal and coronal reconstructions are provided. DISCUSSION: No fracture, mal alignment or other acute bony abnormality of the cervical spine is identified. No soft tissue abnormality is identified. Multilevel degenerative disc disease is identified, m ost prominent at C5-C6 with mild posterior disc osteophyte complex. Multilevel facet hypertrophy and uncovertebral arthropathy is evident. There is biapical pleural th ickening and scarring. There is calcification along the included aortic arch and proximal left subclavian artery. IMPRESSION: 1. No acute fracture or malalignment of the cerv ical spine. 2. Degenerative disk and joint disease as descri bed. 2013-02-10 EXAM: XR CHEST 1 VIEW [facility] 20:25:00-00:00 Center DATE: Feb 10, 2013 at 2021 hours INDICATION: Trauma COMPARISON: None available. TECHNIQUE: Single AP view of the chest DISCUSSION: There is mild bi basilar subsegmental atelectasis. No pulmonary or pleural based abnormality is otherwise identified. The cardiomediastinal silhouette is normal for technique. No acute bony abnormality is identified. IMPRESSION: No acute cardiopulmonary abnormality identified. 2013-02-10 EXAM: XR PELVIS 1 VIEW [facility] 20:25:00-00:00 EXAM: XR LEFT HIP 2 VIEWS Center EXAM: XR LEFT FEMUR 2 VIEWS EXAM: XR LEFT KNEE 3 VIEWS EXAM: XR LEFT TIBIA FIBULA 2 VIEWS DATE: Feb 10, 20132020 hours INDICATION: Fracture COMPARISON: None available. TECHNIQUE: A single AP radio graph of the pelvis. AP and lateral radiographs of the left hip, proximal and distal femur, tibia and fibula were obtained. AP, lateral, and oblique radiographs of the left knee were obtained. DISCUSSION: No acute fractur e or malalignment of the pelvis is identified. No soft tissue abnormality is identified. Incidentally noted is sacralization of the left L5 transverse process. Degenerative changes are evident at the right and left hip. There is a spiral fracture a t the distal two thirds of the femoral diaphysis with 13 mm anterior and one shaft width lateral displacement. An 18 mm bony fragment is noted anteriorly at the distal femur on lateral knee radiograph. Adjacent soft tissue edema is noted. The tibia and fibula is inta ct. Smooth periosteal reaction seen along the lateral aspect of the fibula, suggests chronic changes. Varicose veins are noted along the medial left lower leg. IMPRESSION: 1. Spiral fracture at the di stal two thirds of the left femoral diaphysis with 13 mm anterior and one shaft width lateral displacement. Additionally, an 18 mm bony fragment is noted anteriorly at the distal femur on the lateral knee radiograph. 2. No acute fracture or dislocation at the pelvi s, left hip, tibia or fibula. 2013-02-10 EXAM: XR PELVIS 1 VIEW [facility] 20:25:00-00:00 EXAM: XR LEFT HIP 2 VIEWS Center EXAM: XR LEFT FEMUR 2 VIEWS EXAM: XR LEFT KNEE 3 VIEWS EXAM: XR LEFT TIBIA FIBULA 2 VIEWS DATE: Feb 10, 20132020 hours INDICATION: Fracture COMPARISON: None available. TECHNIQUE: A single AP radio graph of the pelvis. AP and lateral radiographs of the left hip, proximal and distal femur, tibia and fibula were obtained. AP, lateral, and oblique radiographs of the left knee were obtained. DISCUSSION: No acute fractur e or malalignment of the pelvis is identified. No soft tissue abnormality is identified. Incidentally noted is sacralization of the left L5 transverse process. Degenerative changes are evident at the right and left hip. There is a spiral fracture a t the distal two thirds of the femoral diaphysis with 13 mm anterior and one shaft width lateral displacement. An 18 mm bony fragment is noted anteriorly at the distal femur on lateral knee radiograph. Adjacent soft tissue edema is noted. The tibia and fibula is inta ct. Smooth periosteal reaction seen along the lateral aspect of the fibula, suggests chronic changes. Varicose veins are noted along the medial left lower leg.
[2022-12-12 13:22] LABS: Hematocrit 39.2 % (36.0-45.0); Lymphocytes % 10.3 % (15.3-44.8); MCV 89.6 fL (80-100); Platelets 271 thou/uL (152-406); RBC Red Blood Cell Count 4.38 M/uL (3.86-4.86)
[2022-12-12 13:25] LABS: Protime INR 0.95
[2022-12-12] MEDS ORDERED: MAGNES/ALUMIN/SIMET 30ML UCUP ONE (13:28)
[2022-12-12 13:29] LABS: SARS-CoV-2 Antigen Rapid Res Negative (Negative)
[2022-12-12 13:45] LABS: Albumin 3.5 g/dL (3.4-5.0); Bilirubin Direct 0.1 mg/dL (0-0.2); Bilirubin Indirect, Calculated 0.3 mg/dL (0.2-0.8); Bilirubin Total 0.4 mg/dL (0.2-1.0); Potassium 3.4 mEq/L (3.5-5.1); Protein, Total 7.2 g/dL (6.4-8.2); Troponin High Sensitivity 7.3 pg/mL (<58.9)
--- NOTE | 2022-12-12 13:47 | RAD REPORT ---
EXAM DESCRIPTION: Dannyt Single View12/12/2022 1:33 pm CLINICAL HISTORY: CHEST PAIN COMPARISON: Chest Pa And Lat (2 Views) dated 06/17/2021; CHEST SINGLE VIEW dated 02/16/2015; CHEST PA AND LAT 2 VIEW dated 07/21/2014; CHEST SINGLE VIEW dated 12/17/2013 TECHNIQUE: Portable AP view of the chest. FINDINGS: Right peripheral basilar hazy airspace opacity appears new since the prior exam. Bibasilar atelectatic changes are stable. Hyperlucency and chronic interstitial changes suggestive of COPD are stable. No pneumothorax or effusion. The cardiomediastinal contours are unremarkable. IMPRESSION: Developing peripheral right basilar hazy airspace opacity, could reflect atelectasis or developing pneumonia.
--- NOTE | 2022-12-12 14:49 | RAD REPORT ---
EXAM DESCRIPTION: CT - Chest For Pe Angio - 12/12/2022 2:07 pm CLINICAL HISTORY: CHEST PAIN COMPARISON: Chest Single View dated 12/12/2022 TECHNIQUE: Thin axial CT images of the chest were obtained following administration of 100 mL Isovue 370 IV contrast. Multiplanar reconstructions, and maximum intensity projection reconstructions were generated and reviewed. Exam utilizes a protocol for optimal evaluation of pulmonary arterial tree. All CT scans are performed using dose optimization technique as appropriate and may include automated exposure control or mA/KV adjustment according to patient size. FINDINGS: Pulmonary arteries are normal. No emboli or other suspicious finding. No acute or signific ant aorta findings. No mass or infiltrate in the lung parenchyma. Bibasilar atelectatic changes. No pleural thickening or pleural effusion. No pneumothorax. No abnormal mediastinal or hilar masses or lymphadenopathy seen. No chest wall mass or abnormal axill iary lymphadenopathy. Postsurgical changes of fundoplication. IMPRESSION: No evidence of acute central pulmonary emboli. No other acute pulmonary process.
[2022-12-12 15:24] LABS: Specific Gravity 1.013 (1.005-1.030); Urine Bilirubin NEGATIVE (Negative); Urine Blood Negative (Negative); Urine Clarity Clear (Clear); Urine Color Yellow (Yellow); Urine Glucose NEGATIVE (Negative); Urine Protein NEGATIVE (Negative); Urine Urobilinogen Normal (Normal)
--- NOTE | 2022-12-12 16:03 | EDPHYS ---
Physician Documentation [facility] Name: Roxann Beltran Age: 82 yrs Sex: Female : 1940 Arrival Date: 12/12/2022 Time: 12:35 Bed 16 Private MD: ED Physician Marcus Coleman HPI: 12/12 13:10 This 82 yrs old Female presents to ER via Ambulatory with complaints of Chest Pain. rn 13:10 The patient or guardian reports chest pain that is located primarily in the substernal rn area, anterior chest wall, left. Onset: yesterday. The pain radiates to Associated signs and symptoms: Pertinent positives: None. Pertinent negatives: abdominal pain, cough, diaphoresis, palpitations, syncope, vomiting. The chest pain is described as aching. Modifying factors: The symptoms are alleviated by nothing. the symptoms are aggravated by nothing. Severity of pain: At its worst the pain was mild in the emergency department the pain has improved. The patient has not experienced similar symptoms in the past. The patient has not recently seen a physician. Pt reports chest pain since yesterday, heavy, radiates to left shoulder/back, mild sob, not improved with nitro, did help with burping a little. . Historical: - Allergies: 12:41 Ciprofloxacin; nj1 - PMHx: 12:41 Hypertensive disorder; Hypercholesterolemia; nj1 - PSHx: 12:41 Hiatal hernia repair; nj1 - Immunization history:: Client reports receiving the 2nd dose of the Covid vaccine. - Social history:: Smoking status: Patient denies any tobacco usage or history of. - Family history:: not pertinent. - Hospitalizations: : No recent hospitalization is reported. ROS: 13:10 Constitutional: Negative for fever, chills, and weight loss, Eyes: Negative for injury, rn pain, redness, and discharge, Neck: Negative for injury, pain, and swelling, Cardiovascular: Negative palpitations, and edema, Respiratory: Negative for cough, wheezing, and pleuritic chest pain, Abdomen/GI: Negative for abdominal pain, nausea, vomiting, diarrhea, and constipation, : Negative for injury, bleeding, discharge, and swelling, MS/Extremity: Negative for injury and deformity, Skin: Negative for injury, rash, and discoloration, Neuro: Negative for headache, weakness, numbness, tingling, and seizure. Exam: 13:10 Constitutional: This is a well developed, well nourished patient who is awake, alert, rn and in no acute distress. Ambulatory to room without difficulty or assistance. Head/Face: Normocephalic, atraumatic. Cardiovascular: Regular rate and rhythm. No pulse deficits. Respiratory: No increased work of breathing, no retractions or nasal flaring. Abdomen/GI: Soft, non-tender Skin: Warm, dry MS/ Extremity: Pulses equal, no cyanosis. Neuro: Awake and alert, GCS 15 Vital Signs: 12:41 BP 179 / 86; Pulse 74; Resp 18; Temp 99(O); Weight 58.97 kg; Height 5 ft. 1 in. ; Pain nj1 3/10; 13:34 BP 154 / 69; Pulse 69; Resp 13 S; Pulse Ox 100% on R/A; kc6 14:23 BP 141 / 73; Pulse 61; Resp 16; Pulse Ox 98% on R/A; sg5 15:02 BP 141 / 73; Pulse 64; Resp 18; Pulse Ox 98% ; sg5 15:34 BP 149 / 67; Pulse 66; Resp 18; Pulse Ox 98% on R/A; sg5 12:41 Body Mass Index 24.56 (58.97 kg, 154.94 cm) nj1 12:41 Pain Scale: Adult nj1 MDM: 12:37 Patient medically screened. rn 16:00 Differential diagnosis: acute myocardial infarction, acute pericarditis, anxiety, chest rn wall pain, costochondritis, esophagitis, gastritis, gastroesophageal reflux disease (GERD), pleurisy, pneumothorax, pulmonary embolus, stable angina. Data reviewed: vital signs, nurses notes, lab test result(s), EKG, radiologic studies, CT scan, plain films, and as a result, I will discharge patient. Counseling: I had a detailed discussion with the patient and/or guardian regarding: the historical points, exam findings, and any diagnostic results supporting the discharge/admit diagnosis, lab results, radiology results, the need for outpatient follow up, to return to the emergency department if symptoms worsen or persist or if there are any questions or concerns that arise at home. Response to treatment: the patient's symptoms have markedly improved after treatment, and as a result, I will discharge patient. Special discussion: I discussed with the patient/guardian in detail that at this point there is no indication for admission to the hospital. It is understood, however, that if the symptoms persist or worsen the patient needs to return immediately for re-evaluation. Based on the history and exam findings, there is no indication for further emergent testing or inpatient evaluation. I discussed with the patient/guardian the need to see the director of player personnel for further evaluation of the symptoms. I discussed with the patient/guardian the need to see the primary care provider for further evaluation of the symptoms. ED course: Patient much better after GI cocktail, trop neg x 2, CT PE neg, long hx of acid problems and hiatal hernia. Will dc home with return precautions. . 12/12 12:50 Order name: Basic Metabolic Panel; Complete Time: 13:46 rn 12/12 12:50 Order name: CBC with Diff; Complete Time: 13: rn 12/12 12:50 Order name: LFT's; Complete Time: 13:46 rn 12/12 12:50 Order name: NT PRO-BNP; Complete Time: 13:46 rn 12/12 12:50 Order name: PT-INR; Complete Time: 13: rn 12/12 12:50 Order name: Troponin HS; Complete Time: 13:46 rn 12/12 12:50 Order name: SARS RAPID; Complete Time: 13:46 rn 12/12 15:01 Order name: Troponin High Sensitivity; Complete Time: 16:00 rn 12/12 15:01 Order name: Urinalysis w/ reflexes; Complete Time: 16:00 rn 12/12 12:50 Order name: XRAY Chest (1 view); Complete Time: 14:56 rn 12/12 12:50 Order name: CT Chest For PE Angio; Complete Time: 14:56 rn 12/12 12:50 Order name: EKG; Complete Time: 12:51 rn 12/12 12:50 Order name: Cardiac monitoring; Complete Time: 13: rn 12/12 12:50 Order name: EKG - Nurse/Tech; Complete Time: 13: rn 12/12 12:50 Order name: IV Saline Lock; Complete Time: 13:14 rn 12/12 12:50 Order name: Labs collected and sent; Complete Time: 13: rn 12/12 12:50 Order name: O2 Per Protocol; Complete Time: 13:12/12 12:50 Order name: O2 Sat Monitoring; Complete Time: 13:09 rn Administered Medications: 13:20 Drug: GI Cocktail without - (Maalox PO Suspension 30 ml, Lidocaine Mucous kc6 Membrane Liquid 2 % 15 ml) Route: PO; Disposition Summary: 12/12/22 16:02 Discharge Ordered Location: Home rn Problem: new rn Symptoms: have improved rn Condition: Stable rn Diagnosis - Chest pain, unspecified rn Followup: rn - With: Private Physician - When: As needed - Reason: Recheck today's complaints, Re-evaluation by your physician Discharge Instructions: - Discharge Summary Sheet rn - Nonspecific Chest Pain, Adult rn Forms: - Medication Reconciliation Form rn - Thank You Letter rn - Antibiotic learning administrator - Prescription Opioid Use rn - Patient Portal Instructions rn Signatures: Dispatcher [employer] Marcus Layton MD MD rn Campbell, Kaitlyn RN RN kc6 Keyana Saxena, RN RN nj1
--- NOTE | 2022-12-12 16:03 | ER ---
Nurse's Notes [facility] Name: Roxann Beltran Age: 82 yrs Sex: Female : 1940 Arrival Date: 12/12/2022 Time: 12:35 Bed 16 Private MD: Diagnosis: Chest pain, unspecified Presentation: 12/12 12:41 Chief complaint: Patient states: Chest pain, onset yesterday, got better but worsen nj1 today. Pt took 1 nitro with no relief. 12:41 Coronavirus screen: Vaccine status: Patient reports receiving the 2nd dose of the covid nj1 vaccine. Ebola Screen: Patient denies travel to an Ebola-affected area in the 21 days before illness onset. Initial Sepsis Screen: Does the patient meet any 2 criteria? No. Patient's initial sepsis screen is negative. Does the patient have a suspected source of infection? No. Patient's initial sepsis screen is negative. Risk Assessment: Do you want to hurt yourself or someone else? Patient reports no desire to harm self or others. Onset of symptoms was December 11, 2022. 12:41 Method Of Arrival: Ambulatory [facility] 12:41 Acuity: ROCIO 3 nj1 Historical: - Allergies: 12:41 Ciprofloxacin; nj1 - PMHx: 12:41 Hypertensive disorder; Hypercholesterolemia; nj1 - PSHx: 12:41 Hiatal hernia repair; nj1 - Immunization history:: Client reports receiving the 2nd dose of the Covid vaccine. - Social history:: Smoking status: Patient denies any tobacco usage or history of. - Family history:: not pertinent. - Hospitalizations: : No recent hospitalization is reported. Screenin:33 [facility] ED Fall Risk Assessment (Adult) History of falling in the last 3 months, kc6 including since admission No falls in past 3 months (0 pts) Confusion or Disorientation No (0 pts) Intoxicated or Sedated No (0 pts) Impaired Gait No (0 pts) Mobility Assist Device Used No (0 pt) Altered Elimination No (0 pt) Score/Fall Risk Level 0 - 2 = Low Risk. Abuse screen: Denies threats or abuse. Denies injuries from another. Nutritional screening: No deficits noted. Tuberculosis screening: No symptoms or risk factors identified. Assessment: 13:32 General: Appears in no apparent distress. comfortable, Behavior is calm, cooperative, kc6 appropriate for age. Pain: Complains of pain in chest Pain does not radiate. Pain began 1 day ago. Neuro: Level of Consciousness is awake, alert, obeys commands, Oriented to person, place, time, situation, Appropriate for age. Cardiovascular: Reports chest pain, Heart tones S1 S2 present Capillary refill < 3 seconds Rhythm is sinus rhythm. Respiratory: Airway is patent Trachea midline Respiratory effort is even, unlabored, Respiratory pattern is regular, symmetrical. GI: No signs and/or symptoms were reported involving the gastrointestinal system. : No signs and/or symptoms were reported regarding the genitourinary system. EENT: No signs and/or symptoms were reported regarding the EENT system. Derm: No signs and/or symptoms reported regarding the dermatologic system. Skin is intact, is healthy with good turgor, Skin is pink, warm \T\ dry. Musculoskeletal: No signs and/or symptoms reported regarding the musculoskeletal system. Circulation, motion, and sensation intact. Capillary refill < 3 seconds, Range of motion: intact in all extremities. Vital Signs: 12:41 BP 179 / 86; Pulse 74; Resp 18; Temp 99(O); Weight 58.97 kg; Height 5 ft. 1 in. ; Pain nj1 3/10; 13:34 BP 154 / 69; Pulse 69; Resp 13 S; Pulse Ox 100% on R/A; kc6 14:23 BP 141 / 73; Pulse 61; Resp 16; Pulse Ox 98% on R/A; sg5 15:02 BP 141 / 73; Pulse 64; Resp 18; Pulse Ox 98% ; sg5 15:34 BP 149 / 67; Pulse 66; Resp 18; Pulse Ox 98% on R/A; sg5 12:41 Body Mass Index 24.56 (58.97 kg, 154.94 cm) nj1 12:41 Pain Scale: Adult nj1 ED Course: 12:36 Patient arrived in ED. rg4 12:37 Marcus Coleman MD is Attending Physician. rn 12:41 Arm band placed on left wrist. nj1 12:47 Estee Castañeda, LISA is Primary Nurse. kc6 12:57 Triage completed. nj1 13:19 Inserted saline lock: 20 gauge in left antecubital area, using aseptic technique. Blood sm8 collected. 13:19 EKG done, by ED staff. sm8 13:33 Patient has correct armband on for positive identification. Placed in gown. Bed in low kc6 position. Call light in reach. Side rails up X 1. Adult w/ patient. Client placed on continuous cardiac and pulse oximetry monitoring. NIBP monitoring applied. electronic device monitor on. 13:33 Patient maintains SpO2 saturation greater than 95% on room air. kc6 13:35 XRAY Chest (1 view) In Process Unspecified. EDMS 14:09 CT Chest For PE Angio In Process Unspecified. EDMS 16:32 No provider procedures requiring assistance completed. IV discontinued, intact, kc6 bleeding controlled, No redness/swelling at site. Pressure dressing applied. Administered Medications: 13:20 Drug: GI Cocktail without - (Maalox PO Suspension 30 ml, Lidocaine Mucous kc6 Membrane Liquid 2 % 15 ml) Route: PO; Medication: 16:32 VIS not applicable for this client. kc6 Outcome: 16:02 Discharge ordered by . rn 16:32 Discharged to home ambulatory, with family. kc6 16:32 Condition: improved 16:32 Discharge instructions given to patient, Instructed on discharge instructions, follow up and referral plans. Demonstrated understanding of instructions, follow-up care. 16:32 Patient left the ED. kc6 Signatures: Dispatcher [employer] EDMS Marcus Coleman MD MD rn Garcia, Rubi rg4 Estee Castañeda RN RN kc6 Savana Duff RN RN sg5 Keyana Saxena RN RN nj1 Ann Westfall 8
[2022-12-12 16:58] VITALS: TEMP 99
[2022-12-12 17:00] VITALS: O2SAT 98
[2022-12-12 17:03] VITALS: BP 149/67
--- NOTE | 2022-12-13 18:10 | EKG ---
Test Date: 2022-12-12 Test Time: 12:58:55 Creative Strategist: AARON MEASUREMENT RESULTS: Intervals: Rate: 69 FL: 216 QRSD: 108 QT: 392 QTc: 420 [place]: P: 45 FL: 216 QRS: -39 T: 53 INTERPRETIVE STATEMENTS: Sinus rhythm with 1st degree AV block Left axis deviation Incomplete left bundle branch block Left ventricular hypertrophy with repolarization abnormality Abnormal ECG Compared to ECG 02/16/2015 13:45:46 Left-axis deviation now present Left bundle-branch block now present Left ventricular hypertrophy now present Early repolarization now present Electronically Signed On 12-13-22 18:09:17 CDT by Ilan Jones
== END 2022-12-12 16:32 | disposition home or self-care (01) ==
LOC: ER 12:35
DX: R07.9 Chest pain, unspecified (principal); Z20.822 Contact with and (suspected) exposure to COVID-19; I10 Essential (primary) hypertension; E78.00 Pure hypercholesterolemia, unspecified; Z88.8 Allergy status to other drugs, medicaments and biological substances
CPT/HCPCS: 93005; 85025; 80048; 36415; 85610; 80076; 81003; 84484 ×2; 83880; 71275; 71045; 87811; Q9967

== ENCOUNTER 2023-07-18 19:21 | Observation (INO) | payer OTHER ==
[2023-07-18 19:56] LABS: Absolute Basophils 0.1 K/uL (0-0.5); Absolute Eosinophils 0.2 K/uL (0-0.5); Absolute Lymphocytes (CBC) 2.4 K/uL (0.7-4.9); Absolute Monocytes 1.5 K/uL (0.1-1.3); Basophils % 0.7 % (0-1.3); Eosinophils % 1.8 % (0-4.4); Hematocrit 36.5 % (36.0-45.0); Hemoglobin 11.8 g/dL (12.0-15.0); Lymphocytes % 26.2 % (15.3-44.8); MCH 23.4 pg (27.0-35.0); MCHC 32.4 g/dL (32.0-36.0); MCV 72.4 fL (80-100); Monocytes % 16.1 % (3.3-12.3); Neutrophils % 55.2 % (41.7-73.7); Nucleated Red Blood Cells % 0.1 % (0-0); Platelets 284 thou/uL (152-406); RBC Red Blood Cell Count 5.05 M/uL (3.86-4.86); Red Cell Distribution Width 18.8 % (12.1-15.2)
[2023-07-18 20:14] LABS: ALT/SGPT 24 U/L (13-56); AST/SGOT 20 U/L (15-37); Albumin 3.4 g/dL (3.4-5.0); Alkaline Phosphatase 117 U/L (45-117); BUN Blood Urea Nitrogen 23 mg/dL (7-18); Bicarbonate 27 mEq/L (21-32); Bilirubin Total 0.2 mg/dL (0.2-1.0); Globulin 3.5 g/dL (2.3-3.5); Glomerular Filtration Rate 53 ml/min (=/>90); Glucose Level 60 mg/dL (74-106); Magnesium 2.3 mg/dL (1.6-2.4); NT PRO-BNP 628 pg/mL (<450); Protein, Total 6.9 g/dL (6.4-8.2); Sodium Level 139 mEq/L (136-145); Troponin High Sensitivity 8.9 pg/mL (<58.9)
[2023-07-18 20:20] LABS: Bilirubin Direct < 0.1 mg/dL (0-0.2); Bilirubin Indirect, Calculated ND mg/dL (0.2-0.8)
--- NOTE | 2023-07-18 20:44 | RAD REPORT ---
EXAM DESCRIPTION: RADChest Single View07/18/2023 8:05 pm CLINICAL HISTORY: DYSPNEA COMPARISON: Chest Pa And Lat (2 Views) dated 01/29/2023; Chest Single View dated 12/12/2022; Chest Pa A nd Lat (2 Views) dated 06/17/2021; CHEST SINGLE VIEW dated 02/16/2015 TECHNIQUE: Portable AP view of the chest. FINDINGS: The lungs are apart from blunting of the costophrenic angles bilaterally, suggesting pleur al thickening or small effusions. These are probably stable since 12/12/2022 allowing for differences in technique. No pneumothorax. The cardiomediastinal contours are unchanged, with tortuosity of the thoracic aorta again seen. IMPRESSION: No acute cardiopulmonary process. Probably stable findings as above.
[2023-07-18] MEDS ORDERED: FUROSEMIDE 20 MG/ 2ML VIAL ONE (22:23)
--- NOTE | 2023-07-18 23:58 | ER ---
Nurse's Notes [facility] Name: Roxann Beltran Age: 83 yrs Sex: Female : 1940 Arrival Date: 07/18/2023 Time: 19:21 Bed 18 Private MD: Diagnosis: Acute on chronic combined systolic (congestive) and diastolic (congestive) heart failure;Dyspnea on exertion Presentation: 07/17 19:28 Chief complaint: EMS states: shortness of breath for 3 days. Coronavirus screen: Client cp4 denies travel out of the [place] in the last 14 days. At this time, the client does not indicate any symptoms associated with coronavirus-19. Ebola Screen: Patient negative for fever greater than or equal to 101.5 degrees Fahrenheit, and additional compatible Ebola Virus Disease symptoms Patient denies exposure to infectious person. Patient denies travel to an Ebola-affected area in the 21 days before illness onset. No symptoms or risks identified at this time. Initial Sepsis Screen: Does the patient meet any 2 criteria? No. Patient's initial sepsis screen is negative. Does the patient have a suspected source of infection? No. Patient's initial sepsis screen is negative. Risk Assessment: Do you want to hurt yourself or someone else? Patient reports no desire to harm self or others. Onset of symptoms was July 15, 2023. 19:28 Method Of Arrival: EMS: [facility] cp4 19:28 Acuity: ROCIO 3 cp4 Triage Assessment: 19:33 General: Appears in no apparent distress. uncomfortable, Behavior is calm, cooperative, cp4 appropriate for age. Pain: Denies pain. Respiratory: Reports shortness of breath Breath sounds are clear bilaterally. Historical: - Allergies: 19:31 Ciprofloxacin; cp4 19:31 Aspirin; High dose; cp4 19:31 NSAIDS; cp4 - PMHx: 19:31 Hypercholesterolemia; Hypertensive disorder; cp4 - PSHx: 19:31 Hiatal Hernia Repair; cp4 - Immunization history:: Adult Immunizations up to date. - Social history:: Smoking status: Patient denies any tobacco usage or history of. Screenin:39 [facility] ED Fall Risk Assessment (Adult) History of falling in the last 3 months, lg3 including since admission No falls in past 3 months (0 pts). Abuse screen: Denies threats or abuse. Denies injuries from another. Nutritional screening: No deficits noted. Tuberculosis screening: No symptoms or risk factors identified. Assessment: 19:39 General: Appears in no apparent distress. uncomfortable, Behavior is calm, cooperative. lg3 Pain: Denies pain. Neuro: No deficits noted. Rouse Agitation-Sedation Scale (RASS): 0 - Alert and Calm Level of Consciousness is awake, alert, obeys commands, Oriented to person, place, time, situation, Reports weakness. Cardiovascular: No deficits noted. Denies chest pain, Capillary refill < 3 seconds Clubbing of nail beds is absent JVD is absent Patient's skin is warm and dry. Cardiovascular: Heart tones S1 S2 present. Respiratory: Reports shortness of breath Airway is patent Respiratory effort is even, unlabored, Respiratory pattern is regular, symmetrical, Breath sounds are clear bilaterally. GI: No deficits noted. No signs and/or symptoms were reported involving the gastrointestinal system. Abdomen is flat, non-distended. : No deficits noted. No signs and/or symptoms were reported regarding the genitourinary system. EENT: No deficits noted. No signs and/or symptoms were reported regarding the EENT system. Derm: No deficits noted. No signs and/or symptoms reported regarding the dermatologic system. Skin is intact, is healthy with good turgor, Skin is dry, Skin is normal, Skin temperature is warm. Musculoskeletal: No deficits noted. No signs and/or symptoms reported regarding the musculoskeletal system. Circulation, motion, and sensation intact. Range of motion: intact in all extremities. 21:02 Reassessment: Patient appears in no apparent distress at this time. No changes from lg3 previously documented assessment. Patient and/or family updated on plan of care and expected duration. Pain level reassessed. Patient is alert, oriented x 3, equal unlabored respirations, skin warm/dry/pink. 22:00 Reassessment: Patient appears in no apparent distress at this time. No changes from vc1 previously documented assessment. Patient and/or family updated on plan of care and expected duration. Pain level reassessed. Patient is alert, oriented x 3, equal unlabored respirations, skin warm/dry/pink. 23:00 Reassessment: Patient appears in no apparent distress at this time. No changes from vc1 previously documented assessment. Patient and/or family updated on plan of care and expected duration. Pain level reassessed. Patient is alert, oriented x 3, equal unlabored respirations, skin warm/dry/pink. 07/18 00:00 Reassessment: Patient appears in no apparent distress at this time. No changes from vc1 previously documented assessment. Patient and/or family updated on plan of care and expected duration. Pain level reassessed. Patient is alert, oriented x 3, equal unlabored respirations, skin warm/dry/pink. 01:00 Reassessment: Patient appears in no apparent distress at this time. No changes from vc1 previously documented assessment. Patient and/or family updated on plan of care and expected duration. Pain level reassessed. Patient is alert, oriented x 3, equal unlabored respirations, skin warm/dry/pink. 02:00 Reassessment: Patient appears in no apparent distress at this time. No changes from vc1 previously documented assessment. Patient and/or family updated on plan of care and expected duration. Pain level reassessed. Patient is alert, oriented x 3, equal unlabored respirations, skin warm/dry/pink. 02:51 Reassessment: Patient appears in no apparent distress at this time. No changes from vc1 previously documented assessment. Patient and/or family updated on plan of care and expected duration. Pain level reassessed. Patient is alert, oriented x 3, equal unlabored respirations, skin warm/dry/pink. Vital Signs: 07/17 19:28 BP 128 / 77; Pulse 93; Resp 20; Temp 98.1; Pulse Ox 99% ; Weight 60.78 kg; Height 5 ft. cp4 1 in. ; 21:02 BP 141 / 78; Pulse 72; Resp 17 S; Pulse Ox 98% on 2 lpm NC; lg3 22:29 BP 158 / 72; Pulse 74; Resp 16; Pulse Ox 100% on 2 lpm NC; lg3 23:00 BP 150 / 72; Pulse 68; Resp 16; Temp 98.3; Pulse Ox 100% ; vc1 07/18 00:00 BP 137 / 69; Pulse 63; Resp 16; Pulse Ox 95% ; vc1 01:00 BP 114 / 69; Pulse 67; Resp 15; Pulse Ox 96% ; vc1 02:00 BP 112 / 64; Pulse 69; Resp 16; Temp 98.1; Pulse Ox 96% ; vc1 07/17 19:28 Body Mass Index 25.32 (60.78 kg, 154.94 cm) cp4 ED Course: 07/17 19:24 Patient arrived in ED. bc6 19:28 Coco Chand is Primary Nurse. cp4 19:31 Triage completed. cp4 19:33 Arm band placed on left wrist. Patient placed in an exam room, on a stretcher. cp4 19:37 Antonino Bal MD is Attending Physician. rt 19:38 Kenyetta Garcia, RN is Primary Nurse. lg3 19:38 Initial lab(s) drawn, by me, sent to lab. EKG done, by ED staff, reviewed by Antonino Bal MD. Inserted saline lock: 18 gauge in right antecubital area, using aseptic technique. Blood collected. Oxygen administration via nasal cannula \T\ 2L/min. 19:39 Patient has correct armband on for positive identification. Placed in gown. Bed in low lg3 position. Call light in reach. Side rails up X 1. Client placed on continuous cardiac and pulse oximetry monitoring. NIBP monitoring applied. monitor car operator on. Door closed. Noise minimized. Warm blanket given. 19:43 Basic Metabolic Panel Sent. lg3 19:43 CBC with Diff Sent. lg3 19:43 LFT's Sent. lg3 19:43 Magnesium Sent. lg3 19:43 NT PRO-BNP Sent. lg3 19:43 Troponin HS Sent. lg3 20:06 XRAY Chest (1 view) In Process Unspecified. EDMS 20:17 Attending Physician role handed off by Antonino Bal MD sp4 20:17 Micha Garcia MD is Attending Physician. sp4 21:37 PO fluids given. kmf 22:42 Assisted to bedside commode. kmf 23:30 Assisted to bedside commode. kmf 23:57 Mason Sethi MD is Hospitalizing Provider. sp4 07/18 02:54 Provided Education on: Fall safety. vc1 02:54 No provider procedures requiring assistance completed. Patient admitted, IV remains in vc1 place. 08:14 Primary Nurse role handed off by Kenyetta Garcia, RN ko1 08:14 Marietta Olivia, RN is Primary Nurse. ko1 Administered Medications: 07/17 22:30 Drug: Furosemide IVP 20 mg IVP once; give over 2 minutes Route: IVP; Site: right lg3 antecubital; Medication: 07/18 02:54 VIS not applicable for this client. vc1 Outcome: 07/17 23:58 Decision to Hospitalize by Provider. sp4 07/18 02:54 Discharged to home ambulatory, vc1 Condition: good Instructed on the need for admit, 11:18 Patient left the ED. ko1 Signatures: Dispatcher [employer] EDMS Kenyetta Garcia RN RN lg3 Aye Alejandro RN RN vc1 Marietta Olivia RN RN ko1 Antonino Bla MD MD rt Allison Gonzalez Sergey, MD MD sp4 Coco Chand Kelsey Maroul [facility] Corrections: (The following items were deleted from the chart) 07/17 22:29 21:02 BP 104 / 52; Pulse 76bpm; Resp 15bpm; Spontaneous; Pulse Ox 98% 2 lpm Nasal lg3 Cannula; lg3
--- NOTE | 2023-07-18 23:58 | EDPHYS ---
Physician Documentation [facility] Name: Roxann Beltran Age: 83 yrs Sex: Female : 1940 Arrival Date: 07/18/2023 Time: 19:21 Bed 18 Private MD: ED Physician Micha Garcia HPI: 07/17 20:09 This 83 yrs old Female presents to ER via EMS with complaints of dyspnea. rt 20:09 Patient presents to the ED with 3 days of shortness of breath. Denies cough. States rt that she has had pneumonia previously. Denies any asthma, COPD history, heart failure. Denies any leg swelling. Denies other acute complaints at this time. States that symptoms have improved after being placed on oxygen. No reported hypoxia at home. Symptoms are moderate in severity, no other aggravating or elevating factors. Historical: - Allergies: 19:31 Ciprofloxacin; cp4 19:31 Aspirin; High dose; cp4 19:31 NSAIDS; cp4 - PMHx: 19:31 Hypercholesterolemia; Hypertensive disorder; cp4 - PSHx: 19:31 Hiatal Hernia Repair; cp4 - Immunization history:: Adult Immunizations up to date. - Social history:: Smoking status: Patient denies any tobacco usage or history of. ROS: 20:10 Constitutional: Negative for fever, chills, and weight loss, Cardiovascular: Negative rt for chest pain, palpitations, and edema, Abdomen/GI: Negative for abdominal pain, nausea, vomiting, diarrhea, and constipation, MS/Extremity: Negative for injury and deformity, Skin: Negative for injury, rash, and discoloration, Neuro: Negative for headache, weakness, numbness, tingling, and seizure, Psych: Negative for depression, anxiety, suicide ideation, homicidal ideation, and hallucinations, 20:10 Respiratory: Positive for shortness of breath, Negative for cough, Exam: 20:10 Constitutional: This is a well developed, well nourished patient who is awake, alert, rt and in no acute distress. Head/Face: Normocephalic, atraumatic. Chest/axilla: Normal chest wall appearance and motion. Nontender with no deformity. No lesions are appreciated. Cardiovascular: Regular rate and rhythm with a normal S1 and S2. No gallops, murmurs, or rubs. Normal PMI, no JVD. No pulse deficits. Respiratory: Lungs have equal breath sounds bilaterally, clear to auscultation and percussion. No rales, rhonchi or wheezes noted. No increased work of breathing, no retractions or nasal flaring. Abdomen/GI: Soft, non-tender, with normal bowel sounds. No distension or tympany. No guarding or rebound. No evidence of tenderness throughout. Skin: Warm, dry with normal turgor. Normal color with no rashes, no lesions, and no evidence of cellulitis. MS/ Extremity: Pulses equal, no cyanosis. Neurovascular intact. Full, normal range of motion. Neuro: Awake and alert, GCS 15, oriented to person, place, time, and situation. Cranial nerves II-XII grossly intact. Motor strength 5/5 in all extremities. Sensory grossly intact. Cerebellar exam normal. Normal gait. Psych: Awake, alert, with orientation to person, place and time. Behavior, mood, and affect are within normal limits. 20:10 ECG was reviewed by the Attending Physician. Vital Signs: 19:28 BP 128 / 77; Pulse 93; Resp 20; Temp 98.1; Pulse Ox 99% ; Weight 60.78 kg; Height 5 ft. cp4 1 in. ; 21:02 BP 141 / 78; Pulse 72; Resp 17 S; Pulse Ox 98% on 2 lpm NC; lg3 22:29 BP 158 / 72; Pulse 74; Resp 16; Pulse Ox 100% on 2 lpm NC; lg3 23:00 BP 150 / 72; Pulse 68; Resp 16; Temp 98.3; Pulse Ox 100% ; vc1 07/18 00:00 BP 137 / 69; Pulse 63; Resp 16; Pulse Ox 95% ; vc1 01:00 BP 114 / 69; Pulse 67; Resp 15; Pulse Ox 96% ; vc1 02:00 BP 112 / 64; Pulse 69; Resp 16; Temp 98.1; Pulse Ox 96% ; vc1 07/17 19:28 Body Mass Index 25.32 (60.78 kg, 154.94 cm) cp4 MDM: 07/17 19:41 Patient medically screened. rt 22:27 ED course: EXAM DESCRIPTION: Alexx Single View07/18/2023 8:05 pm CLINICAL HISTORY: sp4 DYSPNEA COMPARISON: Chest Pa And Lat (2 Views) dated 01/29/2023; Chest Single View dated 12/12/2022; Chest Pa And Lat (2 Views) dated 06/17/2021; CHEST SINGLE VIEW dated 02/16/2015 TECHNIQUE: Portable AP view of the chest. FINDINGS: The lungs are apart from blunting of the costophrenic angles bilaterally, suggesting pleural thickening or small effusions. These are probably stable since 12/12/2022 allowing for differences in technique. No pneumothorax. The cardiomediastinal contours are unchanged, with tortuosity of the thoracic aorta again seen. IMPRESSION: No acute cardiopulmonary process. Probably stable findings as above.. 22:28 Differential Diagnosis altered mental status, sepsis, flu, CHF . Data reviewed: vital sp4 signs, nurses notes. 23:58 Consideration of Admission/Observation Patient was admitted/placed on observation. sp4 Escalation of care including admission/observation considered. Management of patient was discussed with the following: Hospitalist: Jossie OLVERA . [place] Attendant: Robert OLVERA . ED course: Patient is stable for admission for evaluation of heart failure. Admit orders were placed. 07/17 19:38 Order name: Basic Metabolic Panel; Complete Time: 21:53 rt 07/17 19:38 Order name: CBC with Diff; Complete Time: 21:53 rt 07/17 19:38 Order name: LFT's; Complete Time: 21:53 rt 07/17 19:38 Order name: Magnesium; Complete Time: 21:53 rt 07/17 19:38 Order name: NT PRO-BNP; Complete Time: 21:53 rt 07/17 19:38 Order name: Troponin HS; Complete Time: 21:53 rt 07/18 08:51 Order name: Troponin High Sensitivity EDOH 07/17 19:38 Order name: XRAY Chest (1 view); Complete Time: 21:53 rt 07/17 19:38 Order name: EKG; Complete Time: 19:38 rt 07/17 23:44 Order name: CONS Physician Consult EDOH 07/17 19:38 Order name: Cardiac monitoring; Complete Time: 19:39 rt 07/17 19:38 Order name: EKG - Nurse/Tech; Complete Time: 19:39 rt 07/17 19:38 Order name: IV Saline Lock; Complete Time: 19:39 rt 07/17 19:38 Order name: Labs collected and sent; Complete Time: 19:39 rt 07/17 19:38 Order name: O2 Per Protocol; Complete Time: 19:39 rt 07/17 19:38 Order name: O2 Sat Monitoring; Complete Time: 19:39 rt EC:10 Rate is 84 beats/min. Rhythm is regular, 1st Degree Block with Left bundle branch rt block. Left axis deviation noted. CO interval is prolonged at 240 msec. QRS interval is normal. QT interval is normal. No Q waves. No ST changes noted. Interpreted by me. Administered Medications: 22:30 Drug: Furosemide IVP 20 mg IVP once; give over 2 minutes Route: IVP; Site: right lg3 antecubital; Disposition Summary: 07/18/23 23:58 Hospitalization Ordered Notes: Hospitalization Status: Inpatient Admission sp4 Provider: Mason Sethi sp4 Condition: Stable sp4 Problem: new sp4 Symptoms: have improved sp4 Bed/Room Type: Standard sp4 Location: Telemetry/MedSurg (Inpatient)(07/19/23 10:04) [facility] Room Assignment: [facility](07/19/23 10:04) [facility] Diagnosis - Acute on chronic combined systolic (congestive) and diastolic (congestive) heart sp4 failure - Dyspnea on exertion sp4 Forms: - Medication Reconciliation Form sp4 - SBAR form sp4 - Leadership Thank You Letter sp4 Signatures: Dispatcher [employer] Kenyetta Guzmán RN RN lg3 Emilia Perez RN RN kb3 Antonino Bal MD MD Allison Gonzalez 6 Micha Garcia MD MD spCoco Kay [facility] Corrections: (The following items were deleted from the chart) 07/18 02:10 07/17 23:58 Telemetry/MedSurg (Inpatient) sp4 kb3 07/18 02:10 07/17 23:58 sp4 kb3 07/18 10:04 02:10 [facility] ER HOLD kb3 6 10:04 02:10 ERHOLD- 3 6
[2023-07-19] MEDS ORDERED: ALBUTEROL 2.5 MG/3 ML NEB SOL NEB PRN (05:43)
[2023-07-19] MEDS ORDERED: ACETAMINOPHEN 325 MG TABLET PO PRN (05:43)
[2023-07-19] MEDS ORDERED: ALPRAZOLAM 0.25 MG TABLET PO PRN (05:43)
[2023-07-19] MEDS ORDERED: ONDANSETRON 4 MG/2 ML VIAL IV PRN (05:43)
[2023-07-19] MEDS: METOPROLOL XL 50 MG TAB PO SCH ×2 (06:00→15:19)
[2023-07-19] MEDS ORDERED: METOPROLOL XL 50 MG TAB PO ONE (06:53)
[2023-07-19] MEDS: ASPIRIN EC 81 MG TAB PO SCH (09:00)
[2023-07-19] MEDS: AMLODIPINE 5 MG TAB PO SCH (09:00)
[2023-07-19] MEDS: hydroCHLOROthiazide 25 MG TAB PO SCH (09:00)
[2023-07-19] MEDS ORDERED: hydroCHLOROthiazide 25 MG TAB ONE (09:11)
[2023-07-19] MEDS ORDERED: ASPIRIN EC 81 MG TAB PO ONE (09:11)
[2023-07-19] MEDS ORDERED: AMLODIPINE 5 MG TAB ONE (10:51)
--- NOTE | 2023-07-19 13:00 | P.SSS ---
Patient History Date of Service: 07/19/23 Reason for admission: DYSPNEA History of Present Illness: KUN CAME WITH MILD DYSPNEA. ER DOCTOR SAW BNP OF 600 AND CXR THAT DID NOT SHOW ANY CHANGES. GAVE ONE DOSE OF IV LASIX AND SHE IS IN HOSPITAL. I SAW HER IN ER Allergies No Known Drug Allergies Allergy (Verified 07/19/23 03:30) Unknown Home Medications: Amlodipine [Norvasc] 5 mg PO DAILY 07/19/23 Aspirin Chewable [Aspirin Chewable*] 81 mg PO DAILY 07/19/23 Atorvastatin Calcium [Lipitor] 10 mg PO BEDTIME 07/19/23 B Complex with Vitamin C [High Potency B] 1 each PO DAILY 07/19/23 Bimatoprost [Lumigan] 1 drop EACH EYE BEDTIME 07/19/23 L.acidoph,Paracarvin B.lactis [Probiotic] 1 each PO DAILY 07/19/23 Latanoprostene Bunod [Vyzulta] 5 ml OP BEDTIME 07/19/23 Metoprolol Succinate [Toprol Xl] 50 mg PO BID* 07/19/23 Nitroglycerin [Nitrostat] 0.4 mg SL PRN 07/19/23 hydroCHLOROthiazide [Hydrochlorothiazide*] 25 mg PO DAILY 07/19/23 - Past Medical/Surgical History Has patient received pneumonia vaccine in the past: Yes - Social History Smoking Status: Never smoker Place of Residence: Home Review of Systems 10-point ROS is otherwise unremarkable General: Weakness Physical Examination - Vital Signs Temperature: 97.5 F Blood Pressure: 122/58 Pulse: 60 Respirations: 14 Pulse Ox (%): 95 - Physical Exam General: Alert, In no apparent distress HEENT: Atraumatic, PERRLA, Mucous membr. moist/pink, EOMI, Sclerae nonicteric Neck: Supple, 2+ carotid pulse no bruit, No LAD, Without JVD or thyroid abnormality Respiratory: Clear to auscultation bilaterally, Normal air movement Cardiovascular: Regular rate/rhythm, Normal S1 S2 Gastrointestinal: Normal bowel sounds, No tenderness Musculoskeletal: No tenderness Integumentary: No rashes Neurological: Normal gait, Normal speech, Normal strength at 5/5 x4 extr, Normal tone, Normal affect Lymphatics: No axilla or inguinal lymphadenopathy - Studies Laboratory Data (last 24 hrs) 03/13/24 03/13/24 19:40 19:40 WBC 9.10 Hgb 11.8 L Hct 36.5 Plt Count 284 Sodium 139 Potassium 3.0 L BUN 23 H Creatinine 1.03 H Glucose 60 L Magnesium 2.3 Total Bilirubin 0.2 AST 20 ALT 24 Alkaline Phosphatase 117 - Diagnosis (Problem(s)) (1) Diastolic CHF, acute Current Visit: Yes Status: Acute Plan: ECHO IS PENDING I SUSPECT DIASTOLIC HEART DYSFUNCTION. LASIX AND ALDACTONE ADDED. STOP HCTZ STOP AMLODIPINE. WATCH BP WATCH ELECTROLYTES IF STABLE CAN GO HOME TODAY. WE WILL AMBULATE. (2) HTN (hypertension) Current Visit: Yes Status: Acute - Disposition Disposition: ROUTINE DISCHARGE
--- NOTE | 2023-07-19 18:04 | P.CNS ---
Date of Consult: 07/19/23 Chief Complaint: DYSPNEA History of Present Illness: patient with PMH of HTN, presented with worsening CERRATO and SOB for the last few days, denies any chest pain, no palpitations, no recent ravel, no syncope, no recent viral illness. Allergies No Known Drug Allergies Allergy (Verified 07/19/23 03:30) Unknown Home Medications: Amlodipine [Norvasc] 5 mg PO DAILY 07/19/23 Aspirin Chewable [Aspirin Chewable*] 81 mg PO DAILY 07/19/23 Atorvastatin Calcium [Lipitor] 10 mg PO BEDTIME 07/19/23 B Complex with Vitamin C [High Potency B] 1 each PO DAILY 07/19/23 Bimatoprost [Lumigan] 1 drop EACH EYE BEDTIME 07/19/23 L.acidoph,Darline B.lactis [Probiotic] 1 each PO DAILY 07/19/23 Latanoprostene Bunod [Vyzulta] 5 ml OP BEDTIME 07/19/23 Metoprolol Succinate [Toprol Xl] 50 mg PO BID* 07/19/23 Nitroglycerin [Nitrostat] 0.4 mg SL PRN 07/19/23 hydroCHLOROthiazide [Hydrochlorothiazide*] 25 mg PO DAILY 07/19/23 - Social History Place of Residence: Home Review of Systems 10-point ROS is otherwise unremarkable Physical Examination Temp Pulse Resp BP Pulse Ox 98.3 F 62 14 132/61 99 07/19/23 15:39 07/19/23 15:39 07/19/23 15:39 07/19/23 15:39 07/19/23 15:39 General: Alert, Oriented x3 HEENT: Atraumatic Neck: Supple Respiratory: Clear to auscultation bilaterally Cardiovascular: No edema, Normal S1 S2 Gastrointestinal: Normal bowel sounds Laboratory Data (last 24 hrs) 07/18/23 07/18/23 19:40 19:40 WBC 9.10 Hgb 11.8 L Hct 36.5 Plt Count 284 Sodium 139 Potassium 3.0 L BUN 23 H Creatinine 1.03 H Glucose 60 L Magnesium 2.3 Total Bilirubin 0.2 AST 20 ALT 24 Alkaline Phosphatase 117 - Problems (1) Diastolic CHF, acute Current Visit: Yes Status: Acute Plan: patient felt better after IV diuresis. Continue Lasix 40 mg po daily Continue Spirnolactone 50 mg daily Continue Toprol XL 50 mg po BID Follow up with cardiology. (2) HTN (hypertension) Current Visit: Yes Status: Acute Plan: adjusment has been made to her medications. Continue Toprol XL 50 mg po BID Continue spirnolactone 50 mg daily BMP to be checked in 1 week.
[2023-07-19] MEDS: ATORVASTATIN 10 MG TAB PO SCH (20:52)
[2023-07-19] MEDS: BIMATOPROST OPTH SCH (20:54)
[2023-07-19] MEDS: LATANOPROSTENE BUNOD OPTH SCH (20:54)
[2023-07-20 04:57] VITALS: BMI 24.3
--- NOTE | 2023-07-20 07:00 | ECHO ---
HEIGHT: 5 ft 1 in WEIGHT: 128 lb 14.4 oz DATE OF STUDY: 07/19/[address]: Micha Garcia MD 2-DIMENSIONAL: YES M.MODE: YES DOPPLER: YES COLOR FLOW: YES TDS: PORTABLE: YES DEFINITY: BUBBLE STUDY: DIAGNOSIS: CONGESTIVE HEART FAILURE CARDIAC HISTORY: CATHERIZATION: NO SURGERY: NO PROSTHETIC VALVE: NO PACEMAKER: NO MEASUREMENTS (cm) DIASTOLIC (NORMALS) SYSTOLIC (NORMALS) IVSd 1.1 (0.6-1.2) LA Diam 3.0 (1.9-4.0) LVEF 68% LVIDd 3.7 (3.5-5.7) LVIDs 2.3 (2.0-3.5) %FS 37% LVPWd 1.1 (0.6-1.2) Ao Diam 2.7 (2.0-3.7) 2 DIMENSIONAL ASSESSMENT: RIGHT ATRIUM: NORMAL LEFT ATRIUM: NORMAL RIGHT VENTRICLE: NORMAL LEFT VENTRICLE: NORMAL TRICUSPID VALVE: TRACE TRICUSPID REGURGITATION MITRAL VALVE: NORMAL PULMONIC VALVE: NORMAL AORTIC VALVE: MILD AORTIC REGURGITATION PERICARDIAL EFFUSION: NONE AORTIC ROOT: NORMAL LEFT VENTRICULAR WALL MOTION: NORMAL DOPPLER/COLOR FLOW: GRADE I DIASTOLIC DYSFUNCTION COMMENTS: 1. NORMAL LEFT VENTRICULAR SYSTOLIC FUNCTION, EJECTION FRACTION 55-60%, NORMAL WALL MOTION 2. GRADE I DIASTOLIC DYSFUNCTION TECHNOLOGIST: PAZ ZEPEDA
[2023-07-20] MEDS: ASPIRIN 81 MG CHEWABLE TABLET PO SCH (07:57)
[2023-07-20] MEDS: VITAMIN B COMPLEX 1 CAP PO SCH (07:57)
[2023-07-20] MEDS: FUROSEMIDE 40 MG TABLET PO SCH (07:57)
[2023-07-20] MEDS: SPIRONOLACTONE 25 MG TABLET PO SCH (07:58)
[2023-07-20 10:04] LABS: Anion Gap 8.5 mEq/L (5.0-15.0); Potassium 3.5 mEq/L (3.5-5.1)
[2023-07-20 11:01] VITALS: O2SAT 93
[2023-07-20] MEDS: POTASSIUM CL SA 10 MEQ TAB PO ONE ×2 (11:50→11:53)
--- NOTE | 2023-07-20 12:11 | P.DS ---
Admission Date: 07/18/23 Discharge Date: 07/20/23 Disposition: ROUTINE DISCHARGE Discharge Condition: FAIR Reason for Admission: DYSPNEA - Problems (1) Diastolic CHF, acute Current Visit: Yes Status: Acute (2) HTN (hypertension) Current Visit: Yes Status: Acute Brief History of Present Illness: KUN CAME WITH MILD DYSPNEA. ER DOCTOR SAW BNP OF 600 AND CXR THAT DID NOT SHOW ANY CHANGES. GAVE ONE DOSE OF IV LASIX AND SHE IS IN HOSPITAL. I SAW HER IN ER Hospital Course: KUN IS A PATIENT WITH HTN WHO COMES WITH DYSPNEA. SHE HAS MILD CHF. SHE DID WELL WITH IV LASIX. DC MEDS ARE LASIX AND ALDACTONE. I STOPPED AMLODIPINE AND HCTZ. FU IN OFFICE ONE WEEK. Vital Signs/Physical Exam: Temp Pulse Resp BP Pulse Ox 97.3 F 63 16 140/67 96 07/20/23 08:00 07/20/23 08:00 07/20/23 08:00 07/20/23 08:00 07/20/23 08:00 Laboratory Data at Discharge: WBC 9.10 thou/uL (4.3-10.9) 07/18/23 19:40 Hgb 11.8 g/dL (12.0-15.0) L 07/18/23 19:40 Hct 36.5 % (36.0-45.0) 07/18/23 19:40 Plt Count 284 thou/uL (152-406) 07/18/23 19:40 Sodium 138 mEq/L (136-145) 07/20/23 09:46 Potassium 3.5 mEq/L (3.5-5.1) 07/20/23 09:46 BUN 17 mg/dL (7-18) 07/20/23 09:46 Creatinine 0.97 mg/dL (0.55-1.02) 07/20/23 09:46 Glucose 152 mg/dL (74-106) H 07/20/23 09:46 Magnesium 2.3 mg/dL (1.6-2.4) 07/18/23 19:40 Total Bilirubin 0.2 mg/dL (0.2-1.0) 07/18/23 19:40 AST 20 U/L (15-37) 07/18/23 19:40 ALT 24 U/L (13-56) 07/18/23 19:40 Alkaline Phosphatase 117 U/L (45-117) 07/18/23 19:40 Home Medications: Aspirin Chewable [Aspirin Chewable*] 81 mg PO DAILY 07/19/23 Atorvastatin Calcium [Lipitor*] 10 mg PO BEDTIME 07/19/23 B Complex with Vitamin C [High Potency B] 1 each PO DAILY 07/19/23 Bimatoprost [Lumigan] 1 drop EACH EYE BEDTIME 07/19/23 L.acidoph,Paracasei, B.lactis [Probiotic] 1 each PO DAILY 07/19/23 Latanoprostene Bunod [Vyzulta] 5 ml OP BEDTIME 07/19/23 Metoprolol Succinate [Toprol Xl*] 50 mg PO BID* 07/19/23 Nitroglycerin [Nitrostat*] 0.4 mg SL PRN 07/19/23 Furosemide [Lasix*] 40 mg PO DAILY tab 07/20/23 Spironolactone [Aldactone*] 50 mg PO DAILY tab 07/20/23 Followup: Floyd Sethi MD [Primary Care Provider] -
[2023-07-20 12:40] VITALS: BP 132/67; TEMP 97.1
--- NOTE | 2023-07-20 17:28 | EKG ---
Test Date: 2023-07-18 Test Time: 19:24:20 Stock Shipper: [place] MEASUREMENT RESULTS: Intervals: Rate: 84 MA: 240 QRSD: 106 QT: 384 QTc: 453 [place]: P: 37 MA: 240 QRS: -39 T: 13 INTERPRETIVE STATEMENTS: Sinus rhythm with 1st degree AV block Left axis deviation Incomplete left bundle branch block Moderate voltage criteria for LVH, may be normal variant Abnormal ECG Compared to ECG 12/12/2022 12:58:55 Early repolarization no longer present Electronically Signed On 07-20-23 17:21:37 CDT by Ilan Jones
== END 2023-07-20 13:18 | disposition home or self-care (01) ==
LOC: ER 19:21 → ERHOLD 23:40 → INTOOBSV 23:40 → 2ND 07-19 11:01
PROVIDERS: ADMIT Internal Medicine; ATTEND Internal Medicine
DX: I50.31 Acute diastolic (congestive) heart failure (principal); I10 Essential (primary) hypertension
CPT/HCPCS: 93005; 93306; 85025; 80048 ×2; 36415 ×2; 83735; 82947; 80076; 84484 ×4; 83880; 71045; 96374; 99285; J1940; G0378 ×4

== ENCOUNTER 2024-06-05 16:20 | Emergency (ER) | payer OTHER ==
--- NOTE | 2024-06-05 18:00 | RAD REPORT ---
Exam:Hip Right 2 View HISTORY: Right hip pain FINDINGS: Right hip prosthesis in good position. No evidence of loosening or section. No fracture or dislocation seen. Osteoporosis
--- NOTE | 2024-06-05 18:06 | RAD REPORT ---
EXAMINATION: Lumbar Spine 3 Views CLINICAL INDICATION: Back pain FINDINGS: Mild to moderate scoliosis Mild compression deformity vertebral endplates L3 probably chronic. No acute fracture or dislocation seen. Slight anterior subluxation L4 on L5 osteoporosis. Marked spondylosis upper or spine. If the patient continues to have symptoms to suggest an acute lumbar spine pathology MRI would be rec ommended
--- NOTE | 2024-06-05 18:15 | RAD REPORT ---
EXAM:Extremity Venous Uni Ltd HISTORY: Right leg pain TECHNIQUE: Sonographic evaluation right lower extremity performed.Grayscale, color and spectral alexus sis performed on all vessels COMPARISON: None. FINDINGS: Right common femoral, superficial femoral, greater saphenous, popliteal and posterior tibial veins ar e compressible and demonstrate augmentation. Doppler demonstrates good flow. IMPRESSION: No evidence of deep venous thrombosis involving the right lower extremity.
--- NOTE | 2024-06-05 18:19 | ER ---
Nurse's Notes [facility] Name: Roxann Beltran Age: 84 yrs Sex: Female : 1940 Arrival Date: 06/05/2024 Time: 16:20 Bed 6 Private MD: Diagnosis: Other bursitis of hip, right hip;Pain in right hip Presentation: 06/05 16:48 Chief complaint: Patient states: right hip pain off and on for 2 weeks, it has been ko1 going away but today its worse and I cant get relief. Right hip replaced in 2017. Coronavirus screen: At this time, the client does not indicate any symptoms associated with coronavirus-19. Ebola Screen: No symptoms or risks identified at this time. Initial Sepsis Screen: Does the patient meet any 2 criteria? No. Patient's initial sepsis screen is negative. Does the patient have a suspected source of infection? No. Patient's initial sepsis screen is negative. Risk Assessment: Do you want to hurt yourself or someone else? Patient reports no desire to harm self or others. Onset of symptoms is unknown. 16:48 Method Of Arrival: Ambulatory ko1 16:48 Acuity: ROCIO 3 ko1 Triage Assessment: 16:51 General: Appears uncomfortable, Behavior is calm, cooperative, appropriate for age. ko1 Pain: Complains of pain in right hip. EENT: No deficits noted. No signs and/or symptoms were reported regarding the EENT system. Neuro: No deficits noted. Cardiovascular: No deficits noted. Respiratory: No deficits noted. GI: No deficits noted. No signs and/or symptoms were reported involving the gastrointestinal system. : No deficits noted. No signs and/or symptoms were reported regarding the genitourinary system. Derm: No deficits noted. No signs and/or symptoms reported regarding the dermatologic system. Musculoskeletal: No deficits noted. No signs and/or symptoms reported regarding the musculoskeletal system. Historical: - Allergies: 16:49 Aspirin; High dose; ko1 16:49 Ciprofloxacin; ko1 16:49 NSAIDS; ko1 - Home Meds: 16:51 Unable to obtain [Active]; ko1 - PMHx: 16:49 Hypercholesterolemia; Hypertensive disorder; Congestive heart failure; Arthritis; pre ko1 diabetic; Diverticulitis; - PSHx: 16:49 Hiatal Hernia Repair; right hip replacement (Hiatal Hernia Repair); Total abdominal ko1 hysterectomy; Cholecystectomy; shoulder surgery; - Immunization history:: Adult Immunizations unknown. - Infectious Disease History:: Denies. - Social history:: Smoking status: Patient denies any tobacco usage or history of. - Family history:: not pertinent. - Hospitalizations: : No recent hospitalization is reported. Screenin:52 [facility] ED Fall Risk Assessment (Adult) History of falling in the last 3 months, ko1 including since admission No falls in past 3 months (0 pts) Confusion or Disorientation No (0 pts) Intoxicated or Sedated No (0 pts) Impaired Gait No (0 pts) Mobility Assist Device Used No (0 pt) Altered Elimination No (0 pt) Score/Fall Risk Level 0 - 2 = Low Risk Oriented to surroundings, Maintained a safe environment, Educated pt \T\ family on fall prevention, incl call for assistance when getting out of bed, Assessed \T\ reinforced patient's understanding of fall precautions, Hourly rounding (assess needs \T\ fall precautionary measures) done. Abuse screen: Denies threats or abuse. Denies injuries from another. Nutritional screening: No deficits noted. Tuberculosis screening: No symptoms or risk factors identified. Assessment: 16:52 Reassessment: see triage. ko1 16:52 Reassessment: MD at bedside . aa5 19:05 Reassessment: Patient appears in no apparent distress at this time. Patient and/or bm8 family updated on plan of care and expected duration. Pain level reassessed. Patient is alert, oriented x 3, equal unlabored respirations, skin warm/dry/pink. Patient states feeling better. Patient states symptoms have improved. Pain: Pain currently is 2 out of 10 on a pain scale. Vital Signs: 16:48 BP 166 / 80; Pulse 73; Resp 16 S; Temp 97.5(O); Pulse Ox 100% on R/A; aa5 19:02 BP 147 / 68; Pulse 66; Resp 15; Pulse Ox 98% ; ko1 19:05 BP 146 / 68; Pulse 65; Resp 17; Temp 97.5; Pulse Ox 97% ; Pain 2/10; bm8 19:05 Pain Scale: Adult bm8 [place] Coma Score: 19:05 Eye Response: spontaneous(4). Motor Response: obeys commands(6). Verbal Response: bm8 oriented(5). Total: 15. ED Course: 16:23 Patient arrived in ED. al6 16:29 Marcus Coleman MD is Attending Physician. rn 16:43 Marietta Olivia, RN is Primary Nurse. ko1 16:49 Triage completed. ko1 16:51 Arm band placed on right wrist. Patient placed in an exam room, on a stretcher, on ko1 pulse oximetry, Patient notified of wait time. 16:52 Patient has correct armband on for positive identification. Allergy band placed. Placed ko1 in gown. Bed in low position. Call light in reach. Side rails up X2. Provided Education on: call light. Pulse ox on. NIBP on. Door closed. Noise minimized. Lights dimmed. Warm blanket given. Pillow given. 17:54 XRAY Hip RIGHT 2 view In Process Unspecified. EDMS 17:54 XRAY Lumbar Spine (3 Views) In Process Unspecified. EDMS 18:06 Extremity Venous Uni Ltd US In Process Unspecified. EDMS 19:02 No provider procedures requiring assistance completed. Patient did not have IV access ko1 during this emergency room visit. Administered Medications: 18:49 Drug: Ketorolac IM 15 mg IM once Route: IM; Site: right gluteus; aa5 19:04 Follow up: Response: No adverse reaction; Medication administered at discharge. ko1 18:49 Drug: traMADol PO 50 mg PO once Route: PO; aa5 19:04 Follow up: Response: No adverse reaction; Medication administered at discharge. ko1 Medication: 19:02 VIS not applicable for this client. ko1 Outcome: 18:19 Discharge ordered by . rn 19:05 Discharged to home ambulatory, with family, bm8 19:05 Condition: stable 19:05 Discharge instructions given to patient, family, Instructed on discharge instructions, follow up and referral plans. safety practices, Demonstrated understanding of instructions, follow-up care, medications, Prescriptions given X 1, 19:07 Patient left the ED. bm8 Signatures: Dispatcher [employer] EDMS Marcus Coleman MD MD rn Calderon, Audri, RN RN aa5 Marietta Olivia, RN RN ko1 Miah Rebolledo RN RN bm8 Sonya Moura al6
--- NOTE | 2024-06-05 18:19 | EDPHYS ---
Physician Documentation [facility] Name: Roxann Beltran Age: 84 yrs Sex: Female : 1940 Arrival Date: 06/05/2024 Time: 16:20 Bed 6 Private MD: ED Physician Marcus Coleman HPI: 06/05 17:27 This 84 yrs old Female presents to ER via Ambulatory with complaints of Hip Pain. rn 17:27 The patient or guardian reports pain. There is no obvious deformity, The patient is rn able to bear their full body weight. The complaints affect the right leg. Onset: The symptoms/episode began/occurred 2 month(s) ago. Modifying factors: The symptoms are alleviated by OTC meds, Tylenol, the symptoms are aggravated by Have a movement. Associated signs and symptoms: Pertinent positives: None. Pertinent negatives: abdominal pain, fever, weakness, Trauma or injury, swelling. Severity of symptoms: At their worst the symptoms were moderate, in the emergency department the symptoms have improved. The patient has experienced similar episodes in the past, chronically. Patient reports at least 2 months of right hip pain, no radiation. Patient reports distant right hip replacement as well as left femur michael from trauma. Patient reports pain with heavy movement and action such as working in the yard, usually Tylenol gets rid of the pain but for the last few weeks Tylenol not getting rid of it completely. No fall or injury. No new symptoms. No weakness. No focal back pain.. Historical: - Allergies: 16:49 Aspirin; High dose; ko1 16:49 Ciprofloxacin; ko1 16:49 NSAIDS; ko1 - Home Meds: 16:51 Unable to obtain [Active]; ko1 - PMHx: 16:49 Hypercholesterolemia; Hypertensive disorder; Congestive heart failure; Arthritis; pre ko1 diabetic; Diverticulitis; - PSHx: 16:49 Hiatal Hernia Repair; right hip replacement (Hiatal Hernia Repair); Total abdominal ko1 hysterectomy; Cholecystectomy; shoulder surgery; - Immunization history:: Adult Immunizations unknown. - Infectious Disease History:: Denies. - Social history:: Smoking status: Patient denies any tobacco usage or history of. - Family history:: not pertinent. - Hospitalizations: : No recent hospitalization is reported. ROS: 17:34 Constitutional: Negative for fever, chills, and weight loss, Cardiovascular: Negative rn for chest pain, palpitations, and edema, Abdomen/GI: Negative for abdominal pain Back: No focal back pain MS/Extremity: Positive for right leg pain/hip pain Skin: Negative for injury, rash, and discoloration, Neuro: Negative for weakness or numbness of the leg Exam: 17:34 Constitutional: This is a well developed, well nourished patient who is awake, alert, rn and in no acute distress. Cardiovascular: Regular rate and rhythm. No pulse deficits. Respiratory: No increased work of breathing, no retractions or nasal flaring. Skin: Warm, dry MS/ Extremity: Pulses equal, no cyanosis. Neurovascular intact. Full, normal range of motion. Equal circumference. No discoloration or evidence of cellulitis. Full passive range of motion of the hip and the knee on the right side. Neuro: Awake and alert, GCS 15 Vital Signs: 16:48 BP 166 / 80; Pulse 73; Resp 16 S; Temp 97.5(O); Pulse Ox 100% on R/A; aa5 19:02 BP 147 / 68; Pulse 66; Resp 15; Pulse Ox 98% ; ko1 19:05 BP 146 / 68; Pulse 65; Resp 17; Temp 97.5; Pulse Ox 97% ; Pain 2/10; bm8 19:05 Pain Scale: Adult bm8 [place] Coma Score: 19:05 Eye Response: spontaneous(4). Motor Response: obeys commands(6). Verbal Response: bm8 oriented(5). Total: 15. MDM: 16:29 Medical Screening Exam initiated rn 17:40 Special discussion: Further emergent ED testing is not indicated at this point in time. rn I discussed with the patient/guardian in detail the need to arrange with the PCP or specialist further outpatient testing, MRI, Based on the history and exam findings, there is no indication for further emergent testing or inpatient evaluation. I discussed with the patient/guardian the need to see the orthopedic surgeon for further evaluation of the symptoms. 18:11 Differential diagnosis: bursitis, arthritis, strain. Data reviewed: vital signs, nurses rn notes, radiologic studies, plain films, ultrasound, and as a result, I will discharge patient. Counseling: I had a detailed discussion with the patient and/or guardian regarding the historical points, exam findings, and any diagnostic results supporting the discharge/admit diagnosis, radiology results, the need for outpatient follow up, to return to the emergency department if symptoms worsen or persist or if there are any questions or concerns that arise at home. ED course: No acute findings and x-ray of the spine or hip per Dr. Castaneda, spoke with water quality technician and negative for DVT on the ultrasound study. Will discharge home with gabapentin as needed and will follow-up with her PCP for outpatient MRI if symptoms do not improve. I have personally reviewed all of the results, including but not limited to imaging deemed necessary to safely discharge this patient at this time. All results given to and printed out for patient. I personally went over all the results with the patient and answered all questions. Patient will follow-up with PCP and or specialist as discussed. Return precautions given and understood.. 18:20 ED course: Ultrasound result negative for DVT.. rn 06/05 17:08 Order name: XRAY Hip RIGHT 2 view; Complete Time: 18:07 rn 06/05 17:08 Order name: XRAY Lumbar Spine (3 Views); Complete Time: 18:07 rn 06/05 17:08 Order name: Extremity Venous Uni Ltd US; Complete Time: 18:18 rn Administered Medications: 18:49 Drug: Ketorolac IM 15 mg IM once Route: IM; Site: right gluteus; aa5 19:04 Follow up: Response: No adverse reaction; Medication administered at discharge. ko1 18:49 Drug: traMADol PO 50 mg PO once Route: PO; aa5 19:04 Follow up: Response: No adverse reaction; Medication administered at discharge. ko1 Disposition Summary: 06/05/24 18:19 Discharge Ordered Notes: Location: Home rn Problem: an ongoing problem rn Symptoms: have improved rn Condition: Stable rn Diagnosis - Other bursitis of hip, right hip rn - Pain in right hip rn Followup: rn - With: Private Physician - When: As needed - Reason: Recheck today's complaints, Re-evaluation by your physician Discharge Instructions: - Discharge Summary Sheet rn - Arthritis rn - Hip Bursitis rn - Hip Pain rn Forms: - Medication Reconciliation Form rn - Antibiotic e learning designer - Prescription Opioid Use rn - Patient Portal Instructions rn - Leadership Thank You Letter rn Prescriptions: - gabapentin 100 mg Oral capsule - take 1 capsule ORAL route every 12 hours As needed; 14 capsule; Refills: 0, rn Product Selection Permitted Signatures: Dispatcher [employer] EDMS Marcus Coleman MD MD rn Calderon, Audri RN RN aa5 Marietta Olivia RN RN ko1 Corrections: (The following items were deleted from the chart) 17: 17:08 Hip Right 2 View+RAD.[email or web address] ordered. EDMS EDMS 17: 17:08 Lumbar Spine 3 Views+RAD.[email or web address].[email or web address] ordered. EDMS EDMS 17: 17:08 Extremity Venous Uni Ltd+US.RAD.[email or web address] ordered. EDMS EDMS 17:34 17:27 Patient reports at least 2 months of right hip pain, no radiation.. rn rn
[2024-06-05] MEDS ORDERED: KETOROLAC 30 MG/ML INJ ONE (18:45)
[2024-06-05] MEDS ORDERED: TRAMADOL HCL 50 MG TAB ONE (18:45)
[2024-06-06 02:40] VITALS: TEMP 97.5
[2024-06-06 02:51] VITALS: BP 146/68; O2SAT 97
== END 2024-06-05 19:07 | disposition home or self-care (01) ==
LOC: ER 16:20
DX: M71.551 Other bursitis, not elsewhere classified, right hip (principal); Z96.641 Presence of right artificial hip joint
CPT/HCPCS: 72100; 93971; 96372; 99284